=== PATIENT | female | born 1940 | race Caucasian/White ===

== ENCOUNTER → 2024-08-30 | Outpatient (CLI) | payer OTHER, SELFPAY ==
--- NOTE | 2024-08-30 | XR_ITS ---
EXAMINATIONS: Transforaminal epidural steroid injection, lumbar, single level, includes fluoro guidance, right L4-L5. Fluoroscopy ENGEL lumbar spine single view INDICATIONS: Right lower back pain months. Exam date and time: August 30, 2024 1350 hours Technique And Findings: Patient is positioned prone on the fluoroscopic table. Oblique fluoroscopic views obtained. Local anesthesia is obtained with 1% lidocaine. 22-gauge needle was advanced toward the 6:00 position of the pedicle. Fluoroscopy is utilized to ensure the needle tip is within the safe triangle After negative aspiration for blood and CSF, 1 cc Kenalog 40 triamcinolone is injected without difficulty. Patient tolerated the procedure well and in satisfactory and stable condition upon completion of procedure. Estimated blood loss 0 cc IMPRESSION: Successful transforaminal epidural steroid injection as described above Fluoroscopy 0.3 minute radiation dose 6.54 milligray 1 spot fluoroscopic lumbar spine film.
--- NOTE | 2024-08-30 | XR_ITS ---
EXAMINATIONS: Transforaminal epidural steroid injection, lumbar, single level, includes fluoro guidance, right L5-S1. Fluoroscopy ENGEL lumbar spine single view INDICATIONS: Right-sided lower back pain beginning months ago. Exam date and time: August 30, 2024 1350 hours Technique And Findings: Patient is positioned prone on the fluoroscopic table. Oblique fluoroscopic views obtained. Local anesthesia is obtained with 1% lidocaine. 22-gauge needle was advanced toward the 6:00 position of the pedicle. Fluoroscopy is utilized to ensure the needle tip is within the safe triangle After negative aspiration for blood and CSF, 1 cc Kenalog 40 is injected without difficulty. Patient tolerated the procedure well and in satisfactory and stable condition upon completion of procedure. Estimated blood loss 0 cc IMPRESSION: Successful transforaminal epidural steroid injection as described above Fluoroscopy 0.3 minute radiation dose 6.54 milligray 1 spot fluoroscopic lumbar spine film.
--- NOTE | 2024-08-30 13:30 | XR_ITS ---
EXAMINATIONS: Transforaminal epidural steroid injection, lumbar, single level, includes fluoro guidance, left L5-S1. Fluoroscopy RUSSIAN lumbar spine single view INDICATIONS: Left lower back pain months. Exam date and time: August 30, 2024 1350 hours Technique And Findings: Patient is positioned prone on the fluoroscopic table. Oblique fluoroscopic views obtained. Local anesthesia is obtained with 1% lidocaine. 22-gauge needle was advanced toward the 6:00 position of the pedicle. Fluoroscopy is utilized to ensure the needle tip is within the safe triangle After negative aspiration for blood and CSF, 40 mg triamcinolone is injected without difficulty. Patient tolerated the procedure well and in satisfactory and stable condition upon completion of procedure. Estimated blood loss 0 cc IMPRESSION: Successful transforaminal epidural steroid injection as described above Fluoroscopy 0.3 minute radiation dose 6.54 milligray 1 spot fluoroscopic lumbar spine film.
--- NOTE | 2024-08-30 13:30 | XR_ITS ---
EXAMINATIONS: Transforaminal epidural steroid injection, lumbar, single level, includes fluoro guidance, left L4-L5. Fluoroscopy PRYDEINIG lumbar spine single view INDICATIONS: Left lower back pain months. Exam date and time: August 30, 2024 1311 hours Technique And Findings: Patient is positioned prone on the fluoroscopic table. Oblique fluoroscopic views obtained. Local anesthesia is obtained with 1% lidocaine. 22-gauge needle was advanced toward the 6:00 position of the pedicle. Fluoroscopy is utilized to ensure the needle tip is within the safe triangle After negative aspiration for blood and CSF, 40 mg triamcinolone is injected without difficulty. Patient tolerated the procedure well and in satisfactory and stable condition upon completion of procedure. Estimated blood loss 0 cc IMPRESSION: Successful transforaminal epidural steroid injection as described above Fluoroscopy 0.3 minute radiation dose 6.54 milligray 1 spot fluoroscopic lumbar spine film.
== END | disposition home or self-care (01) ==
LOC: SIRX 09-06 08:39
PROVIDERS: PCP Family Medicine; Referring Provider Psychiatry & Neurology Neurology; Visit Provider Psychiatry & Neurology Neurology
DX: M54.17 Radiculopathy, lumbosacral region (principal)
CPT/HCPCS: 64483; 64484 ×2

== ENCOUNTER 2024-08-31 23:10 | Inpatient (IN) | payer OTHER, MEDICARE, SELFPAY ==
[2024-08-31 23:12] VITALS: PULSE 90; RESP 18; O2SAT 97
[2024-08-31 23:14] VITALS: BP 153/92; PULSE 91; RESP 19; TEMP 36.6; O2SAT 99
[2024-08-31 23:17] VITALS: BMI 25.0
--- NOTE | 2024-08-31 23:31 | XR_ITS ---
Examination: Right shoulder 2 views Technique: AP internal rotation Y-view right shoulder 2 views Exam date and time: August 31, 2024 11:45 PM Indications: Onset shoulder pain today Findings: Severe osteopenia Significant narrowing glenohumeral joint No shoulder fracture or dislocation Impression: Significant narrowing glenohumeral joint
--- NOTE | 2024-08-31 23:35 | PC.NURSE ---
PT DORINDA FROM HOME FOR RIGHT SHOULDER PAIN. PT STATES SHE WAS TURNING INTO BED WHEN SHE GOT EXTREME PAIN TO HER RIGHT SHOULDER. DENIES ANY TRAUMA,RECENT FALLS OR ANY INJURIES. PT WAS GIVEN FENTANYL 50 MCG IM. PT PRESENTS TO ER GUARDING RT SHOULDER, AND LIMITING RANGE OF MOTION TO ARM. PT PLACED IN ROOM 6 AND VITAL SIGN MONITORING. PT UPDATED ON PLAN OF CARE. CALL LIGHT WITHIN REACH. BED AT LOWEST POSITION.
[2024-09-01] VITALS (12 sets, daily range): BP systolic 126–173; BP diastolic 83–121; PULSE 79–95; RESP 16–20; TEMP 36.8–37.2; O2SAT 94–99
--- NOTE | 2024-09-01 00:03 | PD.EDADULT ---
ED General RME/HPI General Chief complaint: General Adult/Misc Complain Stated complaint: RT SHOULDER PAIN Time Seen by Provider: 08/31/24 23:32 Arrival date/time: 08/31/24 23:10 RME / HPI RME / HPI narrative: Dr. 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 Patient states she was pulling herself up into bed when she started having severe sudden right shoulder pain. Patient's son states he visited the patient earlier today around 1530 and was normal. Patient denies any falls or injuries. Denies any other associated symptoms. No known allergies. Related Data Home Medications ?Medication ?Instructions ?Recorded ?Confirmed allopurinol 300 mg tablet 300 mg PO QDAY 08/02/21 07/07/24 gabapentin 300 mg capsule 300 mg PO BID 09/15/21 07/07/24 furosemide 20 mg tablet 20 mg PO QDAY 05/13/24 07/07/24 apixaban 2.5 mg tablet (Eliquis) 2.5 mg PO QDAY 06/24/24 07/07/24 potassium chloride 10 mEq 10 meq PO QDAY 07/07/24 07/07/24 tablet,extended release Previous Rx's ?Medication ?Instructions ?Recorded diltiazem HCl 120 mg 120 mg PO QDAY 30 days #30 caps 02/10/24 capsule,extended release 24 hr pantoprazole 40 mg tablet,delayed 40 mg PO BID 30 days #60 tabs 02/10/24 release Allergies Allergy/AdvReac Type Severity Reaction Status Date / Time No Known Allergies Allergy Verified 07/08/24 07:02 Review of Systems Review of Systems Systems Reviewed: All systems reviewed, normal except as documented Past Medical History Past Medical History NEUROLOGIC: Negative Neurological Disorders or Seizures CARDIAC: Positive Cardiac Disorders, Atrial Fibrillation, Edema (legs), Hypertension and Varicose Veins; Negative Congestive Heart Failure RESPIRATORY: Positive Pneumonia (as a child); Negative Chronic Obstructive Pulmonary Disease (COPD) or Asthma GASTROINTESTINAL: Positive Gastrointestinal Disorders, Gastrointestinal Bleed, Hiatal Hernia and Gastroesophageal Reflux Disease GENITOURINARY: Negative Genitourinary Disorders or Renal Disease REPRODUCTIVE: Positive Previous Pregnancies MUSCULOSKELETAL: Positive Musculoskeletal Disorders, Arthritis, Gout and Fibromyalgia ENDOCRINE: Negative Endocrine Disorders, Diabetes Mellitus Type 1 or Diabetes Mellitus Type 2 HEMATOLOGIC: Positive Blood Disorders and Anemia; Negative Sickle Cell Disease OTHER HISTORY: Positive Hospitalization (surgery), Blood Transfusions, Measles and Mumps; Negative Autoimmune Disease, Shingles, Blood Transfusion Reaction, Anesthesia Reactions or Cancer Family History FAMILY HISTORY: Positive Family Cancer (father); Negative Family Psychiatric Problems, Family Respiratory Disorders, Family Cardiac Disorders, Family Gastrointestinal Problems, Family Surgery or Family Anesthesia Reaction Social History SMOKING STATUS: Never smoker SECOND HAND EXPOSURE: No SUBSTANCE USE: does not use ED Exam Narrative Physical exam: GENERAL APPEARANCE: alert and oriented x 4, well-developed, well-nourished, no acute distress VITALS: All vitals were reviewed and the pulse ox is 99% on room air, which is normal according to my interpretation. HEENT: Normocephalic, atraumatic; pupils equal, round, reactive to light; EOMI; mucous membranes pink, moist; oropharynx clear NECK: Supple LUNGS: CTABL; no wheezes, no rales, no rhonchi HEART: Regular rate, regular rhythm; normal S1, S2; no murmurs ABDOMEN: non distended; normal BS; soft, no tenderness, no guarding, no rebound; no masses, no organomegaly, no hernia BACK: no CVA tenderness EXTREMITIES: atraumatic; exquisite tenderness to palpation at the right shoulder, no edema NEUROLOGIC: awake; alert and oriented x4; cranial nerves II-XII grossly intact; no focal sensory or motor deficits PSYCHIATRIC: appropriate mood and affect SKIN: warm, dry, normal color; no rashes Course Course Course Narrative: CXR is ordered for determining the etiology of chest pain. Quality Measures none Orders Category Date Time Status COVID-19 Screening Questionnaire NOW Care 09/01/24 03:[address] Screening NOW Care 09/01/24 01:35 Completed Fishing Instructor STAT Care 09/01/24 00:06 Active Continuous Pulse Oximetry ONCE Care 09/01/24 00:06 Completed EKG (ED ONLY) *Do not use* NOW Care 09/01/24 00:06 Completed Insert IV STAT Care 09/01/24 00:06 Active Urinary Catheter STAT Care 09/01/24 00:[address] angio chest Stat Exams 09/01/24 01:[address] shoulder RT wo con Stat Exams 09/01/24 00:07 Taken EKG (ED Only) Stat Exams 09/01/24 00:06 Ordered XR chest 1V portable Stat Exams 09/01/24 00:06 Taken XR shoulder RT min 2V Stat Exams 08/31/24 23:31 Completed B-Type Natriuretic Peptide Stat Lab 09/01/24 00:00 Completed CBC Stat Lab 09/01/24 00:00 Completed Comprehensive Metabolic Panel Stat Lab 09/01/24 00:00 Completed Magnesium Stat Lab 09/01/24 00:00 Completed Partial Thromboplastin Time Stat Lab 09/01/24 00:00 Completed Prothrombin Time with INR Stat Lab 09/01/24 00:00 Completed Troponin I Stat Lab 09/01/24 00:00 Completed Ondansetron Inj [Zofran Inj] Med 09/01/24 00:03 Discontinued 4 mg IV X1 ONE fentaNYL INJ [Sublimaze Inj] Med 09/01/24 00:54 Discontinued 25 mcg IM X1 ONE fentaNYL INJ [Sublimaze Inj] Med 09/01/24 01:00 Discontinued 25 mcg IVP X1 ONE fentaNYL INJ [Sublimaze Inj] Med 09/01/24 00:03 Discontinued 50 mcg IVP X1 ONE fentaNYL INJ [Sublimaze Inj] Med 09/01/24 03:42 Discontinued 50 mcg IVP X1 ONE Vital Signs Vital signs: Vital Signs Temperature 98 F 08/31/24 23:14 Pulse Rate 91 08/31/24 23:14 Respiratory Rate 19 08/31/24 23:14 Blood Pressure 153/92 H 08/31/24 23:14 Pulse Oximetry (%) 99 08/31/24 23:14 Oxygen Delivery Method Room Air 08/31/24 23:14 [facility] Patient data External records reviewed:: [facility] previous records (Per chart review, patient was admitted here from 02/08/24-02/11/24 for a gastric mass.) Clinical information provided by:: patient Social determinants that could affect healthcare access:: none Patient has the following chronic illnesses:: situs inversus, hypertension, gout, GERD How is presenting disease/condition affected by chronic disease/condition?: uneffected by Evaluation data The following diagnostics were reviewed and interpreted by me:: lab results, radiology exam(s) and EKG tracing(s) Lab and/or radiology exams considered but not ordered:: none Interpretation Summary: CBC is normal, CMP is normal, Magnesium is normal, Troponin is normal, PTT is normal, PT and INR are normal, X-ray of the right shoulder shows a questionable humeral neck fracture, no displacement, no soft tissue swelling, according to my interpretation. CXR shows widened mediastinum, severe scoliosis, dextrocardio, according to my interpretation. EKG done at 0150, NSR, rate of 98, right axis deviation, Q waves in V4-V6, lead I, and aVL, no ectopy, and no acute ischemia, according to my interpretation. ----- [employer] Preliminary Report Draft Patient: FELIX SUN [employer]. Record#: [id number] Birthdate: 1940 Age/Sex: 83 / F Location: [facility] Attending Dr: Ordering Physician: Date of Service: Procedure(s): Accession Number(s): cc: ~ CT scan of the right shoulder without intravenous contrast (axial sections with sagittal and coronal reformats) September 01, 2024 0034 hours Clinical History: Severe right shoulder pain Comparison: No prior study is available for comparison. Findings: The bones are osteopenic. No evidence of acute fracture or dislocation. There is an old fracture of the spinous process of the scapula. Moderate effusion is seen in the glenohumeral joint with small loose bodies. The rotator cuff muscles appear thickened and appear slightly heterogeneous with minimal intermuscular fluid, likely representing hematoma predominantly involving subscapularis. Qtbi-dy-rfcnmeux degenerative changes are seen in the acromioclavicular joint. Mild degenerative changes are seen in the glenohumeral joint evident with decreased joint space, subchondral sclerosis and articular surface irregularity. The superficial soft tissues are unremarkable. Impression: No evidence of acute fracture or dislocation. Degenerative changes as described. Thickening of the rotator cuff muscles, predominantly involving subscapularis with minimal intermuscular fluid, suspicious for hematoma. Recommend clinical correlation and follow-up or further evaluation as indicated. Report Electronically Signed By: Travis Mccarthy 09/01/2024 1:28:32 AM [EST] ------ [employer] Preliminary Report Draft Patient: FELIX SUN [employer]. Record#: [id number] Birthdate: 1940 Age/Sex: 83 / F Location: [facility] Attending Dr: Ordering Physician: Date of Service: Procedure(s): Accession Number(s): cc: ~ CT angiogram of the chest with intravenous contrast (axial sections with sagittal and coronal reformats); dated September 01, 2024 at 0157 hours Clinical History: Right shoulder pain. Technique:Helical axial sections with sagittal and coronal reformats of the chest were obtained with intravenous contrast. Iterative reconstruction technique was employed to reduce patient radiation exposure. 3D/MIP reconstructed images were also provided. Reference is made to the prior CT report dated September 01, 2024. 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 The evaluation is slightly limited due to motion and streak artifacts from dense contrast in the superior vena cava. There is no definite filling defect within the pulmonary artery divisions to suggest pulmonary thromboembolism. The mediastinum demonstrates no mass or lymphadenopathy. The aorta and its branches demonstrate atheromatous calcification without evidence of aneurysm. There is no pericardial effusion. A large hiatal hernia is present containing an inverted stomach without obstruction. The distal esophagus is distended and demonstrates circumferential wall thickening, suggestive of reflux esophagitis. Bibasilar streaky atelectasis is present. Left lower lobe collapse-consolidation is seen. No evidence of pleural effusion or pneumothorax. A small cyst is seen in the visualized right kidney. There are multiple colonic diverticula without evidence of diverticulitis. The other visualized upper abdominal viscera are unremarkable. There is osteopenia. Mild osseous degenerative changes are noted. There is enlargement of the right shoulder periarticular muscles with heterogeneous attenuation. The subscapularis is also markedly enlarged and heterogeneous. There is also a small right shoulder joint effusion with hyperdensity. No fracture or dislocation is seen. Impression: 1. No definite CT evidence of pulmonary thromboembolism. 2. Situs inversus totalis. Bibasilar streaky atelectasis with left lower lobe collapse-consolidation. 3. Large hiatal hernia containing moderately dilated inverted stomach without obstruction. Findings suggestive of reflux esophagitis. 4. Enlarged heterogeneous right shoulder periarticular and subscapularis muscles with joint fluid, suggestive of intramuscular hematoma and hemarthrosis. No evidence of fracture or dislocation. Recommend clinical correlation. Discussion Details: Results Discussed With : Dr. Mckeon at 03:16 AM 09/01/2024 Report Electronically Signed By: Candice Lynn 09/01/2024 3:25:22 AM [EST] Medications Medications considered but not ordered:: none Medication administrations:: Medication Administration History Discontinued Medications Fentanyl Citrate (Fentanyl Cit Inj 50 Mcg/Ml Amp 2ml) 50 mcg IVP X1 ONE Stop: 09/01/24 00:04 Last Admin: 09/01/24 00:22 Dose: 50 mcg Documented By: RAKESH Fentanyl Citrate (Fentanyl Cit Inj 50 Mcg/Ml Amp 2ml) 25 mcg IM X1 ONE Stop: 09/01/24 00:55 Last Admin: 09/01/24 01:09 Dose: Not Given Documented By: SONY Non-Admin Reason: Discontinued Fentanyl Citrate (Fentanyl Cit Inj 50 Mcg/Ml Amp 2ml) 25 mcg IVP X1 ONE Stop: 09/01/24 01:01 Last Admin: 09/01/24 01:01 Dose: 25 mcg Documented By: MATT Fentanyl Citrate (Fentanyl Cit Inj 50 Mcg/Ml Amp 2ml) 50 mcg IVP X1 ONE Stop: 09/01/24 03:43 Ondansetron HCl (Ondansetron Inj 2 Mg/Ml Inj 2 Ml) 4 mg IV X1 ONE; Protocol Stop: 09/01/24 00:04 Last Admin: 09/01/24 00:22 Dose: 4 mg Documented By: RAKESH see above Consultations Consultation(s) initiated? (list below): Yes Consultation #1 (Physician, Specialty, Details): Discussed case with [the resident physician, attending Dr. Noriega] from Hospitalist service regarding admission. Discussed patients ED course, exam findings, labs, and radiology results. The Hospitalist [agrees] to accept the patient for admission. Time: 03:41 Diagnosis Differential Diagnosis ED Complaint MDM: fracture, dislocation, contusion, aortic dissection Most likely diagnosis given after review of the tests above:: see below Admission Indicated Admission indicated?: indicated Explain why admission is indicated or not indicated:: Due to the patient's symptoms and results, patient is warranted for admission. Admission Request Was there a request for admission?: Yes Admission Attestation Admission request attestation: Discussed case with [] from Hospitalist service regarding admission. Discussed patients ED course, exam findings, labs, and radiology results. The Hospitalist [agrees,declines] to accept the patient for admission. Disposition Plan Disposition Plan: Admit Medical Decision Making Differential Diagnosis Differential Diagnosis: fracture, dislocation, contusion, aortic dissection Lab Data 09/01/24 00:00 09/01/24 00:00 Labs: Lab Results 09/01/24 Range/Units 00:00 WBC 5.4 (3.6-11.0) Thou/mm3 RBC 3.84 L (4.00-5.20) Miln/mm3 Hgb 12.5 (12.0-16.0) g/dL Hct 36.3 (36.0-46.0) % MCV 95 (80-100) fL MCH 32.6 (25.0-35.0) pg MCHC 34.4 (31.0-37.0) g/dl RDW Std Deviation 51.3 H (36.4-46.3) fL Plt Count 225 (140-440) Thou/mm3 Neut % (Auto) 79 (37-80) % Lymph % (Auto) 14 (10-50) % [place] % (Auto) 6 (0-12) % Eos % (Auto) 0 (0-10) % Baso % (Auto) 0 (0-2.5) % Neut # (Auto) 4.3 (1.8-7.7) Thou/mm3 Lymph # (Auto) 0.8 L (1.0-4.8) Thou/mm3 [place] # (Auto) 0.3 (0.0-0.8) Thou/mm3 Eos # (Auto) 0.0 (0.0-0.5) Thou/mm3 Baso # (Auto) 0.0 (0.0-0.2) Thou/mm3 Immature Gran # (Auto) 0.04 H (0.00-0.00) Thou/mm3 Absolute Nucleated RBC 0.00 (0.00-0.00) Thou/mm3 Immature Gran % 1 H (0-0) % Nucleated RBC % 0 (0) /100 WBC PT 10.9 (9.0-12.2) Seconds INR 1.0 (0.9-1.3) APTT 25.3 (22.0-36.0) Seconds Sodium 139 (136-145) mMol/L Potassium 3.6 (3.4-5.1) mMol/L Chloride 107 (98-107) mMol/L Carbon Dioxide 24.4 (20.0-31.0) mMol/L Anion Gap 8 (7-16) BUN 25 H (9-23) mg/dL Creatinine 0.8 (0.6-1.3) mg/dL Estim Creat Clear Calc 50.0 L (>60) mL/min eGFR > 60 (60 - ) See Note BUN/Creatinine Ratio 31 H (12-20) Ratio Glucose 131 H (74-106) mg/dL Calculated Osmolality 283 (275-295) Calcium 10.2 (8.3-10.6) mg/dL Corrected Calcium 10.2 H (8.5-10.1) mg/dL Magnesium 2.2 (1.6-2.6) mg/dL Total Bilirubin 0.6 (0.3-1.2) mg/dL AST 16 (0-34) U/L ALT < 7 L (10-49) U/L Alkaline Phosphatase 99 (46-116) U/L Troponin I < 0.020 (0.0-0.045) ng/mL B-Natriuretic Peptide 144 H (0-100) pg/mL Total Protein 7.0 (5.7-8.2) gm/dL Albumin 4.7 (3.4-4.8) gm/dL Globulin 2.3 (2.3-3.5) gm/dL Albumin/Globulin Ratio 2.0 (1.2-2.2) Discharge Plan Plan Patient Disposition: Admit Acute Care w/in Hospital Prescriptions/Referrals Prescriptions/Med Rec: No Action Eliquis 2.5 mg tablet 2.5 mg PO QDAY allopurinol 300 mg Tablet 300 mg PO QDAY gabapentin 300 mg Capsule 300 mg PO BID pantoprazole 40 mg Tablet,Delayed Release (Dr/Ec) 40 mg PO BID 30 Days Qty: 60 2RF diltiazem HCl 120 mg Capsule,Extended Release 24hr 120 mg PO QDAY 30 Days Qty: 30 1RF potassium chloride 10 mEq Tablet Extended Release 10 meq PO QDAY furosemide 20 mg tablet 20 mg PO QDAY Problem List Clinical Impression: Intractable pain, Spontaneous hematoma of upper arm Patient/Caregiver Discharge Instructions Print Language: Slovenian Stand Alone Forms: Siria Award Info., Patient Portal Info Letter
--- NOTE | 2024-09-01 00:06 | XR_ITS ---
Examination: AP chest single view TECHNIQUE: Portable AP supine chest single view Exam date and time: September 01, 2024 0109 hours INDICATIONS: Chest pain today. FINDINGS: Situs inversus Mild prominence cardiac contour Mild ectasia thoracic aorta Mild vascular congestion Atelectasis versus pneumonia right base IMPRESSION: Atelectasis versus pneumonia right base
--- NOTE | 2024-09-01 00:07 | XR_ITS ---
Examination: CT right shoulder, without contrast. 2-D sagittal reconstructions. 2-D coronal reconstructions. 3-D reconstructions. Date and time of exam:September 01, 2024 1234 hours INDICATIONS: Onset right shoulder pain today CTDI: vol (mGy):9.61 DLP: (mGycm):237 Technique: Multiple 1.25 mm axial sections of the right shoulder without intravenous contrast have been obtained. 2-D sagittal and coronal reconstructions have been obtained. 3-D reconstructions have been obtained. Low dose protocols were performed. One or more of the following dose reduction techniques were used; automated exposure control, adjustment of the mA and/or KV according to patient size, use of iterative reconstruction technique. Findings: Soft tissue swelling involving musculature about the right shoulder Prominent osteopenia No acute shoulder fracture or shoulder dislocation Fluid in the glenohumeral joint IMPRESSION: No acute fracture or shoulder dislocation Prominent soft tissue swelling of the rotator cuff muscles
[2024-09-01] MEDS: fentaNYL CIT INJ 50 mCg/ML AMP 2ML IVP (00:22)
[2024-09-01] MEDS: ONDANSETRON INJ 2 MG/ML INJ 2 ML 4 MG IV (00:22)
[2024-09-01 00:35] LABS: Basophils % (Auto) 0 % (0-2.5); Eosinophils % (Auto) 0 % (0-10); Hematocrit 36.3 % (36.0-46.0); Hemoglobin 12.5 g/dL (12.0-16.0); Immature Granulocytes % (Auto) 1 % (0-0); Immature Granulocytes Auto 0.04 Thou/mm3 (0.00-0.00); Lymphocytes # (Auto) 0.8 Thou/mm3 (1.0-4.8); Lymphocytes % (Auto) 14 % (10-50); Mean Corpuscular HGB Conc 34.4 g/dl (31.0-37.0); Mean Corpuscular Hemoglobin 32.6 pg (25.0-35.0); Mean Corpuscular Volume 95 fL (80-100); Monocytes # (Auto) 0.3 Thou/mm3 (0.0-0.8); Monocytes % (Auto) 6 % (0-12); Neutrophils # (Auto) 4.3 Thou/mm3 (1.8-7.7); Neutrophils % (Auto) 79 % (37-80); Nucleated Red Blood Cell % 0 /100 WBC (0); Platelet Count 225 Thou/mm3 (140-440); RDW Standard Deviation 51.3 fL (36.4-46.3); Red Blood Count 3.84 Miln/mm3 (4.00-5.20); White Blood Count 5.4 Thou/mm3 (3.6-11.0)
[2024-09-01 00:53] LABS: Partial Thromboplastin Time 25.3 Seconds (22.0-36.0); Prothrombin Time 10.9 Seconds (9.0-12.2)
[2024-09-01 00:56] LABS: Alanine Aminotransferase < 7 U/L (10-49); Albumin, Serum 4.7 gm/dL (3.4-4.8); Alkaline Phosphatase 99 U/L (46-116); Anion Gap 8 (7-16); Aspartate Amino Transferase 16 U/L (0-34); BUN/Creatinine Ratio 31 Ratio (12-20); Bilirubin,Total 0.6 mg/dL (0.3-1.2); Blood Urea Nitrogen 25 mg/dL (9-23); Calcium 10.2 mg/dL (8.3-10.6); Calcium (Corrected) 10.2 mg/dL (8.5-10.1); Carbon Dioxide 24.4 mMol/L (20.0-31.0); Chloride 107 mMol/L (98-107); Creatinine (Component) 0.8 mg/dL (0.6-1.3); Globulin 2.3 gm/dL (2.3-3.5); Glucose 131 mg/dL (74-106); Magnesium 2.2 mg/dL (1.6-2.6); Osmolality,Calculated 283 (275-295); Potassium 3.6 mMol/L (3.4-5.1); Sodium 139 mMol/L (136-145); Troponin I < 0.020 ng/mL (0.0-0.045); eGFR > 60 See Note
[2024-09-01] MEDS: fentaNYL CIT INJ 50 mCg/ML AMP 2ML 25 MCG IVP (01:01)
--- NOTE | 2024-09-01 01:30 | PRELIM_ITS ---
CT scan of the right shoulder without intravenous contrast (axial sections with sagittal and coronal reformats) September 01, 2024 0034 hours Clinical History: Severe right shoulder pain Comparison: No p rior study is available for comparison. Findings:The bones are osteopenic. No evidence of acute fract ure or dislocation. There is an old fracture of the spinous process of the scapula. Moderate effusion is seen in the glenohumeral joint with small loose bodies. The rotator cuff muscles appear thickened and appear slightly heterogeneous with minimal intermuscular fluid, likely representing hematoma pre dominantly involving subscapularis. Fkot-dv-cveuqybt degenerative changes are seen in the acromioclav icular joint. Mild degenerative changes are seen in the glenohumeral joint evident with decreased maribell nt space, subchondral sclerosis and articular surface irregularity. The superficial soft tissues are unremarkable. Impression:No evidence of acute fracture or dislocation. Degenerative changes as descri bed. Thickening of the rotator cuff muscles, predominantly involving subscapularis with minimal inter muscular fluid, suspicious for hematoma. Recommend clinical correlation and follow-up or further eval uation as indicated. Report Electronically Signed By: Travis Mccarthy 09/01/2024 1:28:32 AM [EST]
[2024-09-01 01:31] LABS: B-Type Natriuretic Peptide 144 pg/mL (0-100)
--- NOTE | 2024-09-01 01:35 | XR_ITS ---
Examination: CTA chest with intravenous contrast 2-D reconstructions 3-D reconstructions, vascular Date and time of exam: September 01, 2024 0157 hours INDICATIONS: Right shoulder chest pain today CTDI: vol (mGy) 23.15 DLP: (mGycm) 530 Technique: Multiple axial sections of the thorax have been obtained. 3 mm slice thickness, from below the hemidiaphragms to above the apices of the lungs. Mediastinal and lung density settings have been obtained. 2-D sagittal and coronal reconstructions. 3-D angiographic renderings, 3-D volume renderings, 3D post processing, vascular maximum intensity projections obtained. Contrast administered is 100 cc Isovue-370 intravenous. Low dose protocols were performed. One or more of the following dose reduction techniques were used; automated exposure control, adjustment of the mA and/or KV according to patient size, use of iterative reconstruction technique. Findings: Diffuse soft tissue swelling about the right shoulder with fluid in the glenohumeral joint No shoulder dislocation No thoracic aortic aneurysm dilatation or dissection No pulmonary artery emboli Large retrocardiac gastric hernia Atelectasis versus pneumonia right base No visualized liver or splenic lesion No gallstones No hydronephrosis Abdominal aortic calcification no aneurysmal dilatation Severe osteopenia with chronic wedging mid dorsal vertebral bodies IMPRESSION: No thoracic aortic aneurysm dilatation or dissection Negative for pulmonary artery emboli Atelectasis versus early pneumonia right base
--- NOTE | 2024-09-01 03:26 | PRELIM_ITS ---
CT angiogram of the chest with intravenous contrast (axial sections with sagittal and coronal reforma ts); dated September 01, 2024 at 0157 hours Clinical History: Right shoulder pain. Technique:Helical a xial sections with sagittal and coronal reformats of the chest were obtained with intravenous contras t. Iterative reconstruction technique was employed to reduce patient radiation exposure. 3D/MIP recon structed images were also provided. Reference is made to the prior CT report dated September 01, 2024. 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 The evaluation is slightly limited due to motio n and streak artifacts from dense contrast in the superior vena cava. There is no definite filling de fect within the pulmonary artery divisions to suggest pulmonary thromboembolism. The mediastinum demo nstrates no mass or lymphadenopathy. The aorta and its branches demonstrate atheromatous calcificatio n without evidence of aneurysm. There is no pericardial effusion. A large hiatal hernia is present co ntaining an inverted stomach without obstruction. The distal esophagus is distended and demonstrates circumferential wall thickening, suggestive of reflux esophagitis.Bibasilar streaky atelectasis is pr esent. Left lower lobe collapse-consolidation is seen. No evidence of pleural effusion or pneumothora x.A small cyst is seen in the visualized right kidney. There are multiple colonic diverticula without evidence of diverticulitis. The other visualized upper abdominal viscera are unremarkable. There is osteopenia. Mild osseous degenerative changes are noted. There is enlargement of the right shoulder periarticular muscles with heterogeneous attenuation. The subscapularis is also markedly enlarged and heterogeneous. There is also a small right shoulder joint effusion with hyperdensity. No fracture or dislocation is seen. Impression:1. No definite CT evidence of pulmonary thromboembolism.2. Situs inv ersus totalis. Bibasilar streaky atelectasis with left lower lobe collapse-consolidation. 3. Large h iatal hernia containing moderately dilated inverted stomach without obstruction. Findings suggestive of reflux esophagitis. 4. Enlarged heterogeneous right shoulder periarticular and subscapularis muscl es with joint fluid, suggestive of intramuscular hematoma and hemarthrosis. No evidence of fracture o r dislocation. Recommend clinical correlation. Discussion Details: Results Discussed With : Dr. Marie hager at 03:16 AM 09/01/2024 Report Electronically Signed By: Candice Lynn 09/01/2024 3:25:22 AM [EST]
--- NOTE | 2024-09-01 04:49 | ESHP_ITS ---
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 Per patient, she states that she felt weak and called her son to bring her son who brought her to the hospital. However, spoke to son over phone and he stated that patient called after she felt sudden onset right shoulder pain while getting into bed around 10 PM. Upon arrival, son states that patient was in significant pain and so he brought her to the hospital. Patient denies falls, loss of consciousness, lightheadedness, palpitations, chest discomfort, or shortness of breath. Of note, patient does state she had a large bruise on right upper extremity approximately 5 weeks ago with no reported trauma. Today, minimal bruising seen in right upper extremity. She does take Eliquis 2.5 mg twice daily and follows Dr. Serna outpatient and last appointment was approximately 2 months ago. ED course: BP 153/92, HR 91, on room air, afebrile. Hemoglobin stable at 12.5 (baseline 10-11); CBC and CMP unremarkable CT right shoulder prelim: Minimal intramuscular fluid, suspicious for hematoma CTA right shoulder prelim: Hiatal hernia, enlarged periarticular and subscapularis muscles with joint fluid PMHx: As noted above Medications: Gabapentin, Eliquis, allopurinol, diltiazem, furosemide SHx Denies current cigarette, alcohol, illicit drug use PSHx: Appendectomy Review of Systems Review of Systems Systems Reviewed: All systems reviewed, normal except as documented Exam Vital Signs Temp Pulse Resp BP Pulse Ox O2 Del Method 98.2 F 95 19 165/106 H 99 Room Air 09/01/24 03:03 09/01/24 03:03 09/01/24 03:03 09/01/24 03:03 09/01/24 03:03 09/01/24 03:03 Narrative Exam General: AOx3, no acute distress, able to speak full sentences HEENT: NC/AT, mucous membranes moist, bilateral sclera anicteric Cardiovascular: Dextrocardia, regular rate and rhythm, S1/S2 present, no murmurs appreciated Pulmonary: clear to auscultation bilaterally, no rales/rhonchi/wheezes Abdominal: soft, non-tender, non-distended, no rebound/guarding, normal bowel sounds present Musculoskeletal: Nonpitting bilateral lower extremity edema Skin: Minimal bruising in right upper extremity, warm and dry, intact, no rashes Neuro: CN II-XII intact, no focal deficits Results: Labs 09/01/24 05:05 09/01/24 05:05 Labs: Short CBC 09/01/24 Range/Units 00:00 WBC 5.4 (3.6-11.0) Thou/mm3 Hgb 12.5 (12.0-16.0) g/dL Hct 36.3 (36.0-46.0) % Plt Count 225 (140-440) Thou/mm3 BMP 09/01/24 00:00 Sodium 139 Potassium 3.6 Chloride 107 Carbon Dioxide 24.4 BUN 25 H Creatinine 0.8 Glucose 131 H Calcium 10.2 Cardiac Enzymes 09/01/24 Range/Units 00:00 Troponin I < 0.020 (0.0-0.045) ng/mL Liver Function 09/01/24 Range/Units 00:00 Total Bilirubin 0.6 (0.3-1.2) mg/dL AST 16 (0-34) U/L ALT < 7 L (10-49) U/L Alkaline Phosphatase 99 (46-116) U/L Albumin 4.7 (3.4-4.8) gm/dL Quality Measures Quality Measures none Advance care planning discussed with:: patient and child Medications Home Medications and Allergies Home Medications ?Medication ?Instructions ?Recorded ?Confirmed ?Type allopurinol 300 mg tablet 300 mg PO QDAY 08/02/21 07/07/24 History gabapentin 300 mg capsule 300 mg PO BID 09/15/21 09/01/24 History furosemide 20 mg tablet 20 mg PO QDAY 05/13/24 09/01/24 History apixaban 2.5 mg tablet (Eliquis) 2.5 mg PO QDAY 06/24/24 09/01/24 History Allergies Allergy/AdvReac Type Severity Reaction Status Date / Time No Known Allergies Allergy Verified 07/08/24 07:02 Visit Medications Acetaminophen (Acetaminophen 325 Mg Tablet) 650 mg PO Q6H PRN PRN Reason: PAIN OR FEVER > 101 Stop: 10/01/24 04:31 Hydrocodone Bitart/Acetaminophen (Hydrocodone/Apap 5/325 Tablet) 1 tab PO Q6HR PRN PRN Reason: PAIN SCALE 4-6 (Moderate Stop: 09/06/24 04:31 Ondansetron HCl (Ondansetron Inj 2 Mg/Ml Inj 2 Ml) 4 mg IV Q6H PRN; Protocol PRN Reason: NAUSEA OR VOMITING Stop: 10/01/24 04:31 Pantoprazole Sodium (Pantoprazole 40 Mg Tablet) 40 mg PO QDAY PAMELA Stop: 10/01/24 08:59 Discontinued Medications Fentanyl Citrate (Fentanyl Cit Inj 50 Mcg/Ml Amp 2ml) 50 mcg IVP X1 ONE Stop: 09/01/24 00:04 Last Admin: 09/01/24 00:22 Dose: 50 mcg Fentanyl Citrate (Fentanyl Cit Inj 50 Mcg/Ml Amp 2ml) 25 mcg IM X1 ONE Stop: 09/01/24 00:55 Last Admin: 09/01/24 01:09 Dose: Not Given Fentanyl Citrate (Fentanyl Cit Inj 50 Mcg/Ml Amp 2ml) 25 mcg IVP X1 ONE Stop: 09/01/24 01:01 Last Admin: 09/01/24 01:01 Dose: 25 mcg Fentanyl Citrate (Fentanyl Cit Inj 50 Mcg/Ml Amp 2ml) 50 mcg IVP X1 ONE Stop: 09/01/24 03:43 Ondansetron HCl (Ondansetron Inj 2 Mg/Ml Inj 2 Ml) 4 mg IV X1 ONE; Protocol Stop: 09/01/24 00:04 Last Admin: 09/01/24 00:22 Dose: 4 mg Assessment & Plan Plan Jessy Vergara is an 83-year-old female with a 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 #Right shoulder hematoma #Right shoulder pain CT right shoulder prelim: Minimal intramuscular fluid, suspicious for hematoma CTA right shoulder prelim: Hiatal hernia, enlarged periarticular and subscapularis muscles with joint fluid ? Pain management with [place] and morphine ? Eliquis held ? Supportive management ? Ortho consulted, appreciate recommendations ? Monitor H&H, in case of worsening hematoma, consider Kcentra. Currently hemoglobin is stable. Will follow-up with Ortho recommendations. ? Consider PT upon discharge for patient disposition #A-fib with RVR #History of hypertension #? History of gout #History of spinal stenosis #Situs inversus #Sliding hiatal hernia, nonincarcerated ? PPI ? Diltiazem 120 mg ? Resumed home Lasix 20 mg every other day ? Monitor CBC and CMP Hospital management: Disposition: med surg Fluids: not indicated Diet: NPO Lines: peripheral DVT prophylaxis: deferred GI prophylaxis: pantoprazole CODE STATUS: DNR ----- Plan discussed with attending physician Dr. Hari Joseph MD PGY-1 Internal Medicine Attending Provider Attestation/Addendum I reviewed labs, imaging, EKG, home medications and prior available records. Face to face evaluation was performed by me. I have personally examined the patient and discussed assessment and plan with the IM team. I reviewed the resident note and agree with the plan with exceptions as below. 83-year-old female with history of atrial fibrillation on Eliquis who presented with pain on her right shoulder. She was found to have right shoulder hematoma. Right shoulder hematoma: In the setting of injury likely direct injury. No reported history of fall. She is able to move her shoulder however with pain. Will admit for pain management and PT evaluation. Consulted orthopedic surgery. Apply cold pads. Management of pain as needed. Hold Eliquis. Atrial fibrillation: Hold home Eliquis.
[2024-09-01 05:15] LABS: Basophils % (Auto) 0 % (0-2.5); Eosinophils % (Auto) 0 % (0-10); Hemoglobin 11.3 g/dL (12.0-16.0); Immature Granulocytes % (Auto) 1 % (0-0); Immature Granulocytes Auto 0.07 Thou/mm3 (0.00-0.00); Lymphocytes # (Auto) 1.5 Thou/mm3 (1.0-4.8); Lymphocytes % (Auto) 14 % (10-50); Mean Corpuscular HGB Conc 35.3 g/dl (31.0-37.0); Mean Corpuscular Hemoglobin 32.8 pg (25.0-35.0); Mean Corpuscular Volume 93 fL (80-100); Monocytes # (Auto) 0.8 Thou/mm3 (0.0-0.8); Monocytes % (Auto) 7 % (0-12); Neutrophils # (Auto) 8.3 Thou/mm3 (1.8-7.7); Neutrophils % (Auto) 78 % (37-80); Nucleated Red Blood Cell % 0 /100 WBC (0); Platelet Count 201 Thou/mm3 (140-440); RDW Standard Deviation 50.8 fL (36.4-46.3); Red Blood Count 3.45 Miln/mm3 (4.00-5.20); White Blood Count 10.7 Thou/mm3 (3.6-11.0)
[2024-09-01 05:30] LABS: Anion Gap 9 (7-16); BUN/Creatinine Ratio 25 Ratio (12-20); Blood Urea Nitrogen 20 mg/dL (9-23); Calcium 9.2 mg/dL (8.3-10.6); Carbon Dioxide 23.1 mMol/L (20.0-31.0); Chloride 104 mMol/L (98-107); Cholesterol 170 mg/dL (132-200); Creatinine (Component) 0.8 mg/dL (0.6-1.3); Glucose 126 mg/dL (74-106); HDL Cholesterol 56 mg/dL (40-60); LDL Cholesterol,Calculated 99 mg/dL (0-130); Magnesium 1.8 mg/dL (1.6-2.6); Osmolality,Calculated 276 (275-295); Phosphorous 3.2 mg/dL (2.4-5.1); Potassium 3.8 mMol/L (3.4-5.1); Sodium 136 mMol/L (136-145); Triglycerides 75 mg/dL (30-150); eGFR > 60 See Note
[2024-09-01] MEDS: HYDROcodone/APAP 5/325 TABLET 1 TAB PO (08:24)
[2024-09-01] MEDS: PANTOPRAZOLE 40 MG TABLET PO (08:24)
[2024-09-01] MEDS: GABAPENTIN 100 MG CAPSULE 300 MG PO (08:27)
--- NOTE | 2024-09-01 08:32 | PC.NURSE ---
pharmacy to bring garrett
[2024-09-01] MEDS: DILTIAZEM CD 120 MG CAPCR PO (09:53)
--- NOTE | 2024-09-01 13:35 | PC.NURSE ---
provider called for diet order, Dr. Saldana to put in order.
--- NOTE | 2024-09-01 15:14 | ESPR_ITS ---
<Statement entered by Manasa Saldana MD - 09/01/24 16:56> I discussed with and supervised the international travel consultant physician who took care of this patient. I personally saw and examined the patient and discussed the assessment and plan with the entire medicine team, including my attending Dr. Barone, I agree with most of the assessment and plan as documented below Manasa Saldana M.D. 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 Per patient, she states that she felt weak and called her son to bring her son who brought her to the hospital. However, spoke to son over phone and he stated that patient called after she felt sudden onset right shoulder pain while getting into bed around 10 PM. Upon arrival, son states that patient was in significant pain and so he brought her to the hospital. Patient denies falls, loss of consciousness, lightheadedness, palpitations, chest discomfort, or shortness of breath. Of note, patient does state she had a large bruise on right upper extremity approximately 5 weeks ago with no reported trauma. Today, minimal bruising seen in right upper extremity. She does take Eliquis 2.5 mg twice daily and follows Dr. Serna outpatient and last appointment was approximately 2 months ago. 09/01: No acute overnight events. This morning, patient states that she is still experiencing significant pain in the right shoulder, unable to move it due to pain but still able to move elbow and wrist of right arm without issue. Denies any recent rashes over the area, states that she has only had bruising there for the past 5 weeks but again denies any trauma or falls. This is her first time experiencing pain like this. Noted in patient's medication history that she takes Allopurinol - when asked if patient has a known history of gout, she says she does not remember being diagnosed in the past, and is unsure of why she takes this medication. She does state that she has episodes where a single toe gets erythematous and painful for several days at a time, lending evidence to gout as a possible etiology. Will continue to hold Eliquis for the time being due to low risk of bleeding into the joint. Naproxen 250mg BID started for pain relief, ordered uric acid for workup of possible gout. Exam Vital Signs Temp Pulse Resp BP Pulse Ox O2 Del Method 98.7 F 79 16 157/88 H 97 Room Air 09/01/24 14:18 09/01/24 14:18 09/01/24 14:18 09/01/24 14:18 09/01/24 14:18 09/01/24 14:18 Narrative Exam General: AOx3, no acute distress, able to speak full sentences HEENT: NC/AT, mucous membranes moist, bilateral sclera anicteric Cardiovascular: Dextrocardia, regular rate and rhythm, S1/S2 present, no murmurs appreciated Pulmonary: clear to auscultation bilaterally, no rales/rhonchi/wheezes Abdominal: soft, non-tender, non-distended, no rebound/guarding, normal bowel sounds present Musculoskeletal: Right shoulder mildly erythematous (consistent with surrounding skin of chest and back), significantly tender to light palpation, unable to move right shoulder due to pain, full range of motion and strength intact in right elbow/wrist/hand, no skin lesions noted over right shoulder, no localized edema noted, no crepitus palpated on movement, left shoulder without erythema or pain Skin: Minimal bruising in right upper extremity, warm and dry, intact, no rashes Neuro: CN II-XII intact, no focal deficits Objective Labs 09/02/24 04:35 09/02/24 04:35 Labs: Laboratory Results - last 24 hr 09/01/24 09/01/24 00:00 05:05 WBC 5.4 10.7 D RBC 3.84 L 3.45 L Hgb 12.5 11.3 L Hct 36.3 32.0 L MCV 95 93 MCH 32.6 32.8 MCHC 34.4 35.3 RDW Std Deviation 51.3 H 50.8 H Plt Count 225 201 Neut % (Auto) 79 78 Lymph % (Auto) 14 14 [place] % (Auto) 6 7 Eos % (Auto) 0 0 Baso % (Auto) 0 0 Neut # (Auto) 4.3 8.3 H Lymph # (Auto) 0.8 L 1.5 [place] # (Auto) 0.3 0.8 Eos # (Auto) 0.0 0.0 Baso # (Auto) 0.0 0.0 Immature Gran # (Auto) 0.04 H 0.07 H Absolute Nucleated RBC 0.00 0.00 Immature Gran % 1 H 1 H Nucleated RBC % 0 0 PT 10.9 INR 1.0 APTT 25.3 Sodium 139 136 Potassium 3.6 3.8 Chloride 107 104 Carbon Dioxide 24.4 23.1 Anion Gap 8 9 BUN 25 H 20 Creatinine 0.8 0.8 Estim Creat Clear Calc 50.0 L 50.0 L eGFR > 60 > 60 BUN/Creatinine Ratio 31 H 25 H Glucose 131 H 126 H Calculated Osmolality 283 276 Calcium 10.2 9.2 Corrected Calcium 10.2 H Phosphorus 3.2 Magnesium 2.2 1.8 Total Bilirubin 0.6 AST 16 ALT < 7 L Alkaline Phosphatase 99 Troponin I < 0.020 B-Natriuretic Peptide 144 H Total Protein 7.0 Albumin 4.7 Globulin 2.3 Albumin/Globulin Ratio 2.0 Triglycerides 75 Cholesterol 170 LDL Cholesterol, Calc 99 HDL Cholesterol 56 Cholesterol/HDL Ratio 3.0 L Quality Measures Quality Measures none Advance care planning discussed with:: patient Assessment & Plan Assessment Current Active Medications: Generic Name Dose Route Start Last Admin Trade Name Freq PRN Reason Stop Dose Admin Acetaminophen 650 mg 09/01/24 04:32 Acetaminophen 325 Mg Tablet PO 10/01/24 04:31 Q6H PRN PAIN OR FEVER > 101 Hydrocodone Bitart/Acetaminophen 1 tab 09/01/24 04:32 09/01/24 08:24 Hydrocodone/Apap 5/325 Tablet PO 09/06/24 04:31 1 tab Q6HR PRN Administration PAIN SCALE 4-6 (Moderate Diltiazem HCl 120 mg 09/01/24 09:00 09/01/24 09:53 Diltiazem Cd 120 Mg Capcr PO 10/01/24 08:59 120 mg DAILY PAMELA Administration Furosemide 20 mg 09/01/24 21:00 Furosemide 20 Mg Tablet PO 10/01/24 20:59 Q48HR@2100 PAMELA Gabapentin 300 mg 09/01/24 21:00 Gabapentin 300 Mg Capsule PO 10/01/24 08:59 BID PAMELA Morphine Sulfate 2 mg 09/01/24 08:19 Morphine Sulf Inj 10 Mg/Ml Vial IVP 09/06/24 04:31 Q4HR PRN PAIN SCALE 7-10 (Severe Naproxen 250 mg 09/01/24 21:00 Naproxen 250 Mg Tablet PO 10/01/24 20:59 BID PAMELA Ondansetron HCl 4 mg 09/01/24 04:32 Ondansetron Inj 2 Mg/Ml Inj 2 Ml IV 10/01/24 04:31 Q6H PRN NAUSEA OR VOMITING Protocol Pantoprazole Sodium 40 mg 09/01/24 09:00 09/01/24 08:24 Pantoprazole 40 Mg Tablet PO 10/01/24 08:59 40 mg QDAY PAMELA Administration Plan Jessy Vergara is an 83-year-old female with a 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 #Right shoulder hematoma #Gout, suspected CT right shoulder prelim: Minimal intramuscular fluid, suspicious for hematoma CTA right shoulder prelim: Hiatal hernia, enlarged periarticular and subscapularis muscles with joint fluid Patient takes allopurinol outpatient and although she does not recall a formal gout diagnosis, does note episodes of gout-like symptoms in the toes before. Gout less commonly affecting large joints outside the feet but with no clear orthopedic injury or skin changes indicating a dermatological etiology, should consider gout vs. insect bite as possible etiologies at this time. ? Pain management with [place] and morphine ? Eliquis held for today, consider restarting tomorrow ? Supportive management - Shoulder xray demonstrating significant narrowing of glenohumeral joint with no fracture or dislocation ? Ortho consulted, appreciate recommendations ? Monitor H&H, in case of worsening hematoma, consider Kcentra. Currently hemoglobin is stable. Will follow-up with Ortho recommendations. ? PT evaluation ordered - Naproxen 250mg BID PO ordered for further pain management - Uric acid ordered, f/u on results #Afib with RVR #Essential Hypertension #Situs Inversus #Sliding Hiatal Hernia, nonincarcerated ? PPI ? Diltiazem 120 mg ? Resumed home Lasix 20 mg every other day ? Monitor CBC and CMP Health maintenance: Disposition: Med surg Diet: Regular diet GI prophylaxis: None indicated DVT prophylaxis: SCDs, hold Eliquis for today Code: DNR Case disclosed with Attending Dr. Barone and my senior Dr. Saldana PGY2. Roberth Dominguez PGY1 Attending Provider Attestation/Addendum I have discussed and was present for the essential components of the history, physical examination, diagnosis, and treatment plan with the resident. I agree with the patient's care as documented by the resident and amended herein by me. Seth Barone DO. Although this document has been carefully reviewed, there may still be some phonetic and other typographical errors. These errors are purely grammatical due to imperfections in the software program and should not be construed in any way to compromise the substance of the patient's medical care during this visit.
--- NOTE | 2024-09-01 16:02 | PC.NURSE ---
Report from ER Nurse Meka. Pt. only complains of pain with movement. Son taking belongings home.
--- NOTE | 2024-09-01 18:07 | PC.NURSE ---
Pt. refused to turn for allevyn application at this time due to shoulder pain. Pt. educated on importance of turning q2 to protect skin.
[2024-09-01] MEDS: NAPROXEN 250 MG TABLET PO (20:14)
[2024-09-01] MEDS: Furosemide 20 MG TABLET PO (20:14)
[2024-09-01] MEDS: GABAPENTIN 300 MG CAPSULE PO (20:14)
[2024-09-02] VITALS (10 sets, daily range): BP systolic 111–151; BP diastolic 73–87; PULSE 72–92; RESP 17–20; TEMP 36.8–37.2; O2SAT 95–97; BMI 27.3
[2024-09-02] MEDS: MORPHINE SULF INJ 10 MG/ML VIAL 2 MG IVP ×2 (02:55→08:30)
[2024-09-02] MEDS: HYDROcodone/APAP 5/325 TABLET 1 TAB PO ×2 (04:04→18:25)
--- NOTE | 2024-09-02 04:07 | PC.NURSE ---
Notified MD. Mariscal regarding patient's chief complaint of pain on her shoulder. Patient was given morphine for the pain to no avail. When reassessing patient, patient stated that I am still hurting really bad . Contacted MD. Mariscal and was given narco for breakthrough pain.
[2024-09-02 05:43] LABS: Basophils % (Auto) 0 % (0-2.5); Eosinophils % (Auto) 0 % (0-10); Hematocrit 31.5 % (36.0-46.0); Immature Granulocytes % (Auto) 0 % (0-0); Immature Granulocytes Auto 0.02 Thou/mm3 (0.00-0.00); Lymphocytes # (Auto) 1.6 Thou/mm3 (1.0-4.8); Lymphocytes % (Auto) 21 % (10-50); Mean Corpuscular HGB Conc 34.9 g/dl (31.0-37.0); Mean Corpuscular Hemoglobin 32.7 pg (25.0-35.0); Mean Corpuscular Volume 94 fL (80-100); Monocytes # (Auto) 0.7 Thou/mm3 (0.0-0.8); Monocytes % (Auto) 9 % (0-12); Neutrophils # (Auto) 5.2 Thou/mm3 (1.8-7.7); Neutrophils % (Auto) 69 % (37-80); Nucleated Red Blood Cell % 0 /100 WBC (0); Platelet Count 199 Thou/mm3 (140-440); RDW Standard Deviation 51.6 fL (36.4-46.3); Red Blood Count 3.36 Miln/mm3 (4.00-5.20); White Blood Count 7.6 Thou/mm3 (3.6-11.0)
[2024-09-02 05:57] LABS: Partial Thromboplastin Time 23.5 Seconds (22.0-36.0); Prothrombin Time 10.9 Seconds (9.0-12.2)
[2024-09-02 06:38] LABS: Anion Gap 8 (7-16); BUN/Creatinine Ratio 31 Ratio (12-20); Blood Urea Nitrogen 31 mg/dL (9-23); Calcium 9.2 mg/dL (8.3-10.6); Carbon Dioxide 23.9 mMol/L (20.0-31.0); Chloride 104 mMol/L (98-107); Estimated Creatinine Clearance 44.5 mL/min (>60); Glucose 106 mg/dL (74-106); Osmolality,Calculated 278 (275-295); Potassium 3.9 mMol/L (3.4-5.1); Sodium 136 mMol/L (136-145); Uric Acid 3.7 mg/dL (3.1-7.8); eGFR 55 See Note
[2024-09-02] MEDS: DILTIAZEM CD 120 MG CAPCR PO (08:23)
[2024-09-02] MEDS: NAPROXEN 250 MG TABLET PO ×2 (08:23→20:23)
[2024-09-02] MEDS: GABAPENTIN 300 MG CAPSULE PO ×2 (08:23→20:23)
[2024-09-02] MEDS: PANTOPRAZOLE 40 MG TABLET PO (08:23)
--- NOTE | 2024-09-02 11:48 | ESPR_ITS ---
<Statement entered by Manasa Saldana MD - 09/02/24 21:43> I discussed with and supervised the management internship physician who took care of this patient. I personally saw and examined the patient and discussed the assessment and plan with the entire medicine team, including my attending , I agree with most of the assessment and plan as documented below Manasa Saldana M.D. PGY-2 Documentation for date of: 09/02/24 Subjective Subjective Interval history: 09/02/2024: No acute overnight events to report. Patient seen and examined in hospital bed reporting persistent right shoulder pain which is exacerbated with movement or changing position while sleeping. Patient states, teary-eyed, that she was not able to sleep last night because she rolled over on her right side accidentally which caused her an immense amount of pain. Patient started treatment for possible gout flare on the right shoulder with naproxen but she is also getting gabapentin, morphine and hydrocodone as needed. Exam findings were pertinent for a positive drop test on the right; will order an MRI of the right shoulder without contrast to rule out rotator cuff tear. Exam Vital Signs Temp Pulse Resp BP Pulse Ox O2 Del Method 98.2 F 92 19 144/80 H 96 Room Air 09/02/24 08:00 09/02/24 11:02 09/02/24 08:00 09/02/24 08:23 09/02/24 08:00 09/02/24 08:00 Narrative Exam General: Awake, able to speak full sentences, appears stated age HEENT: NC/AT, mucous membranes moist, bilateral sclera anicteric Cardiovascular: Dextrocardia, regular rate and rhythm, S1/S2 present, no murmurs appreciated Pulmonary: clear to auscultation bilaterally, no rales/rhonchi/wheezes Abdominal: soft, non-tender, non-distended, no rebound/guarding, normal bowel sounds present Musculoskeletal: Right shoulder mildly erythematous (consistent with surrounding skin of chest and back), significantly tender to light palpation, unable to move right shoulder due to pain, positive right arm drop test, could not elicit empty can test as patient is not able to ambulate right arm. Skin: Minimal bruising in right upper extremity, warm and dry, intact, no rashes Neuro: CN II-XII intact, no focal deficits Objective Labs 09/02/24 04:35 09/02/24 04:35 Labs: Laboratory Results - last 24 hr 09/02/24 04:35 WBC 7.6 RBC 3.36 L Hgb 11.0 L Hct 31.5 L MCV 94 MCH 32.7 MCHC 34.9 RDW Std Deviation 51.6 H Plt Count 199 Neut % (Auto) 69 Lymph % (Auto) 21 [place] % (Auto) 9 Eos % (Auto) 0 Baso % (Auto) 0 Neut # (Auto) 5.2 Lymph # (Auto) 1.6 [place] # (Auto) 0.7 Eos # (Auto) 0.0 Baso # (Auto) 0.0 Immature Gran # (Auto) 0.02 H Absolute Nucleated RBC 0.00 Immature Gran % 0 Nucleated RBC % 0 PT 10.9 INR 1.0 APTT 23.5 Sodium 136 Potassium 3.9 Chloride 104 Carbon Dioxide 23.9 Anion Gap 8 BUN 31 H Creatinine 1.0 Estim Creat Clear Calc 44.5 L eGFR 55 L BUN/Creatinine Ratio 31 H Glucose 106 Calculated Osmolality 278 Uric Acid 3.7 Calcium 9.2 Quality Measures Quality Measures none Advance care planning discussed with:: patient Assessment & Plan Assessment Current Active Medications: Generic Name Dose Route Start Last Admin Trade Name Freq PRN Reason Stop Dose Admin Acetaminophen 650 mg 09/01/24 04:32 Acetaminophen 325 Mg Tablet PO 10/01/24 04:31 Q6H PRN PAIN OR FEVER > 101 Hydrocodone Bitart/Acetaminophen 1 tab 09/01/24 04:32 09/02/24 04:04 Hydrocodone/Apap 5/325 Tablet PO 09/06/24 04:31 1 tab Q6HR PRN Administration PAIN SCALE 4-6 (Moderate Diltiazem HCl 120 mg 09/01/24 09:00 09/02/24 08:23 Diltiazem Cd 120 Mg Capcr PO 10/01/24 08:59 120 mg DAILY PAMELA Administration Furosemide 20 mg 09/01/24 21:00 09/01/24 20:14 Furosemide 20 Mg Tablet PO 10/01/24 20:59 20 mg Q48HR@2100 PAMELA Administration Gabapentin 300 mg 09/01/24 21:00 09/02/24 08:23 Gabapentin 300 Mg Capsule PO 10/01/24 08:59 300 mg BID PAMELA Administration Naproxen 250 mg 09/01/24 21:00 09/02/24 08:23 Naproxen 250 Mg Tablet PO 10/01/24 20:59 250 mg BID PAMELA Administration Ondansetron HCl 4 mg 09/01/24 04:32 Ondansetron Inj 2 Mg/Ml Inj 2 Ml IV 10/01/24 04:31 Q6H PRN NAUSEA OR VOMITING Protocol Pantoprazole Sodium 40 mg 09/01/24 09:00 09/02/24 08:23 Pantoprazole 40 Mg Tablet PO 10/01/24 08:59 40 mg QDAY PAMELA Administration Plan Jessy Vergara is an 83-year-old female with a 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 #Right shoulder hematoma #Possible rotator cuff tear #Gout, suspected CT right shoulder prelim: Minimal intramuscular fluid, suspicious for hematoma CTA right shoulder prelim: Hiatal hernia, enlarged periarticular and subscapularis muscles with joint fluid Patient takes allopurinol outpatient and although she does not recall a formal gout diagnosis, does note episodes of gout-like symptoms in the toes before. Gout less commonly affecting large joints outside the feet but with no clear orthopedic injury or skin changes indicating a dermatological etiology, should consider gout vs. insect bite as possible etiologies at this time. Shoulder xray demonstrating significant narrowing of glenohumeral joint with no fracture or dislocation Uric acid 3.7, normal Patient had a positive right arm drop test Plan: Right shoulder MR without contrast ordered Pain management with [place] and morphine Continue to hold Eliquis, restart possible on 09/03 Supportive management Ortho consulted, appreciate recommendations Monitor H&H, in case of worsening hematoma, consider Kcentra. PT evaluation ordered Naproxen 250mg BID PO ordered for further pain management #Afib with RVR #Essential Hypertension #Situs Inversus #Sliding Hiatal Hernia, nonincarcerated Continue PPI Diltiazem 120 mg Home Lasix 20 mg every other day Monitor CBC and CMP Health Maintenance: Lines: PIV Diet: Regular diet Bowel: Senna GI prophylaxis: None indicated DVT prophylaxis: SCDs, hold Eliquis for today Disposition: Med surg Code: DNR Case disclosed with Attending Dr. Barone and senior resident Dr. Saldana PGY2. Paco Rene, PGY-1 Attending Provider Attestation/Addendum I have discussed and was present for the essential components of the history, physical examination, diagnosis, and treatment plan with the resident. I agree with the patient's care as documented by the resident and amended herein by me. Seth Barone DO. Patient seen and evaluated this AM. Patient still having significant pain in her right shoulder, very tender to the touch although strangely enough the patient can grab it herself and pull forward without too much issue. Physical therapy demonstrated the patient is independent but she lives alone and is worried. We started naproxen 250 mg twice daily yesterday and will continue for potential gout although unlikely in the shoulder. We will order an MRI of the shoulder, likely discharge on 09/03. Although this document has been carefully reviewed, there may still be some phonetic and other typographical errors. These errors are purely grammatical due to imperfections in the software program and should not be construed in any way to compromise the substance of the patient's medical care during this visit.
--- NOTE | 2024-09-02 13:46 | PC.PT ---
PT eval only. Patient is I with transfers and ambulation with walker.
--- NOTE | 2024-09-02 19:40 | PC.NURSE ---
Dr. Maradiaga arrived at unit to follow up with patient.
--- NOTE | 2024-09-02 22:09 | ESDS_ITS ---
RE: FELIX SUN : 1940 DATE OF ADMISSION: 09/01/2024 CHIEF COMPLAINT: Pain, right shoulder. HISTORY OF PRESENT ILLNESS: The patient is an 83-year-old who developed pain in her right shoulder. She had a similar episode earlier this year with ecchymosis. Pain is spontaneous. She had the inability to forward flex and abduct. She was seen in the ER with severe pain in the right shoulder. History of A-fib on Eliquis. No history of gout. PHYSICAL EXAMINATION: VITAL SIGNS: Temperature 98.2, pulse 86, respiratory rate 19, blood pressure 126/80, pulse ox 97%. GENERAL: Shows a very pleasant lady who is alert, oriented and gives a good history. EXTREMITIES: Her big complaint right now is pain in her right shoulder girdle. She does have ecchymosis, some swelling and ecchymosis that has moved distally towards distal forearm, proximal forearm. Presently able to flex and extend fingers, flex and extend elbow. No real good abduction, forward flexion. Left shoulder shows inability to forward flexion, abduct, which has been present for years. LABORATORY DATA: Initial hemoglobin 11, white count 7600, platelets 199,000. Electrolytes within normal limits with a BUN of 31 and creatinine of 1.0. Uric acid level normal at 3.7. ASSESSMENT: Acute onset of pain with swelling and ecchymosis. The CT scan nondiagnostic. PLAN: It would be nice to get an MRI scan just to see what her rotator cuff is doing. It does not appear to be septic at all. He does have acute tenderness with attempted range of motion. We will order an MRI scan for tomorrow want to rule out acute rotator cuff injury. DT: 20:25:52 TT: 22:08:00 Ref: [id number] - TID: [id number]
[2024-09-03] VITALS (11 sets, daily range): BP systolic 126–136; BP diastolic 70–86; PULSE 61–90; RESP 18–20; TEMP 36.2–36.6; O2SAT 96–97
--- NOTE | 2024-09-03 | XR_ITS ---
MRI shoulder, right, without contrast. Date and time: September 03, 2024 at 1556 hrs. Indications: Injury to the shoulder 2 days ago followed by severe shoulder pain Technique: Multiple axial, sagittal and coronal sections of the shoulder have been obtained. Siemens high-resolution 1.5 Milady MRI scanner is utilized. Axial fat-suppressed sections, TR 2350, TE 18 T2-weighted coronal fat-saturated images, TR 3500, TE 7100 T1-weighted coronal images, TR 500, TE 15 T2-weighted sagittal fat-saturated images, TR 3500, TE 57 T1-weighted sagittal sections, TR 504, TE 13. Findings: 3 cm full-thickness rotator cuff tear Subscapularis insertion is intact. Subscapularis bursa is evident. Long head of the biceps is in the bicipital groove. No definite tear of the biceps superior labral anchor is seen. Retraction of the musculotendinous junction of the rotator cuff is evident. Distance between the acromium and humeral head is 3.6 mm Atrophy of the supraspinatus muscle is severe. Atrophy of the infraspinatus muscle is severe. Sagittal sections demonstrate a horizontal acromion. 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 Osacromiale is not identified. Tears of the anterior superior posterior labral margins. Bony glenoid fossa on the sagittal sections does not demonstrate osseous defect. Occult fracture or area of avascular necrosis is not seen. Acromioclavicular joint separation is not visible. Defect in the posterolateral margin of the humeral head is not seen Impression: 3 cm full-thickness rotator cuff tear Tears of the anterior superior posterior labral margins
[2024-09-03 05:59] LABS: Basophils % (Auto) 1 % (0-2.5); Eosinophils % (Auto) 1 % (0-10); Hematocrit 28.9 % (36.0-46.0); Hemoglobin 9.8 g/dL (12.0-16.0); Immature Granulocytes % (Auto) 1 % (0-0); Immature Granulocytes Auto 0.03 Thou/mm3 (0.00-0.00); Lymphocytes # (Auto) 1.3 Thou/mm3 (1.0-4.8); Lymphocytes % (Auto) 24 % (10-50); Mean Corpuscular HGB Conc 33.9 g/dl (31.0-37.0); Mean Corpuscular Hemoglobin 32.8 pg (25.0-35.0); Mean Corpuscular Volume 97 fL (80-100); Monocytes # (Auto) 0.5 Thou/mm3 (0.0-0.8); Monocytes % (Auto) 10 % (0-12); Neutrophils # (Auto) 3.6 Thou/mm3 (1.8-7.7); Neutrophils % (Auto) 65 % (37-80); Nucleated Red Blood Cell % 0 /100 WBC (0); Platelet Count 186 Thou/mm3 (140-440); RDW Standard Deviation 52.9 fL (36.4-46.3); Red Blood Count 2.99 Miln/mm3 (4.00-5.20); White Blood Count 5.5 Thou/mm3 (3.6-11.0)
[2024-09-03 06:33] LABS: Anion Gap 6 (7-16); BUN/Creatinine Ratio 36 Ratio (12-20); Blood Urea Nitrogen 36 mg/dL (9-23); Calcium 8.4 mg/dL (8.3-10.6); Carbon Dioxide 24.1 mMol/L (20.0-31.0); Chloride 107 mMol/L (98-107); Estimated Creatinine Clearance 44.5 mL/min (>60); Glucose 113 mg/dL (74-106); Osmolality,Calculated 283 (275-295); Potassium 3.9 mMol/L (3.4-5.1); Sodium 137 mMol/L (136-145); eGFR 55 See Note
--- NOTE | 2024-09-03 07:13 | PD.RESPRO ---
Documentation for date of: 09/03/24 Exam Vital Signs Temp Pulse Resp BP Pulse Ox O2 Del Method 97.8 F 65 20 126/71 96 Room Air 09/03/24 04:00 09/03/24 04:00 09/03/24 04:00 09/03/24 04:00 09/03/24 04:00 09/03/24 04:00 Narrative Exam General: well developed, well nourished, laying in bed, not in acute distress, answering questions appropriately, making appropriate eye contact HEENT: Normocephalic, atraumatic, EOMI, PERRLA, moist oral mucosa, normal dentition. Cardiac: Regular rate and rhythm, normal S1/S2, no murmurs. Lungs: Clear to auscultation with no wheezings or crackles, normal respiratory effort and rate. Abdomen: Soft, nontender, nondistended, positive bowel sounds in all quadrants. No guarding or rebound tenderness. Neuro: Alert and oriented to name and date of and place. CN II- XII intact, no focal motor deficit noted, BUE/BLE motor function and sensation intact and equal. Extremities: Normal to inspection, no edema, no cyanosis Psych: Normal mood and affect. General: Awake, able to speak full sentences, appears stated age HEENT: NC/AT, mucous membranes moist, bilateral sclera anicteric Cardiovascular: Dextrocardia, regular rate and rhythm, S1/S2 present, no murmurs appreciated Pulmonary: clear to auscultation bilaterally, no rales/rhonchi/wheezes Abdominal: soft, non-tender, non-distended, no rebound/guarding, normal bowel sounds present Musculoskeletal: Right shoulder mildly erythematous (consistent with surrounding skin of chest and back), significantly tender to light palpation, unable to move right shoulder due to pain, positive right arm drop test, could not elicit empty can test as patient is not able to ambulate right arm. Skin: Minimal bruising in right upper extremity, warm and dry, intact, no rashes Neuro: CN II-XII intact, no focal deficits Objective Labs 09/03/24 04:28 09/03/24 04:28 Labs: Laboratory Results - last 24 hr 09/03/24 04:28 WBC 5.5 RBC 2.99 L Hgb 9.8 L Hct 28.9 L MCV 97 MCH 32.8 MCHC 33.9 RDW Std Deviation 52.9 H Plt Count 186 Neut % (Auto) 65 Lymph % (Auto) 24 [place] % (Auto) 10 Eos % (Auto) 1 Baso % (Auto) 1 Neut # (Auto) 3.6 Lymph # (Auto) 1.3 [place] # (Auto) 0.5 Eos # (Auto) 0.0 Baso # (Auto) 0.0 Immature Gran # (Auto) 0.03 H Absolute Nucleated RBC 0.00 Immature Gran % 1 H Nucleated RBC % 0 Sodium 137 Potassium 3.9 Chloride 107 Carbon Dioxide 24.1 Anion Gap 6 L BUN 36 H Creatinine 1.0 Estim Creat Clear Calc 44.5 L eGFR 55 L BUN/Creatinine Ratio 36 H Glucose 113 H Calculated Osmolality 283 Calcium 8.4 Quality Measures Quality Measures none Assessment & Plan Assessment Current Active Medications: Generic Name Dose Route Start Last Admin Trade Name Freq PRN Reason Stop Dose Admin Acetaminophen 650 mg 09/01/24 04:32 Acetaminophen 325 Mg Tablet PO 10/01/24 04:31 Q6H PRN PAIN OR FEVER > 101 Hydrocodone Bitart/Acetaminophen 1 tab 09/01/24 04:32 09/02/24 18:25 Hydrocodone/Apap 5/325 Tablet PO 09/06/24 04:31 1 tab Q6HR PRN Administration PAIN SCALE 4-6 (Moderate Diltiazem HCl 120 mg 09/01/24 09:00 09/02/24 08:23 Diltiazem Cd 120 Mg Capcr PO 10/01/24 08:59 120 mg DAILY PAMELA Administration Furosemide 20 mg 09/01/24 21:00 09/01/24 20:14 Furosemide 20 Mg Tablet PO 10/01/24 20:59 20 mg Q48HR@2100 PAMELA Administration Gabapentin 300 mg 09/01/24 21:00 09/02/24 20:23 Gabapentin 300 Mg Capsule PO 10/01/24 08:59 300 mg BID PAMELA Administration Morphine Sulfate 1 mg 09/02/24 21:21 Morphine Sulf Inj 10 Mg/Ml Vial IVP 09/07/24 21:20 Q4HR PRN Severe pain (7-10) Naproxen 250 mg 09/01/24 21:00 09/02/24 20:23 Naproxen 250 Mg Tablet PO 10/01/24 20:59 250 mg BID PAMELA Administration Ondansetron HCl 4 mg 09/01/24 04:32 Ondansetron Inj 2 Mg/Ml Inj 2 Ml IV 10/01/24 04:31 Q6H PRN NAUSEA OR VOMITING Protocol Pantoprazole Sodium 40 mg 09/01/24 09:00 09/02/24 08:23 Pantoprazole 40 Mg Tablet PO 10/01/24 08:59 40 mg QDAY PAMELA Administration Sennosides 1 tab 09/03/24 09:00 Senna Tablet PO 10/03/24 08:59 QDAY PAMELA Protocol Plan Jessy Vergara is an 83-year-old female with a 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 #Right shoulder hematoma #Possible rotator cuff tear #Gout, suspected CT right shoulder prelim: Minimal intramuscular fluid, suspicious for hematoma CTA right shoulder prelim: Hiatal hernia, enlarged periarticular and subscapularis muscles with joint fluid Patient takes allopurinol outpatient and although she does not recall a formal gout diagnosis, does note episodes of gout-like symptoms in the toes before. Gout less commonly affecting large joints outside the feet but with no clear orthopedic injury or skin changes indicating a dermatological etiology, should consider gout vs. insect bite as possible etiologies at this time. Shoulder xray demonstrating significant narrowing of glenohumeral joint with no fracture or dislocation Uric acid 3.7, normal Patient had a positive right arm drop test Plan: Right shoulder MR without contrast ordered Pain management with [place] and morphine Continue to hold Eliquis, restart possible on 09/03 Supportive management Ortho consulted, appreciate recommendations Monitor H&H, in case of worsening hematoma, consider Kcentra. PT evaluation ordered Naproxen 250mg BID PO ordered for further pain management #Afib with RVR #Essential Hypertension #Situs Inversus #Sliding Hiatal Hernia, nonincarcerated Continue PPI Diltiazem 120 mg Home Lasix 20 mg every other day Monitor CBC and CMP Health Maintenance: Lines: PIV Diet: Regular diet Bowel: Senna GI prophylaxis: None indicated DVT prophylaxis: SCDs, hold Eliquis for today Disposition: Med surg Code: DNR Case disclosed with Attending Dr. Barone
[2024-09-03] MEDS: SENNA TABLET 1 TAB PO (08:30)
[2024-09-03] MEDS: PANTOPRAZOLE 40 MG TABLET PO (08:30)
[2024-09-03] MEDS: DILTIAZEM CD 120 MG CAPCR PO (08:30)
[2024-09-03] MEDS: GABAPENTIN 300 MG CAPSULE PO ×2 (08:30→21:01)
[2024-09-03] MEDS: NAPROXEN 250 MG TABLET PO (08:31)
--- NOTE | 2024-09-03 11:10 | PC.NURSE ---
per MD, pt to discharge after MRI is completed, notified MD that pt is scheduled for today in the evening.
--- NOTE | 2024-09-03 11:40 | ESPR_ITS ---
Documentation for date of: 09/03/24 Subjective Subjective Interval history: 09/03/2024: Patient seen and examined by bedside, reports not being able to get good sleep because of her shoulder pain as movement in her sleep causes significant pain that wakes her up. Continues to report persistent right shoulder pain which is exacerbated with movement, limitation of abduction/ external rotation noted, Patient started treatment for possible gout flare on the right shoulder with naproxen but she is also getting gabapentin, morphine and hydrocodone as needed, continue to hold patient's Eliquis in setting of large hematoma and drop in Hgb. Patient currently pending shoulder MRI per ortho recs after which she will be discharged to home with home health vs SNF. Exam Vital Signs Temp Pulse Resp BP Pulse Ox O2 Del Method 97.8 F 68 20 128/64 96 Room Air 09/04/24 04:00 09/04/24 04:00 09/04/24 04:00 09/04/24 04:00 09/04/24 04:00 09/04/24 04:00 Narrative Exam General: well developed, well nourished, laying in bed, not in acute distress, answering questions appropriately, making appropriate eye contact HEENT: Normocephalic, atraumatic, EOMI, PERRLA, moist oral mucosa, normal dentition. Cardiac: Regular rate and rhythm, normal S1/S2, no murmurs. Lungs: Clear to auscultation with no wheezings or crackles, normal respiratory effort and rate. Abdomen: Soft, nontender, nondistended, positive bowel sounds in all quadrants. No guarding or rebound tenderness. Neuro: Alert and oriented to name and date of and place. CN II- XII intact, no focal motor deficit noted, BUE/BLE motor function and sensation intact and equal. Extremities: Normal to inspection except for right shoulder, limited ROM/ abduction, tenderness noted on elevation of arm or palpation, echymosis noted over upper arm, no edema, no cyanosis Psych: Normal mood and affect. Objective Labs 09/04/24 04:38 09/04/24 04:38 Labs: Laboratory Results - last 24 hr 09/04/24 04:38 WBC 6.5 RBC 3.16 L Hgb 10.4 L Hct 30.2 L MCV 96 MCH 32.9 MCHC 34.4 RDW Std Deviation 51.5 H Plt Count 188 Neut % (Auto) 65 Lymph % (Auto) 23 [place] % (Auto) 9 Eos % (Auto) 1 Baso % (Auto) 1 Neut # (Auto) 4.3 Lymph # (Auto) 1.5 [place] # (Auto) 0.6 Eos # (Auto) 0.1 Baso # (Auto) 0.0 Immature Gran # (Auto) 0.04 H Absolute Nucleated RBC 0.00 Immature Gran % 1 H Nucleated RBC % 0 Sodium 138 Potassium 4.0 Chloride 106 Carbon Dioxide 24.1 Anion Gap 8 BUN 35 H Creatinine 0.9 Estim Creat Clear Calc 49.5 L eGFR > 60 BUN/Creatinine Ratio 39 H Glucose 101 Calculated Osmolality 283 Calcium 8.8 Corrected Calcium 8.9 Total Bilirubin 0.5 AST 11 ALT < 7 L Alkaline Phosphatase 76 Total Protein 5.6 L Albumin 3.9 Globulin 1.7 L Albumin/Globulin Ratio 2.3 H Quality Measures Quality Measures none Advance care planning discussed with:: patient Assessment & Plan Assessment Current Active Medications: Generic Name Dose Route Start Last Admin Trade Name Freq PRN Reason Stop Dose Admin Acetaminophen 650 mg 09/01/24 04:32 Acetaminophen 325 Mg Tablet PO 10/01/24 04:31 Q6H PRN PAIN OR FEVER > 101 Hydrocodone Bitart/Acetaminophen 1 tab 09/01/24 04:32 09/03/24 12:52 Hydrocodone/Apap 5/325 Tablet PO 09/06/24 04:31 1 tab Q6HR PRN Administration PAIN SCALE 4-6 (Moderate Diltiazem HCl 120 mg 09/01/24 09:00 09/03/24 08:30 Diltiazem Cd 120 Mg Capcr PO 10/01/24 08:59 120 mg DAILY PAMELA Administration Furosemide 20 mg 09/01/24 21:00 09/03/24 21:01 Furosemide 20 Mg Tablet PO 10/01/24 20:59 20 mg Q48HR@2100 PAMELA Administration Gabapentin 300 mg 09/01/24 21:00 09/03/24 21:01 Gabapentin 300 Mg Capsule PO 10/01/24 08:59 300 mg BID PAMELA Administration Morphine Sulfate 1 mg 09/02/24 21:21 Morphine Sulf Inj 10 Mg/Ml Vial IVP 09/07/24 21:20 Q4HR PRN Severe pain (7-10) Naproxen 250 mg 09/03/24 08:55 Naproxen 250 Mg Tablet PO 10/01/24 20:59 BID PRN Shoulder pain Ondansetron HCl 4 mg 09/01/24 04:32 Ondansetron Inj 2 Mg/Ml Inj 2 Ml IV 10/01/24 04:31 Q6H PRN NAUSEA OR VOMITING Protocol Pantoprazole Sodium 40 mg 09/01/24 09:00 09/03/24 08:30 Pantoprazole 40 Mg Tablet PO 10/01/24 08:59 40 mg QDAY PAMELA Administration Sennosides 1 tab 09/03/24 09:00 09/03/24 08:30 Senna Tablet PO 10/03/24 08:59 1 tab QDAY PAMELA Administration Protocol Plan Jessy Vergara is an 83-year-old female with a 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 09/03/2024: Patient seen and examined by bedside, reports not being able to get good sleep because of her shoulder pain as movement in her sleep causes significant pain that wakes her up. Continues to report persistent right shoulder pain which is exacerbated with movement, limitation of abduction/ external rotation noted, Patient started treatment for possible gout flare on the right shoulder with naproxen but she is also getting gabapentin, morphine and hydrocodone as needed, continue to hold patient's Eliquis in setting of large hematoma and drop in Hgb. Patient currently pending shoulder MRI per ortho recs after which she will be discharged to home with home health vs SNF. #Right shoulder hematoma #Possible rotator cuff tear #Gout, suspected CT right shoulder prelim: Minimal intramuscular fluid, suspicious for hematoma CTA right shoulder prelim: Hiatal hernia, enlarged periarticular and subscapularis muscles with joint fluid Patient takes allopurinol outpatient and although she does not recall a formal gout diagnosis, does note episodes of gout-like symptoms in the toes before. Gout less commonly affecting large joints outside the feet but with no clear orthopedic injury or skin changes indicating a dermatological etiology, should consider gout vs. insect bite as possible etiologies at this time. Shoulder xray demonstrating significant narrowing of glenohumeral joint with no fracture or dislocation Uric acid 3.7, normal Patient had a positive right arm drop test Plan: Right shoulder MR without contrast ordered Pain management with [place] and morphine Continue to hold Eliquis, restart possible on 09/03 Supportive management Ortho consulted, appreciate recommendations Monitor H&H, in case of worsening hematoma, consider Kcentra. PT evaluation ordered Naproxen 250mg BID PO ordered for further pain management #Afib with RVR #Essential Hypertension #Situs Inversus #Sliding Hiatal Hernia, nonincarcerated Continue PPI Diltiazem 120 mg Home Lasix 20 mg every other day Monitor CBC and CMP Health Maintenance: Lines: PIV Diet: Regular diet Bowel: Senna GI prophylaxis: None indicated DVT prophylaxis: SCDs, hold Eliquis for today Disposition: Med surg Code: DNR Case disclosed with Attending Dr. Barone and senior resident Dr. Saldana PGY2. Paco Rene, PGY-1 Attending Provider Attestation/Addendum I have discussed and was present for the essential components of the history, physical examination, diagnosis, and treatment plan with the resident. I agree with the patient's care as documented by the resident and amended herein by me. Seth Barone, DO. Although this document has been carefully reviewed, there may still be some phonetic and other typographical errors. These errors are purely grammatical due to imperfections in the software program and should not be construed in any way to compromise the substance of the patient's medical care during this visit.
[2024-09-03] MEDS: HYDROcodone/APAP 5/325 TABLET 1 TAB PO (12:52)
--- NOTE | 2024-09-03 19:21 | PD.ORTHCONPN ---
Subjective Subjective Brief History: Right shoulder pain Narrative: Patient had shoulder pain 5 weeks ago and then had it 2 days ago. Pain was exquisite right shoulder girdle. No fall. No history of gout. Has been on colchicine. Considerably less pain today. Exam Vital Signs Temp Pulse Resp BP Pulse Ox O2 Del Method 97.4 F 72 18 128/70 97 Room Air 09/03/24 16:15 09/03/24 16:15 09/03/24 16:15 09/03/24 16:15 09/03/24 16:15 09/03/24 16:15 Extensive ecchymosis right arm primarily in the area of the triceps which is the dependent area of the arm. Last night when I saw her very little ecchymosis much more dramatic today. Better movement today. Better abduction today better forward flexion of right arm Objective - Ortho Labs 09/03/24 04:28 09/03/24 04:28 Labs: Laboratory Results - last 24 hr 09/03/24 04:28 WBC 5.5 RBC 2.99 L Hgb 9.8 L Hct 28.9 L MCV 97 MCH 32.8 MCHC 33.9 RDW Std Deviation 52.9 H Plt Count 186 Neut % (Auto) 65 Lymph % (Auto) 24 [place] % (Auto) 10 Eos % (Auto) 1 Baso % (Auto) 1 Neut # (Auto) 3.6 Lymph # (Auto) 1.3 [place] # (Auto) 0.5 Eos # (Auto) 0.0 Baso # (Auto) 0.0 Immature Gran # (Auto) 0.03 H Absolute Nucleated RBC 0.00 Immature Gran % 1 H Nucleated RBC % 0 Sodium 137 Potassium 3.9 Chloride 107 Carbon Dioxide 24.1 Anion Gap 6 L BUN 36 H Creatinine 1.0 Estim Creat Clear Calc 44.5 L eGFR 55 L BUN/Creatinine Ratio 36 H Glucose 113 H Calculated Osmolality 283 Calcium 8.4 Admission hemoglobin over 11. Now 9.8 Assessment & Plan Assessment Additional comments: MRI scan showed significant osteoarthritis glenohumeral joint right shoulder. Rotator cuff tear and it appears to be older than what this acute episode would reflect. She adamantly says no bruising or bumping in the shower. Interestingly the pain became severe after getting out of shower. Plan Would recommend off Naprosyn because it does affect platelets. Eliquis has been stopped. She was seen by cardiology. His recommendation off Carey, off Brittany excellent idea. Not a candidate for surgery. Up with PT weightbearing to tolerance using walker tomorrow to see how she manages. Does live alone. Might benefit from 2 weeks in rehab hospital Documentation for date of: 09/03/24
--- NOTE | 2024-09-03 20:00 | PD.IMCONS ---
HPI Data of Consult Consult date: 09/03/24 Requesting Physician: Dr. Beyer Primary Care Provider: Nina Rice NP Consult Narrative History of present illness: Hold eliquis for now Recommend to stop Naproxen completely given the worsening ecchymosis. Recommend tylenol and no NSAIDS Full consult note to follow cc:: cc: Mitesh Barone, DO Meds Home Medications and Allergies Home Medications ?Medication ?Instructions ?Recorded ?Confirmed ?Type allopurinol 300 mg tablet 300 mg PO QDAY 08/02/21 07/07/24 History gabapentin 300 mg capsule 300 mg PO BID 09/15/21 09/01/24 History Allergies Allergy/AdvReac Type Severity Reaction Status Date / Time No Known Allergies Allergy Verified 07/08/24 07:02 Exam Vital Signs Temp Pulse Resp BP Pulse Ox O2 Del Method 98.5 F 69 15 141/73 H 96 Room Air 09/04/24 07:35 09/04/24 08:01 09/04/24 07:35 09/04/24 08:01 09/04/24 07:35 09/04/24 07:35 Results Labs 09/04/24 04:38 09/04/24 04:38 Labs: Short CBC 09/04/24 Range/Units 04:38 WBC 6.5 (3.6-11.0) Thou/mm3 Hgb 10.4 L (12.0-16.0) g/dL Hct 30.2 L (36.0-46.0) % Plt Count 188 (140-440) Thou/mm3 BMP 09/04/24 04:38 Sodium 138 Potassium 4.0 Chloride 106 Carbon Dioxide 24.1 BUN 35 H Creatinine 0.9 Glucose 101 Calcium 8.8 Liver Function 09/04/24 Range/Units 04:38 Total Bilirubin 0.5 (0.3-1.2) mg/dL AST 11 (0-34) U/L ALT < 7 L (10-49) U/L Alkaline Phosphatase 76 (46-116) U/L Albumin 3.9 (3.4-4.8) gm/dL
[2024-09-03] MEDS: Furosemide 20 MG TABLET PO (21:01)
[2024-09-04] VITALS: BP 151/77; PULSE 77; PULSE 80; RESP 15; TEMP 36.9; O2SAT 98
[2024-09-04 04:00] VITALS: BP 128/64; PULSE 68; PULSE 74; RESP 20; TEMP 36.6; O2SAT 96
[2024-09-04 06:00] VITALS: BMI 27.2
[2024-09-04 06:51] LABS: Basophils % (Auto) 1 % (0-2.5); Eosinophils # (Auto) 0.1 Thou/mm3 (0.0-0.5); Eosinophils % (Auto) 1 % (0-10); Hematocrit 30.2 % (36.0-46.0); Hemoglobin 10.4 g/dL (12.0-16.0); Immature Granulocytes % (Auto) 1 % (0-0); Immature Granulocytes Auto 0.04 Thou/mm3 (0.00-0.00); Lymphocytes # (Auto) 1.5 Thou/mm3 (1.0-4.8); Lymphocytes % (Auto) 23 % (10-50); Mean Corpuscular HGB Conc 34.4 g/dl (31.0-37.0); Mean Corpuscular Hemoglobin 32.9 pg (25.0-35.0); Mean Corpuscular Volume 96 fL (80-100); Monocytes # (Auto) 0.6 Thou/mm3 (0.0-0.8); Monocytes % (Auto) 9 % (0-12); Neutrophils # (Auto) 4.3 Thou/mm3 (1.8-7.7); Neutrophils % (Auto) 65 % (37-80); Nucleated Red Blood Cell % 0 /100 WBC (0); Platelet Count 188 Thou/mm3 (140-440); RDW Standard Deviation 51.5 fL (36.4-46.3); Red Blood Count 3.16 Miln/mm3 (4.00-5.20); White Blood Count 6.5 Thou/mm3 (3.6-11.0)
--- NOTE | 2024-09-04 07:00 | PD.RESDS ---
Planned Discharge Date 09/04/24 DS: Providers Provider Date of admission: 09/01/24 04:32 Primary care physician: Nina Rice NP Admitting Provider: Wei Noriega MD Attending Provider on Admission: Mitesh Barone DO Consults: 09/01/24 04:45 Consult to Orthopedic Stat Comment: Consulting Provider: Yariel Beyer 09/01/24 06:18 Referral Physical Therapy Routine Comment: Physician Instructions: 09/02/24 20:27 Consult to Cardiology Urgent Comment: acute onset r shulder Consulting Provider: Apolinar Serna Attending Provider on DC: Jeanie Talavera MD Discharging Provider: Jeanie Talavera MD DS: Diagnosis Problem List Completed Was Problem List Reviewed/Reconciled?: Yes Hospital Course Hospital Course Hospital course: 83 year old female patient with PMHx significant for A.Fib on Eliquis, Gout, HTN, Lumbar stenosis, Situs inversus totalis admitted for admitted for right shoulder pain and limited ROM of right arm along with large RUE hematoma. Shoulder CT was negative for fractures but showed minimal intramuscular fluid suspicious for hematoma, CTA chest showed he had old hernia, enlarged periarticular and subscapular muscles with joint fluid, recommendations were made to obtain MRI by orthopedic surgery?Dr Man, shoulder MRI showed 3 cm full-thickness rotator cuff tear and tears in anterior superior and posterior labral margins. In light of patient's large hematoma and increased risk of bleed on NSAIDs recommendations were made by cardiology to stop Eliquis, avoid NSAIDs and to take Tylenol as needed while continuing arm movement as tolerated. Patient was discharged to home per her request with home health after being evaluated by PT. Patient was discharged on following recommendations/instructions; Stop Eliquis. Take other home medications as prescribed. Take Tylenol as needed for pain 4 times daily as needed. Take home Lasix once every 2 days. F/U with PCP within one week of discharge. F/U with orthopedics/ Dr. Man after getting referral from PCP and scheduling appointment. Return to ED if symptoms recur or worsen. #Right rotator cuff full thickness tear #Right Ant/SUP/Posterior tears of labral margins. #Right shoulder hematoma #Gout, suspected #Afib with RVR #GERD #Essential Hypertension #Situs Inversus #Sliding Hiatal Hernia, nonincarcerated Status at Discharge Functional status at discharge: uses cane/walker Overall status at discharge: patient is progressing back to baseline Time Spent with Patient Time attestation: Total time spent providing and/or coordinating discharge services: 35 minutes Exam Vital Signs Temp Pulse Resp BP Pulse Ox O2 Del Method 97.8 F 68 18 130/86 H 97 Room Air 09/03/24 07:35 09/03/24 08:30 09/03/24 07:35 09/03/24 08:30 09/03/24 07:35 09/03/24 07:35 Narrative Exam General: well developed, well nourished, laying in bed, not in acute distress, answering questions appropriately, making appropriate eye contact HEENT: Normocephalic, atraumatic, EOMI, PERRLA, moist oral mucosa, normal dentition. Cardiac: Regular rate and rhythm, normal S1/S2, no murmurs. Lungs: Clear to auscultation with no wheezings or crackles, normal respiratory effort and rate. Abdomen: Soft, nontender, nondistended, positive bowel sounds in all quadrants. No guarding or rebound tenderness. Neuro: Alert and oriented to name and date of and place. CN II- XII intact, no focal motor deficit noted, BUE/BLE motor function and sensation intact and equal. Extremities: Normal to inspection except for right shoulder, limited ROM/ abduction, tenderness noted on elevation of arm or palpation, echymosis noted over upper arm, no edema, no cyanosis Psych: Normal mood and affect. Discharge Plan Plan Patient Disposition: Home w/HOME HEALTH Patient condition on transfer: Stable Prescriptions/Referrals Prescriptions/Med Rec: New pantoprazole 40 mg Tablet,Delayed Release (Dr/Ec) 40 mg PO QDAY 30 Days Qty: 30 0RF acetaminophen 325 mg Tablet 650 mg PO Q6H PRN (Reason: PAIN OR FEVER > 101) Qty: 60 0RF Continued allopurinol 300 mg Tablet 300 mg PO QDAY gabapentin 300 mg Capsule 300 mg PO BID diltiazem HCl 120 mg Capsule,Extended Release 24hr 120 mg PO QDAY 30 Days Qty: 30 1RF Changed furosemide 20 mg tablet 20 mg PO Q48H Qty: 30 0RF Discontinued Eliquis 2.5 mg tablet 2.5 mg PO QDAY Referrals: Do-Dahl,Nina, MANAGER OF LOSS PREVENTION [employer]PERATIONS [Primary Care Provider] - Patient/Caregiver Discharge Instructions Discharge Activity: as per physical therapy Other Discharge Activity Instructions:: Stop Eliquis. Take other home medications as prescribed. Take Tylenol as needed for pain 4 times daily as needed. Take home Lasix once every 2 days. F/U with PCP within one week of discharge. F/U with orthopedics/ Dr. Man after getting referral from PCP. Return to ED if symptoms recur or worsen. Education Materials: Rotator Cuff Tendon Tear, ED Rotator Cuff Tear Print Language: Danish Stand Alone Forms: Siria Award Info., Patient Portal Info Letter Discharge Order Discharge Orders: Discharge (Routine); Ordered 09/03/24 Ordered By: Jeanie Talavera Quality Discharge Quality Measures VTE prophylaxis Attestestation Attestation I have discussed and was present for the essential components of the discharge history, physical examination, diagnosis, and discharge treatment plan with the resident. I agree with the patient's discharge care as documented by the resident and amended herein by me. Seth Barone, . The patient understood all discharge instructions, all questions were answered satisfactorily. The patient was instructed to return to the Emergency Department is symptoms worsened or persisted. Patient was stable, afebrile, tolerating p.o. intake and ambulatory times discharge. Home health for physical therapy was ordered for the patient. Orthopedic surgery was consulted, Dr. Maradiaga for patient's right rotator cuff tear, specifically a 3 cm full-thickness tear however no surgical intervention at this time. Instructed the patient to limit mobility, will discontinue Eliquis at this time per specialist recommendations however patient instructed to follow-up with primary care physician within 1 week of discharge for continued evaluation and management. All questions were answered. Although this document has been carefully reviewed, there may still be some phonetic and other typographical errors. These errors are purely grammatical due to imperfections in the software program and should not be construed in any way to compromise the substance of the patient's medical care during this visit.
[2024-09-04 07:02] LABS: Alanine Aminotransferase < 7 U/L (10-49); Albumin, Serum 3.9 gm/dL (3.4-4.8); Albumin/Globulin Ratio 2.3 (1.2-2.2); Alkaline Phosphatase 76 U/L (46-116); Anion Gap 8 (7-16); Aspartate Amino Transferase 11 U/L (0-34); BUN/Creatinine Ratio 39 Ratio (12-20); Bilirubin,Total 0.5 mg/dL (0.3-1.2); Blood Urea Nitrogen 35 mg/dL (9-23); Calcium 8.8 mg/dL (8.3-10.6); Calcium (Corrected) 8.9 mg/dL (8.5-10.1); Carbon Dioxide 24.1 mMol/L (20.0-31.0); Chloride 106 mMol/L (98-107); Creatinine (Component) 0.9 mg/dL (0.6-1.3); Estimated Creatinine Clearance 49.5 mL/min (>60); Globulin 1.7 gm/dL (2.3-3.5); Glucose 101 mg/dL (74-106); Osmolality,Calculated 283 (275-295); Sodium 138 mMol/L (136-145); Total Protein 5.6 gm/dL (5.7-8.2); eGFR > 60 See Note
[2024-09-04 07:35] VITALS: BP 141/73; PULSE 69; RESP 15; TEMP 36.9; O2SAT 96
[2024-09-04] MEDS: SENNA TABLET 1 TAB PO (08:00)
[2024-09-04] MEDS: PANTOPRAZOLE 40 MG TABLET PO (08:00)
[2024-09-04 08:01] VITALS: BP 141/73; PULSE 69
[2024-09-04] MEDS: GABAPENTIN 300 MG CAPSULE PO (08:01)
[2024-09-04] MEDS: DILTIAZEM CD 120 MG CAPCR PO (08:01)
[2024-09-04] MEDS: HYDROcodone/APAP 5/325 TABLET 1 TAB PO (08:06)
--- NOTE | 2024-09-04 08:49 | PC.CM ---
Addendum entered by Naseem Ashby RN 09/04/24 08:50: pt has [facility] insurance. Waiting on [facility] to accept the pt. Original Note: HH referral was sent my [place] transfer nurse yesterday.
--- NOTE | 2024-09-04 10:11 | PC.SS ---
Jessy Vergara is an 83-year-old female admitted to Med-Surg for Right Shoulder Hematoma. SS conducted bedside contact with the patient to complete initial assessment and to discuss discharge planning. Patient confirmed demographic information. Patient identifies her son, Severiano Vergara [phone] as her surrogate decision maker. Patient resides at home alone. Pt states she is able to complete all ADLs independently; pt utilizes a rollator walker and has a wheelchair. Pts PCP is Dr. Rice in [place] office last visit was about 3 weeks ago and her pharmacy of choice is [facility] on [address]. The pt?s plan is to DC with Home Health. There is no preference for Home Health. Pts son will provide transportation upon DC. No further intervention required at this time, social media job titles would be available to address any further concerns. DC Plan: Home w/ HH Contact: Severiano Vergara [phone] PCP: Krystal (in Dr. Alvarez office)
--- NOTE | 2024-09-04 11:17 | PC.NURSE ---
Lila spoke with Dr. Talavera and notified him patient had been cleared by PT. Patient is okay to DC.
--- NOTE | 2024-09-04 11:23 | PC.NURSE ---
called clinical social work therapist Dulce patient is going home with home health patient will be contacted about services
[2024-09-04 11:37] VITALS: BP 120/62; PULSE 74; RESP 17; TEMP 36.8; O2SAT 96
--- NOTE | 2024-09-04 12:26 | PC.PT ---
Patient were able to ambulate from restroom back to bed and were able to transfers from bed to chair x I.
--- NOTE | 2024-09-06 11:06 | PC.CM ---
[facility] accepted the pt. Booked [facility]. Pending start of care date.
--- NOTE | 2024-09-08 11:28 | PC.CM ---
Reached out to Cece for start of care date. Start of care date with [facility] is 09/09/24.
== END 2024-09-04 12:45 | disposition home health service (06) | DRG 605 ==
LOC: SERX 09-01 03:59 → SERHOLD 09-01 05:03 → S3NX 09-01 16:21
PROVIDERS: Student in an Organized Health Care Education/Training Program; Admitting Provider Student in an Organized Health Care Education/Training Program; Emergency Provider Emergency Medicine; PCP Registered Nurse; Visit Provider Student in an Organized Health Care Education/Training Program
DX: S40.011A Contusion of right shoulder, initial encounter (principal); Q89.3 Situs inversus; M75.121 Complete rotator cuff tear or rupture of right shoulder, not specified as traumatic; M10.9 Gout, unspecified; K21.9 Gastro-esophageal reflux disease without esophagitis; I10 Essential (primary) hypertension; Z79.01 Long term (current) use of anticoagulants; I48.91 Unspecified atrial fibrillation; K44.9 Diaphragmatic hernia without obstruction or gangrene; Z66 Do not resuscitate; X58.XXXA Exposure to other specified factors, initial encounter
CPT/HCPCS: 36415; 71045; 71275; 73030; 73200; 73221; 80048; 80053; 80061; 83735; 83880; 84100; 84484; 84550; 85025; 85610; 85730; 87811; 93005; 93225; 96374; 96375; 96376; 97162; 99285; A4649; J2270; J2405; J3010; Q9967; A9270

== ENCOUNTER → 2024-09-13 | Outpatient (CLI) | payer OTHER, SELFPAY ==
[2024-09-13 16:37] LABS: Basophils # (Auto) 0.1 Thou/mm3 (0.0-0.2); Basophils % (Auto) 1 % (0-2.5); Eosinophils % (Auto) 0 % (0-10); Hematocrit 35.5 % (36.0-46.0); Hemoglobin 11.9 g/dL (12.0-16.0); Immature Granulocytes % (Auto) 0 % (0-0); Immature Granulocytes Auto 0.03 Thou/mm3 (0.00-0.00); Lymphocytes # (Auto) 1.6 Thou/mm3 (1.0-4.8); Lymphocytes % (Auto) 21 % (10-50); Mean Corpuscular HGB Conc 33.5 g/dl (31.0-37.0); Mean Corpuscular Hemoglobin 33.1 pg (25.0-35.0); Mean Corpuscular Volume 99 fL (80-100); Monocytes # (Auto) 0.6 Thou/mm3 (0.0-0.8); Monocytes % (Auto) 8 % (0-12); Neutrophils # (Auto) 5.4 Thou/mm3 (1.8-7.7); Neutrophils % (Auto) 70 % (37-80); Nucleated Red Blood Cell % 0 /100 WBC (0); Platelet Count 249 Thou/mm3 (140-440); RDW Standard Deviation 55.6 fL (36.4-46.3); Red Blood Count 3.59 Miln/mm3 (4.00-5.20); White Blood Count 7.7 Thou/mm3 (3.6-11.0)
[2024-09-13 17:06] LABS: Albumin, Serum 4.4 gm/dL (3.4-4.8); Anion Gap 9 (7-16); BUN/Creatinine Ratio 26 Ratio (12-20); Blood Urea Nitrogen 23 mg/dL (9-23); Calcium 9.1 mg/dL (8.3-10.6); Calcium (Corrected) 9.1 mg/dL (8.5-10.1); Carbon Dioxide 25.8 mMol/L (20.0-31.0); Chloride 107 mMol/L (98-107); Creatinine (Component) 0.9 mg/dL (0.6-1.3); Glucose 101 mg/dL (74-106); Osmolality,Calculated 286 (275-295); Phosphorous 3.1 mg/dL (2.4-5.1); Potassium 4.5 mMol/L (3.4-5.1); Sodium 142 mMol/L (136-145); eGFR > 60 See Note
[2024-09-13 17:47] LABS: Vitamin D 25 Hydroxy Total 47.4 ng/mL (7.3-40.2)
== END | disposition home or self-care (01) ==
LOC: COPL 14:16
PROVIDERS: PCP Registered Nurse; Referring Provider Internal Medicine; Visit Provider Internal Medicine
DX: I12.9 Hypertensive chronic kidney disease with stage 1 through stage 4 chronic kidney disease, or unspecified chronic kidney disease (principal); N18.32 Chronic kidney disease, stage 3b; D63.1 Anemia in chronic kidney disease; M10.9 Gout, unspecified; Q89.3 Situs inversus; M48.00 Spinal stenosis, site unspecified; R33.9 Retention of urine, unspecified
CPT/HCPCS: 36415; 80069; 82306; 85025

== ENCOUNTER → 2024-09-13 | Outpatient (CLI) | payer OTHER, SELFPAY ==
--- NOTE | 2024-09-13 | XR_ITS ---
EXAMINATIONS: Transforaminal epidural steroid injection, lumbar, single level, includes fluoro guidance, right L4-L5. Fluoroscopy ENGEL lumbar spine single view INDICATIONS: Right-sided lower back pain months. Exam date and time: September 13, 2024 1329 hours Technique And Findings: Patient is positioned prone on the fluoroscopic table. Oblique fluoroscopic views obtained. Local anesthesia is obtained with 1% lidocaine. 22-gauge needle was advanced toward the 6:00 position of the pedicle. Fluoroscopy is utilized to ensure the needle tip is within the safe triangle After negative aspiration for blood and CSF, 40 mg triamcinolone is injected without difficulty. Patient tolerated the procedure well and in satisfactory and stable condition upon completion of procedure. Estimated blood loss 0 cc IMPRESSION: Successful transforaminal epidural steroid injection as described above Fluoroscopy 0.1 minute radiation dose 3.89 milligray 1 spot fluoroscopic lumbar spine film.
--- NOTE | 2024-09-13 | XR_ITS ---
EXAMINATIONS: Transforaminal epidural steroid injection, lumbar, single level, includes fluoro guidance, right L5-S1. Fluoroscopy ENGEL lumbar spine single view INDICATIONS: Right-sided lower back pain months. Exam date and time: September 13, 2024 1329 hours Technique And Findings: Patient is positioned prone on the fluoroscopic table. Oblique fluoroscopic views obtained. Local anesthesia is obtained with 1% lidocaine. 22-gauge needle was advanced toward the 6:00 position of the pedicle. Fluoroscopy is utilized to ensure the needle tip is within the safe triangle After negative aspiration for blood and CSF, 40 mg triamcinolone is injected without difficulty. Patient tolerated the procedure well and in satisfactory and stable condition upon completion of procedure. Estimated blood loss 0 cc IMPRESSION: Successful transforaminal epidural steroid injection as described above Fluoroscopy 0.1 minute radiation dose 3.89 milligray 1 spot fluoroscopic lumbar spine film.
--- NOTE | 2024-09-13 13:30 | XR_ITS ---
EXAMINATIONS: Transforaminal epidural steroid injection, lumbar, single level, includes fluoro guidance, L4-L5, left. Fluoroscopy JAPANESE lumbar spine single view INDICATIONS: Left-sided lower back pain months. Exam date and time: September 13, 2024 1311 hours Technique And Findings: Patient is positioned prone on the fluoroscopic table. Oblique fluoroscopic views obtained. Local anesthesia is obtained with 1% lidocaine. 22-gauge needle was advanced toward the 6:00 position of the pedicle. Fluoroscopy is utilized to ensure the needle tip is within the safe triangle After negative aspiration for blood and CSF, 40 mg triamcinolone is injected without difficulty. Patient tolerated the procedure well and in satisfactory and stable condition upon completion of procedure. Estimated blood loss 0 cc IMPRESSION: Successful transforaminal epidural steroid injection as described above Fluoroscopy 0.1 minute radiation dose 3.89 milligray 1 spot fluoroscopic lumbar spine film.
--- NOTE | 2024-09-13 13:30 | XR_ITS ---
EXAMINATIONS: Transforaminal epidural steroid injection, lumbar, single level, includes fluoro guidance, left L5-S1. Fluoroscopy MALAYSIAN lumbar spine single view INDICATIONS: Left lower back pain months. Exam date and time: September 13, 2024 1328 hours Technique And Findings: Patient is positioned prone on the fluoroscopic table. Oblique fluoroscopic views obtained. Local anesthesia is obtained with 1% lidocaine. 22-gauge needle was advanced toward the 6:00 position of the pedicle. Fluoroscopy is utilized to ensure the needle tip is within the safe triangle After negative aspiration for blood and CSF, 40 mg triamcinolone is injected without difficulty. Patient tolerated the procedure well and in satisfactory and stable condition upon completion of procedure. Estimated blood loss 0 cc IMPRESSION: Successful transforaminal epidural steroid injection as described above Fluoroscopy 0.1 minute radiation dose 3.89 milligray 1 spot fluoroscopic lumbar spine.
== END | disposition home or self-care (01) ==
LOC: SIRX 12:55
PROVIDERS: PCP Family Medicine; Referring Provider Psychiatry & Neurology Neurology; Visit Provider Psychiatry & Neurology Neurology
DX: M54.50 Low back pain, unspecified (principal)
CPT/HCPCS: 64483; 64484 ×2

== ENCOUNTER → 2024-09-21 | Outpatient (CLI) | payer OTHER, SELFPAY ==
--- NOTE | 2024-09-21 13:55 | XR_ITS ---
Examination: Foot, right, 3 views Technique: AP, oblique, lateral views foot, 3 views Date and time of exam: September 21, 2024 1359 hours INDICATIONS: Right foot pain beginning 5 days ago FINDINGS: Significant bunion deformity Mild to moderate osteoarthritis all of the metatarsophalangeal joints No acute fracture 5 mm plantar bony calcaneal spur IMPRESSION: Significant bunion deformity
== END | disposition home or self-care (01) ==
PROVIDERS: PCP Family Medicine; Referring Provider Registered Nurse; Visit Provider Registered Nurse
DX: M21.611 Bunion of right foot (principal)
CPT/HCPCS: 73630

== ENCOUNTER → 2024-10-11 | Outpatient (CLI) | payer OTHER, SELFPAY ==
--- NOTE | 2024-10-11 | XR_ITS ---
EXAMINATIONS: Transforaminal epidural steroid injection, lumbar, single level, includes fluoro guidance, right L4-L5. Fluoroscopy ENGEL lumbar spine single view INDICATIONS: Right-sided lower back pain years. Exam date and time: October 11, 2024 1452 hours Technique And Findings: Patient is positioned prone on the fluoroscopic table. Oblique fluoroscopic views obtained. Local anesthesia is obtained with 1% lidocaine. 22-gauge needle was advanced toward the 6:00 position of the pedicle. Fluoroscopy is utilized to ensure the needle tip is within the safe triangle After negative aspiration for blood and CSF, 40 mg triamcinolone is injected without difficulty. Patient tolerated the procedure well and in satisfactory and stable condition upon completion of procedure. Estimated blood loss 0 cc IMPRESSION: Successful transforaminal epidural steroid injection as described above Fluoroscopy 0.2 minute radiation dose 4.53 milligray 1 spot fluoroscopic lumbar spine film.
--- NOTE | 2024-10-11 | XR_ITS ---
EXAMINATIONS: Transforaminal epidural steroid injection, lumbar, single level, includes fluoro guidance, right L5-S1. Fluoroscopy ENGEL lumbar spine single view INDICATIONS: Right lower back pain years. Exam date and time: October 11, 2024 1452 hours Technique And Findings: Patient is positioned prone on the fluoroscopic table. Oblique fluoroscopic views obtained. Local anesthesia is obtained with 1% lidocaine. 22-gauge needle was advanced toward the 6:00 position of the pedicle. Fluoroscopy is utilized to ensure the needle tip is within the safe triangle After negative aspiration for blood and CSF, 40 mg triamcinolone is injected without difficulty. Patient tolerated the procedure well and in satisfactory and stable condition upon completion of procedure. Estimated blood loss 0 cc IMPRESSION: Successful transforaminal epidural steroid injection as described above Fluoroscopy 0.2 minute radiation dose 4.53 milligray 1 spot fluoroscopic lumbar spine.
--- NOTE | 2024-10-11 13:30 | XR_ITS ---
EXAMINATIONS: Transforaminal epidural steroid injection, lumbar, single level, includes fluoro guidance, left L5-S1. Fluoroscopy TANZANIAN lumbar spine single view INDICATIONS: Left-sided lower back pain years. Exam date and time: October 11, 2024 1451 hours Technique And Findings: Patient is positioned prone on the fluoroscopic table. Oblique fluoroscopic views obtained. Local anesthesia is obtained with 1% lidocaine. 22-gauge needle was advanced toward the 6:00 position of the pedicle. Fluoroscopy is utilized to ensure the needle tip is within the safe triangle After negative aspiration for blood and CSF, 40 mg triamcinolone is injected without difficulty. Patient tolerated the procedure well and in satisfactory and stable condition upon completion of procedure. Estimated blood loss 0 cc IMPRESSION: Successful transforaminal epidural steroid injection as described above Fluoroscopy 0.2 minute radiation dose 4.53 milligray 1 spot fluoroscopic lumbar spine film.
--- NOTE | 2024-10-11 13:30 | XR_ITS ---
EXAMINATIONS: Transforaminal epidural steroid injection, lumbar, single level, includes fluoro guidance, left L4-L5. Fluoroscopy BRUNEIAN lumbar spine single view INDICATIONS: Left-sided lower back pain years. Exam date and time: October 11, 2024 1358 hours Technique And Findings: Patient is positioned prone on the fluoroscopic table. Oblique fluoroscopic views obtained. Local anesthesia is obtained with 1% lidocaine. 22-gauge needle was advanced toward the 6:00 position of the pedicle. Fluoroscopy is utilized to ensure the needle tip is within the safe triangle After negative aspiration for blood and CSF, 40 mg triamcinolone is injected without difficulty. Patient tolerated the procedure well and in satisfactory and stable condition upon completion of procedure. Estimated blood loss 0 cc IMPRESSION: Successful transforaminal epidural steroid injection as described above Fluoroscopy 0.2 minute radiation dose 4.53 milligray 1 spot fluoroscopic lumbar spine film.
== END | disposition home or self-care (01) ==
PROVIDERS: PCP Registered Nurse; Referring Provider Psychiatry & Neurology Neurology; Visit Provider Psychiatry & Neurology Neurology
DX: M54.50 Low back pain, unspecified (principal)
CPT/HCPCS: 64483; 64484 ×2

== ENCOUNTER 2024-10-16 08:52 | Emergency (ER) | payer OTHER, SELFPAY ==
[2024-10-16 08:53] VITALS: BMI 27.4
[2024-10-16 09:03] VITALS: BP 117/81; PULSE 95; RESP 18; TEMP 36.4; O2SAT 95; BMI 27.4
--- NOTE | 2024-10-16 09:09 | XR_ITS ---
Examination: Venous duplex lower extremity sonogram, bilateral. Date and time of exam: October 16, 2024 0931 hrs. Indications: Onset bilateral leg pain and swelling redness beginning 2 days ago Technique: Multiple sonographic images of the deep venous system have been obtained. B-mode/2-D grayscale imaging of vascular structures and Doppler spectral analysis (waveforms) and color performed Both legs are examined. Findings: Deep venous systems do not demonstrate abnormal echogenicity. All visualized deep veins exhibit compressibility. All visualized deep veins exhibit augmentation. Impression: Negative for deep vein thrombosis
[2024-10-16] MEDS: AMOXICILLIN/POT CLAV 875 TABLET 1 TAB PO (10:05)
--- NOTE | 2024-10-16 10:47 | EDNOTE_ITS ---
ED Skin Abcess FB-RME/HPI General Chief complaint: Skin/Abscess/Foreign Body Stated complaint: POSS. INFECTED RIGHT LEG x 2 DAYS Time Seen by Provider: 10/16/24 09:03 Arrival date/time: 10/16/24 08:52 RME / HPI RME / HPI narrative: This section includes all my notes and documentations, including HPI, PE, and ED course. Brady Mcelroy MD HPI: 83-year-old female here with several days of right lower leg swelling and redness and warmth and pain. No fever or chills or bodyaches or malaise. No chest pain or shortness of breath. No cough or congestion or palpitations. No other complaints. ROS: All negative except as documented in HPI. Physical Exam: General: Alert and oriented. No acute distress when remaining still. Eyes: Conjunctivae and lids clear. ENT: No nasal congestion. Neck: Supple. Heart: RRR. Lungs: No respiratory distress. Good air movement. No rhonchi, wheezing, rales. Skin: Warm and dry. Neuro: Alert and oriented X 3. Right Leg: Lower leg remarkable for severe edema with weeping. Anteriorly, there is a dime sized open wound with football sized erythema with calor and tenderness. My review of the bilateral leg US report is no DVT. At this point, diagnoses include cellulitis. Treatment here included Augmentin 875 mg. Recommended a trial of outpatient treatment at home. Based on my best medical judgment, made decision no further evaluation or treatment indicated at this time. Patient understands and agrees to the discharge instructions customized and printed, see below. Discharge Instructions from Dr. Mcelroy printed for you: 1. Fortunately, there is no blood clots in your legs. 2. Take Augmentin to kill the germs causing your right lower leg infection. 3. When resting or sitting or sleeping, elevate your feet/ankles above your waist level. This is extremely important. 4. Keep the open wound in your right lower leg with sterile dressings and keep them clean. 5. See your doctor on 10/18/2024 for recheck and further care. Ask for help until you are completely better. 6. Seek immediate medical care with fever, spreading redness despite taking Augmentin for 24 hours, or with any concerns. Brady Mcelroy MD Related Data Home Medications ?Medication ?Instructions ?Recorded ?Confirmed allopurinol 300 mg tablet 300 mg PO QDAY 08/02/21 07/07/24 gabapentin 300 mg capsule 300 mg PO BID 09/15/21 09/01/24 Previous Rx's ?Medication ?Instructions ?Recorded diltiazem HCl 120 mg 120 mg PO QDAY 30 days #30 caps 02/10/24 capsule,extended release 24 hr acetaminophen 325 mg tablet 650 mg (2 x 325 mg) PO Q6H PRN 09/03/24 PAIN OR FEVER > 101 #60 tabs furosemide 20 mg tablet 20 mg PO Q48H #30 tabs 09/03/24 amoxicillin 875 mg-potassium 1 tab PO BID #20 tabs 10/16/24 clavulanate 125 mg tablet Allergies Allergy/AdvReac Type Severity Reaction Status Date / Time No Known Allergies Allergy Verified 10/16/24 08:55 Course Quality Measures none Orders Category Date Time Status Wound Care [Wound Care] NOW Care 10/16/24 09:09 Completed US venous doppler LE BI Stat Exams 10/16/24 09:09 Completed Amoxicillin/Pot Clav 875 [Augmentin 875] Med 10/16/24 09:10 Discontinued 1 tab PO X1 ONE Vital Signs Vital signs: Vital Signs Temperature 97.6 F 10/16/24 09:03 Pulse Rate 95 10/16/24 09:03 Respiratory Rate 18 10/16/24 09:03 Blood Pressure 117/81 10/16/24 09:03 Pulse Oximetry (%) 95 10/16/24 09:03 Oxygen Delivery Method Room Air 10/16/24 09:03 Skin / Abscess / Foreign Body Patient data External records reviewed:: [facility] previous records Clinical information provided by:: patient and family Social determinants that could affect healthcare access:: none Patient has the following chronic illnesses:: Hypertension and chronic leg edema How is presenting disease/condition affected by chronic disease/condition?: exacerbated by Evaluation data The following diagnostics were reviewed and interpreted by me:: radiology exam(s) Lab and/or radiology exams considered but not ordered:: None Interpretation Summary: Right lower leg cellulitis Medications / Prescriptions Medications or Prescriptions considered but not ordered:: None Medication administrations:: Medication Administration History Discontinued Medications Amoxicillin/Clavulanate Potassium (Amoxicillin/Pot Clav 875 Tablet) 1 tab PO X1 ONE Stop: 10/16/24 09:11 Last Admin: 10/16/24 10:05 Dose: 1 tab Documented By: YUNIEL Augmentin Consultations Consultation(s) initiated? (list below): No Diagnosis Skin/Abscess Differential Diagnosis: abscess of skin or subcutaneous tissue, cellulitis, eczema, contact dermatitis and other (DVT) Most likely diagnosis given after review of the tests above:: Right lower leg cellulitis Admission Indicated Admission indicated?: not indicated Explain why admission is indicated or not indicated:: No criteria for admission Admission Request Was there a request for admission?: No Disposition Plan Disposition Plan: Discharge Discharge Attestation Discharge Attestation: The patient and all family members were given an opportunity to ask questions and understood the discharge instructions. Discharge instructions specifically effects, indications for sooner follow up or return to the emergency department, and the expected course of current diagnosis. Patient condition: Stable Discharge Plan Plan Patient Disposition: HOME (Self Care) Prescriptions/Referrals Prescriptions/Med Rec: New amoxicillin-pot clavulanate 875-125 mg tablet 1 tab PO BID Qty: 20 0RF No Action allopurinol 300 mg Tablet 300 mg PO QDAY gabapentin 300 mg Capsule 300 mg PO BID diltiazem HCl 120 mg Capsule,Extended Release 24hr 120 mg PO QDAY 30 Days Qty: 30 1RF furosemide 20 mg tablet 20 mg PO Q48H Qty: 30 0RF acetaminophen 325 mg Tablet 650 mg PO Q6H PRN (Reason: PAIN OR FEVER > 101) Qty: 60 0RF Referrals: Lorne Alvarez MD [Primary Care Provider] - In 1 week Problem List Clinical Impression: Cellulitis of right leg Patient/Caregiver Discharge Instructions Discharge Activity: activity as tolerated Education Materials: ED Cellulitis Additional Instructions: Discharge Instructions from Dr. Mcelroy printed for you: 1. Fortunately, there is no blood clots in your legs. 2. Take Augmentin to kill the germs causing your right lower leg infection. 3. When resting or sitting or sleeping, elevate your feet/ankles above your waist level. This is extremely important. 4. Keep the open wound in your right lower leg with sterile dressings and keep them clean. 5. See your doctor on 10/18/2024 for recheck and further care. Ask for help until you are completely better. 6. Seek immediate medical care with fever, spreading redness despite taking Augmentin for 24 hours, or with any concerns. Print Language: Turkish Stand Alone Forms: [facility] Award Info., Patient Portal Info Letter
== END 2024-10-16 10:53 | disposition home or self-care (01) ==
PROVIDERS: Emergency Provider Emergency Medicine; PCP Family Medicine
DX: L03.115 Cellulitis of right lower limb (principal)
CPT/HCPCS: 93970; 99284; A9270

== ENCOUNTER → 2024-10-18 | Outpatient (CLI) | payer OTHER, SELFPAY | END | disposition home or self-care (01) | LOC: SLDO 15:45 | PROVIDERS: PCP Nurse Practitioner Family; Referring Provider Nurse Practitioner Family; Visit Provider Nurse Practitioner Family | DX: L03.115 Cellulitis of right lower limb (principal) | CPT/HCPCS: 87070; 87205 ==

== ENCOUNTER 2024-10-25 23:16 | Emergency (ER) | payer OTHER, SELFPAY ==
[2024-10-25 23:18] VITALS: BMI 27.4
[2024-10-26 00:06] VITALS: BP 124/75; PULSE 97; RESP 16; TEMP 36.9; O2SAT 96
--- NOTE | 2024-10-26 00:32 | XR_ITS ---
Examination: Tibia-Fibula, right , 2 views Technique: Tibia-fibula AP lateral 2 views Date and time of exam: October 26, 2024 0114 hrs. Indications: Right lower leg pain beginning 10 days ago, tender to touch Findings: Prominent osteopenia Partial visualization total right knee arthroplasty No fracture No cortical bone destruction No opaque foreign body Impression: No fracture No cortical bone destruction
--- NOTE | 2024-10-26 00:33 | PD.EDRME ---
Rapid Medical Screening Exam RME Arrival date/time: 10/25/24 23:16 83-year-old female seen approximately 2 weeks ago for right lower extremity cellulitis is returning for worsening symptoms Chief Complaint: Skin/Abscess/Foreign Body Time Seen by Provider: 10/25/24 23:26 Vital signs: Vital Signs Temperature 98.5 F 10/26/24 00:06 Pulse Rate 97 10/26/24 00:06 Respiratory Rate 16 10/26/24 00:06 Blood Pressure 124/75 10/26/24 00:06 Pulse Oximetry (%) 96 10/26/24 00:06 Oxygen Delivery Method Room Air 10/26/24 00:06 Vital signs reviewed by provider: Yes
[2024-10-26 01:35] LABS: Basophils % (Auto) 0 % (0-2.5); Eosinophils % (Auto) 0 % (0-10); Hematocrit 38.8 % (36.0-46.0); Hemoglobin 13.3 g/dL (12.0-16.0); Immature Granulocytes % (Auto) 1 % (0-0); Immature Granulocytes Auto 0.14 Thou/mm3 (0.00-0.00); Lymphocytes # (Auto) 1.1 Thou/mm3 (1.0-4.8); Lymphocytes % (Auto) 8 % (10-50); Mean Corpuscular HGB Conc 34.3 g/dl (31.0-37.0); Mean Corpuscular Hemoglobin 33.2 pg (25.0-35.0); Mean Corpuscular Volume 97 fL (80-100); Monocytes # (Auto) 0.3 Thou/mm3 (0.0-0.8); Monocytes % (Auto) 2 % (0-12); Neutrophils # (Auto) 12.8 Thou/mm3 (1.8-7.7); Neutrophils % (Auto) 89 % (37-80); Nucleated Red Blood Cell % 0 /100 WBC (0); Platelet Count 257 Thou/mm3 (140-440); RDW Standard Deviation 53.9 fL (36.4-46.3); Red Blood Count 4.01 Miln/mm3 (4.00-5.20); White Blood Count 14.3 Thou/mm3 (3.6-11.0)
--- NOTE | 2024-10-26 02:18 | XR_ITS ---
Examination: Duplex scan of the lower extremity, unilateral right complete Date and time of exam: October 26, 2024 1504 hrs. Indications: Right leg swelling and pain redness beginning 10 days ago Technique: Duplex scan of the extremity veins using B-mode/grayscale imaging and Doppler spectral analysis and color flow Attention is directed to internal echogenicity, compression and augmentation involving these veins, color flow assessment, spectral analysis Findings: Major deep venous structures in the extremity demonstrate normal course and caliber. There is no evidence of deep vein thrombosis. Normal color flow and spectral analysis Impression: Negative for DVT..
--- NOTE | 2024-10-26 04:43 | PRELIM_ITS ---
Right lower extremity venous Doppler ultrasound with wave Doppler spectral analysis. October 26 5 0304 hours Clinical history: Right lower extremity edema redness and tenderness Comparison: None.Fi ndings:Mario scale, color flow and spectral Doppler evaluation of the right lower extremity deep veins were performed.The common femoral, superficial femoral and popliteal veins are patent and compressib le. Normal respiratory variation is noted. There is no evidence of occlusive or nonocclusive thrombus . The great saphenous vein is patent and compressible at the level of the saphenofemoral junction. Th e calf veins to the extent visualized are patent. Impression:No sonographic evidence of deep venous t hrombosis in the right lower extremity. Report Electronically Signed By: Pepito Cloud 10/26/2024 4 :42:05 AM [EST]
--- NOTE | 2024-10-26 04:53 | PD.EDSKIN ---
ED Skin Abcess FB-RME/HPI General Chief complaint: Skin/Abscess/Foreign Body Stated complaint: MAGDALENE LEG PAIN SWELLING, REDNESS TODAY. Time Seen by Provider: 10/25/24 23:26 Source: patient and family (Son) Arrival date/time: 10/25/24 23:16 83-year-old female with son at bedside presents emergency department complaining of right lower extremity redness and edema that is been ongoing for 2 weeks. Son reports patient was recently diagnosed with cellulitis of right lower extremity discharged on antibiotics but son reports patient did not take antibiotics as prescribed. Patient [place] any fever, chills, nausea vomiting, cough, shortness of breath, chest pain, or any other associated symptom. Mode of arrival: ambulatory Limitations: no limitations RME / HPI RME / HPI narrative: 10/25/24 23:16 83-year-old female seen approximately 2 weeks ago for right lower extremity cellulitis is returning for worsening symptoms Related Data Home Medications ?Medication ?Instructions ?Recorded ?Confirmed allopurinol 300 mg tablet 300 mg PO QDAY 08/02/21 07/07/24 gabapentin 300 mg capsule 300 mg PO BID 09/15/21 09/01/24 Previous Rx's ?Medication ?Instructions ?Recorded diltiazem HCl 120 mg 120 mg PO QDAY 30 days #30 caps 02/10/24 capsule,extended release 24 hr acetaminophen 325 mg tablet 650 mg (2 x 325 mg) PO Q6H PRN 09/03/24 PAIN OR FEVER > 101 #60 tabs furosemide 20 mg tablet 20 mg PO Q48H #30 tabs 09/03/24 amoxicillin 875 mg-potassium 1 tab PO BID #20 tabs 10/16/24 clavulanate 125 mg tablet cephalexin 500 mg capsule 1,000 mg (2 x 500 mg) PO BID 7 10/26/24 days #28 caps Allergies Allergy/AdvReac Type Severity Reaction Status Date / Time No Known Allergies Allergy Verified 10/25/24 23:22 Review of Systems Review of Systems Systems Reviewed: All systems reviewed, normal except as documented Constitutional Constitutional: Reports system reviewed and no additional complaints, except as documented, Denies body ache(s), Denies chills and Denies fever(s) Eyes Eyes: Reports system reviewed and no additional complaints, except as documented and Denies change in vision ENT Ears, Nose, Mouth, and Throat: Reports system reviewed and no additional complaints, except as documented, Denies disequilibrium, Denies dizziness, Denies sore throat and Denies vertigo Cardiovascular Cardiovascular: Reports system reviewed and no additional complaints, except as documented, Denies chest pain and Denies dyspnea Respiratory Respiratory: Reports system reviewed and no additional complaints, except as documented, Denies chest congestion, Denies cough and Denies dyspnea Gastrointestinal Gastrointestinal: Reports system reviewed and no additional complaints, except as documented, Denies abdominal pain, Denies nausea and Denies vomiting Musculoskeletal Musculoskeletal: Reports system reviewed and no additional complaints, except as documented, Denies abnormal gait and Denies arthralgias Integumentary/Breasts Skin/Breast: Reports system reviewed and no additional complaints, except as documented, Reports erythema, Denies rash, Denies wounds and Reports other (Edema) Neurologic Neurologic: Reports system reviewed and no additional complaints, except as documented, Denies abnormal gait, Denies disequilibrium, Denies dizziness and Denies vertigo Past Medical History Past Medical History NEUROLOGIC: Negative Neurological Disorders or Seizures CARDIAC: Positive Cardiac Disorders, Atrial Fibrillation, Edema, Hypertension and Varicose Veins; Negative Congestive Heart Failure RESPIRATORY: Positive Pneumonia; Negative Chronic Obstructive Pulmonary Disease (COPD) or Asthma GASTROINTESTINAL: Positive Gastrointestinal Disorders, Gastrointestinal Bleed, Hiatal Hernia and Gastroesophageal Reflux Disease GENITOURINARY: Negative Genitourinary Disorders or Renal Disease REPRODUCTIVE: Positive Previous Pregnancies MUSCULOSKELETAL: Positive Musculoskeletal Disorders, Arthritis, Gout and Fibromyalgia ENDOCRINE: Negative Endocrine Disorders, Diabetes Mellitus Type 1 or Diabetes Mellitus Type 2 HEMATOLOGIC: Positive Blood Disorders and Anemia; Negative Sickle Cell Disease OTHER HISTORY: Positive Hospitalization, Blood Transfusions, Measles and Mumps; Negative Autoimmune Disease, Shingles, Blood Transfusion Reaction, Anesthesia Reactions or Cancer Family History FAMILY HISTORY: Positive Family Cancer; Negative Family Psychiatric Problems, Family Respiratory Disorders, Family Cardiac Disorders, Family Gastrointestinal Problems, Family Surgery or Family Anesthesia Reaction Social History SMOKING STATUS: Never smoker SECOND HAND EXPOSURE: No SUBSTANCE USE: does not use ED Exam General Limitations: Present no limitations General appearance: Present alert and in no apparent distress Head Head exam: Present atraumatic Eye Eye exam: Present normal appearance, PERRL and EOMI ENT ENT exam: Present normal exam, normal oropharynx and mucous membranes moist Neck Neck exam: Present normal inspection, full ROM and trachea midline Chest Chest inspection: Present normal inspection and symmetric chest wall rise Respiratory Respiratory exam: Present normal lung sounds bilaterally Cardiovascular Cardiovascular exam: Present regular rate, normal rhythm and normal heart sounds Abdominal Exam Abdominal exam: Present soft and normal bowel sounds Extremities Exam Extremities exam: Present normal inspection and full ROM Expanded Lower Extremity Exam Leg image: 1. +2 edema with redness and tenderness but soft to palpation no warmth and no obvious abscess. No induration. Neurovascular/Tendon exam: Present normal capillary refill Back Exam Back exam: Present normal inspection and full ROM Neurological Exam Neurological exam: Present alert, oriented X3 and CN II-XII intact Psychiatric Psychiatric exam: Present normal affect and normal mood Skin Skin exam: Present warm, dry, intact and normal color Course Quality Measures none Orders Category Date Time Status US venous doppler LE RT Stat Exams 10/26/24 02:18 Taken XR tibia fibula RT 2V Stat Exams 10/26/24 00:32 Taken CBC Stat Lab 10/26/24 01:13 Completed cefTRIAXone [Rocephin] 1,000 mg Med 10/26/24 04:52 Discontinued Lidocaine 1% 20 ml [Xylocaine 1% 20 ML] 2.1 ml IM X1 Vital Signs Vital signs: Vital Signs Temperature 98.5 F 10/26/24 00:06 Pulse Rate 97 10/26/24 00:06 Respiratory Rate 16 10/26/24 00:06 Blood Pressure 124/75 10/26/24 00:06 Pulse Oximetry (%) 96 10/26/24 00:06 Oxygen Delivery Method Room Air 10/26/24 00:06 96% room air within normal limits Skin / Abscess / Foreign Body MDM Narrative MDM Narrative:: 83-year-old female with son at bedside presents emergency department complaining of right lower extremity redness and edema that is been ongoing for 2 weeks. Son reports patient was recently diagnosed with cellulitis of right lower extremity discharged on antibiotics but son reports patient did not take antibiotics as prescribed. Patient Nuys any fever, chills, nausea vomiting, cough, shortness of breath, chest pain, or any other associated symptom. CBC mild leukocytosis 14.3 patient does not appear toxic and no SIRS criteria or concern of sepsis at this time. Ultrasound right lower extremity unremarkable for DVT. Patient last visit was discharged on Augmentin will change to cephalexin as patient has none purulent cellulitis and patient did not complete Augmentin. Will treat with cephalexin 1 g p.o. 2 times daily due to previous nonadherence instead of 4 times a day. Son reports will make sure patient is taking antibiotic this time around and will be able to provide assistance to mother. Instructed son to have close follow-up with primary care provider in 3 days for reevaluation of right lower extremity and return immediately to emergency department for any worsening signs of infection or as needed. Patient data External records reviewed:: [facility] previous records Clinical information provided by:: patient and family Social determinants that could affect healthcare access:: none Patient has the following chronic illnesses:: See chart How is presenting disease/condition affected by chronic disease/condition?: uneffected by Evaluation data The following diagnostics were reviewed and interpreted by me:: lab results and radiology exam(s) Lab and/or radiology exams considered but not ordered:: Ordered Interpretation Summary: Interpreted by me Medications / Prescriptions Medications or Prescriptions considered but not ordered:: Ordered Medication administrations:: Medication Administration History Discontinued Medications Ceftriaxone Sodium 1,000 mg/ (Lidocaine HCl 2.1 ml) 0 mg IM X1 ONE Stop: 10/26/24 04:53 Given Consultations Consultation(s) initiated? (list below): No Diagnosis Skin/Abscess Differential Diagnosis: abscess of skin or subcutaneous tissue and cellulitis Most likely diagnosis given after review of the tests above:: Cellulitis Admission Indicated Admission indicated?: not indicated Admission Request Was there a request for admission?: No Disposition Plan Disposition Plan: Discharge Discharge Attestation Discharge Attestation: The patient and all family members were given an opportunity to ask questions and understood the discharge instructions. Discharge instructions specifically effects, indications for sooner follow up or return to the emergency department, and the expected course of current diagnosis. Patient condition: Stable Discharge Plan Plan Patient Disposition: HOME (Self Care) Disposition Comment: Stable Prescriptions/Referrals Prescriptions/Med Rec: New cephalexin 500 mg capsule 1,000 mg PO BID 7 Days Qty: 28 0RF No Action allopurinol 300 mg Tablet 300 mg PO QDAY gabapentin 300 mg Capsule 300 mg PO BID diltiazem HCl 120 mg Capsule,Extended Release 24hr 120 mg PO QDAY 30 Days Qty: 30 1RF furosemide 20 mg tablet 20 mg PO Q48H Qty: 30 0RF acetaminophen 325 mg Tablet 650 mg PO Q6H PRN (Reason: PAIN OR FEVER > 101) Qty: 60 0RF amoxicillin-pot clavulanate 875-125 mg tablet 1 tab PO BID Qty: 20 0RF Referrals: Nina Rice NP [Primary Care Provider] - In 1 week Problem List Clinical Impression: Cellulitis of right leg Patient/Caregiver Discharge Instructions Discharge Activity: activity as tolerated Education Materials: Discharge Instructions for Cellulitis, ED Cellulitis Additional Instructions: Stop taking Augmentin as previously prescribed as you did not take consistently or as was told. Take new antibiotic prescription as prescribed and have close follow-up with primary care provider in 2 to 3 days for reevaluation of right leg. Elevate lower extremities to reduce swelling when sitting down or sleeping. Monitor for worsening signs of infection such as taking pictures with your cell phone and comparing. Return immediately to the emergency department for any worsening signs of infection or as needed. Print Language: Bulgarian Stand Alone Forms: [facility] Award Info., Patient Portal Info Letter PA/MIRACLE Supervising Physician VIVIEN/MIRACLE Supervising Physician: Dr. Castro
[2024-10-26] MEDS: cefTRIAXone 1,000 MG, LIDOCAINE 1% 20 ML 2.1 ML IM (05:13)
[2024-10-26 05:14] VITALS: BP 135/64; PULSE 87; RESP 19; TEMP 36.6; O2SAT 99
== END 2024-10-26 05:15 | disposition home or self-care (01) ==
PROVIDERS: Physician Assistant; Emergency Provider Emergency Medicine; PCP Registered Nurse
DX: L03.115 Cellulitis of right lower limb (principal)
CPT/HCPCS: 36415; 73590; 85025; 93971; 96372; 99284; J0696; J3490

== ENCOUNTER → 2024-10-29 | Outpatient (CLI) | payer OTHER, SELFPAY ==
[2024-10-29 11:24] LABS: B-Type Natriuretic Peptide 82 pg/mL (0-100)
[2024-10-29 11:41] LABS: Alanine Aminotransferase 12 U/L (10-49); Albumin, Serum 4.4 gm/dL (3.4-4.8); Albumin/Globulin Ratio 1.8 (1.2-2.2); Alkaline Phosphatase 71 U/L (46-116); Anion Gap 10 (7-16); Aspartate Amino Transferase 11 U/L (0-34); BUN/Creatinine Ratio 30 Ratio (12-20); Bilirubin,Total 0.4 mg/dL (0.3-1.2); Blood Urea Nitrogen 30 mg/dL (9-23); Calcium 9.2 mg/dL (8.3-10.6); Calcium (Corrected) 9.2 mg/dL (8.5-10.1); Carbon Dioxide 24.5 mMol/L (20.0-31.0); Chloride 101 mMol/L (98-107); Globulin 2.4 gm/dL (2.3-3.5); Glucose 98 mg/dL (74-106); Osmolality,Calculated 276 (275-295); Potassium 3.9 mMol/L (3.4-5.1); Sodium 135 mMol/L (136-145); Total Protein 6.8 gm/dL (5.7-8.2); eGFR 55 See Note
== END | disposition home or self-care (01) ==
LOC: COPL 10:09
PROVIDERS: PCP Family Medicine; Referring Provider Registered Nurse; Visit Provider Registered Nurse
DX: R60.9 Edema, unspecified (principal)
CPT/HCPCS: 36415; 80053; 83880

== ENCOUNTER → 2024-11-03 | Outpatient (CLI) | payer OTHER, SELFPAY ==
--- NOTE | 2024-11-03 10:08 | XR_ITS ---
Examination: Foot, left, 3 views Technique: AP, oblique, lateral views foot, 3 views Date and time of exam: November 03, 2024 1033 hours INDICATIONS: Injury to the foot 2 days ago with first digit pain. FINDINGS: Severe osteopenia Old fracture deformity fourth metatarsal Prominent soft tissue dorsum of the foot No acute fracture IMPRESSION: No acute fracture Given the patient's severe osteopenia, recommend short-term follow-up foot films as clinically warranted
== END | disposition home or self-care (01) ==
PROVIDERS: PCP Family Medicine; Referring Provider Registered Nurse; Visit Provider Registered Nurse
DX: M85.872 Other specified disorders of bone density and structure, left ankle and foot (principal); S99.922A Unspecified injury of left foot, initial encounter; X58.XXXA Exposure to other specified factors, initial encounter
CPT/HCPCS: 73630

== ENCOUNTER 2024-11-09 14:34 | Inpatient (IN) | payer OTHER, MEDICARE, SELFPAY ==
--- NOTE | 2024-11-09 | XR_ITS ---
Examination: CT right lower leg with intravenous contrast 2-D sagittal reconstructions. 2-D coronal reconstructions. 3-D reconstructions. Date and time of exam:November 09, 2024 at 1911 hours INDICATIONS: Redness swelling and pain involving the lower leg beginning 2 weeks ago, clinical diagnosis osteomyelitis abscess CTDI: vol (mGy):7.75 DLP: (mGycm):575 Technique: Multiple 1.25 mm axial sections of the right lower extremity lower leg post intravenous administration 60 cc Isovue-[id number] have been obtained. 2-D sagittal and coronal reconstructions have been obtained. 3-D reconstructions have been obtained. Low dose protocols were performed. One or more of the following dose reduction techniques were used; automated exposure control, adjustment of the mA and/or KV according to patient size, use of iterative reconstruction technique. Findings: Diffuse edema in the lower leg in the subcutaneous fatty tissue with skin thickening No soft tissue abscess Atrophic musculature Edema surrounds the ankle and the foot There is considerable foot motion No palomo cortical bone destruction No involucrum or endosteal scalloping IMPRESSION: Severe edema cellulitis right lower leg No soft tissue abscess Negative for osteomyelitis However, MRI lower leg without contrast follow-up would be preferable in assessing for soft tissue abscess or osteomyelitis
[2024-11-09 15:09] VITALS: BP 104/71; PULSE 102; RESP 18; TEMP 36.6; O2SAT 99
--- NOTE | 2024-11-09 15:12 | XR_ITS ---
Examination: Venous duplex lower extremity sonogram, bilateral. Date and time of exam: November 09, 2024 1556 hours INDICATIONS: Bilateral leg swelling and pain redness beginning 8 months ago Technique: Multiple sonographic images of the deep venous system have been obtained. B-mode/2-D grayscale imaging of vascular structures and Doppler spectral analysis (waveforms) and color performed Both legs are examined. Findings: Deep venous systems do not demonstrate abnormal echogenicity. All visualized deep veins exhibit compressibility. All visualized deep veins exhibit augmentation. Impression: Negative for deep vein thrombosis
--- NOTE | 2024-11-09 15:15 | PD.EDRME ---
Rapid Medical Screening Exam RME Arrival date/time: 11/09/24 14:34 83-year-old female presents emergency dept today complains of bilateral lower extremity pain and swelling worse on the right Chief Complaint: Dizziness Time Seen by Provider: 11/09/24 15:10 Vital signs: Vital Signs Temperature 97.8 F 11/09/24 15:09 Pulse Rate 102 H 11/09/24 15:09 Respiratory Rate 18 11/09/24 15:09 Blood Pressure 104/71 11/09/24 15:09 Pulse Oximetry (%) 99 11/09/24 15:09 Oxygen Delivery Method Room Air 11/09/24 15:09
[2024-11-09 15:41] LABS: Basophils % (Auto) 0 % (0-2.5); Eosinophils # (Auto) 0.2 Thou/mm3 (0.0-0.5); Eosinophils % (Auto) 3 % (0-10); Hematocrit 41.2 % (36.0-46.0); Hemoglobin 14.4 g/dL (12.0-16.0); Immature Granulocytes % (Auto) 1 % (0-0); Immature Granulocytes Auto 0.08 Thou/mm3 (0.00-0.00); Lymphocytes # (Auto) 0.8 Thou/mm3 (1.0-4.8); Lymphocytes % (Auto) 11 % (10-50); Mean Corpuscular Hemoglobin 33.1 pg (25.0-35.0); Mean Corpuscular Volume 95 fL (80-100); Monocytes # (Auto) 0.3 Thou/mm3 (0.0-0.8); Monocytes % (Auto) 4 % (0-12); Neutrophils # (Auto) 5.9 Thou/mm3 (1.8-7.7); Neutrophils % (Auto) 80 % (37-80); Nucleated Red Blood Cell # 0.02 Thou/mm3 (0.00-0.00); Nucleated Red Blood Cell % 0 /100 WBC (0); Platelet Count 226 Thou/mm3 (140-440); RDW Standard Deviation 52.5 fL (36.4-46.3); Red Blood Count 4.35 Miln/mm3 (4.00-5.20); White Blood Count 7.3 Thou/mm3 (3.6-11.0)
[2024-11-09 15:45] VITALS: BMI 28.2
--- NOTE | 2024-11-09 15:48 | PC.NURSE ---
Patient from [facility] and taken to rm 6 with c/o wilber. lower leg extremity swelling and right leg pain for several weeks however, patient states the pain in her right leg was so bad she could take it anymore when she moves it, patient was seen earlier this month in the ER and was placed on abx. Patient states currently she has no pain when she is not moving it, son at bedside states she has been having edema to wilber. lower ext. for approx. 9 months off and on. Chart up to be see seen by er provider.
[2024-11-09 15:54] LABS: Sed Rate (ESR) 24 mm/hr (0-30)
[2024-11-09 15:58] LABS: Partial Thromboplastin Time 21.1 Seconds (22.0-36.0); Prothrombin Time 10.6 Seconds (9.0-12.2)
[2024-11-09 16:05] LABS: Alanine Aminotransferase 13 U/L (10-49); Albumin, Serum 4.3 gm/dL (3.4-4.8); Albumin/Globulin Ratio 1.7 (1.2-2.2); Alkaline Phosphatase 79 U/L (46-116); Anion Gap 13 (7-16); Aspartate Amino Transferase 17 U/L (0-34); BUN/Creatinine Ratio 25 Ratio (12-20); Bilirubin,Total 0.6 mg/dL (0.3-1.2); Blood Urea Nitrogen 28 mg/dL (9-23); C-Reactive Protein 3.6 mg/dL (0.0-0.9); Calcium 9.2 mg/dL (8.3-10.6); Calcium (Corrected) 9.2 mg/dL (8.5-10.1); Carbon Dioxide 25.1 mMol/L (20.0-31.0); Chloride 97 mMol/L (98-107); Creatinine (Component) 1.1 mg/dL (0.6-1.3); Estimated Creatinine Clearance 39.7 mL/min (>60); Globulin 2.6 gm/dL (2.3-3.5); Glucose 111 mg/dL (74-106); Osmolality,Calculated 276 (275-295); Potassium 3.3 mMol/L (3.4-5.1); Sodium 135 mMol/L (136-145); Total Protein 6.9 gm/dL (5.7-8.2); eGFR 49 See Note
[2024-11-09 16:31] LABS: B-Type Natriuretic Peptide 126 pg/mL (0-100)
--- NOTE | 2024-11-09 16:38 | PC.NURSE ---
Dr. Morrissey at bedside to assess patient.
--- NOTE | 2024-11-09 16:45 | EDNOTE_ITS ---
ED General RME/HPI General Chief complaint: Dizziness Stated complaint: Lightheaded, dizzy, weak Time Seen by Provider: 11/09/24 15:10 Arrival date/time: 11/09/24 14:34 RME / HPI RME / HPI narrative: 11/09/24 14:34 RME: 83-year-old female presents emergency dept today complains of bilateral lower extremity pain and swelling worse on the right KUAH HPI: 83-year-old female with a history of chronic back pain decreased mobility who presents to the emergency department with recurrent worsening redness to her right lower extremity. She also has chronic swelling of the left lower extremity, however this 1 is not painful or hot. She has just finished a course of Keflex 2 days ago which seem to help, however returned this morning and now is reaching to her knee. She denies fevers chills or sweats. She denies trauma. Related Data Home Medications ?Medication ?Instructions ?Recorded ?Confirmed allopurinol 300 mg tablet 300 mg PO QDAY 08/02/2111/29 gabapentin 300 mg capsule 300 mg PO BID 09/15/2109/01 Previous Rx's ?Medication ?Instructions ?Recorded diltiazem HCl 120 mg 120 mg PO QDAY 30 days #30 c aps 02/10/24 capsule,extended release 24 hr acetaminophen 325 mg tablet 650 mg (2 x 325 mg) PO Q6H PRN 09/03/24 PAIN OR FEVER > 101 #60 tabs furosemide 20 mg tablet 20 mg PO Q48H #30 tabs 09/03 amoxicillin 875 mg-potassium 1 tab PO BID #20 tabs 08/30 clavulanate 125 mg tablet Allergies Allergy/AdvReac Type Severity Reaction Status Date / Time No Known Allergies Allergy Verified 10/25/24 23:22 Review of Systems Review of Systems Systems Reviewed: All systems reviewed, normal except as documented ED Exam Narrative Physical exam: GENERAL APPEARANCE: AxOx4, generally well-appearing, no acute distress HEART: Normal rate and regular rhythm, normal S1/S1, no m/r/g LUNGS: CTAB, moving air well. No crackles or wheezes are heard. EXTREMITIES: Without cyanosis, marked chronic lymphedema of bilateral lower extremities with venous stasis discoloration of the left lower extremity, right leg with circumferential erythema, marked tenderness, warmth, swelling around the entire calf and extending up to the level of the knee with some extension across the lateral aspect of the knee. There is some warmth and tenderness along the medial aspect of the thigh without palomo redness or lymphangitis. MUSCULOSKELETAL: FROM of all major joints, no chest tenderness NEUROLOGICAL: Grossly nonfocal. Alert and oriented, moving all 4 extremities. CN not formally tested but appear grossly intact. Observed to ambulate with normal gait. Skin: Warm and dry without any rash. Course Quality Measures none Orders Category Date Time Status COVID-19 Screening Questionnaire NOW Care 11/09/24 17:01 Active US venous doppler LE BI Stat Exams 11/09/24 15:12 Completed BNP [B-Type Natriuretic Peptide] Stat Lab 11/09/24 15:24 Completed Blood Culture (Lab) Stat Lab 11/09/24 15:24 Received CBC Stat Lab 11/09/24 15:24 Completed CMP [Comprehensive Metabolic Panel] Stat Lab 11/09/24 15:24 Completed CRP [C-Reactive Protein] Stat Lab 11/09/24 15:24 Completed ESR [Sed Rate (ESR)] Stat Lab 11/09/24 15:24 Completed Lactic Acid [Lactate (Lactic Acid)] Stat Lab 11/09/24 15:24 Results PT [Prothrombin Time with INR] Stat Lab 11/09/24 15:24 Completed PTT [Partial Thromboplastin Time] Stat Lab 11/09/24 15:24 Completed Procalcitonin Stat Lab 11/09/24 15:24 Completed Sodium Chloride 0.9% 1000 ml [Ns] 1,000 ml Med 11/09/24 16:42 Active IV 999 mls/hr ceFAZolin/D5W 1 GM IVPB [Ancef Ivpb] Med 11/09/24 16:42 Discontinued 1 gm in 50 ml IV X1 Vital Signs Vital signs: Vital Signs Temperature 97.8 F 11/09/24 15:09 Pulse Rate 102 H 11/09/24 15:09 Respiratory Rate 18 11/09/24 15:09 Blood Pressure 104/71 11/09/24 15:09 Pulse Oximetry (%) 99 11/09/24 15:09 Oxygen Delivery Method Room Air 11/09/24 15:09 SpO2 99% on room air, patient is not hypoxic MDM Patient data External records reviewed:: [facility] previous records (Including ER visit 10/26/2024) Clinical information provided by:: patient Social determinants that could affect healthcare access:: none Patient has the following chronic illnesses:: Chronic back pain How is presenting disease/condition affected by chronic disease/condition?: e xacerbated by Evaluation data The following diagnostics were reviewed and interpreted by me:: lab results and radiology exam(s) Lab and/or radiology exams considered but not ordered:: None Interpretation Summary: As per narrative Medications Medications considered but not ordered:: None Medication administrations:: Medication Administration History Sodium Chloride (Ns) 1,000 mls @ 999 mls/hr IV .Q1H1M ONE Stop: 11/09/24 17:42 Last Admin: 11/09/24 16:55 Dose: 999 mls/hr Documented By: KM Discontinued Medications Cefazolin Sodium/Dextrose (Ancef Ivpb) 1 gm in 50 mls @ 100 mls/hr IV X1 ONE Stop: 11/09/24 17:11 Last Admin: 11/09/24 16:55 Dose: 100 mls/hr Documented By: KM Above Consultations Consultation(s) initiated? (list below): No Diagnosis Differential Diagnosis ED Complaint MDM: Cellulitis, abscess, erysipelas Most likely diagnosis given after review of the tests above:: See below Admission Indicated Admission indicated?: indicated Explain why admission is indicated or not indicated:: As per narrative Admission Request Was there a request for admission?: Yes Admission Attestation Admission request attestation: Discussed case with [Dr. Richard Kyle] from Hospitalist service regarding admission. Discussed patients ED course, exam findings, labs, and radiology results. The Hospitalist [agrees] to accept the patient for admission. Disposition Plan Disposition Plan: Admit Medical Decision Making MDM Narrative MDM Narrative: Ms. Marie presents to the emergency department with right leg cellulitis is circumferential appears to be extending above the level of the knee clinically does not appear to involve the knee joint. She has finished outpatient dose of cephalexin with recurrence of the infection suggestive of failed outpatient treatment. I do feel she would benefit from IV antibiotics. She was in the emergency department approximately 10 days ago where she received a ultrasound, and x-rays which were negative. Repeat x-ray is not indicated today. Order sent was altered by the RME process which shows no DVT. Laboratory testing was sent which was overall unremarkable but significant for a normal white blood cell count, elevated CRP, and a lactic acid of 3.0. Given her elevated lactic acidosis she will be given a fluid bolus along with IV antibiotics (cefazolin). As she has baseline poor immobility, has failed outpatient oral treatment with antibiotics, case was reviewed with the hospitalist service for admission on IV antibiotics. Differential Diagnosis Differential Diagnosis: Cellulitis, abscess, erysipelas Lab Data 11/09/24 15:24 11/09/24 15:24 Labs: Lab Results 11/09/24 Range/Units 15:24 WBC 7.3 (3.6-11.0) Thou/mm3 RBC 4.35 (4.00-5.20) Miln/mm3 Hgb 14.4 (12.0-16.0) g/dL Hct 41.2 (36.0-46.0) % MCV 95 (80-100) fL MCH 33.1 (25.0-35.0) pg MCHC 35.0 (31.0-37.0) g/dl RDW Std Deviation 52.5 H (36.4-46.3) fL Plt Count 226 D (140-440) Thou/mm3 Neut % (Auto) 80 (37-80) % Lymph % (Auto) 11 (10-50) % [place] % (Auto) 4 (0-12) % Eos % (Auto) 3 (0-10) % Baso % (Auto) 0 (0-2.5) % Neut # (Auto) 5.9 (1.8-7.7) Thou/mm3 Lymph # (Auto) 0.8 L (1.0-4.8) Thou/mm3 [place] # (Auto) 0.3 (0.0-0.8) Thou/mm3 Eos # (Auto) 0.2 (0.0-0.5) Thou/mm3 Baso # (Auto) 0.0 (0.0-0.2) Thou/mm3 Immature Gran # (Auto) 0.08 H (0.00-0.00) Thou/mm3 Absolute Nucleated RBC 0.02 H (0.00-0.00) Thou/mm3 Immature Gran % 1 H (0-0) % Nucleated RBC % 0 (0) /100 WBC ESR 24 (0-30) mm/hr PT 10.6 (9.0-12.2) Seconds INR 1.0 (0.9-1.3) APTT 21.1 L (22.0-36.0) Seconds Sodium 135 L (136-145) mMol/L Potassium 3.3 L (3.4-5.1) mMol/L Chloride 97 L (98-107) mMol/L Carbon Dioxide 25.1 (20.0-31.0) mMol/L Anion Gap 13 (7-16) BUN 28 H (9-23) mg/dL Creatinine 1.1 (0.6-1.3) mg/dL Estim Creat Clear Calc 39.7 L (>60) mL/min eGFR 49 L (60 - ) See Note BUN/Creatinine Ratio 25 H (12-20) Ratio Glucose 111 H (74-106) mg/dL Calculated Osmolality 276 (275-295) Lactic Acid 3.0 H (0.4-2.0) mMol/L Calcium 9.2 (8.3-10.6) mg/dL Corrected Calcium 9.2 (8.5-10.1) mg/dL Total Bilirubin 0.6 (0.3-1.2) mg/dL AST 17 (0-34) U/L ALT 13 (10-49) U/L Alkaline Phosphatase 79 (46-116) U/L C-Reactive Prot, Quant 3.6 H (0.0-0.9) mg/dL B-Natriuretic Peptide 126 H (0-100) pg/mL Total Protein 6.9 (5.7-8.2) gm/dL Albumin 4.3 (3.4-4.8) gm/dL Globulin 2.6 (2.3-3.5) gm/dL Albumin/Globulin Ratio 1.7 (1.2-2.2) Procalcitonin 0.20 (0.0-0.49) ng/ml Discharge Plan Plan Patient Disposition: Admit Acute Care w/in Hospital Prescriptions/Referrals Prescriptions/Med Rec: No Action allopurinol 300 mg Tablet 300 mg PO QDAY gabapentin 300 mg Capsule 300 mg PO BID diltiazem HCl 120 mg Capsule,Extended Release 24hr 120 mg PO QDAY 30 Days Qty: 30 1RF furosemide 20 mg tablet 20 mg PO Q48H Qty: 30 0RF acetaminophen 325 mg Tablet 650 mg PO Q6H PRN (Reason: PAIN OR FEVER > 101) Qty: 60 0RF amoxicillin-pot clavulanate 875-125 mg tablet 1 tab PO BID Qty: 20 0RF Referrals: Nina Rice, [facility] [employer] [Primary Care Provider] - In 1 week Problem List Clinical Impression: Cellulitis, Chronic acquired lymphedema Patient/Caregiver Discharge Instructions Print Language: [place] Stand Alone Forms: [facility] Award Info., Patient Portal Info Letter
[2024-11-09] MEDS: ceFAZolin/D5W 1 GM IVPB 1 GM/50 ML BAG IV (16:55)
[2024-11-09] MEDS: SODIUM CHLORIDE 0.9% 1000 ML 1,000 ML 999 ML IV (16:55)
--- NOTE | 2024-11-09 17:46 | EKG_ITS ---
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
--- NOTE | 2024-11-09 17:52 | XR_ITS ---
Examination: Arterial duplex lower extremity study. Date and time of exam: November 09, 2024 1955 hours INDICATIONS: Redness swelling and pain in the legs with decreased pulses beginning 18 months ago Findings: Duplex sonographic imaging of the lower extremity arteries using B-mode/Mario scale imaging and Doppler spectral analysis and color flow. Ankle brachial indices not recorded secondary to pain in the legs Right common femoral artery demonstrates triphasic flow. Right superficial femoral artery demonstrates triphasic flow. Right popliteal artery demonstrates triphasic flow. Right posterior tibial artery demonstrated monophasic flow. Left common femoral artery demonstrates triphasic flow. Left superficial femoral artery demonstrates biphasic flow. Left popliteal artery demonstrates biphasic flow. Left posterior tibial artery demonstrated biphasic flow. 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
[2024-11-09 17:59] VITALS: BP 91/54; PULSE 101; RESP 25; TEMP 36.9; O2SAT 98
--- NOTE | 2024-11-09 18:04 | ESHP_ITS ---
<Statement entered by Lyly Hanna MD - 11/09/24 18:43> I discussed with and supervised my co-resident involved in the care of this patient. I agree with the assessment and plan as documented above. Patient is an 83 yo female with PMH of afib (not on anticoagulation), chronic venous stasis and lymphedema who presents with worsening R LE pain x 1 month, despite outpatient antibiotics. Patient no septic however she does have lactic acid of 3. Ultrasound ruled out DVT. Will admit for cellulitis and give IV antibiotics, and check arterial ultrasound. Lyly Hanna MD PGY-3 Documentation for date of: 11/09/24 HPI History of Present Illness Chief complaint: Right lower extremity saline History of present illness: Patient is a 83-year-old female history of gout, atrial fibrillation, situs inversus, lymphedema, venous stasis status, chronic low back pain, presenting with a complaint of right lower leg cellulitis for the last month. Of note patient has been to the ED twice and failed antibiotic therapy 2 times. The first time patient was prescribed Augmentin on 10/16. After 4 days patient notes she stopped taking medication if she saw improvement of her cellulitis. They went back to the ED on 10/26 for the same complaint where she was prescribed Keflex, completed course and did not see any improvement. Now presenting to the ED for persistence of symptoms. Is having chills. Denies fevers. No nausea, vomiting, abdominal pain or urinary symptoms. Patient notes that she has been walking less secondary to pain. In the ED patient was slightly hypotensive with blood pressure of 91/54. Appeared to be in A-fib with heart rate anywhere from 100-120 on telemetry. Labs negative for leukocytosis. Patient had an elevated CRP of 3.6 and negative Pro-Jason. BUN of 126. Lactic acid of 3 negative DVT duplex of the right lower extremity. Blood cultures were ordered. Patient was started on 1 L bolus and given cefazolin. History: Lymphedema, A-fib, venous stasis, situs inversus, chronic low back pain, gout Allergies: None Meds: Gabapentin 300 mg daily, diltiazem 120 mg daily, furosemide 40 mg as needed, allopurinol 300 mg daily, esomeprazole 40 mg daily, Eliquis 2.5 mg twice daily Surgery: Right knee replacement, appendectomy CODE STATUS: DNR/DNI Patient was evaluated and managed with my attending Rigo Wilburn, DO, PGY1 Review of Systems Constitutional Constitutional: Reports as per HPI Exam Vital Signs Temp Pulse Resp BP Pulse Ox O2 Del Method 98.4 F 101 H 25 H 91/54 L 98 Room Air 11/09/24 17:59 11/09/24 17:59 11/09/24 17:59 11/09/24 17:59 11/09/24 17:59 11/09/24 17:59 Narrative Exam Constitutional: Well nourished and in no acute distress Head: Normocephalic Eyes: no conjunctival injection , symmetrical lids. ENMT: Moist Mucous Membranes CVS: Tachycardic, irregular rhythm, S1 and S2 present, no murmurs, rubs or gallops . RESP: CTAB, no increased work of breathing, no rales, rhonchi or wheezing GI: Soft, nondistended, nontender throughout MSK: Bilateral lower extremity swelling, worse on the right. On the right leg patient has circumferential cellulitis (erythematous, swollen, tender to palpation, hot to touch) on the from the ankle to the knee. Small tract on the anterior yanes of the right leg with serosanguineous drainage Skin: As per above Neuro: Alert and oriented, moves all limbs spontaneously Psych: Appropriate mood and affect. Results: Labs 11/11/24 04:13 11/11/24 04:13 Labs: Short CBC 11/09/24 Range/Units 15:24 WBC 7.3 (3.6-11.0) Thou/mm3 Hgb 14.4 (12.0-16.0) g/dL Hct 41.2 (36.0-46.0) % Plt Count 226 D (140-440) Thou/mm3 BMP 11/09/24 15:24 Sodium 135 L Potassium 3.3 L Chloride 97 L Carbon Dioxide 25.1 BUN 28 H Creatinine 1.1 Glucose 111 H Calcium 9.2 Liver Function 11/09/24 Range/Units 15:24 Total Bilirubin 0.6 (0.3-1.2) mg/dL AST 17 (0-34) U/L ALT 13 (10-49) U/L Alkaline Phosphatase 79 (46-116) U/L Albumin 4.3 (3.4-4.8) gm/dL Quality Measures Quality Measures none Advance care planning discussed with:: patient Medications Home Medications and Allergies Home Medications ?Medication ?Instructions ?Recorded ?Confirmed ?Type allopurinol 300 mg tablet 300 mg PO QDAY 08/02/2102/27 History gabapentin 300 mg capsule 300 mg PO BID 09/15/2109/01 History Allergies Allergy/AdvReac Type Severity Reaction Status Date / Time No Known Allergies Allergy Verified 10/25/24 23:22 Visit Medications Acetaminophen (Acetaminophen 325 Mg Tablet) 650 mg PO Q6H PRN PRN Reason: Fever >101.5 Stop: 12/09/24 17:45 Allopurinol (Allopurinol 100 Mg Tablet) 300 mg PO QDAY [facility] Stop: 12/09/24 17:59 Ampicillin Sodium/Sulbactam Sodium (Ampicillin/Sulbac Inj 3 Gm Vial) 3 gm IV Q6HR [facility] Stop: 11/16/24 18:14 Apixaban (Apixaban 2.5 Mg Tablet) 2.5 mg PO BID [facility] Stop: 12/09/24 20:59 Gabapentin (Gabapentin 300 Mg Capsule) 300 mg PO QDAY [facility] Stop: 12/10/24 08:59 Sodium Chloride (Ns) 500 mls @ 999 mls/hr IV .Q31M ONE Stop: 11/09/24 18:33 Ibuprofen (Ibuprofen Tab 600 Mg Tablet) 600 mg PO Q6H PRN PRN Reason: PAIN SCALE 1-3 (mild Stop: 12/09/24 17:45 Magnesium Hydroxide (Milk Of Magnesia Susp 30 Ml Udc) 30 ml PO QDAY PRN PRN Reason: CONSTIPATION Stop: 12/09/24 17:45 Morphine Sulfate (Morphine Sulf Inj 10 Mg/Ml Vial) 2 mg IVP Q2H PRN PRN Reason: PAIN SCALE 7-10 (Severe Stop: 11/14/24 17:45 Ondansetron HCl (Ondansetron Inj 2 Mg/Ml Inj 2 Ml) 4 mg IV Q6H PRN; Protocol PRN Reason: NAUSEA OR VOMITING Stop: 12/09/24 17:45 Oxycodone/Acetaminophen (Oxycodone/Apap 5/325 Tablet) 1 tab PO Q6H PRN PRN Reason: PAIN SCALE 4-6 (Moderate Stop: 11/14/24 17:45 Pantoprazole Sodium (Pantoprazole Inj 40 Mg Vial) 40 mg IVP QDAY [facility] Stop: 12/10/24 08:59 Pharmacy Consult (Vancomycin Pharmacy To Dose 1 Each Each) 1 each IV QDAY [facility] Stop: 12/09/24 17:59 Sennosides (Senna Tablet) 1 tab PO QDAY [facility]; Protocol Stop: 12/10/24 08:59 Discontinued Medications Diltiazem HCl (Diltiazem Er 90 Mg Er Capsule) 120 mg PO QDAY [facility] Stop: 12/10/24 08:59 Sodium Chloride (Ns) 1,000 mls @ 999 mls/hr IV .Q1H1M ONE Stop: 11/09/24 17:42 Last Admin: 11/09/24 16:55 Dose: 999 mls/hr Cefazolin Sodium/Dextrose (Ancef Ivpb) 1 gm in 50 mls @ 100 mls/hr IV X1 ONE Stop: 11/09/24 17:11 Last Admin: 11/09/24 16:55 Dose: 100 mls/hr Ceftriaxone Sodium/Dextrose (Rocephin/D5w 1gm Iv Premix) 50 mls @ 100 mls/hr IV QDAY [facility] Stop: 11/16/24 17:53 Ondansetron HCl (Ondansetron Inj 2 Mg/Ml Inj 2 Ml) 4 mg IV Q6HR PRN PRN Reason: NAUSEA OR VOMITING Stop: 12/09/24 17:45 Assessment & Plan Plan Patient is a 83-year-old female history of gout, atrial fibrillation, situs inversus, lymphedema, venous stasis status, chronic low back pain, presenting with a complaint of right lower leg cellulitis for the last month. Of note patient has been to the ED twice and failed antibiotic therapy 2 times. The first time patient was prescribed Augmentin on 10/16. After 4 days patient notes she stopped taking medication if she saw improvement of her cellulitis. They went back to the ED on 10/26 for the same complaint where she was prescribed Keflex, completed course and did not see any improvement. Now presenting to the ED for persistence of symptoms. #Sepsis #Hypotension #Cellulitis #Lymphedema #Venous stasis #Tachycardia On exam:Bilateral lower extremity swelling, worse on the right. On the right leg patient has circumferential cellulitis (erythematous, swollen, tender to palpation, hot to touch) on the from the ankle to the knee. Small tract on the anterior yanes of the right leg with serosanguineous drainage Tachycardic in the ED with a heart rate of 100-1 20. Patient is having subjective chills. Lactic acid of 3. Was given 1 L bolus in the ED. Ordered an additional 500 cc for decreased blood pressure. CRP elevated at 3.6. Negative Pro-Jason. Negative right lower extremity DVT ultrasound. Did not give 30 cc/kg for sepsis workup because patient has bilateral lower extremity edema and is on Lasix. 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 No current hematoma on exam. Patient still remains in A-fib. ?Resume home Eliquis 2.5 mg twice daily ?Holding diltiazem due to hypotension #Gout ?Resume home allopurinol #GERD ?Do not have patient's home PPI of esoprazole, started on Protonix #Chronic low back pain ?Resume home gabapentin #Situs inversus GI prophylaxis: PPI Diet: Regular DVT prophylaxis: Eliquis CODE STATUS: DNR/DNI Patient was evaluated and managed with my attending Dr. Rodrigez, Rigo Espinoza DO, PGY1 Attending Provider Attestation/Addendum Face to face evaluation was performed by me. I have personally seen and examined the patient. I discussed the assessment and plan with the entire medicine team. I reviewed available medical records, imaging studies, laboratory results. I agree with the above subjective data, objective findings, assessment and plan except as corrected by me or noted below R LE cellulitis bilateral chronic lymphedema Overweight failed OP Abxs- took Augmentin for 4 days- per it got better then she stopped taking PO ABxs, then took 7 days of keflex 1000 mg BID which did not improve her infection start empiric IV avoncy and Unasyn Follow cultures
[2024-11-09 18:34] LABS: Reflex Lactate? Y
--- NOTE | 2024-11-09 18:36 | PC.NURSE ---
called pharmacy to bring allopurinol to er not in our pyxis
[2024-11-09] MEDS: SULBAC IV (18:38)
[2024-11-09] MEDS: SODIUM CHLORIDE 0.9% IV (18:38)
[2024-11-09] MEDS: AMPICILLIN IV (18:38)
[2024-11-09 19:06] LABS: Cardiac Risk Estimate 2.5 RATIO (3.7-5.6); Cholesterol 201 mg/dL (132-200); HDL Cholesterol 81 mg/dL (40-60); LDL Cholesterol,Calculated 99 mg/dL (0-130); Triglycerides 106 mg/dL (30-150)
--- NOTE | 2024-11-09 19:22 | PC.NURSE ---
Pt to CT scan at this time via [facility].
--- NOTE | 2024-11-09 19:39 | PC.NURSE ---
Called pharmacy to bring down allopurinol since it is not stocked in our pyxis.
--- NOTE | 2024-11-09 19:54 | PC.NURSE ---
Ultrasound at the bedside for exam.
[2024-11-09 19:58] LABS: Lactic Acid, 3 HR 2.5 mMol/L (0.4-2.0)
[2024-11-09 20:14] VITALS: BP 89/62; PULSE 99; RESP 20; O2SAT 97
[2024-11-09] MEDS: allopurinoL 100 MG TABLET 300 MG PO (20:50)
[2024-11-09 20:53] VITALS: BP 126/57; PULSE 121; RESP 20; TEMP 36.9; O2SAT 97
[2024-11-09] MEDS: VANCOMYCIN/NS 1 GM IVPB 200 ML IV (20:53)
[2024-11-09 22:00] VITALS: BP 102/63; PULSE 110; RESP 16; TEMP 38.1; O2SAT 97
[2024-11-09] MEDS: APIXABAN 2.5 MG TABLET PO (23:38)
[2024-11-09] MEDS: MORPHINE SULF INJ 10 MG/ML VIAL 2 MG IVP (23:46)
[2024-11-10] VITALS: BP 96/77; PULSE 120; RESP 20; TEMP 37.3; O2SAT 97
[2024-11-10] MEDS: AMPICILLIN IV ×4 (00:45→17:53)
[2024-11-10] MEDS: SULBAC IV ×4 (00:45→17:53)
[2024-11-10] MEDS: SODIUM CHLORIDE 0.9% IV ×4 (00:45→17:53)
[2024-11-10] MEDS: MORPHINE SULF INJ 10 MG/ML VIAL 2 MG IVP ×2 (03:28→08:53)
[2024-11-10 04:00] VITALS: BP 116/69; PULSE 83; RESP 21; TEMP 37.3; O2SAT 96
[2024-11-10 06:00] VITALS: BMI 26.4
[2024-11-10 06:10] LABS: Basophils % (Auto) 0 % (0-2.5); Eosinophils % (Auto) 0 % (0-10); Hematocrit 31.8 % (36.0-46.0); Hemoglobin 11.2 g/dL (12.0-16.0); Immature Granulocytes % (Auto) 1 % (0-0); Immature Granulocytes Auto 0.05 Thou/mm3 (0.00-0.00); Lymphocytes # (Auto) 0.8 Thou/mm3 (1.0-4.8); Lymphocytes % (Auto) 11 % (10-50); Mean Corpuscular HGB Conc 35.2 g/dl (31.0-37.0); Mean Corpuscular Hemoglobin 32.9 pg (25.0-35.0); Mean Corpuscular Volume 94 fL (80-100); Monocytes # (Auto) 0.3 Thou/mm3 (0.0-0.8); Monocytes % (Auto) 4 % (0-12); Neutrophils # (Auto) 6.7 Thou/mm3 (1.8-7.7); Neutrophils % (Auto) 85 % (37-80); Nucleated Red Blood Cell % 0 /100 WBC (0); Platelet Count 189 Thou/mm3 (140-440); RDW Standard Deviation 52.4 fL (36.4-46.3); White Blood Count 7.9 Thou/mm3 (3.6-11.0)
[2024-11-10 07:08] LABS: Albumin/Globulin Ratio 1.6 (1.2-2.2); Alkaline Phosphatase 53 U/L (46-116); Anion Gap 10 (7-16); Aspartate Amino Transferase 10 U/L (0-34); BUN/Creatinine Ratio 27 Ratio (12-20); Bilirubin,Total 0.6 mg/dL (0.3-1.2); Blood Urea Nitrogen 27 mg/dL (9-23); Calcium 7.9 mg/dL (8.3-10.6); Calcium (Corrected) 8.7 mg/dL (8.5-10.1); Chloride 102 mMol/L (98-107); Estimated Creatinine Clearance 42.4 mL/min (>60); Globulin 1.9 gm/dL (2.3-3.5); Glucose 99 mg/dL (74-106); Osmolality,Calculated 278 (275-295); Potassium 3.2 mMol/L (3.4-5.1); Sodium 137 mMol/L (136-145); Total Protein 4.9 gm/dL (5.7-8.2); eGFR 55 See Note
[2024-11-10 07:36] LABS: Thyroid Stimulating Hormone 2.02 uIU/mL (0.55-4.78)
[2024-11-10 07:51] LABS: Alanine Aminotransferase 7 U/L (10-49)
[2024-11-10 08:00] VITALS: BP 104/68; PULSE 70; PULSE 98; RESP 17; TEMP 36.1; O2SAT 96
[2024-11-10] MEDS: allopurinoL 100 MG TABLET 300 MG PO (08:34)
[2024-11-10] MEDS: CALCIUM CARBONATE 600 MG TABLET PO (08:34)
[2024-11-10] MEDS: APIXABAN 2.5 MG TABLET PO ×2 (08:34→20:40)
[2024-11-10] MEDS: POTASSIUM CHLORIDE 20 mEq TABCR 40 MEQ PO (08:34)
[2024-11-10] MEDS: PANTOPRAZOLE INJ 40 MG VIAL IVP (08:35)
[2024-11-10] MEDS: SENNA TABLET 1 TAB PO (08:35)
[2024-11-10] MEDS: GABAPENTIN 300 MG CAPSULE PO (08:35)
--- NOTE | 2024-11-10 09:12 | PC.SS ---
Update: Patient obtaining IV antibiotics to address skin infection.
--- NOTE | 2024-11-10 10:22 | ESPR_ITS ---
<Statement entered by Lyly Hanna MD - 11/10/24 16:48> I discussed with and supervised my co-resident involved in the care of this patient. I agree with the assessment and plan as documented above. Patient seen and examined at bedside. Endorses sleep and good appetite. Complains of significant pain over right leg, erythema and tenderness. Artreial imaging shows bilateral obstructive arterial disease. Patient's lower extremities both warm and perfused. Blood cultures grew GNR. Will follow up UA for possible source and wait for final speciation of blood cultures. Will continue IV antibiotics and follow up with wound care. Lyly Hanna MD PGY-3 Documentation for date of: 11/10/24 Subjective Subjective Interval history: Patient still continues to chills and tachycardia. The right lower leg still has significant erythema, swelling. Marked the boundaries of cellulitis today with a pen. Patient appears uncomfortable secondary to pain. I advised her to request pain meds from her nurse so that her pain is better controlled and she can get out of bed without difficulty. Exam Vital Signs Temp Pulse Resp BP Pulse Ox O2 Del Method 96.9 F 98 17 104/68 96 Room Air 11/10/24 08:00 11/10/24 08:00 11/10/24 08:00 11/10/24 08:00 11/10/24 08:00 11/10/24 08:00 Narrative Exam Constitutional: Well nourished and in no acute distress Head: Normocephalic Eyes: no conjunctival injection , symmetrical lids. ENMT: Moist Mucous Membranes CVS: Tachycardic, irregular rhythm, S1 and S2 present, no murmurs, rubs or gallops . RESP: CTAB, no increased work of breathing, no rales, rhonchi or wheezing MSK: Bilateral lower extremity swelling, worse on the right. On the right leg patient has circumferential cellulitis (erythematous, swollen, tender to palpation, hot to touch) on the from the ankle to the knee. Small tract on the anterior yanes of the right leg with serosanguineous drainage Skin: As per above Neuro: Alert and oriented, moves all limbs spontaneously Psych: Appropriate mood and affect. Objective Labs 11/11/24 04:13 11/11/24 04:13 Labs: Laboratory Results - last 24 hr 11/09/24 11/09/24 11/10/24 15:24 19:52 04:25 WBC 7.3 7.9 RBC 4.35 3.40 L Hgb 14.4 11.2 L D Hct 41.2 31.8 L MCV 95 94 MCH 33.1 32.9 MCHC 35.0 35.2 RDW Std Deviation 52.5 H 52.4 H Plt Count 226 D 189 D Neut % (Auto) 80 85 H Lymph % (Auto) 11 11 [place] % (Auto) 4 4 Eos % (Auto) 3 0 Baso % (Auto) 0 0 Neut # (Auto) 5.9 6.7 Lymph # (Auto) 0.8 L 0.8 L [place] # (Auto) 0.3 0.3 Eos # (Auto) 0.2 0.0 Baso # (Auto) 0.0 0.0 Immature Gran # (Auto) 0.08 H 0.05 H Absolute Nucleated RBC 0.02 H 0.00 Immature Gran % 1 H 1 H Nucleated RBC % 0 0 ESR 24 PT 10.6 INR 1.0 APTT 21.1 L Sodium 135 L 137 Potassium 3.3 L 3.2 L Chloride 97 L 102 Carbon Dioxide 25.1 25.0 Anion Gap 13 10 BUN 28 H 27 H Creatinine 1.1 1.0 Estim Creat Clear Calc 39.7 L 42.4 L eGFR 49 L 55 L BUN/Creatinine Ratio 25 H 27 H Glucose 111 H 99 Calculated Osmolality 276 278 Lactic Acid 3.0 H 2.5 H Calcium 9.2 7.9 L Corrected Calcium 9.2 8.7 Total Bilirubin 0.6 0.6 AST 17 10 ALT 13 7 L Alkaline Phosphatase 79 53 D C-Reactive Prot, Quant 3.6 H B-Natriuretic Peptide 126 H Total Protein 6.9 4.9 L Albumin 4.3 3.0 L D Globulin 2.6 1.9 L Albumin/Globulin Ratio 1.7 1.6 Triglycerides 106 Cholesterol 201 H LDL Cholesterol, Calc 99 HDL Cholesterol 81 H Cholesterol/HDL Ratio 2.5 L Procalcitonin 0.20 TSH 2.02 Quality Measures Quality Measures none Advance care planning discussed with:: patient Assessment & Plan Assessment Current Active Medications: Generic Name Dose Route Start Last Admin Trade Name Freq PRN Reason Stop Dose Admin Acetaminophen 650 mg 11/09/24 17:46 Acetaminophen 325 Mg Tablet PO 12/09/24 17:45 Q6H PRN Fever >101.5 Allopurinol 300 mg 11/09/24 18:00 11/10/24 08:34 Allopurinol 100 Mg Tablet PO 12/09/24 17:59 300 mg QDAY PAMELA Administration Apixaban 2.5 mg 11/09/24 21:00 11/10/24 08:34 Apixaban 2.5 Mg Tablet PO 12/09/24 20:59 2.5 mg BID PAMELA Administration Gabapentin 300 mg 11/10/24 09:00 11/10/24 08:35 Gabapentin 300 Mg Capsule PO 12/10/24 08:59 300 mg QDAY PAMELA Administration Ampicillin Sodium/Sulbactam 50 mls @ 100 mls/hr 11/10/24 12:00 Sodium 3 gm/ Sodium Chloride IV 11/17/24 11:59 Q6HR PAMELA Vancomycin HCl 750 mg/ Sodium 250 mls @ 200 mls/hr 11/10/24 10:00 Chloride IV 11/17/24 09:59 Q24H PAMELA Ibuprofen 600 mg 11/09/24 17:46 Ibuprofen Tab 600 Mg Tablet PO 12/09/24 17:45 Q6H PRN PAIN SCALE 1-3 (mild Magnesium Hydroxide 30 ml 11/09/24 17:46 Milk Of Magnesia Susp 30 Ml Udc PO 12/09/24 17:45 QDAY PRN CONSTIPATION Morphine Sulfate 2 mg 11/09/24 17:46 11/10/24 08:53 Morphine Sulf Inj 10 Mg/Ml Vial IVP 11/14/24 17:45 2 mg Q2H PRN Administration PAIN SCALE 7-10 (Severe Ondansetron HCl 4 mg 11/09/24 17:46 Ondansetron Inj 2 Mg/Ml Inj 2 Ml IV 12/09/24 17:45 Q6H PRN NAUSEA OR VOMITING Protocol Oxycodone/Acetaminophen 1 tab 11/09/24 17:46 Oxycodone/Apap 5/325 Tablet PO 11/14/24 17:45 Q6H PRN PAIN SCALE 4-6 (Moderate Pantoprazole Sodium 40 mg 11/10/24 09:00 11/10/24 08:35 Pantoprazole Inj 40 Mg Vial IVP 12/10/24 08:59 40 mg QDAY PAMELA Administration Pharmacy Consult 1 each 11/09/24 18:26 Vancomycin Pharmacy To Dose 1 Each Each IV 12/09/24 18:25 QDAY PRN PROTOCOL Sennosides 1 tab 11/10/24 09:00 11/10/24 08:35 Senna Tablet PO 12/10/24 08:59 1 tab QDAY PAMELA Administration Protocol Plan Patient is a 83-year-old female history of gout, atrial fibrillation, situs inversus, lymphedema, venous stasis status, chronic low back pain, presenting with a complaint of right lower leg cellulitis for the last month. Of note patient has been to the ED twice and failed antibiotic therapy 2 times. The first time patient was prescribed Augmentin on 10/16. After 4 days patient notes she stopped taking medication if she saw improvement of her cellulitis. They went back to the ED on 10/26 for the same complaint where she was prescribed Keflex, completed course and did not see any improvement. Now presenting to the ED for persistence of symptoms. #Sepsis #Hypotension #Cellulitis #Lymphedema #Venous stasis #Tachycardia On exam:Bilateral lower extremity swelling, worse on the right. On the right leg patient has circumferential cellulitis (erythematous, swollen, tender to palpation, hot to touch) on the from the ankle to the knee. Small tract on the anterior yanes of the right leg with serosanguineous drainage Tachycardic in the ED with a heart rate of 100-1 20. Patient is having subjective chills. Lactic acid of 3. Was given 1 L bolus in the ED. Ordered an additional 500 cc for decreased blood pressure. CRP elevated at 3.6. Negative Pro-Jason. Negative right lower extremity DVT ultrasound. Did not give 30 cc/kg for sepsis workup because patient has bilateral lower extremity edema and is on Lasix. Bilateral arterial duplex shows obstructive arterial disease. Clinically patient's lower extremities are well-perfused and legs without signs of ischemia. Blood culture from 11/09 shows gram-negative rods Plan: ?Admitted to telemetry ?Pending CT right lower extremity ?Ordered MRSA and UA ?Unasyn and vancomycin (11/09 to present) ?Wound care ?Will continue to monitor blood pressure ?Pain meds as needed ?Patient on home Lasix as needed for lymphedema, holding right now due to hypotension #A-fib Patient had recent diagnosis of hematoma in August and was told to discontinue her Eliquis by emergency medicine physician and end user support specialist. No current hematoma on exam. Patient still remains in A-fib. ?Resume home Eliquis 2.5 mg twice daily ?Holding diltiazem due to hypotension #Gout ?Resume home allopurinol #GERD ?Do not have patient's home PPI of esoprazole, started on Protonix #Chronic low back pain ?Resume home gabapentin #Situs inversus GI prophylaxis: PPI Diet: Regular DVT prophylaxis: Eliquis CODE STATUS: DNR/DNI Patient was evaluated and managed with my attending Dr. Deluna, Rigo Espinoza DO, PGY1 Attending Provider Attestation/Addendum Erna Cloud DO, attest that I was physically present for the [place] portions of the service and evaluated the patient with the resident and I reviewed and discussed the case with the resident and agree with the resident's findings and plans of care as documented above Patient seen and eval this a.m. She states that she is in a lot of pain, particularly in her ankles. Patient is noted to have erythema bilateral lower extremities, right worse than left. Patient is very tender to even slight palpation of the right lower extremity. Edema appears to be improved in her calves due to wrinkling, but continues to have 2+ pitting edema and dorsal aspect of bilateral feet. Patient has been requiring morphine for pain. She is noted to have gram-negative rods in her blood cultures. Will wait for final cultures and sensitivities. Patient thank you will obtain urine cultures as well to find other sources infection. Patient denies any dysuria otherwise or fevers or chills. Will continue with vancomycin and Unasyn at this time. Will narrow antibiotics when cultures are final. Pending MRSA nares to narrow vancomycin. Patient is unable to tolerate compression wrapping due to pain. Case was discussed with wound care nurse.
--- NOTE | 2024-11-10 10:51 | CHAP ---
Patient was visited by a Spiritual Care Volunteer on 11/10/2019 between 0900 and 0923 and received comfort, encouragement and/or prayer.
[2024-11-10] MEDS: Vancomycin Inj 750 MG in SODIUM CHLORIDE 0.9% 250 ML 250 ML 200 MG IV (10:57)
[2024-11-10 12:00] VITALS: BP 100/64; PULSE 100; PULSE 96; RESP 16; TEMP 36.2; O2SAT 97
--- NOTE | 2024-11-10 14:28 | PC.SS ---
Rounding Note: Patient is growing gram negative rods in blood. Receiving antibiotics.
[2024-11-10] MEDS: oxyCODONE/APAP 5/325 TABLET 1 TAB PO (15:48)
[2024-11-10 16:00] VITALS: BP 91/70; PULSE 106; PULSE 108; RESP 19; TEMP 36.4; O2SAT 95
[2024-11-10 20:00] VITALS: BP 100/79; PULSE 107; PULSE 111; RESP 15; TEMP 36.7; O2SAT 96
[2024-11-10 23:19] LABS: Collection Type, Urine Clean Catch
[2024-11-10 23:42] LABS: Bacteria,Urine Rare; Bilirubin,Urine Negative (Negative); Blood,Urine 1+ (Negative); Budding Yeast,Urine Present; Clarity,Urine Turbid (Clear/Hazy); Color,Urine Yellow (Lt Yel-Yel); Glucose, Urine Negative (Negative); Ketones,Urine Negative (Negative); Leukocyte Esterase,Urine Positive (Negative); Nitrite,Urine Negative (Negative); Protein,Urine Trace (Neg - Trace); RBC,Urine 4 /hpf (0-3); Specific Gravity,Urine 1.035 (1.001-1.035); Squamous Epithelial Cell,Urine 15 /hpf (0-5); Urobilinogen,Urine Negative mg/dL (0.0-1.0); WBC,Urine 14 /hpf (0-5)
[2024-11-11] VITALS (7 sets, daily range): BP systolic 99–138; BP diastolic 63–83; PULSE 87–110; RESP 13–20; TEMP 36.1–37; O2SAT 95–97; BMI 27.2
[2024-11-11] MEDS: AMPICILLIN IV ×2 (00:15→06:02)
[2024-11-11] MEDS: SODIUM CHLORIDE 0.9% IV ×2 (00:15→06:02)
[2024-11-11] MEDS: SULBAC IV ×2 (00:15→06:02)
[2024-11-11] MEDS: MORPHINE SULF INJ 10 MG/ML VIAL 2 MG IVP ×3 (00:33→13:28)
[2024-11-11 06:02] LABS: Basophils % (Auto) 0 % (0-2.5); Eosinophils % (Auto) 0 % (0-10); Hemoglobin 10.2 g/dL (12.0-16.0); Immature Granulocytes % (Auto) 1 % (0-0); Lymphocytes # (Auto) 0.6 Thou/mm3 (1.0-4.8); Lymphocytes % (Auto) 8 % (10-50); Mean Corpuscular Hemoglobin 32.8 pg (25.0-35.0); Mean Corpuscular Volume 97 fL (80-100); Monocytes # (Auto) 0.5 Thou/mm3 (0.0-0.8); Monocytes % (Auto) 5 % (0-12); Neutrophils # (Auto) 7.1 Thou/mm3 (1.8-7.7); Neutrophils % (Auto) 86 % (37-80); Nucleated Red Blood Cell % 0 /100 WBC (0); Platelet Count 166 Thou/mm3 (140-440); RDW Standard Deviation 55.8 fL (36.4-46.3); Red Blood Count 3.11 Miln/mm3 (4.00-5.20); White Blood Count 8.3 Thou/mm3 (3.6-11.0)
[2024-11-11 06:37] LABS: Alanine Aminotransferase < 7 U/L (10-49); Albumin, Serum 2.9 gm/dL (3.4-4.8); Albumin/Globulin Ratio 1.5 (1.2-2.2); Alkaline Phosphatase 60 U/L (46-116); Anion Gap 8 (7-16); Aspartate Amino Transferase < 10 U/L (0-34); BUN/Creatinine Ratio 29 Ratio (12-20); Bilirubin,Total 0.3 mg/dL (0.3-1.2); Blood Urea Nitrogen 29 mg/dL (9-23); Calcium 8.1 mg/dL (8.3-10.6); Carbon Dioxide 25.9 mMol/L (20.0-31.0); Chloride 104 mMol/L (98-107); Globulin 1.9 gm/dL (2.3-3.5); Glucose 116 mg/dL (74-106); Osmolality,Calculated 282 (275-295); Potassium 3.7 mMol/L (3.4-5.1); Sodium 138 mMol/L (136-145); Total Protein 4.8 gm/dL (5.7-8.2); eGFR 55 See Note
--- NOTE | 2024-11-11 07:57 | XR_ITS ---
Examination: AP chest single view TECHNIQUE: AP portable semiupright chest single view Exam date and time: November 11, 2024 0812 hours Comparison October 01, 2024 INDICATIONS: Coughing this week FINDINGS: Situs inversus Pneumonia right base Mild enlargement cardiac contour Prominent osteopenia IMPRESSION: Pneumonia right base
[2024-11-11] MEDS: PANTOPRAZOLE INJ 40 MG VIAL IVP (09:46)
[2024-11-11] MEDS: Vancomycin Inj 750 MG in SODIUM CHLORIDE 0.9% 250 ML 250 ML 200 MG IV (09:47)
--- NOTE | 2024-11-11 11:40 | ESPR_ITS ---
<Statement entered by Lyly Hanna MD - 11/11/24 14:30> I discussed with and supervised my co-resident involved in the care of this patient. I agree with the assessment and plan as documented above. Patient seen and examined at bedside. Spitting up a lot of clear white sputum. Continues to complain of RLE leg pain. Does not appear draining. Very tender to touch. UA sugestive of UTI, and urine culture grew E Coli. Will continue IV antibiotics. Regarding dysphagia, will get speech eval. Lyly Hanna MD PGY-3 Documentation for date of: 11/11/24 Subjective Subjective Interval history: Swelling and erythema of the right lower leg is improving. Patient still endorsing pain. This morning patient had difficulty swallowing. Unable to tolerate liquids or solids. Ordered speech evaluation. Patient failed swallow eval, Dr. Montemayor (GI) consulted. Will continue with IV antibiotics. Exam Vital Signs Temp Pulse Resp BP Pulse Ox O2 Del Method 97.1 F 87 15 111/67 95 Room Air 11/11/24 08:00 11/11/24 08:00 11/11/24 08:00 11/11/24 08:00 11/11/24 04:00 11/11/24 04:00 Narrative Exam Constitutional:no acute distress Head: Normocephalic Eyes: no conjunctival injection , symmetrical lids. ENMT: Moist Mucous Membranes CVS: Regular rate, irregular rhythm, S1 and S2 present, no murmurs, rubs or gallops . RESP: CTAB, no increased work of breathing, no rales, rhonchi or wheezing MSK: Bilateral lower extremity swelling, worse on the right. On the right leg patient has circumferential cellulitis (erythematous, swollen, tender to palpation, hot to touch) from the ankle to the knee. Erythema and swelling improved from yesterday. Skin: As per above Neuro: Alert and oriented, moves all limbs spontaneously Psych: Appropriate mood and affect. Objective Labs 11/12/24 04:54 11/12/24 04:54 Labs: Laboratory Results - last 24 hr 11/10/24 11/11/24 22:10 04:13 WBC 8.3 RBC 3.11 L Hgb 10.2 L Hct 30.0 L MCV 97 MCH 32.8 MCHC 34.0 RDW Std Deviation 55.8 H Plt Count 166 Neut % (Auto) 86 H Lymph % (Auto) 8 L [place] % (Auto) 5 Eos % (Auto) 0 Baso % (Auto) 0 Neut # (Auto) 7.1 Lymph # (Auto) 0.6 L [place] # (Auto) 0.5 Eos # (Auto) 0.0 Baso # (Auto) 0.0 Immature Gran # (Auto) 0.10 H Absolute Nucleated RBC 0.00 Immature Gran % 1 H Nucleated RBC % 0 Sodium 138 Potassium 3.7 D Chloride 104 Carbon Dioxide 25.9 Anion Gap 8 BUN 29 H Creatinine 1.0 Estim Creat Clear Calc 43.0 L eGFR 55 L BUN/Creatinine Ratio 29 H Glucose 116 H Calculated Osmolality 282 Calcium 8.1 L Corrected Calcium 9.0 Total Bilirubin 0.3 AST < 10 ALT < 7 L Alkaline Phosphatase 60 Total Protein 4.8 L Albumin 2.9 L Globulin 1.9 L Albumin/Globulin Ratio 1.5 Ur Collection Type Clean Catch Urine Color Yellow Urine Clarity Turbid A Urine pH 5.0 Ur Specific [place] 1.035 Urine Protein Trace Urine Glucose (UA) Negative Urine Ketones Negative Urine Blood 1+ A Urine Nitrite Negative Urine Bilirubin Negative Urine Urobilinogen (Auto) Negative Ur Leukocyte Esterase Positive Urine RBC 4 H Urine WBC 14 H Ur Squamous Epith Cells 15 H Urine Bacteria Rare Urine Yeast (Budding) Present A Quality Measures Quality Measures none Advance care planning discussed with:: patient Assessment & Plan Assessment Current Active Medications: Generic Name Dose Route Start Last Admin Trade Name Freq PRN Reason Stop Dose Admin Acetaminophen 650 mg 11/09/24 17:46 Acetaminophen 325 Mg Tablet PO 12/09/24 17:45 Q6H PRN Fever >101.5 Allopurinol 300 mg 11/09/24 18:00 11/11/24 10:14 Allopurinol 100 Mg Tablet PO 12/09/24 17:59 Not Given QDAY [facility] Apixaban 2.5 mg 11/09/24 21:00 11/11/24 10:14 Apixaban 2.5 Mg Tablet PO 12/09/24 20:59 Not Given BID PAMELA Doxycycline Hyclate 100 mg 11/11/24 10:00 Doxycycline 100 Mg Tablet PO 11/18/24 09:59 BID PAMELA Gabapentin 300 mg 11/10/24 09:00 11/11/24 10:14 Gabapentin 300 Mg Capsule PO 12/10/24 08:59 Not Given QDAY PAMELA Ibuprofen 600 mg 11/09/24 17:46 Ibuprofen Tab 600 Mg Tablet PO 12/09/24 17:45 Q6H PRN PAIN SCALE 1-3 (mild Magnesium Hydroxide 30 ml 11/09/24 17:46 Milk Of Magnesia Susp 30 Ml Udc PO 12/09/24 17:45 QDAY PRN CONSTIPATION Metoclopramide HCl 10 mg 11/11/24 12:00 Metoclopramide Inj 5 Mg/Ml Vial 2 Ml IVP 12/11/24 11:59 Q6HR PAMELA Protocol Morphine Sulfate 2 mg 11/09/24 17:46 11/11/24 09:47 Morphine Sulf Inj 10 Mg/Ml Vial IVP 11/14/24 17:45 2 mg Q2H PRN Administration PAIN SCALE 7-10 (Severe Ondansetron HCl 4 mg 11/09/24 17:46 Ondansetron Inj 2 Mg/Ml Inj 2 Ml IV 12/09/24 17:45 Q6H PRN NAUSEA OR VOMITING Protocol Oxycodone/Acetaminophen 1 tab 11/09/24 17:46 11/10/24 15:48 Oxycodone/Apap 5/325 Tablet PO 11/14/24 17:45 1 tab Q6H PRN Administration PAIN SCALE 4-6 (Moderate Pantoprazole Sodium 40 mg 11/10/24 09:00 11/11/24 09:46 Pantoprazole Inj 40 Mg Vial IVP 12/10/24 08:59 40 mg QDAY PAMELA Administration Sennosides 1 tab 11/10/24 09:00 11/11/24 10:15 Senna Tablet PO 12/10/24 08:59 Not Given QDAY [facility] Protocol Sodium Chloride 1 spray 11/10/24 18:05 Saline Nasal 45 Ml Btl NASAL 12/10/24 18:04 PRN PRN CONGESTION Plan Patient is a 83-year-old female history of gout, atrial fibrillation, situs inversus, lymphedema, venous stasis status, chronic low back pain, presenting with a complaint of right lower leg cellulitis for the last month. Of note patient has been to the ED twice and failed antibiotic therapy 2 times. The first time patient was prescribed Augmentin on 10/16. After 4 days patient notes she stopped taking medication if she saw improvement of her cellulitis. They went back to the ED on 10/26 for the same complaint where she was prescribed Keflex, completed course and did not see any improvement. Now presenting to the ED for persistence of symptoms. #Sepsis #Hypotension #Cellulitis #Lymphedema #Venous stasis #Tachycardia # UTI On exam:Bilateral lower extremity swelling, worse on the right. On the right leg patient has circumferential cellulitis (erythematous, swollen, tender to palpation, hot to touch) on the from the ankle to the knee. Small tract on the anterior yanes of the right leg with serosanguineous drainage Tachycardic in the ED with a heart rate of 100-1 20. Patient is having subjective chills. Lactic acid of 3. Was given 1 L bolus in the ED. Ordered an additional 500 cc for decreased blood pressure. CRP elevated at 3.6. Negative Pro-Jason. Negative right lower extremity DVT ultrasound. Did not give 30 cc/kg for sepsis workup because patient has bilateral lower extremity edema and is on Lasix. Bilateral arterial duplex shows obstructive arterial disease. Clinically patient's lower extremities are well-perfused and legs without signs of ischemia. CT of the right lower extremity shows severe edema and cellulitis. No abscess or osteomyelitis. Blood culture from 11/09 shows gram-negative rods UA is positive for E. coli. Plan: ?Admitted to telemetry ?Pending MRSA ?s/p unasyn and vancomycin (11/09-11/11) ?Doxycycline (11/11?present) ?Wound care ?Will continue to monitor blood pressure ?Pain meds as needed ?Patient on home Lasix as needed for lymphedema, holding right now due to hypotension #Difficulty swallowing This morning patient felt developed dysphagia. Not able to tolerate solids or liquids. Upon discussion with patient has had this issue before in the past. Last EGD was done on February 2024. Showed esophagitis and gastritis. Ordered speech therapy, patient failed bedside swallow. ?GI, Dr. Montemayor consulted. ?Reglan every 6 hours #A-fib Patient had recent diagnosis of hematoma in August and was told to discontinue her Eliquis by emergency medicine physician and perioperative educator. No current hematoma on exam. Patient still remains in A-fib. ? Holding Eliquis 2.5 mg twice daily, switch to Lovenox twice daily due to patient being unable to swallow pills ?Holding diltiazem due to hypotension #Gout ?Resume home allopurinol #GERD ?Do not have patient's home PPI of esoprazole, started on Protonix #Chronic low back pain ?Resume home gabapentin #Situs inversus GI prophylaxis: PPI Diet: N.p.o. DVT prophylaxis: Lovenox CODE STATUS: DNR/DNI Patient was evaluated and managed with my attending Dr. Deluna, Rigo Espinoza DO, PGY1 Attending Provider Attestation/Addendum Erna Cloud DO, attest that I was physically present for the [place] portions of the service and evaluated the patient with the resident and I reviewed and discussed the case with the resident and agree with the resident's findings and plans of care as documented above Patient seen and evaluated this AM. Patient reported feelign nauseous and had an episode of emesis due to dysphagia. Patient reports previous episodes of dysphagia in the past, but previous EGD reviewed and no reported strictures in the past. Will have ST evaluate pt. If there is concern for possible anatomical obstruction, will consult GI. Patient continues to complain of pain in her ankles, but edema has improved. Patient unable to swallow pills due to dysphagia. Will switch eliquis to lovenox full dose.
[2024-11-11] MEDS: METOCLOPRAMIDE INJ 5 MG/ML VIAL 2 ML 10 MG IVP ×2 (12:03→18:21)
--- NOTE | 2024-11-11 13:22 | PCS.ST ---
Swallow Evaluation completed. See report for details. Functional clyde-pharyngeal phases with symptoms of esophageal dysfunction. Medical team notified.
[2024-11-11] MEDS: DOXYCYCLINE 100 MG TABLET PO (20:57)
[2024-11-11] MEDS: ENOXAPARIN SOD INJ 100 MG/ML SYRINGE 77 MG SC (20:57)
--- NOTE | 2024-11-11 21:59 | PD.IMCONS ---
HPI Data of Consult Requesting Physician: Erna Deluna DO Primary Care Provider: Nina Rice NP Consult Narrative Reason for consult: Dysphagia History of present illness: 83 years old female being evaluated request of the internal medicine team for dysphagia Patient has failed swallowing evaluation She is admitted with right lower extremity cellulitis and failed 2 courses of outpatient antibiotics Patient does have a history of gout atrial fibrillation on Eliquis situs inversus venous stasis Chest x-ray shows right lower lobe pneumonia Duplex arterial ultrasound shows bilateral arterial lower extremity obstructive disease Venous ultrasound negative for deep vein thrombosis cc:: cc: Erna Deluna DO Review of Systems Review of Systems Systems Reviewed: All systems reviewed, normal except as documented Past Medical History Surgical History OTHER SURGICAL HX: As in the history of present illness Meds Home Medications and Allergies Home Medications ?Medication ?Instructions ?Recorded ?Confirmed ?Type allopurinol 300 mg tablet 300 mg PO QDAY 08/02/21 11/10/24 History gabapentin 300 mg capsule 300 mg PO BID 09/15/21 09/01/24 History Allergies Allergy/AdvReac Type Severity Reaction Status Date / Time No Known Allergies Allergy Verified 10/25/24 23:22 Exam Vital Signs Temp Pulse Resp BP Pulse Ox O2 Del Method 98.1 F 94 13 130/76 97 Room Air 11/11/24 20:00 11/11/24 20:00 11/11/24 20:00 11/11/24 20:00 11/11/24 20:00 11/11/24 20:00 Constitutional Comments: Alert oriented Routine Respiratory Exam Comments: Scattered rhonchi Routine Abdominal Exam Comments: Soft nontender Results Labs 11/11/24 04:13 11/11/24 04:13 Labs: Short CBC 11/11/24 Range/Units 04:13 WBC 8.3 (3.6-11.0) Thou/mm3 Hgb 10.2 L (12.0-16.0) g/dL Hct 30.0 L (36.0-46.0) % Plt Count 166 (140-440) Thou/mm3 BMP 11/11/24 04:13 Sodium 138 Potassium 3.7 D Chloride 104 Carbon Dioxide 25.9 BUN 29 H Creatinine 1.0 Glucose 116 H Calcium 8.1 L Liver Function 11/11/24 Range/Units 04:13 Total Bilirubin 0.3 (0.3-1.2) mg/dL AST < 10 (0-34) U/L ALT < 7 L (10-49) U/L Alkaline Phosphatase 60 (46-116) U/L Albumin 2.9 L (3.4-4.8) gm/dL Urine 11/10/24 Range/Units 22:10 Urine Color Yellow (Lt Yel-Yel) Urine Clarity Turbid A (Clear/Hazy) Urine pH 5.0 (5.0-7.0) Ur Specific [place] 1.035 (1.001-1.035) Urine Protein Trace (Neg - Trace) Urine Glucose (UA) Negative (Negative) Assessment and Plan Additional Assessment & Plan Additional Plan: # Dysphagia with failed swallowing evaluation TSH AARON Consent obtained for fiberoptic esophagogastroduodenoscopy with possible guidewire savory dilatation or esophageal balloon dilatation under intravenous moderate sedation scheduled for tomorrow Clear liquid diet a.m. N.p.o. at 9 AM tomorrow except p.o. 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
[2024-11-12] VITALS (10 sets, daily range): BP systolic 130–200; BP diastolic 70–118; PULSE 88–110; RESP 14–23; TEMP 36.1–36.9; O2SAT 94–97; BMI 13.0; BMI 28.2
[2024-11-12] MEDS: METOCLOPRAMIDE INJ 5 MG/ML VIAL 2 ML 10 MG IVP ×4 (00:40→18:27)
[2024-11-12 05:40] LABS: Basophils % (Auto) 0 % (0-2.5); Eosinophils % (Auto) 0 % (0-10); Hemoglobin 10.2 g/dL (12.0-16.0); Immature Granulocytes % (Auto) 2 % (0-0); Immature Granulocytes Auto 0.13 Thou/mm3 (0.00-0.00); Lymphocytes # (Auto) 0.6 Thou/mm3 (1.0-4.8); Lymphocytes % (Auto) 8 % (10-50); Mean Corpuscular Volume 97 fL (80-100); Monocytes # (Auto) 0.5 Thou/mm3 (0.0-0.8); Monocytes % (Auto) 6 % (0-12); Neutrophils % (Auto) 85 % (37-80); Nucleated Red Blood Cell % 0 /100 WBC (0); Platelet Count 167 Thou/mm3 (140-440); RDW Standard Deviation 54.4 fL (36.4-46.3); Red Blood Count 3.09 Miln/mm3 (4.00-5.20); White Blood Count 8.2 Thou/mm3 (3.6-11.0)
[2024-11-12 06:37] LABS: Alanine Aminotransferase < 7 U/L (10-49); Albumin, Serum 3.1 gm/dL (3.4-4.8); Albumin/Globulin Ratio 1.6 (1.2-2.2); Alkaline Phosphatase 66 U/L (46-116); Anion Gap 9 (7-16); Aspartate Amino Transferase < 10 U/L (0-34); BUN/Creatinine Ratio 25 Ratio (12-20); Bilirubin,Total 0.5 mg/dL (0.3-1.2); Blood Urea Nitrogen 20 mg/dL (9-23); Calcium 8.5 mg/dL (8.3-10.6); Calcium (Corrected) 9.2 mg/dL (8.5-10.1); Carbon Dioxide 24.6 mMol/L (20.0-31.0); Chloride 105 mMol/L (98-107); Creatinine (Component) 0.8 mg/dL (0.6-1.3); Estimated Creatinine Clearance 54.8 mL/min (>60); Glucose 85 mg/dL (74-106); Osmolality,Calculated 279 (275-295); Potassium 3.5 mMol/L (3.4-5.1); Sodium 139 mMol/L (136-145); Total Protein 5.1 gm/dL (5.7-8.2); eGFR > 60 See Note
[2024-11-12] MEDS: DOXYCYCLINE 100 MG TABLET PO (08:39)
[2024-11-12] MEDS: PANTOPRAZOLE INJ 40 MG VIAL IVP (08:40)
--- NOTE | 2024-11-12 09:17 | PC.NURSE ---
Report given to Jeremy RN. Pt. vitals are stable, pt. NPO for EGD with dilatation today with Dr. Montemayor. Consent needs to be signed, pt. does not remember explaination of procedure, and son was not present for discussion with Dr. Montemayor. Son Severiano made aware of pt. moving rooms and change of RN. Pt. son agrees to sign consent when Dr. Montemayor provides information about procedure.
--- NOTE | 2024-11-12 12:44 | PC.SS ---
ETL CONSULTANT conducted bedside contact with the patient to conduct initial assessment and to discuss discharge planning.? Patient resides alone at home.? Patient utilizes a walker to assist with ambulation.? Patient does not utilize home oxygen.? Patient describes ability to complete ADL?s independently.? Patient identified son, Severiano Vergara ; as medical surrogate decision maker.? Patient?s PCP is Nina Dahl. ?Patient utilizes [facility] pharmacy for medication services.? Discharge plan is for the patient to transition to SNF upon discharge.? Preferred SNF is [facility].? ETL CONSULTANT informed patient that authorization would need to be obtained for SNF placement.? SNF referral to be submitted.? No further intervention required at this time, psychiatric social worker will be available to address any further concerns.? Next of Kin: Severiano Vergara D/C Plan: SNF
--- NOTE | 2024-11-12 14:52 | PC.SS ---
SNF referral submitted on [facility]. Preferred SNF is [facility]. Awaiting responses. Once PT note charted, document will be submitted for authorization purposes.
--- NOTE | 2024-11-12 14:59 | PC.SS ---
PASSR completed. Patient meets Level I criteria. No follow up required.
--- NOTE | 2024-11-12 15:24 | ESPR_ITS ---
<Statement entered by Lyly Hanna MD - 11/12/24 16:39> I discussed with and supervised my co-resident involved in the care of this patient. I agree with the assessment and plan as documented above. No acute complaints or events overnight. Wound care following patient RLE cellulitis. EGD today to assess dysphagia. Lyly Hanna MD PGY-3 Documentation for date of: 11/12/24 Subjective Subjective Interval history: Patient is NPO. Receiving endoscopy later today with possible dilation. Cellulitis is significantly improved, pain is more controlled and wound nurse was able to wrap leg. Exam Vital Signs Temp Pulse Resp BP Pulse Ox O2 Del Method 97.9 F 88 18 179/90 H 96 Room Air 11/12/24 12:00 11/12/24 12:00 11/12/24 12:00 11/12/24 12:00 11/12/24 12:00 11/12/24 12:00 Narrative Exam Constitutional:no acute distress Head: Normocephalic Eyes: no conjunctival injection , symmetrical lids. ENMT: Moist Mucous Membranes CVS: Regular rate, irregular rhythm, S1 and S2 present, no murmurs, rubs or gallops . RESP: CTAB, no increased work of breathing, no rales, rhonchi or wheezing MSK: Bilateral lower extremity swelling. Right lower extremity is wrapped with Arsalan bandage. Left lower leg erythema and swelling is improved. Skin: As per above Neuro: Alert and oriented, moves all limbs spontaneously Psych: Appropriate mood and affect. Objective Labs 11/13/24 05:12 11/13/24 05:12 Labs: Laboratory Results - last 24 hr 11/12/24 04:54 WBC 8.2 RBC 3.09 L Hgb 10.2 L Hct 30.0 L MCV 97 MCH 33.0 MCHC 34.0 RDW Std Deviation 54.4 H Plt Count 167 Neut % (Auto) 85 H Lymph % (Auto) 8 L [place] % (Auto) 6 Eos % (Auto) 0 Baso % (Auto) 0 Neut # (Auto) 7.0 Lymph # (Auto) 0.6 L [place] # (Auto) 0.5 Eos # (Auto) 0.0 Baso # (Auto) 0.0 Immature Gran # (Auto) 0.13 H Absolute Nucleated RBC 0.00 Immature Gran % 2 H Nucleated RBC % 0 Sodium 139 Potassium 3.5 Chloride 105 Carbon Dioxide 24.6 Anion Gap 9 BUN 20 Creatinine 0.8 Estim Creat Clear Calc 54.8 L eGFR > 60 BUN/Creatinine Ratio 25 H Glucose 85 Calculated Osmolality 279 Calcium 8.5 Corrected Calcium 9.2 Total Bilirubin 0.5 AST < 10 ALT < 7 L Alkaline Phosphatase 66 Total Protein 5.1 L Albumin 3.1 L Globulin 2.0 L Albumin/Globulin Ratio 1.6 Quality Measures Quality Measures none Advance care planning discussed with:: patient Assessment & Plan Assessment Current Active Medications: Generic Name Dose Route Start Last Admin Trade Name Freq PRN Reason Stop Dose Admin Acetaminophen 650 mg 11/09/24 17:46 Acetaminophen 325 Mg Tablet PO 12/09/24 17:45 Q6H PRN Fever >101.5 Allopurinol 300 mg 11/09/24 18:00 11/12/24 08:52 Allopurinol 100 Mg Tablet PO 12/09/24 17:59 Not Given QDAY PAMELA Doxycycline Hyclate 100 mg 11/11/24 10:00 11/12/24 08:39 Doxycycline 100 Mg Tablet PO 11/18/24 09:59 100 mg BID PAMELA Administration Gabapentin 300 mg 11/10/24 09:00 11/12/24 08:52 Gabapentin 300 Mg Capsule PO 12/10/24 08:59 Not Given QDAY PAMELA Ibuprofen 600 mg 11/09/24 17:46 Ibuprofen Tab 600 Mg Tablet PO 12/09/24 17:45 Q6H PRN PAIN SCALE 1-3 (mild Magnesium Hydroxide 30 ml 11/09/24 17:46 Milk Of Magnesia Susp 30 Ml Udc PO 12/09/24 17:45 QDAY PRN CONSTIPATION Metoclopramide HCl 10 mg 11/11/24 12:00 11/12/24 12:45 Metoclopramide Inj 5 Mg/Ml Vial 2 Ml IVP 12/11/24 11:59 10 mg Q6HR PAMELA Administration Protocol Morphine Sulfate 2 mg 11/09/24 17:46 11/11/24 13:28 Morphine Sulf Inj 10 Mg/Ml Vial IVP 11/14/24 17:45 2 mg Q2H PRN Administration PAIN SCALE 7-10 (Severe Ondansetron HCl 4 mg 11/09/24 17:46 Ondansetron Inj 2 Mg/Ml Inj 2 Ml IV 12/09/24 17:45 Q6H PRN NAUSEA OR VOMITING Protocol Oxycodone/Acetaminophen 1 tab 11/09/24 17:46 11/10/24 15:48 Oxycodone/Apap 5/325 Tablet PO 11/14/24 17:45 1 tab Q6H PRN Administration PAIN SCALE 4-6 (Moderate Pantoprazole Sodium 40 mg 11/10/24 09:00 11/12/24 08:40 Pantoprazole Inj 40 Mg Vial IVP 12/10/24 08:59 40 mg QDAY PAMELA Administration Sennosides 1 tab 11/10/24 09:00 11/12/24 08:52 Senna Tablet PO 12/10/24 08:59 Not Given QDAY PAMELA Protocol Sodium Chloride 1 spray 11/10/24 18:05 Saline Nasal 45 Ml Btl NASAL 12/10/24 18:04 PRN PRN CONGESTION Plan Patient is a 83-year-old female history of gout, atrial fibrillation, situs inversus, lymphedema, venous stasis status, chronic low back pain, presenting with a complaint of right lower leg cellulitis for the last month. Of note patient has been to the ED twice and failed antibiotic therapy 2 times. The first time patient was prescribed Augmentin on 10/16. After 4 days patient notes she stopped taking medication if she saw improvement of her cellulitis. They went back to the ED on 10/26 for the same complaint where she was prescribed Keflex, completed course and did not see any improvement. Now presenting to the ED for persistence of symptoms. #Sepsis #Hypotension #Cellulitis #Lymphedema #Venous stasis #Tachycardia # UTI On exam:Bilateral lower extremity swelling, worse on the right. On the right leg patient has circumferential cellulitis (erythematous, swollen, tender to palpation, hot to touch) on the from the ankle to the knee. Small tract on the anterior yanes of the right leg with serosanguineous drainage Tachycardic in the ED with a heart rate of 100-120. Patient is having subjective chills. Lactic acid of 3. Was given 1 L bolus in the ED. Ordered an additional 500 cc for decreased blood pressure. CRP elevated at 3.6. Negative Pro-Jason. Negative right lower extremity DVT ultrasound. Did not give 30 cc/kg for sepsis workup because patient has bilateral lower extremity edema and is on Lasix. Bilateral arterial duplex shows obstructive arterial disease. Clinically patient's lower extremities are well-perfused and legs without signs of ischemia. CT of the right lower extremity shows severe edema and cellulitis. No abscess or osteomyelitis. Blood culture from 11/09 shows gram-negative rods, positive for E. coli. Plan: ?Admitted to telemetry ?Pending MRSA ?s/p unasyn and vancomycin (11/09-11/11) ?Doxycycline (11/11?present) ?Wound care ?Will continue to monitor blood pressure ?Pain meds as needed -PT ordered ?Patient on home Lasix as needed for lymphedema, holding right now due to hypotension #Dysphagia Yesterday patient felt developed dysphagia. Not able to tolerate solids or liquids. Upon discussion with patient has had this issue before in the past. Last EGD was done on February 2024. Showed esophagitis and gastritis. Ordered speech therapy, patient failed bedside swallow. ?GI, Dr. Montemayor consulted. ?EGD this afternoon ?Reglan every 6 hours #A-fib Patient had recent diagnosis of hematoma in August and was told to discontinue her Eliquis by emergency medicine physician and manufacturing operations manager. No current hematoma on exam. Patient still remains in A-fib. ? Holding Eliquis 2.5 mg twice daily, switch to Lovenox twice daily due to patient being unable to swallow pills ?Holding diltiazem due to hypotension #Gout ?Resume home allopurinol #GERD ?Do not have patient's home PPI of esoprazole, started on Protonix #Chronic low back pain ?Resume home gabapentin #Situs inversus GI prophylaxis: PPI Diet: N.p.o. DVT prophylaxis: Lovenox CODE STATUS: DNR/DNI Patient was evaluated and managed with my attending Dr. Deluna, Rigo Espinoza DO, PGY1 Attending Provider Attestation/Addendum Erna Cloud DO, attest that I was physically present for the [place] portions of the service and evaluated the patient with the resident and I reviewed and discussed the case with the resident and agree with the resident's findings and plans of care as documented above Patient seen and evaluated this Am. Pending EGD this evening. Patient was able to tolerate wound care and compression wrapping RLE. However, she was unable to tolerating wrapping LLE due to pain. Recommend f/u with wound care clinic or order home health on discharge. Continue with IV abx. Anticipate DC within 24- 48h
--- NOTE | 2024-11-12 19:55 | SUR.OPER ---
1944 Dr Montemayor spoke with pt about her extremely loose tooth in upper mid jaw and lower mid jaw. Pt aware that a plastic bite guard needs to be placed and there is a possibility that she may lose her teeth. Pt states understanding and wishes to proceed with procedure.
--- NOTE | 2024-11-12 20:55 | SUR.OPER ---
2005 Bite guard removed, pt's loose teeth remain intake-same as preop.
[2024-11-13] VITALS (9 sets, daily range): BP systolic 138–169; BP diastolic 88–107; PULSE 88–130; RESP 18–19; TEMP 36.5–37; O2SAT 95–98; BMI 28.2
[2024-11-13] MEDS: METOCLOPRAMIDE INJ 5 MG/ML VIAL 2 ML 10 MG IVP ×4 (00:04→23:31)
[2024-11-13 05:49] LABS: Basophils % (Auto) 1 % (0-2.5); Eosinophils % (Auto) 0 % (0-10); Hematocrit 35.9 % (36.0-46.0); Hemoglobin 12.2 g/dL (12.0-16.0); Immature Granulocytes % (Auto) 2 % (0-0); Immature Granulocytes Auto 0.13 Thou/mm3 (0.00-0.00); Lymphocytes # (Auto) 0.7 Thou/mm3 (1.0-4.8); Lymphocytes % (Auto) 9 % (10-50); Mean Corpuscular Hemoglobin 32.7 pg (25.0-35.0); Mean Corpuscular Volume 96 fL (80-100); Monocytes # (Auto) 0.6 Thou/mm3 (0.0-0.8); Monocytes % (Auto) 7 % (0-12); Neutrophils # (Auto) 6.7 Thou/mm3 (1.8-7.7); Neutrophils % (Auto) 82 % (37-80); Nucleated Red Blood Cell # 0.02 Thou/mm3 (0.00-0.00); Nucleated Red Blood Cell % 0 /100 WBC (0); Platelet Count 204 Thou/mm3 (140-440); RDW Standard Deviation 53.1 fL (36.4-46.3); Red Blood Count 3.73 Miln/mm3 (4.00-5.20); White Blood Count 8.2 Thou/mm3 (3.6-11.0)
[2024-11-13 06:36] LABS: Alanine Aminotransferase 9 U/L (10-49); Albumin, Serum 3.7 gm/dL (3.4-4.8); Albumin/Globulin Ratio 1.5 (1.2-2.2); Alkaline Phosphatase 75 U/L (46-116); Anion Gap 12 (7-16); Aspartate Amino Transferase 15 U/L (0-34); BUN/Creatinine Ratio 23 Ratio (12-20); Bilirubin,Total 0.6 mg/dL (0.3-1.2); Blood Urea Nitrogen 18 mg/dL (9-23); Calcium 9.4 mg/dL (8.3-10.6); Calcium (Corrected) 9.6 mg/dL (8.5-10.1); Carbon Dioxide 26.2 mMol/L (20.0-31.0); Chloride 102 mMol/L (98-107); Creatinine (Component) 0.8 mg/dL (0.6-1.3); Estimated Creatinine Clearance 54.8 mL/min (>60); Globulin 2.4 gm/dL (2.3-3.5); Glucose 77 mg/dL (74-106); Osmolality,Calculated 280 (275-295); Potassium 3.6 mMol/L (3.4-5.1); Sodium 140 mMol/L (136-145); Total Protein 6.1 gm/dL (5.7-8.2); eGFR > 60 See Note
--- NOTE | 2024-11-13 08:58 | PCS.ST ---
Swallow tx this AM. See tx note for details. Recommend Blenderized diet for now d/t esophageal dysfunction per EGD report. ST will continue service.
[2024-11-13] MEDS: allopurinoL 100 MG TABLET 300 MG PO (09:39)
[2024-11-13] MEDS: SENNA TABLET 1 TAB PO (09:39)
[2024-11-13] MEDS: DOXYCYCLINE 100 MG TABLET PO ×2 (09:39→20:13)
[2024-11-13] MEDS: GABAPENTIN 300 MG CAPSULE PO (09:39)
[2024-11-13] MEDS: SODIUM CHLORIDE 0.9% 1000 ML 1,000 ML 999 ML IV (09:40)
[2024-11-13] MEDS: DILTIAZEM CD 120 MG CAPCR PO (12:08)
[2024-11-13] MEDS: PANTOPRAZOLE INJ 40 MG VIAL IVP (12:10)
--- NOTE | 2024-11-13 14:11 | PD.IMPROG ---
Documentation for date of: 11/13/24 Subjective Subjective Interval history: Patient's status post upper endoscopy and guidewire savory dilatation Waiting for the swallowing evaluation Exam Vital Signs Temp Pulse Resp BP Pulse Ox O2 Del Method O2 Flow Rate 97.8 F 130 H 18 162/107 H 97 Nasal Cannula 3 11/13/24 12:00 11/13/24 12:08 11/13/24 12:00 11/13/24 12:08 11/13/24 12:00 11/13/24 12:00 11/13/24 12:00 Objective Labs 11/13/24 05:12 11/13/24 05:12 Labs: Laboratory Results - last 24 hr 11/13/24 05:12 WBC 8.2 RBC 3.73 L Hgb 12.2 D Hct 35.9 L MCV 96 MCH 32.7 MCHC 34.0 RDW Std Deviation 53.1 H Plt Count 204 D Neut % (Auto) 82 H Lymph % (Auto) 9 L [place] % (Auto) 7 Eos % (Auto) 0 Baso % (Auto) 1 Neut # (Auto) 6.7 Lymph # (Auto) 0.7 L [place] # (Auto) 0.6 Eos # (Auto) 0.0 Baso # (Auto) 0.0 Immature Gran # (Auto) 0.13 H Absolute Nucleated RBC 0.02 H Immature Gran % 2 H Nucleated RBC % 0 Sodium 140 Potassium 3.6 Chloride 102 Carbon Dioxide 26.2 Anion Gap 12 BUN 18 Creatinine 0.8 Estim Creat Clear Calc 54.8 L eGFR > 60 BUN/Creatinine Ratio 23 H Glucose 77 Calculated Osmolality 280 Calcium 9.4 Corrected Calcium 9.6 Total Bilirubin 0.6 AST 15 ALT 9 L Alkaline Phosphatase 75 Total Protein 6.1 Albumin 3.7 D Globulin 2.4 Albumin/Globulin Ratio 1.5 Impressions Impression: # Dysphagia status post endoscopic dilatation Awaiting swallow evaluation before patient can be advanced on a diet Assessment & Plan A&P Narrative # Dysphagia with failed swallowing evaluation TSH AARON Consent obtained for fiberoptic esophagogastroduodenoscopy with possible guidewire savory dilatation or esophageal balloon dilatation under intravenous moderate sedation scheduled for tomorrow Clear liquid diet a.m. N.p.o. at 9 AM tomorrow except p.o. 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
--- NOTE | 2024-11-13 15:15 | ESPR_ITS ---
Documentation for date of: 11/13/24 Subjective Subjective Interval history: Swelling of the bilateral lower extremities improved. Erythema and tenderness is resolved. EGD yesterday with esophageal dilation. Patient tolerating p.o. this morning. Currently pending authorization for SNF. Exam Vital Signs Temp Pulse Resp BP Pulse Ox O2 Del Method O2 Flow Rate 97.8 F 130 H 18 162/107 H 97 Nasal Cannula 3 11/13/24 12:00 11/13/24 12:08 11/13/24 12:00 11/13/24 12:11/13/24 12:11/13/24 12:11/13/24 12:00 Narrative Exam Constitutional:no acute distress Head: Normocephalic Eyes: no conjunctival injection , symmetrical lids. ENMT: Moist Mucous Membranes CVS: Regular rate, irregular rhythm RESP: no increased work of breathing, resting comfortably on room air MSK: Bilateral lower extremity lymphedema (chronic), nonerythematous, no longer tender to palpation or hot to touch. Skin: As per above Neuro: Alert and oriented, moves all limbs spontaneously Psych: Appropriate mood and affect. Objective Labs 11/14/24 05:23 11/14/24 05:23 Labs: Laboratory Results - last 24 hr 11/13/24 05:12 WBC 8.2 RBC 3.73 L Hgb 12.2 D Hct 35.9 L MCV 96 MCH 32.7 MCHC 34.0 RDW Std Deviation 53.1 H Plt Count 204 D Neut % (Auto) 82 H Lymph % (Auto) 9 L [place] % (Auto) 7 Eos % (Auto) 0 Baso % (Auto) 1 Neut # (Auto) 6.7 Lymph # (Auto) 0.7 L [place] # (Auto) 0.6 Eos # (Auto) 0.0 Baso # (Auto) 0.0 Immature Gran # (Auto) 0.13 H Absolute Nucleated RBC 0.02 H Immature Gran % 2 H Nucleated RBC % 0 Sodium 140 Potassium 3.6 Chloride 102 Carbon Dioxide 26.2 Anion Gap 12 BUN 18 Creatinine 0.8 Estim Creat Clear Calc 54.8 L eGFR > 60 BUN/Creatinine Ratio 23 H Glucose 77 Calculated Osmolality 280 Calcium 9.4 Corrected Calcium 9.6 Total Bilirubin 0.6 AST 15 ALT 9 L Alkaline Phosphatase 75 Total Protein 6.1 Albumin 3.7 D Globulin 2.4 Albumin/Globulin Ratio 1.5 Quality Measures Quality Measures none Advance care planning discussed with:: other Assessment & Plan Assessment Current Active Medications: Generic Name Dose Route Start Last Admin Trade Name Freq PRN Reason Stop Dose Admin Acetaminophen 650 mg 11/09/24 17:46 Acetaminophen 325 Mg Tablet PO 12/09/24 17:45 Q6H PRN Fever >101.5 Allopurinol 300 mg 11/09/24 18:00 11/13/24 09:39 Allopurinol 100 Mg Tablet PO 12/09/24 17:59 300 mg QDAY PAMELA Administration Diltiazem HCl 120 mg 11/13/24 11:30 11/13/24 12:08 Diltiazem Cd 120 Mg Capcr PO 12/13/24 11:29 120 mg QDAY PAMELA Administration Doxycycline Hyclate 100 mg 11/11/24 10:00 11/13/24 09:39 Doxycycline 100 Mg Tablet PO 11/18/24 09:59 100 mg BID PAMELA Administration Gabapentin 300 mg 11/10/24 09:00 11/13/24 09:39 Gabapentin 300 Mg Capsule PO 12/10/24 08:59 300 mg QDAY PAMELA Administration Ibuprofen 600 mg 11/09/24 17:46 Ibuprofen Tab 600 Mg Tablet PO 12/09/24 17:45 Q6H PRN PAIN SCALE 1-3 (mild Magnesium Hydroxide 30 ml 11/09/24 17:46 Milk Of Magnesia Susp 30 Ml Udc PO 12/09/24 17:45 QDAY PRN CONSTIPATION Metoclopramide HCl 10 mg 11/11/24 12:00 11/13/24 12:13 Metoclopramide Inj 5 Mg/Ml Vial 2 Ml IVP 12/11/24 11:59 10 mg Q6HR PAMELA Administration Protocol Morphine Sulfate 2 mg 11/09/24 17:46 11/11/24 13:28 Morphine Sulf Inj 10 Mg/Ml Vial IVP 11/14/24 17:45 2 mg Q2H PRN Administration PAIN SCALE 7-10 (Severe Ondansetron HCl 4 mg 11/09/24 17:46 Ondansetron Inj 2 Mg/Ml Inj 2 Ml IV 12/09/24 17:45 Q6H PRN NAUSEA OR VOMITING Protocol Oxycodone/Acetaminophen 1 tab 11/09/24 17:46 11/10/24 15:48 Oxycodone/Apap 5/325 Tablet PO 11/14/24 17:45 1 tab Q6H PRN Administration PAIN SCALE 4-6 (Moderate Pantoprazole Sodium 40 mg 11/10/24 09:00 11/13/24 12:10 Pantoprazole Inj 40 Mg Vial IVP 12/10/24 08:59 40 mg QDAY PAMELA Administration Sennosides 1 tab 11/10/24 09:00 11/13/24 09:39 Senna Tablet PO 12/10/24 08:59 1 tab QDAY PAMELA Administration Protocol Sodium Chloride 1 spray 11/10/24 18:05 Saline Nasal 45 Ml Btl NASAL 12/10/24 18:04 PRN PRN CONGESTION Plan Patient is a 83-year-old female history of gout, atrial fibrillation, situs inversus, lymphedema, venous stasis status, chronic low back pain, presenting with a complaint of right lower leg cellulitis for the last month. Of note patient has been to the ED twice and failed antibiotic therapy 2 times. The first time patient was prescribed Augmentin on 10/16. After 4 days patient notes she stopped taking medication if she saw improvement of her cellulitis. They went back to the ED on 10/26 for the same complaint where she was prescribed Keflex, completed course and did not see any improvement. Now presenting to the ED for persistence of symptoms. #Sepsis?resolved #Hypotension?resolved #Cellulitis?resolved #Lymphedema?chronic #Venous stasis?chronic #Tachycardia?resolved # UTI On exam:Bilateral lower extremity swelling, worse on the right. On the right leg patient has circumferential cellulitis (erythematous, swollen, tender to palpation, hot to touch) on the from the ankle to the knee. Small tract on the anterior yanes of the right leg with serosanguineous drainage Tachycardic in the ED with a heart rate of 100-120. Patient is having subjective chills. Lactic acid of 3. Was given 1 L bolus in the ED. Ordered an additional 500 cc for decreased blood pressure. CRP elevated at 3.6. Negative Pro-Jason. Negative right lower extremity DVT ultrasound. Did not give 30 cc/kg for sepsis workup because patient has bilateral lower extremity edema and is on Lasix. Bilateral arterial duplex shows obstructive arterial disease. Clinically patient's lower extremities are well-perfused and legs without signs of ischemia. CT of the right lower extremity shows severe edema and cellulitis. No abscess or osteomyelitis. Blood culture from 11/09 shows gram-negative rods, positive for E. coli. Plan: ?s/p unasyn and vancomycin (11/09-11/11) ?Doxycycline (11/11?present) ?Wound care -PT recommending SNF. Patient pending authorization. Likely discharge tomorrow. #Dysphagia?resolved Yesterday patient felt developed dysphagia. Not able to tolerate solids or liquids. Upon discussion with patient has had this issue before in the past. Last EGD was done on February 2024. Showed esophagitis and gastritis. EGD yesterday which showed stenosis in the proximal esophagus, status post dilation. Patient passed bedside swallow and is placed on a pur?ed diet, tolerating p.o. well #A-fib Patient had recent diagnosis of hematoma in August and was told to discontinue her Eliquis by emergency medicine physician and recording studio internship. No current hematoma on exam. Patient still remains in A-fib. ? Resume Eliquis 2.5 mg twice daily ? Resume home diltiazem #Gout ?Resume home allopurinol #GERD ?Do not have patient's home PPI of esoprazole, started on Protonix #Chronic low back pain ?Resume home gabapentin #Situs inversus GI prophylaxis: PPI Diet: Pur?ed DVT prophylaxis: Lovenox CODE STATUS: DNR/DNI Patient was evaluated and managed with my attending Dr. Deluna, Rigo Espinoza DO, PGY1 Attending Provider Attestation/Addendum Pedro Luis, rEna Deluna DO, attest that I was physically present for the [place] portions of the service and evaluated the patient with the resident and I reviewed and discussed the case with the resident and agree with the resident's findings and plans of care as documented above Patient seen and evaluated this AM. Patient states she is doing well. B/l LE appears much improved. 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 Advanced to pureed diet by ST. Yin as tolerated. Anticipate DC to SNF, pending insurance authorization.
[2024-11-13] MEDS: APIXABAN 2.5 MG TABLET PO (20:13)
[2024-11-14] VITALS (11 sets, daily range): BP systolic 118–153; BP diastolic 79–94; PULSE 77–115; RESP 18–19; TEMP 36.2–36.6; O2SAT 95–98; BMI 28.2
[2024-11-14] MEDS: METOCLOPRAMIDE INJ 5 MG/ML VIAL 2 ML 10 MG IVP ×4 (05:07→23:22)
[2024-11-14 05:41] LABS: Basophils % (Auto) 1 % (0-2.5); Eosinophils % (Auto) 1 % (0-10); Hematocrit 33.9 % (36.0-46.0); Hemoglobin 11.8 g/dL (12.0-16.0); Immature Granulocytes % (Auto) 4 % (0-0); Immature Granulocytes Auto 0.22 Thou/mm3 (0.00-0.00); Lymphocytes # (Auto) 0.9 Thou/mm3 (1.0-4.8); Lymphocytes % (Auto) 14 % (10-50); Mean Corpuscular HGB Conc 34.8 g/dl (31.0-37.0); Mean Corpuscular Volume 95 fL (80-100); Monocytes # (Auto) 0.6 Thou/mm3 (0.0-0.8); Monocytes % (Auto) 9 % (0-12); Neutrophils # (Auto) 4.4 Thou/mm3 (1.8-7.7); Neutrophils % (Auto) 72 % (37-80); Nucleated Red Blood Cell % 0 /100 WBC (0); Platelet Count 198 Thou/mm3 (140-440); RDW Standard Deviation 52.3 fL (36.4-46.3); Red Blood Count 3.58 Miln/mm3 (4.00-5.20); White Blood Count 6.1 Thou/mm3 (3.6-11.0)
[2024-11-14 06:16] LABS: Alanine Aminotransferase < 7 U/L (10-49); Albumin, Serum 3.3 gm/dL (3.4-4.8); Albumin/Globulin Ratio 1.6 (1.2-2.2); Alkaline Phosphatase 62 U/L (46-116); Anion Gap 9 (7-16); Aspartate Amino Transferase 13 U/L (0-34); BUN/Creatinine Ratio 26 Ratio (12-20); Bilirubin,Total 0.5 mg/dL (0.3-1.2); Blood Urea Nitrogen 18 mg/dL (9-23); Calcium 8.9 mg/dL (8.3-10.6); Calcium (Corrected) 9.5 mg/dL (8.5-10.1); Carbon Dioxide 26.7 mMol/L (20.0-31.0); Chloride 103 mMol/L (98-107); Creatinine (Component) 0.7 mg/dL (0.6-1.3); Estimated Creatinine Clearance 62.6 mL/min (>60); Globulin 2.1 gm/dL (2.3-3.5); Glucose 105 mg/dL (74-106); Osmolality,Calculated 279 (275-295); Potassium 3.5 mMol/L (3.4-5.1); Sodium 139 mMol/L (136-145); Total Protein 5.4 gm/dL (5.7-8.2); eGFR > 60 See Note
--- NOTE | 2024-11-14 07:50 | PC.NURSE ---
Spoke with Kill[facility] (DrOrderinde was unable to take the call at the moment) Informed them that the patient was fully dressed and refusing cardiac leads when I first came in this morning. Now his father came in and said the patient had called him saying he was discharged, I informed him that that is not the case. said they will come talk to pt in a little while and try to talk to him before he leaves AMA
--- NOTE | 2024-11-14 08:42 | PC.NURSE ---
Spoke to Farzad about pt's diltiazem which is 120mg controlled release daily, pt has to have meds crushed. Informed MD that we can either change the order to 30mg tabs 4Xdaily (then we can crush those), OR we have to change to IV. He will call me back/put in new orders
[2024-11-14] MEDS: DILTIAZEM 30 MG TABLET PO ×4 (08:45→20:16)
[2024-11-14] MEDS: allopurinoL 100 MG TABLET 300 MG PO (09:03)
[2024-11-14] MEDS: SENNA TABLET 1 TAB PO (09:05)
[2024-11-14] MEDS: APIXABAN 2.5 MG TABLET PO ×2 (09:05→20:15)
[2024-11-14] MEDS: GABAPENTIN 300 MG CAPSULE PO (09:06)
[2024-11-14] MEDS: DOXYCYCLINE 100 MG TABLET PO ×2 (09:06→20:15)
[2024-11-14] MEDS: PANTOPRAZOLE INJ 40 MG VIAL IVP (09:45)
--- NOTE | 2024-11-14 10:04 | ESPR_ITS ---
Documentation for date of: 11/14/24 Subjective Subjective Interval history: Patient seen at bedside. No acute events or problems overnight. RLE wrapped in clean dressing. LLE swelling significantly improved; not tender to touch. Pending auth for SNF. Exam Vital Signs Temp Pulse Resp BP Pulse Ox O2 Del Method O2 Flow Rate 97.1 F 89 18 153/92 H 98 Nasal Cannula 3 11/14/24 07:51 11/14/24 07:51 11/14/24 07:51 11/14/24 07:51 11/14/24 07:51 11/14/24 07:51 11/14/24 07:51 Narrative Exam Constitutional: NAD. Awake, alert, pleasant. HEENT: NCAT. Vision grossly intact. Mucous membranes moist. Respiratory: CTAB bilaterally. Cardiac: Non-tachycardic. Abdomen: Soft, non-distended, non-tender. MSK: No B/L LE edema. Skin: RLE in wrapped clean dressing. LLE edema improved, venous stasis dermatitis Neuro: Motor and sensation grossly intact. Psychiatric: Appropriate mood and affect. Objective Labs 11/14/24 05:23 11/14/24 05:23 Labs: Laboratory Results - last 24 hr 11/14/24 05:23 WBC 6.1 RBC 3.58 L Hgb 11.8 L Hct 33.9 L MCV 95 MCH 33.0 MCHC 34.8 RDW Std Deviation 52.3 H Plt Count 198 Neut % (Auto) 72 Lymph % (Auto) 14 [place] % (Auto) 9 Eos % (Auto) 1 Baso % (Auto) 1 Neut # (Auto) 4.4 Lymph # (Auto) 0.9 L [place] # (Auto) 0.6 Eos # (Auto) 0.0 Baso # (Auto) 0.0 Immature Gran # (Auto) 0.22 H Absolute Nucleated RBC 0.00 Immature Gran % 4 H Nucleated RBC % 0 Sodium 139 Potassium 3.5 Chloride 103 Carbon Dioxide 26.7 Anion Gap 9 BUN 18 Creatinine 0.7 Estim Creat Clear Calc 62.6 eGFR > 60 BUN/Creatinine Ratio 26 H Glucose 105 Calculated Osmolality 279 Calcium 8.9 Corrected Calcium 9.5 Total Bilirubin 0.5 AST 13 ALT < 7 L Alkaline Phosphatase 62 Total Protein 5.4 L Albumin 3.3 L Globulin 2.1 L Albumin/Globulin Ratio 1.6 Quality Measures Quality Measures none Advance care planning discussed with:: patient Assessment & Plan Assessment Current Active Medications: Generic Name Dose Route Start Last Admin Trade Name Freq PRN Reason Stop Dose Admin Acetaminophen 650 mg 11/09/24 17:46 Acetaminophen 325 Mg Tablet PO 12/09/24 17:45 Q6H PRN Fever >101.5 Allopurinol 300 mg 11/09/24 18:00 11/14/24 09:03 Allopurinol 100 Mg Tablet PO 12/09/24 17:59 300 mg QDAY PAMELA Administration Apixaban 2.5 mg 11/13/24 21:00 11/14/24 09:05 Apixaban 2.5 Mg Tablet PO 12/13/24 20:59 2.5 mg BID PAMELA Administration Diltiazem HCl 30 mg 11/14/24 09:15 Diltiazem 30 Mg Tablet PO 12/14/24 09:14 QID PAMELA Doxycycline Hyclate 100 mg 11/11/24 10:00 11/14/24 09:06 Doxycycline 100 Mg Tablet PO 11/18/24 09:59 100 mg BID PAMELA Administration Gabapentin 300 mg 11/10/24 09:00 11/14/24 09:06 Gabapentin 300 Mg Capsule PO 12/10/24 08:59 300 mg QDAY PAMELA Administration Magnesium Hydroxide 30 ml 11/09/24 17:46 Milk Of Magnesia Susp 30 Ml Udc PO 12/09/24 17:45 QDAY PRN CONSTIPATION Metoclopramide HCl 10 mg 11/11/24 12:00 11/14/24 05:07 Metoclopramide Inj 5 Mg/Ml Vial 2 Ml IVP 12/11/24 11:59 10 mg Q6HR PAMELA Administration Protocol Morphine Sulfate 2 mg 11/09/24 17:46 11/11/24 13:28 Morphine Sulf Inj 10 Mg/Ml Vial IVP 11/14/24 17:45 2 mg Q2H PRN Administration PAIN SCALE 7-10 (Severe Ondansetron HCl 4 mg 11/09/24 17:46 Ondansetron Inj 2 Mg/Ml Inj 2 Ml IV 12/09/24 17:45 Q6H PRN NAUSEA OR VOMITING Protocol Oxycodone/Acetaminophen 1 tab 11/09/24 17:46 11/10/24 15:48 Oxycodone/Apap 5/325 Tablet PO 11/14/24 17:45 1 tab Q6H PRN Administration PAIN SCALE 4-6 (Moderate Pantoprazole Sodium 40 mg 11/10/24 09:00 11/13/24 12:10 Pantoprazole Inj 40 Mg Vial IVP 12/10/24 08:59 40 mg QDAY PAMELA Administration Sennosides 1 tab 11/10/24 09:00 11/14/24 09:05 Senna Tablet PO 12/10/24 08:59 1 tab QDAY PAMELA Administration Protocol Sodium Chloride 1 spray 11/10/24 18:05 Saline Nasal 45 Ml Btl NASAL 12/10/24 18:04 PRN PRN CONGESTION Plan Patient is a 83-year-old female history of gout, atrial fibrillation, situs inversus, lymphedema, venous stasis status, chronic low back pain, presenting with a complaint of right lower leg cellulitis for the last month and admitted for sepsis secondary to RLE cellulitis. #Sepsis due to RLE cellulitis and E Coli bacteremia and UTI, improving RLE celulitis with seroseanguinous drainage. DVT ruled out. CT of the right lower extremity shows severe edema and cellulitis. No abscess or osteomyelitis. Blood culture (11/09) grew E Coli s/p unasyn and vancomycin (11/09-11/11) ?Doxycycline (11/11?present) #Chronic lymphedema #PAD and venous stasis Bilateral arterial duplex LE shows obstructive arterial disease. Clinically patient's lower extremities are well-perfused and legs without signs of ischemia. - Wound care #Dysphagia due to esophageal stenosis s/p dilation EGD on this admission showed proximal esophagus stenosis, which was dilated - Pureed diet #A-fib Patient had recent diagnosis of hematoma in August and was told to discontinue her Eliquis by emergency medicine physician and computing systems mechanic. No current hematoma on exam. Patient still remains in A-fib. ? Resume Eliquis 2.5 mg twice daily ? Resume home diltiazem #Gout ?Resume home allopurinol #GERD ?Do not have patient's home PPI of esoprazole, started on Protonix #Chronic low back pain ?Resume home gabapentin #Situs inversus #Hypotension?resolved Health Maintenance Disposition: Pending SNF auth, anticipate within 24-48 hours Diet and fluids: pureed DVT prophylaxis: on eliquis GI prophylaxis: protonix Lines: PIV CODE STATUS: DNR I have reviewed and discussed the patient's care with my attending, Dr. Regi Hanna MD PGY-3 Attending Provider Attestation/Addendum I, Erna Deluna DO, attest that I was physically present for the rock[place] portions of the service and evaluated the patient with the resident and I reviewed and discussed the case with the resident and agree with the resident's findings and plans of care as documented above Patient seen and evaluated this AM. Patient is doing well. No acute events overnight. Pending authorization for SNF. Anticipate DC within 24hrs
--- NOTE | 2024-11-14 14:58 | PD.IMPROG ---
Documentation for date of: 11/14/24 Subjective Subjective Interval history: Patient evaluated no difficulty in swallowing Food is going down Exam Vital Signs Temp Pulse Resp BP Pulse Ox O2 Del Method O2 Flow Rate 97.5 F 115 H 18 122/88 H 98 Nasal Cannula 3 11/14/24 12:00 11/14/24 12:00 11/14/24 12:00 11/14/24 12:00 11/14/24 12:00 11/14/24 12:00 11/14/24 12:00 Objective Labs 11/14/24 05:23 11/14/24 05:23 Labs: Laboratory Results - last 24 hr 11/14/24 05:23 WBC 6.1 RBC 3.58 L Hgb 11.8 L Hct 33.9 L MCV 95 MCH 33.0 MCHC 34.8 RDW Std Deviation 52.3 H Plt Count 198 Neut % (Auto) 72 Lymph % (Auto) 14 [place] % (Auto) 9 Eos % (Auto) 1 Baso % (Auto) 1 Neut # (Auto) 4.4 Lymph # (Auto) 0.9 L [place] # (Auto) 0.6 Eos # (Auto) 0.0 Baso # (Auto) 0.0 Immature Gran # (Auto) 0.22 H Absolute Nucleated RBC 0.00 Immature Gran % 4 H Nucleated RBC % 0 Sodium 139 Potassium 3.5 Chloride 103 Carbon Dioxide 26.7 Anion Gap 9 BUN 18 Creatinine 0.7 Estim Creat Clear Calc 62.6 eGFR > 60 BUN/Creatinine Ratio 26 H Glucose 105 Calculated Osmolality 279 Calcium 8.9 Corrected Calcium 9.5 Total Bilirubin 0.5 AST 13 ALT < 7 L Alkaline Phosphatase 62 Total Protein 5.4 L Albumin 3.3 L Globulin 2.1 L Albumin/Globulin Ratio 1.6 Impressions Impression: # 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 N.p.o. at 9 AM tomorrow except p.o. 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
[2024-11-15] VITALS: BP 138/79; PULSE 78; RESP 17; TEMP 36.5; O2SAT 96
[2024-11-15 04:00] VITALS: BP 127/83; PULSE 87; RESP 17; TEMP 36.8; O2SAT 95
[2024-11-15] MEDS: METOCLOPRAMIDE INJ 5 MG/ML VIAL 2 ML 10 MG IVP ×2 (05:25→12:53)
[2024-11-15 05:27] VITALS: BP 127/83; PULSE 87
[2024-11-15] MEDS: DILTIAZEM 30 MG TABLET PO ×2 (05:27→12:52)
[2024-11-15 06:00] VITALS: BMI 28.2
[2024-11-15 08:00] VITALS: BP 150/88; PULSE 78; PULSE 91; RESP 17; TEMP 36.8; O2SAT 94
--- NOTE | 2024-11-15 09:08 | PC.SS ---
Addendum entered by Darby Albert 11/15/24 11:48: SS follow up note; [employer] [facility] contacted with ETA for 1415. SS updated patient's nurse as well as Hellen and patient's son, Severiano. Addendum entered by Darby Albert 11/15/24 11:36: SS follow up note; SS was contacted by Hellen and she informed SS that auth was obtained. SS contacted patient's nurse Cindy and updated her as well as patient's son. [facility]. Addendum entered by Darby Albert 11/15/24 10:54: SS follow up note; SS sent Updated PT notes to [facility]. Original Note: SS follow up note; SS contacted patients son in regards to chosen SNF. He reported he would like [place]. SS contacted Hellen from [facility] [employer] and she informed SS they are able to accept patient. SS sent updated clinicals to [facility], however patient needs updated PT note. SS contacted PT Kenneth and informed him if he is able to repeat PT eval for SS to submit for auth. SS awaiting PT notes to sent to [facility]. SS was informed by Dr Hanna that patient will discharge today if auth is obtained.
[2024-11-15] MEDS: DOXYCYCLINE 100 MG TABLET PO (09:16)
[2024-11-15] MEDS: PANTOPRAZOLE INJ 40 MG VIAL IVP (09:16)
[2024-11-15] MEDS: APIXABAN 2.5 MG TABLET PO (09:17)
[2024-11-15] MEDS: GABAPENTIN 300 MG CAPSULE PO (09:17)
[2024-11-15] MEDS: allopurinoL 100 MG TABLET 300 MG PO (09:17)
[2024-11-15] MEDS: SENNA TABLET 1 TAB PO (09:17)
[2024-11-15 12:00] VITALS: BP 140/95; PULSE 84; RESP 18; TEMP 36.4; O2SAT 94
[2024-11-15 12:52] VITALS: BP 148/88; PULSE 111
--- NOTE | 2024-11-15 20:37 | ESDS_ITS ---
<Statement entered by Erna Deluna DO - 11/16/24 13:49> I, Erna Deluna DO, attest that I was physically present for the rockwell portions of the service and evaluated the patient with the resident and I reviewed and discussed the case with the resident and agree with the resident's findings and plans of care as documented above Planned Discharge Date 11/15/24 DS: Providers Provider Date of admission: 11/09/24 17:42 Primary care physician: Nina Rice NP Admitting Provider: Misha Rodrigez MD Attending Provider on Admission: Erna Deluna DO Consults: 11/09/24 17:54 Referral Wound Care Stat Comment: 11/11/24 09:57 Referral Physical Therapy Routine Comment: Physician Instructions: 11/11/24 09:59 Referral Speech Therapy Routine Comment: difficulty swallowing 11/11/24 12:04 Consult to Gastroenterology Routine Comment: Consulting Provider: Wade Montemayor 11/11/24 16:57 Referral Speech Therapy Routine Comment: Attending Provider on DC: nAh Harris MD Discharging Provider: Anh Harris MD DS: Diagnosis Problem List Completed Was Problem List Reviewed/Reconciled?: Yes Hospital Course Hospital Course Hospital course: Reason for hospitalization: RLE cellulitis Jessy Vergara is 83 yr female with PMH of gout, atrial fibrillation (not on anticoagulation), situs inversus, lymphedema, venous stasis status, and chronic low back pain who presented to [facility] ED on 11/09/24 due to worsening right lower extremity pain and cellulitis that had been going on for a month. Patient was admitted for treatment of sepsis secondary to the cellulitis. Over the last month, she had failed antibiotic therapy twice and symptoms worsened with pain and swelling. Venous doppler study was negative for DVT. Arterial duplex scan showed findings consistent with bilateral obstructive arterial disease. Clinically, patient's lower extremities were well-perfused and legs were without signs of ischemia. Patient was started on IV antibiotics for cellulitis and E coli UTI. GI Dr. Montemayor was consulted for dysphagia after patient failed swallow eval. She is s/p esophageal dilation after stenosis was seen on EGD. Dysphagia subsequently resolved with ability to tolerate solids. During hospitalization, swelling of lower extremities improved, erythema and tenderness resolved. Patient is now in stable condition and ready for discharge. Recommendations were given as below. Discharge Recommendations: Resume home medicaitons. Continue doxycyline 100mg twice a day for 4 more days. Continue Eliquis 2.5 mg twice a day. Return to ED if symptoms reoccur. Wound care: 1) Stage 2 to left buttocks: cleanse with wound cleanser, pat dry, apply skin prep- allow to dry and cover with allyven dressing daily 2) RLE cellulitis: wipe with dimethicone barrier wipes. Wrap with lucero wrap from base of toes to below the knee with 50% overlap daily as patient tolerates Elevate BLE above heart level as tolerated. 3) Follow up with Dr. Dewitt, call [facility] [phone] to schedule appointment Hospital Diagnoses: #Sepsis due to RLE cellulitis and E Coli bacteremia and UTI, improving #Chronic lymphedema #PAD and venous stasis #Dysphagia due to esophageal stenosis s/p dilation #A-fib #Gout #GERD #Chronic low back pain #Situs inversus #Hypotension?resolved The patient's management plan was discussed with my attending physician Dr. Anh Harris MD, PGY-1 Time spent discussing smoking cessation with patient: more than 10 minutes Time Spent with Patient Time attestation: Total time spent providing and/or coordinating discharge services: >35min Exam Vital Signs Temp Pulse Resp BP Pulse Ox O2 Del Method O2 Flow Rate 97.6 F 111 H 18 148/88 H 94 L Room Air 3 11/15/24 12:00 11/15/24 12:52 11/15/24 12:00 11/15/24 12:52 11/15/24 12:00 11/15/24 12:00 11/14/24 16:00 Narrative Exam Constitutional: NAD. Awake, alert, pleasant. HEENT: NCAT. Vision grossly intact. Mucous membranes moist. Respiratory: CTAB bilaterally. Cardiac: Non-tachycardic. Abdomen: Soft, non-distended, non-tender. MSK: No B/L LE edema. Skin: RLE in wrapped clean dressing. LLE edema improved, venous stasis dermatitis Neuro: Motor and sensation grossly intact. Psychiatric: Appropriate mood and affect. Discharge Plan Plan Patient Disposition: Xfer Skilled Nsg Fac (SNF) Patient condition on transfer: Stable Prescriptions/Referrals Prescriptions/Med Rec: New Eliquis 2.5 mg Tablet 2.5 mg PO BID 30 Days Qty: 60 0RF doxycycline hyclate 100 mg Tablet 100 mg PO BID 4 Days Qty: 8 0RF Continued allopurinol 300 mg Tablet 300 mg PO QDAY gabapentin 300 mg Capsule 300 mg PO BID diltiazem HCl 120 mg Capsule,Extended Release 24hr 120 mg PO QDAY 30 Days Qty: 30 1RF furosemide 20 mg tablet 20 mg PO Q48H Qty: 30 0RF acetaminophen 325 mg Tablet 650 mg PO Q6H PRN (Reason: PAIN OR FEVER > 101) Qty: 60 0RF Referrals: Nina Rice NP [Primary Care Provider] - Patient/Caregiver Discharge Instructions Other Discharge Activity Instructions:: Resume home medicaitons. Continue doxycyline 100mg twice a day for 4 more days. Continue Eliquis 2.5 mg twice a day. Return to ED if symptoms reoccur. Wound care: 1) Stage 2 to left buttocks: cleanse with wound cleanser, pat dry, apply skin prep- allow to dry and cover with allyven dressing daily 2) RLE cellulitis: wipe with dimethicone barrier wipes. Wrap with lucero wrap from base of toes to below the knee with 50% overlap daily as patient tolerates Elevate BLE above heart level as tolerated. 3) Follow up with Dr. Dewitt, [facility] [phone] to schedule appointment Print Language: Colombian Stand Alone Forms: [facility] Award Info., Patient Portal Info Letter Discharge Order Discharge Orders: Discharge (Routine); Ordered 11/15/24 Ordered By: Lyly Hanna Quality Discharge Quality Measures VTE prophylaxis
--- NOTE | 2024-11-15 21:18 | PD.IMPROG ---
Documentation for date of: 11/15/24 Subjective Subjective Interval history: Late entry for the note Case discussed with the internal medicine team No more dysphagia Eating well Okay to discharge patient home to be followed by the PCP No GI follow-up necessary Exam Vital Signs Temp Pulse Resp BP Pulse Ox O2 Del Method O2 Flow Rate 97.6 F 111 H 18 148/88 H 94 L Room Air 3 11/15/24 12:00 11/15/24 12:52 11/15/24 12:00 11/15/24 12:52 11/15/24 12:00 11/15/24 12:00 11/14/24 16:00 Objective Labs 11/14/24 05:23 11/14/24 05:23 Impressions Impression: # Dysphagia # Esophageal stricture status post endoscopic dilatation doing well Assessment & Plan A&P Narrative # Dysphagia with failed swallowing evaluation TSH AARON Consent obtained for fiberoptic esophagogastroduodenoscopy with possible guidewire savory dilatation or esophageal balloon dilatation under intravenous moderate sedation scheduled for tomorrow Clear liquid diet a.m. N.p.o. at 9 AM tomorrow except p.o. 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
== END 2024-11-15 14:10 | disposition skilled nursing facility (03) | DRG 871 ==
LOC: SERX 17:44 → SERHOLD 17:57 → S2NX 21:55 → S3SX 11-12 09:24
PROVIDERS: Nurse Practitioner Primary Care; Specialist; Admitting Provider Internal Medicine; Emergency Provider Emergency Medicine; PCP Registered Nurse; Visit Provider Internal Medicine
PROC: 0D758ZZ Dilation of Esophagus, Via Natural or Artificial Opening Endoscopic (ICD-10-PCS; CPT 43239; principal; 2024-11-12 18:00)
DX: A41.51 Sepsis due to Escherichia coli [E. coli] (principal); J18.9 Pneumonia, unspecified organism; L03.115 Cellulitis of right lower limb; Q89.3 Situs inversus; N39.0 Urinary tract infection, site not specified; M54.9 Dorsalgia, unspecified; G89.29 Other chronic pain; M10.9 Gout, unspecified; I48.91 Unspecified atrial fibrillation; Z66 Do not resuscitate; I95.9 Hypotension, unspecified; K21.00 Gastro-esophageal reflux disease with esophagitis, without bleeding; I89.0 Lymphedema, not elsewhere classified; R79.82 Elevated C-reactive protein (CRP); K22.2 Esophageal obstruction; I73.9 Peripheral vascular disease, unspecified; T18.128A Food in esophagus causing other injury, initial encounter; W44.F3XA Food entering into or through a natural orifice, initial encounter; K29.70 Gastritis, unspecified, without bleeding; Z79.01 Long term (current) use of anticoagulants; K21.9 Gastro-esophageal reflux disease without esophagitis; M54.50 Low back pain, unspecified; I87.8 Other specified disorders of veins; Z79.899 Other long term (current) drug therapy
CPT/HCPCS: 36415; 71045; 73701; 80053; 80061; 81001; 83605; 83880; 84145; 84443; 85025; 85610; 85652; 85730; 86140; 87040; 87077; 87081; 87186; 92526; 92610; 93005; 93925; 93970; 96361; 96365; 96367; 97162; 99285; A4649; C1769; J0295; J0689; J1650; J2250; J2270; J2470; J2765; J3010; J3370; J3371; J3490; J7030; J7050; Q9967; A9270; J1920

== ENCOUNTER 2024-12-21 10:05 | Observation (INO) | payer OTHER, MEDICARE, SELFPAY ==
[2024-12-21 10:24] VITALS: BP 119/75; PULSE 97; RESP 19; TEMP 36.7; O2SAT 98; BMI 27.4
--- NOTE | 2024-12-21 10:28 | XR_ITS ---
Examination: CT lumbar spine, without contrast. 2-D sagittal reconstructions. 2-D coronal reconstructions. 3-D reconstructions. Date and time of exam:December 21, 2024 at 1216 hours INDICATIONS: Back pain beginning one year ago CTDI: vol (mGy):26.7 DLP: (mGycm):857 Technique: Multiple 1.25 mm axial sections of the lumbar spine without intravenous contrast have been obtained. 2-D sagittal and coronal reconstructions have been obtained. 3-D reconstructions have been obtained. Low dose protocols were performed. One or more of the following dose reduction techniques were used; automated exposure control, adjustment of the mA and/or KV according to patient size, use of iterative reconstruction technique. Findings: Severe osteopenia Subtle sclerosis involving the first sacral segment Grade 1-2 anterolisthesis L4 on L5, grade 1 anterolisthesis L3 on L4 Advanced degenerative disc disease L3-L4, L4-L5 L5-S1 no disc protrusion L4-L5 6 mm central lumbar disc bulge extending to the foraminal regions with moderate bilateral L4 ganglionic compression IMPRESSION: Severe osteopenia Subtle abnormal sclerosis involving the first sacral segment No lumbar fracture Advanced degenerative disc disease L4-L5, L3-L4 L4-L5 6 mm central lumbar disc bulge extending to the foraminal regions with moderate bilateral L4 ganglionic compression Recommend elective MRI thoracic spine pre and post contrast follow-up
--- NOTE | 2024-12-21 10:28 | XR_ITS ---
Examination: CT thoracic spine, without contrast. 2-D sagittal reconstructions. 2-D coronal reconstructions. 3-D reconstructions. Date and time of exam: December 21, 2024 1213 hours Comparison December 13, 2021 INDICATIONS: Mid back pain beginning one year ago CTDI: vol (mGy):18.6 DLP: (mGycm):658 Technique: Multiple 1.25 mm axial sections of the thoracic spine without intravenous contrast have been obtained. 2-D sagittal and coronal reconstructions have been obtained. 3-D reconstructions have been obtained. Low dose protocols were performed. One or more of the following dose reduction techniques were used; automated exposure control, adjustment of the mA and/or KV according to patient size, use of iterative reconstruction technique. Findings: Severe osteopenia Chronic osteoporotic wedging T9 Mild to moderate diffuse thoracic degenerative disc disease No focal thoracic disc protrusion IMPRESSION: Severe osteopenia Moderate chronic osteoporotic compression T9 Mild to moderate diffuse thoracic degenerative disc disease If pain persists, consider elective MRI thoracic spine without contrast follow-up Incidentally noted is advanced degenerative disc disease C5-C6, C6-C7
--- NOTE | 2024-12-21 10:29 | PD.EDRME ---
Rapid Medical Screening Exam RME Arrival date/time: 12/21/24 10:05 84-year-old female presents for concerns for lower back pain after a fall Chief Complaint: Back Pain/Injury Vital signs: Vital Signs Temperature 98.1 F 12/21/24 10:24 Pulse Rate 97 12/21/24 10:24 Respiratory Rate 19 12/21/24 10:24 Blood Pressure 119/75 12/21/24 10:24 Pulse Oximetry (%) 98 12/21/24 10:24 Oxygen Delivery Method Room Air 12/21/24 10:24
[2024-12-21] MEDS: DIAZEPAM 5 MG TABLET PO (10:51)
[2024-12-21] MEDS: HYDROcodone/APAP 5/325 TABLET 1 TAB PO (10:51)
[2024-12-21 19:24] VITALS: BP 135/67; PULSE 72; RESP 20; TEMP 36.6; O2SAT 95
--- NOTE | 2024-12-21 19:25 | EDNOTE_ITS ---
ED Back Injury Pain RME/HPI General Chief Complaint: Back Pain/Injury Stated Complaint: FALL 12/18; SEVERE LOWER BACK PAIN Time Seen by Provider: 12/21/24 19:26 Arrival date/time: 12/21/24 10:05 RME / HPI RME / HPI Narrative: 12/21/24 10:05 84-year-old female presents for concerns for lower back pain after a fall -------- Dr. Mckeon?[facility] Main ED Evaluation: 84yo female with a history of gout, aFib, situs inversus, lymphedema, venous stasis status, PAD, chronic low back pain accompanied by her son presents to the ED for a chief complaint of worsening lower back pain. Patient states the patient was standing when she turned and fell, landing on her back 3 days ago. She states she does not know why she fell. She does not know if she hit her head or lost consciousness. Son states the patient started complaining of worsening lower back pain yesterday, reporting it got significantly worse today, so he brought her in for evaluation. Patient states her pain is in the same area as where she receives pain shots. Patient denies any numbness, tingling, weakness, cough, fever, chills or any other associated symptoms. Patient does ambulate with a walker and lives alone. She is on Eliquis. Related Data Home Medications ?Medication ?Instructions ?Recorded ?Confirmed allopurinol 300 mg tablet 300 mg PO QDAY 08/02/2102/27 gabapentin 300 mg capsule 300 mg PO BID 09/15/2109/01 Previous Rx's ?Medication ?Instructions ?Recorded diltiazem HCl 120 mg 120 mg PO QDAY 30 days #30 c aps 02/10/24 capsule,extended release 24 hr acetaminophen 325 mg tablet 650 mg (2 x 325 mg) PO Q6H PRN 09/03/24 PAIN OR FEVER > 101 #60 tabs furosemide 20 mg tablet 20 mg PO Q48H #30 tabs 09/03 Allergies Allergy/AdvReac Type Severity Reaction Status Date / Time No Known Allergies Allergy Verified 12/21/24 10:08 Review of Systems Review of Systems Systems Reviewed: All systems reviewed, normal except as documented Past Medical History Past Medical History NEUROLOGIC: Negative Neurological Disorders or Seizures CARDIAC: Positive Cardiac Disorders, Atrial Fibrillation, Edema, Hypertension and Varicose Veins; Negative Congestive Heart Failure RESPIRATORY: Positive Pneumonia; Negative Chronic Obstructive Pulmonary Disease (COPD) or Asthma GASTROINTESTINAL: Positive Gastrointestinal Disorders, Gastrointestinal Bleed, Hiatal Hernia and Gastroesophageal Reflux Disease GENITOURINARY: Negative Genitourinary Disorders or Renal Disease REPRODUCTIVE: Positive Previous Pregnancies MUSCULOSKELETAL: Positive Musculoskeletal Disorders, Arthritis, Gout and Fibromyalgia ENDOCRINE: Negative Endocrine Disorders, Diabetes Mellitus Type 1 or Diabetes Mellitus Type 2 HEMATOLOGIC: Positive Blood Disorders and Anemia; Negative Sickle Cell Disease OTHER HISTORY: Positive Hospitalization, Blood Transfusions, Measles and Mumps; Negative Autoimmune Disease, Shingles, Blood Transfusion Reaction, Anesthesia Reactions or Cancer Family History FAMILY HISTORY: Positive Family Cancer; Negative Family Psychiatric Problems, Family Respiratory Disorders, Family Cardiac Disorders, Family Gastrointestinal Problems, Family Surgery or Family Anesthesia Reaction Social History SMOKING STATUS: Former smoker SECOND HAND EXPOSURE: No SUBSTANCE USE: does not use ED Exam Narrative Physical exam: GENERAL APPEARANCE: alert and oriented x 4, well-developed, well-nourished, no acute distress VITALS: All vitals were reviewed and the pulse ox is 95% on room air, which is normal according to my interpretation. HEENT: Normocephalic, atraumatic; pupils equal, round, reactive to light; EOMI; mucous membranes pink, moist; oropharynx clear NECK: Supple LUNGS: CTABL; no wheezes, no rales, no rhonchi HEART: Regular rate, regular rhythm; normal S1, S2; no murmurs ABDOMEN: non distended; normal BS; soft, no tenderness, no guarding, no rebound; no masses, no organomegaly, no hernia BACK: no CVA tenderness EXTREMITIES: atraumatic; severe nonpitting lymphedema to her BLE, is able to slightly lift her BLE NEUROLOGIC: awake; alert and oriented x4; cranial nerves II-XII grossly intact; no focal sensory or motor deficits PSYCHIATRIC: appropriate mood and affect SKIN: warm, dry, normal color; no rashes Course Course Course Narrative: Informed that the patient is very unsteady on her feet when she was attempted to be road tested with a walker and failed. 2304: Discussed results with the patient and her son. Informed her that she will need to be admitted for further evaluation. Quality Measures none Orders Category Date Time Status EKG (ED ONLY) *Do not use* NOW Care 12/21/24 23:13 Completed IV [Insert IV] NOW Care 12/21/24 19:[address] cervical spine wo con Stat Exams 12/21/24 19:[address] head/brain wo con Stat Exams 12/21/24 19:[address] lumbar spine wo con Stat Exams 12/21/24 10:[address] thoracic spine wo con Stat Exams 12/21/24 10:28 Completed EKG (ED Only) Stat Exams 12/21/24 23:13 Draft CBC Stat Lab 12/21/24 23:29 Completed CMP [Comprehensive Metabolic Panel] Stat Lab 12/21/24 23:29 Completed Acetaminophen Ivpb [Ofirmev Inj] Med 12/21/24 19:46 Discontinued 1,000 mg in 100 ml IV X1 Diazepam [Valium] Med 12/21/24 10:29 Discontinued 5 mg PO X1 ONE HYDROcodone*/APAP 5/325 [[place] 5/325] Med 12/21/24 10:28 Discontinued 1 tab PO X1 ONE Lidocaine 5% Patch Med 12/21/24 19:51 Discontinued 1 patch TOP X1 ONE Vital Signs Vital signs: Vital Signs Temperature 98.1 F 12/21/24 10:24 Pulse Rate 97 12/21/24 10:24 Respiratory Rate 19 12/21/24 10:24 Blood Pressure 119/75 12/21/24 10:24 Pulse Oximetry (%) 98 12/21/24 10:24 Oxygen Delivery Method Room Air 12/21/24 10:24 Procedures -ED Procedure Comment EKG #1: done at 2329, NSR, rate of 70, right axis deviation, no ectopy, ST abnormalities in the precordial leads, no STEMI, according to my interpretation. EKG #2: done at 2326, NSR, rate of 69, right axis deviation, no ectopy, no acute ischemia, according to my interpretation. Back Pain / Injury MDM Narrative MDM Narrative:: Scribe Attestation: 12/21/24 - Tonya Cloud am scribing for and in the presence of Dr. Mckeon. Patient data External records reviewed:: [facility] previous records (Per chart review, patient was admitted here on 11/09/24 for cellulitis.) Clinical information provided by:: patient Social determinants that could affect healthcare access:: none Patient has the following chronic illnesses:: gout, aFib, situs inversus, lymphedema, venous stasis status, PAD, chronic low back pain How is presenting disease/condition affected by chronic disease/condition?: exacerbated by Evaluation data The following diagnostics were reviewed and interpreted by me:: radiology exam(s) and EKG tracing(s) Lab and/or radiology exams considered but not ordered:: none Interpretation Summary: [facility] Report Signed Patient: FELIX SUN. Record#: [id number] Birthdate: 1940 Age/Sex: 84 / F Location: [facility] Attending Dr: Ordering Physician: Jon CAI)Stephen NP Date of Service: 12/21/24 Procedure(s): CT thoracic spine wo con Accession Number(s): [id number] cc: Jon CAI),Stephen CHRISTIANSON; Ambrocio Davis MD; Nina Rice NP~ Examination: CT thoracic spine, without contrast. 2-D sagittal reconstructions. 2-D coronal reconstructions. 3-D reconstructions. Date and time of exam: December 21, 2024 1213 hours Comparison December 13, 2021 INDICATIONS: Mid back pain beginning one year ago CTDI: vol (mGy):18.6 DLP: (mGycm):658 Technique: Multiple 1.25 mm axial sections of the thoracic spine without intravenous contrast have been obtained. 2-D sagittal and coronal reconstructions have been obtained. 3-D reconstructions have been obtained. Low dose protocols were performed. One or more of the following dose reduction techniques were used; automated exposure control, adjustment of the mA and/or KV according to patient size, use of iterative reconstruction technique. Findings: Severe osteopenia Chronic osteoporotic wedging T9 Mild to moderate diffuse thoracic degenerative disc disease No focal thoracic disc protrusion IMPRESSION: Severe osteopenia Moderate chronic osteoporotic compression T9 Mild to moderate diffuse thoracic degenerative disc disease If pain persists, consider elective MRI thoracic spine without contrast follow-up Incidentally noted is advanced degenerative disc disease C5-C6, C6-C7 Dictated By: Ambrocio Davis MD Signed By: <Electronically signed by Ambrocio Davis MD in OV> 12/21/24 1407 [facility] Report Signed Patient: FELIX SUN. Record#: [id number] Birthdate: 1940 Age/Sex: 84 / F Location: [facility] Attending Dr: Ordering Physician: Jon (MEGHAN)Stephen NP Date of Service: 12/21/24 Procedure(s): CT lumbar spine wo con Accession Number(s): [id number] cc: Jon CAI),Stephen CHRISTIANSON; Ambrocio Davis MD; Nina Rice NP~ Examination: CT lumbar spine, without contrast. 2-D sagittal reconstructions. 2-D coronal reconstructions. 3-D reconstructions. Date and time of exam:December 21, 2024 at 1216 hours INDICATIONS: Back pain beginning one year ago CTDI: vol (mGy):26.7 DLP: (mGycm):857 Technique: Multiple 1.25 mm axial sections of the lumbar spine without intravenous contrast have been obtained. 2-D sagittal and coronal reconstructions have been obtained. 3-D reconstructions have been obtained. Low dose protocols were performed. One or more of the following dose reduction techniques were used; automated exposure control, adjustment of the mA and/or KV according to patient size, use of iterative reconstruction technique. Findings: Severe osteopenia Subtle sclerosis involving the first sacral segment Grade 1-2 anterolisthesis L4 on L5, grade 1 anterolisthesis L3 on L4 Advanced degenerative disc disease L3-L4, L4-L5 L5-S1 no disc protrusion L4-L5 6 mm central lumbar disc bulge extending to the foraminal regions with moderate bilateral L4 ganglionic compression IMPRESSION: Severe osteopenia Subtle abnormal sclerosis involving the first sacral segment No lumbar fracture Advanced degenerative disc disease L4-L5, L3-L4 L4-L5 6 mm central lumbar disc bulge extending to the foraminal regions with moderate bilateral L4 ganglionic compression Recommend elective MRI thoracic spine pre and post contrast follow-up Dictated By: Ambrocio Davis MD Signed By: <Electronically signed by Ambrocio Davis MD in OV> 12/21/24 1404 [facility] Report Signed Patient: FELIX SUN [facility]. Record#: [id number] Birthdate: 1940 Age/Sex: 84 / F Location: [facility] Attending Dr: Ordering Physician: Rigoberto Mckeon MD Date of Service: 12/21/24 Procedure(s): CT cervical spine wo con Accession Number(s): [id number] cc: Ambrocio Davis MD; Rigoberto Mckeon MD; Nina Rice NP~ Examination: CT cervical spine without contrast 2-D sagittal reconstructions 2-D coronal reconstructions 3-D reconstructions. Exam date and time:December 21, 2024 1950 hrs. Indications: Patient fell 3 days ago with injury to the neck, neck pain CTDI:vol (mGy) 8.24 DLP: (mGycm) 168 Technique: Multiple 2 mm axial sections of the cervical spine have been obtained. The coronal and sagittal reconstructions have been obtained. 3-D reconstructions have been obtained. Low dose protocols were performed. One or more of the following dose reduction techniques were used; automated exposure control, adjustment of the mA and/or KV according to patient size, use of iterative reconstruction technique. Findings: Axial sections demonstrate intact base of the skull. Severe osteopenia Advanced disc narrowing C3-C4, C4-C5, C5-C6, C6-C7 C1 exhibit satisfactory relationship to the odontoid. No acute cervical vertebral body fracture seen. Alignment posterior spinous processes satisfactory. Impression: No acute cervical fracture. Dictated By: Ambrocio Davis MD Signed By: <Electronically signed by Ambrocio Davis MD in OV> 12/21/242015 [facility] Report Signed Patient: FELIX SUN [facility]. Record#: [id number] Birthdate: 1940 Age/Sex: 84 / F Location: [facility] Attending Dr: Ordering Physician: Rigoberto Mckeon MD Date of Service: 12/21/24 Procedure(s): CT head/brain wo con Accession Number(s): [id number] cc: Ambrocio Davis MD; Rigoberto Mckeon MD; Nina Rice NP~ Examination: CT brain head without contrast. 2-D sagittal coronal reconstructions Date and time of exam:December 21, 2024 at 1930 hrs. Comparison August 05, 2021 Indications: Patient fell 3 days ago with injury to the head, head pain, patient is anticoagulated CTDI: vol (mGy):53.4 DLP: (mGycm):1093 Technique: Multiple CT axial sections of the brain have been obtained, 5 mm slice thickness. Contrast has not been administered. 2-D sagittal, coronal reconstructions have been obtained Low dose protocols were performed. One or more of the following dose reduction techniques were used; automated exposure control, adjustment of the mA and/or KV according to patient size, use of iterative reconstruction technique. Findings: No significant ventricular enlargement. Large area of CSF density external to the left cerebral hemisphere which could represent a large subarachnoid cyst, versus chronic subdural hygroma, noted on the August 05, 2021 exam The frontal horns are shifted to the right 4 mm as result of the CSF density There is mild prominence of the CSF space also external to the brainstem pontine level Intra-axial or extra-axial hemorrhage density is not seen. No mass effect or midline shift Basal cisterns are not remarkable. Fourth ventricle is midline. Cranial vault intact. Impression: Large area of CSF density external to the left cerebral hemisphere with mass effect as above, this appearance is stable compared to the CT brain scan August 05, 2021 No interval acute hemorrhage Dictated By: Ambrocio Davis MD Signed By: <Electronically signed by Ambrocio Davis MD in OV> 12/21/242022 Medications / Prescriptions Medications or Prescriptions considered but not ordered:: none Medication administrations:: Medication Administration History Discontinued Medications Hydrocodone Bitart/Acetaminophen (Hydrocodone/Apap 5/325 Tablet) 1 tab PO X1 ONE Stop: 12/21/24 10:29 Last Admin: 12/21/24 10:51 Dose: 1 tab Documented By: OA Diazepam (Diazepam 5 Mg Tablet) 5 mg PO X1 ONE Stop: 12/21/24 10:30 Last Admin: 12/21/24 10:51 Dose: 5 mg Documented By: OA Acetaminophen (Ofirmev Inj) 1,000 mg in 100 mls @ 250 mls/hr IV X1 ONE Stop: 12/21/24 20:09 Last Admin: 12/21/24 21:07 Dose: 250 mls/hr Documented By: LB Lidocaine (Lidocaine 5% 1 Patch) 1 patch TOP X1 ONE Stop: 12/21/24 19:52 Last Admin: 12/21/24 20:26 Dose: 1 patch Documented By: LB see above Consultations Consultation(s) initiated? (list below): Yes Consultation #1 (Physician, Specialty, Details): Discussed case with [the resident physician, attending Dr. Trotter] from Hospitalist service regarding admission. Discussed patients ED course, exam findings, labs, and radiology results. The Hospitalist will evaluate the patient for admission. Basic labs and EKG for admission ordered. Time: 23:10 Diagnosis Differential diagnosis back pain/injury: other (spine fx, compression fx, spinal cord injury, musculoskeletal back pain, contusion) Most likely diagnosis given after review of the tests above:: see clinical impression below Admission Indicated Admission indicated?: indicated Admission Request Was there a request for admission?: Yes Admission Attestation Admission request attestation: Discussed case with [] from Hospitalist service regarding admission. Discussed patients ED course, exam findings, labs, and radiology results. The Hospitalist [agrees,declines] to accept the patient for admission. Disposition Plan Disposition Plan: Admit Discharge Plan Plan Patient Disposition: Admit Acute Care w/in Hospital Prescriptions/Referrals Prescriptions/Med Rec: No Action allopurinol 300 mg Tablet 300 mg PO QDAY gabapentin 300 mg Capsule 300 mg PO BID diltiazem HCl 120 mg Capsule,Extended Release 24hr 120 mg PO QDAY 30 Days Qty: 30 1RF furosemide 20 mg tablet 20 mg PO Q48H Qty: 30 0RF acetaminophen 325 mg Tablet 650 mg PO Q6H PRN (Reason: PAIN OR FEVER > 101) Qty: 60 0RF Referrals: Nnia Dahl NP [Primary Care Provider] - In 1 week Problem List Clinical Impression: Thoracic back pain, Inability to walk Patient/Caregiver Discharge Instructions Print Language: Chinese Stand Alone Forms: [facility] Award Info., Patient Portal Info Letter
--- NOTE | 2024-12-21 19:43 | XR_ITS ---
Examination: CT brain head without contrast. 2-D sagittal coronal reconstructions Date and time of exam:December 21, 2024 at 1930 hrs. Comparison August 05, 2021 Indications: Patient fell 3 days ago with injury to the head, head pain, patient is anticoagulated CTDI: vol (mGy):53.4 DLP: (mGycm):1093 Technique: Multiple CT axial sections of the brain have been obtained, 5 mm slice thickness. Contrast has not been administered. 2-D sagittal, coronal reconstructions have been obtained Low dose protocols were performed. One or more of the following dose reduction techniques were used; automated exposure control, adjustment of the mA and/or KV according to patient size, use of iterative reconstruction technique. Findings: No significant ventricular enlargement. Large area of CSF density external to the left cerebral hemisphere which could represent a large subarachnoid cyst, versus chronic subdural hygroma, noted on the August 05, 2021 exam The frontal horns are shifted to the right 4 mm as result of the CSF density There is mild prominence of the CSF space also external to the brainstem pontine level Intra-axial or extra-axial hemorrhage density is not seen. No mass effect or midline shift Basal cisterns are not remarkable. Fourth ventricle is midline. Cranial vault intact. Impression: Large area of CSF density external to the left cerebral hemisphere with mass effect as above, this appearance is stable compared to the CT brain scan August 05, 2021 No interval acute hemorrhage
--- NOTE | 2024-12-21 19:43 | XR_ITS ---
Examination: CT cervical spine without contrast 2-D sagittal reconstructions 2-D coronal reconstructions 3-D reconstructions. Exam date and time:December 21, 2024 1950 hrs. Indications: Patient fell 3 days ago with injury to the neck, neck pain CTDI:vol (mGy) 8.24 DLP: (mGycm) 168 Technique: Multiple 2 mm axial sections of the cervical spine have been obtained. The coronal and sagittal reconstructions have been obtained. 3-D reconstructions have been obtained. Low dose protocols were performed. One or more of the following dose reduction techniques were used; automated exposure control, adjustment of the mA and/or KV according to patient size, use of iterative reconstruction technique. Findings: Axial sections demonstrate intact base of the skull. Severe osteopenia Advanced disc narrowing C3-C4, C4-C5, C5-C6, C6-C7 C1 exhibit satisfactory relationship to the odontoid. No acute cervical vertebral body fracture seen. Alignment posterior spinous processes satisfactory. Impression: No acute cervical fracture.
--- NOTE | 2024-12-21 20:19 | PC.NURSE ---
Initial contact with pt. Awake c/o lower back pain, repositioned for comfort, feels better per pt.
[2024-12-21] MEDS: LIDOCAINE 5% 1 PATCH TOP (20:26)
--- NOTE | 2024-12-21 20:45 | PC.NURSE ---
Unable to start IV, will ask chg nurse tostart fIV.
[2024-12-21] MEDS: ACETAMINOPHEN IVPB 1,000 MG/100 ML VIAL 250 MG IV (21:07)
[2024-12-21 21:53] VITALS: BP 131/74; PULSE 66; RESP 18; O2SAT 96
--- NOTE | 2024-12-21 23:08 | PC.NURSE ---
Pt unable to ambulate using a walker. Pt very unsteady, and high risk of falling, son at bedside. Dr. Mckeon in to talk to pt with regards to plan of care..
--- NOTE | 2024-12-21 23:13 | EKG_ITS ---
[facility] Test Date: 2024-12-21 Pat Name: FELIX SUN Department: Room: - Gender: Female [employer]er/[employer]: : 1940 Requested By: Rigoberto Blunt Order Number: [id number] Reading MD: Rigoberto Blunt Measurements Intervals [place] Rate: 69 P: 110 NC: 237 QRS: 230 QRSD: 102 T: 137 QT: 414 QTc: 445 Interpretive Statements ALTERNATE LEAD PLACEMENT: Right Sided V1: V1, V2: V2, V3: V3R, V4: V4R, V5: V5R, V6: V6R Compared to ECG 11/09/2024 18:18:48 Atrial fibrillation no longer present Right-axis deviation no longer present Myocardial infarct finding no longer present /store/S0/[id number]/ecg/[id number].pdf
[2024-12-21 23:47] LABS: Basophils % (Auto) 0 % (0-2.5); Eosinophils % (Auto) 1 % (0-10); Hematocrit 34.2 % (36.0-46.0); Hemoglobin 11.3 g/dL (12.0-16.0); Immature Granulocytes % (Auto) 1 % (0-0); Immature Granulocytes Auto 0.03 Thou/mm3 (0.00-0.00); Lymphocytes # (Auto) 0.9 Thou/mm3 (1.0-4.8); Lymphocytes % (Auto) 14 % (10-50); Mean Corpuscular Volume 103 fL (80-100); Monocytes # (Auto) 0.6 Thou/mm3 (0.0-0.8); Monocytes % (Auto) 9 % (0-12); Neutrophils % (Auto) 76 % (37-80); Nucleated Red Blood Cell % 0 /100 WBC (0); Platelet Count 205 Thou/mm3 (140-440); RDW Standard Deviation 65.3 fL (36.4-46.3); Red Blood Count 3.32 Miln/mm3 (4.00-5.20); White Blood Count 6.6 Thou/mm3 (3.6-11.0)
[2024-12-21 23:57] LABS: Alanine Aminotransferase 8 U/L (10-49); Albumin, Serum 3.8 gm/dL (3.4-4.8); Albumin/Globulin Ratio 1.7 (1.2-2.2); Alkaline Phosphatase 77 U/L (46-116); Anion Gap 10 (7-16); Aspartate Amino Transferase 15 U/L (0-34); BUN/Creatinine Ratio 33 Ratio (12-20); Bilirubin,Total 0.5 mg/dL (0.3-1.2); Blood Urea Nitrogen 26 mg/dL (9-23); Calcium 9.5 mg/dL (8.3-10.6); Calcium (Corrected) 9.7 mg/dL (8.5-10.1); Carbon Dioxide 24.5 mMol/L (20.0-31.0); Chloride 110 mMol/L (98-107); Creatinine (Component) 0.8 mg/dL (0.6-1.3); Estimated Creatinine Clearance 52.9 mL/min (>60); Globulin 2.3 gm/dL (2.3-3.5); Glucose 133 mg/dL (74-106); Osmolality,Calculated 293 (275-295); Potassium 3.8 mMol/L (3.4-5.1); Sodium 144 mMol/L (136-145); Total Protein 6.1 gm/dL (5.7-8.2); eGFR > 60 See Note
[2024-12-22] VITALS (9 sets, daily range): BP systolic 119–169; BP diastolic 79–110; PULSE 74–94; RESP 18–22; TEMP 36.2–36.7; O2SAT 92–96; BMI 25.2
--- NOTE | 2024-12-22 00:05 | PC.NURSE ---
Skin tear to R/F noted, pt stated that she scratced herself. Area cleaned and sterile drsg applied.
--- NOTE | 2024-12-22 00:58 | PC.NURSE ---
Resident in room seeing pt.
--- NOTE | 2024-12-22 01:32 | ESHP_ITS ---
<Statement entered by Jenna Trotter MD - 12/23/24 06:20> I reviewed above note and agree with findings and plans. I have also personally examined the patient with medicine team and went over assessment and plan with medical team including web design intern and resident physician. Documentation for date of: 12/22/24 HPI History of Present Illness Chief complaint: Back pain after a fall 3 days ago History of present illness: HPI: An 84-year-old female patient With past medical history of gout, atrial fibrillation not on anticoagulation, situs inversus, lymphedema, venous stasis, chronic low back pain, was brought to the ED from home after she fell down 3 days ago. Patient reported that she lives alone and able to take care of herself however she has been having chronic fatigue and use a walker to walk, she reported she was in the kitchen preparing some meal when she felt unbalanced and fell down. Patient does not know what happened at that time, does not recall the fall. When she tried to stand up she felt very weak and decided to call her son to come and pick her up. Of note, patient was admitted recently to the hospital for lower extremity cellulitis and stayed for 5 days and was discharged on 15 November 2024 to a custodial facility for rehab. Patient was recently discharged from rehab approximately 1 week ago. Patient denied any head injury, confusion, localized focal neurological deficit, fever, chills, chest pain or palpitation. Patient denied any double vision, tinnitus or spinning sensation. At the ED patient was noticed to have normal vital signs, CBC showed stable baseline hemoglobin of 11.3, normal platelets of 205, her chemistry showed BUN of 26, serum creatinine normal at 0.8, glucose 133, CT imaging of the lumbar spine showed advanced degenerative disease, central lumbar disc bulge between L4, L5 extending to the foraminal region with moderate bilateral L4 ganglionic compression, radiologist recommended elective MRI lumbar and thoracic spine pre and postcontrast follow-up. Thoracic lumbar spine also showed severe osteopenia and diffuse degenerative disc disease associated with chronic osteoporotic compression of T9. Cervical spine was within normal limits and brain CT showedLarge area of CSF density external to the left cerebral hemisphere with mass effect as above, this appearance is stable compared to the CT brain scan August 05, 2021 as per the radiology report, however I was not able to locate the previous images. Home medications: Pending med reconciliation PMH: As above Social hx: Patient uses a walker, lives alone her son lives in the same neighborhood Allergies: No known allergies Review of Systems Review of Systems Systems Reviewed: All systems reviewed, normal except as documented Exam Vital Signs Temp Pulse Resp BP Pulse Ox O2 Del Method 98.1 F 74 18 145/80 H 96 Room Air 12/22/24 00:00 12/22/24 00:00 12/22/24 00:00 12/22/24 00:00 12/22/24 00:00 12/22/24 00:00 Narrative Exam GEN: AOx3, dry scaly skin, able to speak full sentences HEENT: NC/AC, oral dry moist, neck supple CVS: RRR, S1-S2 present, no murmurs appreciated RESP: CTAB GI: soft,non distended, non tender, NBS MSK: able to move all 4 limbs, extreme nonpitting lower extremity edema, with dark brown pigmentation most likely secondary to her lymphedema SKIN: warm, dry and scaly FRACTIONATION SUPERVISOR: CN II-XII and Sensation grossly intact. Results: Labs 12/21/24 23:29 12/21/24 23:29 Labs: Short CBC 12/21/24 Range/Units 23:29 WBC 6.6 (3.6-11.0) Thou/mm3 Hgb 11.3 L (12.0-16.0) g/dL Hct 34.2 L (36.0-46.0) % Plt Count 205 (140-440) Thou/mm3 BMP 12/21/24 23:29 Sodium 144 Potassium 3.8 Chloride 110 H Carbon Dioxide 24.5 BUN 26 H Creatinine 0.8 Glucose 133 H Calcium 9.5 Liver Function 12/21/24 Range/Units 23:29 Total Bilirubin 0.5 (0.3-1.2) mg/dL AST 15 (0-34) U/L ALT 8 L (10-49) U/L Alkaline Phosphatase 77 (46-116) U/L Albumin 3.8 (3.4-4.8) gm/dL Quality Measures Quality Measures none Advance care planning discussed with:: patient Medications Home Medications and Allergies Home Medications ?Medication ?Instructions ?Recorded ?Confirmed ?Type allopurinol 300 mg tablet 300 mg PO QDAY 08/02/2102/27 History gabapentin 300 mg capsule 300 mg PO BID 09/15/2109/01 History Allergies Allergy/AdvReac Type Severity Reaction Status Date / Time No Known Allergies Allergy Verified 12/21/24 10:08 Visit Medications Acetaminophen (Acetaminophen 325 Mg Tablet) 650 mg PO Q6H PRN PRN Reason: Fever >101.5 Stop: 01/21/25 01:23 Ondansetron HCl (Ondansetron Inj 2 Mg/Ml Inj 2 Ml) 4 mg IV Q6H PRN; Protocol PRN Reason: NAUSEA OR VOMITING Stop: 01/21/25 01:23 Pantoprazole Sodium (Pantoprazole 40 Mg Tablet) 40 mg PO QDAY PAMELA Stop: 01/21/25 08:59 Discontinued Medications Hydrocodone Bitart/Acetaminophen (Hydrocodone/Apap 5/325 Tablet) 1 tab PO X1 ONE Stop: 12/21/24 10:29 Last Admin: 12/21/24 10:51 Dose: 1 tab Diazepam (Diazepam 5 Mg Tablet) 5 mg PO X1 ONE Stop: 12/21/24 10:30 Last Admin: 12/21/24 10:51 Dose: 5 mg Acetaminophen (Ofirmev Inj) 1,000 mg in 100 mls @ 250 mls/hr IV X1 ONE Stop: 12/21/24 20:09 Last Admin: 12/21/24 21:07 Dose: 250 mls/hr Lidocaine (Lidocaine 5% 1 Patch) 1 patch TOP X1 ONE Stop: 12/21/24 19:52 Last Admin: 12/21/24 20:26 Dose: 1 patch Assessment & Plan Plan Summary:An 84-year-old female patient With past medical history of gout, atrial fibrillation not on anticoagulation, situs inversus, lymphedema, venous stasis, chronic low back pain, was brought to the ED from home after she fell down 3 days ago. Patient reported that she lives alone and able to take care of herself however she has been having chronic fatigue and use a walker to walk, she reported she was in the kitchen preparing some meal when she felt unbalanced and fell down. Patient was admitted for management of severe generalized weakness and recurrent falls workup. Assessment and plan #syncope episode #Severe generalized weakness #Multiple blunt trauma secondary to ground-level fall down Patient presented with severe generalized weakness, she has been discharged from custodial facility for physical therapy rehab 1 week ago. Patient has severe lower extremity lymphedema which also contribute to her generalized weakness. Patient denied any palpitation or chest pain at the fold-down episode however she mentioned that she does not remember the incident She has history of A-fib on Eliquis, and review of the external link for the patient prescription it was noticed that the patient has diltiazem, lisinopril, Bumex which may contribute to her syncopal episode. Plan ? Admit patient to telemetry and observation for syncopal workup ? Physical therapy evaluation ? Orthostatic vital signs ? Telemonitoring for any episodes of arrhythmia ? Echocardiogram ? Consider consulting neurology versus cardiology if clinically warranted ? Do med reconciliation to rule out iatrogenic syncope - Creatinine kinase #History of atrial fibrillation On Eliquis Plan ? Consider resuming home medication after med reconciliation #History of gout ? Consider resuming home medication upon med reconciliation #History of chronic back pain It seems that the patient has degenerative changes along her thoracic and lumbar spine, no concern for cervical instability at this time Patient denied any loss of sphincter control or numbness Plan ? Follow-up with the physical therapy recommendations ? Pain management with Tylenol ? Consider lidocaine patches for chronic pain ? Will avoid narcotics at this time due to the generalized weakness. Hospital Maintenance: FEN: Cardiac diet DVT ppx: Consider resuming apixaban if there is no concern of bleeding GI ppx: Protonix IV lines: PIV Martinez: Not indicated Code status: DNR/DNI Dispo: Telemetry - Patient's plan and care discussed with my attending, Dr. Sergo Banegas MD Internal Medicine PGY-2
--- NOTE | 2024-12-22 02:52 | PC.NURSE ---
Pt c/o back pain, repositioned for comfort. Attempted to call Resident for pt c/o. MD in a rapid response at this time.
--- NOTE | 2024-12-22 03:12 | PC.NURSE ---
MD returned call, informed of increase pain. awiting for orders.
[2024-12-22] MEDS: HYDROcodone/APAP 5/325 TABLET 1 TAB PO (03:28)
[2024-12-22 06:17] LABS: Basophils % (Auto) 0 % (0-2.5); Eosinophils # (Auto) 0.1 Thou/mm3 (0.0-0.5); Eosinophils % (Auto) 1 % (0-10); Hematocrit 33.3 % (36.0-46.0); Immature Granulocytes % (Auto) 1 % (0-0); Immature Granulocytes Auto 0.04 Thou/mm3 (0.00-0.00); Lymphocytes # (Auto) 0.8 Thou/mm3 (1.0-4.8); Lymphocytes % (Auto) 14 % (10-50); Mean Corpuscular Hemoglobin 34.3 pg (25.0-35.0); Mean Corpuscular Volume 104 fL (80-100); Monocytes # (Auto) 0.6 Thou/mm3 (0.0-0.8); Monocytes % (Auto) 10 % (0-12); Neutrophils # (Auto) 4.4 Thou/mm3 (1.8-7.7); Neutrophils % (Auto) 74 % (37-80); Nucleated Red Blood Cell % 0 /100 WBC (0); Platelet Count 183 Thou/mm3 (140-440); Red Blood Count 3.21 Miln/mm3 (4.00-5.20)
[2024-12-22 07:11] LABS: Alanine Aminotransferase < 7 U/L (10-49); Albumin, Serum 3.7 gm/dL (3.4-4.8); Albumin/Globulin Ratio 1.9 (1.2-2.2); Alkaline Phosphatase 74 U/L (46-116); Anion Gap 11 (7-16); Aspartate Amino Transferase 15 U/L (0-34); BUN/Creatinine Ratio 30 Ratio (12-20); Bilirubin,Total 0.5 mg/dL (0.3-1.2); Blood Urea Nitrogen 27 mg/dL (9-23); Calcium (Corrected) 9.2 mg/dL (8.5-10.1); Carbon Dioxide 24.3 mMol/L (20.0-31.0); Chloride 107 mMol/L (98-107); Creatine Kinase 42 U/L (34-171); Creatinine (Component) 0.9 mg/dL (0.6-1.3); Glucose 97 mg/dL (74-106); Osmolality,Calculated 288 (275-295); Potassium 4.1 mMol/L (3.4-5.1); Sodium 142 mMol/L (136-145); Total Protein 5.7 gm/dL (5.7-8.2); eGFR > 60 See Note
--- NOTE | 2024-12-22 09:56 | PC.SS ---
Patient is a 84 year old female admitted for Severe weakness. [employer] student introduced self, role reason for visit. Limits of confidentiality were discussed. Patient appears to be alert and oriented to self, location and situation. Patient was pleasant and engaged in initial assessment. Patient states she currently lives alone. Patient named her son Severiano Vergara ([phone]) as her medical surrogate decision maker. Patient states she is able to ambulate using a walker and is independent with her ADL's. Patient denies use of DME at home. Patients PCP is Dr. Arnel Alvarez and her pharmacy of preference is [facility] on [address]. Upon discharge patient plans to return home. Family is able to provide transport. No other needs identified at this time and convention services manager to remain available to address further concerns. D/c plan: Home Next of kin: Severiano Vergara [phone]
[2024-12-22] MEDS: ACETAMINOPHEN 325 MG TABLET 650 MG PO (10:09)
[2024-12-22] MEDS: DILTIAZEM CD 120 MG CAPCR PO (10:10)
[2024-12-22] MEDS: GABAPENTIN 100 MG CAPSULE 300 MG PO ×2 (10:11→21:31)
--- NOTE | 2024-12-22 12:06 | ESPR_ITS ---
<Statement entered by Kiya Pro MD - 12/22/24 16:24> Patient was seen and examined by me personally. I have directly supervised and reviewed documentation by the team resident and agree with its findings with any exceptions or additional findings as below. Plan of care was discussed with the attending, Dr. Deluna. Overnight admission. Patient is a 84-year-old female with past medical history of gout, atrial fibrillation on Eliquis, situs inversus, lymphedema, venous stasis, and chronic low back pain who was brought to the ED from home after she fell 3 days prior. Mechanism of fall was unknown. Patient was admitted for generalized weakness and workup for recurrent falls. Imaging studies done in ED were negative for any acute injury or spinal nerve compression. CT head shows large area of CSF density external to the left cerebral hemisphere with mass effect, stable compared to the CT brain scan 08/05/2021. Due to large mass effect and concern for falls/syncopal episodes of unknown etiology we consulted Neurology for input. Patient is on Eliquis for afib which is presently held. Will otherwise obtain PT consult, orthostatic vitals, wound care recommendations for chronic lymphedema. Echo is ordered. Patient will likely be needing SNF placement due to weakness, anticipate discharge in 24-48 hours. Kiya Pro, PGY-2 Documentation for date of: 12/22/24 Subjective Subjective Interval history: 12/22/2024: Overnight admission for patient is an 84-year-old female with past medical history of PAD, A-fib, situs inversus who presented to the hospital after she had an episode where she had a ground-level fall which she describes with great detail during questioning. Patient seen and assessed in hospital bed is awake and answering questions appropriately and denies any concerning symptoms at this time. Patient has a CT head imaging study which shows CSF fluid collection with possible mass effect; moreover, this finding has been seen on previous imaging but we are consulting neurology for recommendations. Patient also has pending echocardiogram and orthostatic vitals for syncope workup. Will continue to monitor the patient and expect physical therapy to work with her to assess for placement. Exam Vital Signs Temp Pulse Resp BP Pulse Ox O2 Del Method 97.4 F 74 22 H 169/110 H 96 Room Air 12/22/24 06:25 12/22/24 10:10 12/22/24 06:25 12/22/24 10:10 12/22/24 06:25 12/22/24 06:25 Narrative Exam Physical Exam: GENERAL: Awake, answering questions appropriately, appears stated age HEENT: NC/AT. Moist mucosa. PERRLA/EOMI. presbycusis apparent CARDIO: Heart RRR, no obvious murmurs, no JVD. PULM: No coughing or visible SOB. Lungs CTA B/L. GI: Abdomen soft, NT/ND, +BS. SKIN/MSK/EXT: Chronic lymphedema noted on bilateral lower extremities. No wounds/rashes/edema/amputations noted. +Pedal pulses present B/L. NEURO: Oriented x3, no focal neurologic deficits, Moves extremities x4. Objective Labs 12/23/24 04:17 12/23/24 04:17 Labs: Laboratory Results - last 24 hr 12/21/24 12/22/24 23:29 05:42 WBC 6.6 6.0 RBC 3.32 L 3.21 L Hgb 11.3 L 11.0 L Hct 34.2 L 33.3 L MCV 103 H 104 H MCH 34.0 34.3 MCHC 33.0 33.0 RDW Std Deviation 65.3 H 66.0 H Plt Count 205 183 Neut % (Auto) 76 74 Lymph % (Auto) 14 14 Wilkin % (Auto) 9 10 Eos % (Auto) 1 1 Baso % (Auto) 0 0 Neut # (Auto) 5.0 4.4 Lymph # (Auto) 0.9 L 0.8 L Wilkin # (Auto) 0.6 0.6 Eos # (Auto) 0.0 0.1 Baso # (Auto) 0.0 0.0 Immature Gran # (Auto) 0.03 H 0.04 H Absolute Nucleated RBC 0.00 0.00 Immature Gran % 1 H 1 H Nucleated RBC % 0 0 Sodium 144 142 Potassium 3.8 4.1 Chloride 110 H 107 Carbon Dioxide 24.5 24.3 Anion Gap 10 11 BUN 26 H 27 H Creatinine 0.8 0.9 Estim Creat Clear Calc 52.9 L 42.0 L eGFR > 60 > 60 BUN/Creatinine Ratio 33 H 30 H Glucose 133 H 97 Calculated Osmolality 293 288 Calcium 9.5 9.0 Corrected Calcium 9.7 9.2 Magnesium 2.0 Total Bilirubin 0.5 0.5 AST 15 15 ALT 8 L < 7 L Alkaline Phosphatase 77 74 Total Creatine Kinase 42 Total Protein 6.1 5.7 Albumin 3.8 3.7 Globulin 2.3 2.0 L Albumin/Globulin Ratio 1.7 1.9 Quality Measures Quality Measures none Advance care planning discussed with:: patient and child Assessment & Plan Assessment Current Active Medications: Generic Name Dose Route Start Last Admin Trade Name Freq PRN Reason Stop Dose Admin Acetaminophen 650 mg 12/22/24 10:39 Acetaminophen 325 Mg Tablet PO 01/21/25 10:38 Q4HR PRN PAIN SCALE 1-3 (mild Hydrocodone Bitart/Acetaminophen 2 tab 12/22/24 10:39 Hydrocodone/Apap 5/325 Tablet PO 12/27/24 10:38 Q6HR PRN PAIN SCALE 4-6 (Moderate Allopurinol 300 mg 12/23/24 09:00 Allopurinol 100 Mg Tablet PO 01/22/25 08:59 QDAY PAMELA Diltiazem HCl 120 mg 12/22/24 09:30 12/22/24 10:10 Diltiazem Cd 120 Mg Capcr PO 01/21/25 09:29 120 mg QDAY PAMELA Administration Gabapentin 300 mg 12/22/24 09:30 12/22/24 10:11 Gabapentin 100 Mg Capsule PO 01/21/25 09:29 300 mg BID PAMELA Administration Morphine Sulfate 2 mg 12/22/24 10:39 Morphine Sulf Inj 10 Mg/Ml Vial IV 12/27/24 10:38 Q3HR PRN PAIN SCALE 7-10 (Severe Ondansetron HCl 4 mg 12/22/24 01:24 Ondansetron Inj 2 Mg/Ml Inj 2 Ml IV 01/21/25 01:23 Q6H PRN NAUSEA OR VOMITING Protocol Plan 84-year-old female patient With past medical history of gout, atrial fibrillation not on anticoagulation, situs inversus, lymphedema, venous stasis, chronic low back pain, was brought to the ED from home after she fell down 3 days ago. Patient reported that she lives alone and able to take care of herself however she has been having chronic fatigue and use a walker to walk, she reported she was in the kitchen preparing some meal when she felt unbalanced and fell down. Patient was admitted for management of severe generalized weakness and recurrent falls workup. #Ground-level fall #Severe generalized weakness #Cerebral mass effect? Presented with severe generalized weakness, she has been [facility] from [facility]hab 1 week ago. Patient has severe lower extremity lymphedema which also contribute to her generalized weakness. Denied any palpitation or chest pain at the fold-down episode however she mentioned that she does not remember the incident She has history of A-fib on Eliquis, and review of the external link for the patient prescription it was noticed that the patient has diltiazem, lisinopril, Bumex which may contribute to her syncopal episode. CT head shows large area of CSF density external to the left cerebral hemisphere with mass effect - present in previous imaging as noted by radiology Plan: Neurology consulted, appreciate recommendations Physical therapy evaluation Orthostatic vital signs Echocardiogram ordered #History of atrial fibrillation #Hypertension On Eliquis Patient on home diltiazem HCl 120 mg p.o. daily Plan: Will hold Eliquis for now and consider restarting if appropriate Restarted patient on diltiazem 120 mg p.o. daily #History of gout Patient on allopurinol 300 mg p.o. daily Plan: Restarted home medication #History of chronic back pain Patient has degenerative changes along her thoracic and lumbar spine, as noted by CT imaging findings Patient on home gabapentin 300 mg p.o. twice daily No concern for cervical instability at this time Patient denied any loss of sphincter control or numbness Plan: Follow-up with the physical therapy recommendations Pain management with Tylenol Restarted home medication, gabapentin Hospital Management: Diet: Cardiac diet Lines: PIV Bowel: Senna GI prophylaxis: Protonix DVT prophylaxis: SCD Dispo: Pending neurology recommendations regarding the CSF fluid found on CT head and echocardiogram for syncope workup Code: DNR/DNI Patient seen and examined with attending Dr. Deluna and senior resident Dr. Morteza Rene, PGY-1 Attending Provider Attestation/Addendum Pedro Luis, Erna Deluna, DO, attest that I was physically present for the [place] portions of the service and evaluated the patient with the resident and I reviewed and discussed the case with the resident and agree with the resident's findings and plans of care as documented above Patient seen and evaluated this AM. She states that she was recently discharged from SNF and had been doing well. Patient lives alone and states that she was trying to dodge a railing when she accidentally tripped over her left foot and resulted in fall. Patient denies any loss of consciousness, dizziness, lightheadedness, shortness of breath or chest pain. Patient venous insufficiency and noted to have some edema in her b/l LE. Pt had previously been admitted for b/l LE cellulitis and was recommended compression wrapping of her lower extremities. Patient states that she is unable to wrap her own legs at home. Will have wound care patient, as well as physical therapy. Patient is neurologically intact and no focal neurological deficits. She has a bump in the back of her head due to fall, but otherwise, no open lesions or signs of bleeding.
[2024-12-22] MEDS: HYDROcodone/APAP 5/325 TABLET 2 TAB PO ×2 (12:14→23:41)
[2024-12-22] MEDS: MORPHINE SULF INJ 10 MG/ML VIAL 2 MG IV (12:52)
--- NOTE | 2024-12-22 16:21 | PC.SS ---
Addendum entered by DEJUAN Pack 12/22/24 16:23: Rounding note: patient also pending neurology consult. Addendum entered by DEJUAN Pack 12/22/24 16:23: SS update: per PT evaluation, recommendation is Home health for PT needs. Patient aligned with [employer] insurance which is contracted with [facility]. Original Note: Rounding note: pending PT evaluation.
--- NOTE | 2024-12-22 18:49 | PC.NURSE ---
Patient choked while eating her vegetable salad. She stated that the cucumber got stuck on her throat. Patient was coughing continuously, which help her expectorate some thick phlegm. MD called, came and checked on the patient. Patient's oxygen sat is on 95% at room air. Educated patient to chew her food well and call if she needs anything.
[2024-12-23] VITALS (7 sets, daily range): BP systolic 118–148; BP diastolic 75–98; PULSE 69–86; RESP 17–20; TEMP 36.2–36.6; O2SAT 91–95
[2024-12-23 06:01] LABS: Basophils % (Auto) 0 % (0-2.5); Eosinophils # (Auto) 0.1 Thou/mm3 (0.0-0.5); Eosinophils % (Auto) 1 % (0-10); Hematocrit 30.7 % (36.0-46.0); Immature Granulocytes % (Auto) 1 % (0-0); Immature Granulocytes Auto 0.03 Thou/mm3 (0.00-0.00); Lymphocytes # (Auto) 1.1 Thou/mm3 (1.0-4.8); Lymphocytes % (Auto) 23 % (10-50); Mean Corpuscular HGB Conc 32.6 g/dl (31.0-37.0); Mean Corpuscular Volume 104 fL (80-100); Monocytes # (Auto) 0.5 Thou/mm3 (0.0-0.8); Monocytes % (Auto) 10 % (0-12); Neutrophils # (Auto) 3.2 Thou/mm3 (1.8-7.7); Neutrophils % (Auto) 65 % (37-80); Nucleated Red Blood Cell % 0 /100 WBC (0); Platelet Count 212 Thou/mm3 (140-440); Red Blood Count 2.94 Miln/mm3 (4.00-5.20); White Blood Count 4.9 Thou/mm3 (3.6-11.0)
[2024-12-23 06:25] LABS: INR 0.9 (0.9-1.3); Partial Thromboplastin Time 23.3 Seconds (22.0-36.0); Prothrombin Time 10.3 Seconds (9.0-12.2)
[2024-12-23 06:52] LABS: Alanine Aminotransferase < 7 U/L (10-49); Albumin, Serum 3.4 gm/dL (3.4-4.8); Albumin/Globulin Ratio 1.8 (1.2-2.2); Alkaline Phosphatase 67 U/L (46-116); Anion Gap 7 (7-16); Aspartate Amino Transferase 11 U/L (0-34); BUN/Creatinine Ratio 29 Ratio (12-20); Bilirubin,Total 0.4 mg/dL (0.3-1.2); Blood Urea Nitrogen 26 mg/dL (9-23); Calcium 8.8 mg/dL (8.3-10.6); Calcium (Corrected) 9.3 mg/dL (8.5-10.1); Carbon Dioxide 27.8 mMol/L (20.0-31.0); Chloride 106 mMol/L (98-107); Creatinine (Component) 0.9 mg/dL (0.6-1.3); Globulin 1.9 gm/dL (2.3-3.5); Glucose 99 mg/dL (74-106); Magnesium 1.9 mg/dL (1.6-2.6); Osmolality,Calculated 285 (275-295); Phosphorous 3.7 mg/dL (2.4-5.1); Potassium 4.2 mMol/L (3.4-5.1); Sodium 141 mMol/L (136-145); Total Protein 5.3 gm/dL (5.7-8.2); eGFR > 60 See Note
--- NOTE | 2024-12-23 08:33 | PC.SS ---
SS follow up: spoke with patient's son, Severiano regarding the patient's d/c plan. Severiano informs that they will have placement for the patient with [facility] independent living by tomorrow. Severiano states should the patient be discharged today, then he will have patient stay with family until placement with [facility] is established. Dr. Pro was notified that the patient was recommended for Home health per PT evaluation. Patient's insurance is also aware and informed of tentative d/c plan to [facility].
[2024-12-23] MEDS: DILTIAZEM CD 120 MG CAPCR PO (09:00)
[2024-12-23] MEDS: allopurinoL 100 MG TABLET 300 MG PO (09:00)
[2024-12-23] MEDS: GABAPENTIN 100 MG CAPSULE 300 MG PO (09:00)
[2024-12-23] MEDS: Magnesium Sulfate 4 GM Ivpb 4 GM/50 ML BAG IV (09:00)
[2024-12-23] MEDS: Furosemide 20 MG TABLET PO (11:18)
--- NOTE | 2024-12-23 13:25 | ESDS_ITS ---
<Statement entered by Erna Deluna DO - 12/24/24 12:10> I, Erna Deluna DO, attest that I was physically present for the [place] portions of the service and evaluated the patient with the resident and I reviewed and discussed the case with the resident and agree with the resident's findings and plans of care as documented above <Statement entered by Kiya Pro MD - 12/24/24 09:35> Patient was seen and examined by me personally. I have reviewed the below documentation by the team resident and agree with its findings with any exceptions as below. Discharge plan was discussed with the attending, Dr. Deluna. Patient determined stable for discharge home with home health. She was recommended to wrap her lower legs with compression wraps and follow up at the [facility]. Neurology recommended patient follow up outpatient for the large CSF density in the left cerebral hemisphere with mass effect, as patient is unchanged from baseline. Kiya Pro, PGY-2 Planned Discharge Date 12/23/24 DS: Providers Provider Date of admission: 12/22/24 01:24 Primary care physician: Nina Dahl NP Admitting Provider: Jenna Trotter MD Attending Provider on Admission: Erna Deluna DO Consults: 12/22/24 01:32 Referral Physical Therapy Stat Comment: Physician Instructions: 12/22/24 10:41 Consult to Neurology / Tele-Neurology Routine Comment: Large area of CSF collection, mass effect Consulting Provider: Sang Saldana 12/22/24 11:43 Referral Wound Care Routine Comment: Please wrap patients legs; hx of lymphedema 12/22/24 16:09 Referral Discharge Planning Routine Comment: home health for wound care, compression wraps BLE Referral OP Wound Healing Dept Routine Comment: BLE venous ulcerations 12/22/24 19:25 Referral Speech Therapy Routine Comment: Attending Provider on DC: Paco Rene MD Discharging Provider: Paco Rene MD DS: Diagnosis Problem List Completed Was Problem List Reviewed/Reconciled?: Yes Hospital Course Hospital Course Hospital course: 84-year-old female with past medical history of gout, atrial fibrillation, situs inversus, chronic lymphedema and venous stasis brought to ED on 12/22 from home after she had a episode where she fell 3 days ago. In the ED, patient had normal vital signs laboratory findings were unremarkable but CT imaging of the lumbar spine showed advanced degenerative disease, central lumbar disc bulge between L4, L5 extending to the foraminal region, bilateral L4 ganglionic compression. Thoracic lumbar spine showed severe osteopenia and diffuse degenerative disc disease accompanied with chronic osteoporotic compression of the T9 vertebrae. Cervical spine is within normal limits and brain CT showed a large area of CSF density external to the left cerebral hemisphere with mass effect. CT head finding had been seen on prior scan dated August 05, 2021. The patient also follows with neurology who is aware of the patient's brain findings. Patient is admitted for episode of fall and difficulty ambulating. Neurology was consulted and recommendation was that the patient follow-up outpatient. Physical therapy evaluated the patient and the recommendation was that the patient was safe to be discharged home with home health. Patient will also be referred to podiatry for proper shoes placement as the patient has chronic venous changes as noted. Patient was monitored over a couple days and was neurologically normal without any concerning findings. Patient will be discharged with the following strict instructions. Continue taking all your home medications as prescribed Please follow-up with your Primary Care Provider within 1-2 weeks - ask about a neurology follow-up regarding CSF density noted on left cerebral hemisphere with mass effect Follow-up with your neurologist Dr. Saldana Follow-up with Dr. Medina, podiatry for your feet and recommendations regarding the proper shoes needed If your symptoms worsen or if you develop new chest pain, shortness of breath, dizziness or severe headache - please come back to the ED immediately. Follow up at [facility], [address] [place] [address]. Call [phone] for appointment. Bilateral lower legs: 2 layer Lite with Zinc compression wraps to bilateral lower legs weekly. * Please wear gripper socks or house shoes over compression wraps while ambulating to avoid slipping and falls. If swelling or discomfort to bilateral legs develops, elevate feet above heart level x30 min. If no improvement, please remove compression wraps. 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, thoracic and lumbar #Degenerative disc disease, lumbar spine #Hypertension #History of gout #History of chronic back pain Paco Tanousian, PGY-1 Status at Discharge Overall status at discharge: patient is progressing back to baseline Time Spent with Patient Time attestation: Total time spent providing and/or coordinating discharge services: 45 minutes Time spent: Greater than 30 minutes Home Health Home Health Referral Orders: 12/23/24 08:26 Home Health Referral Routine Reason For Exam: fall Home-Bound The patient must either because of illness or injury, need the aid of supportive devices such as crutches, canes, wheelchairs, and walkers; the use of special tr ansportation; or the assistance of another person in order to leave their place of residence; OR have a condition such that leaving his or her home is medically contraindicated. In addition, the patient also meets the following criteria: patient is normally unable to leave the home and leaving home requires considerable taxing effort. Addendum to Home Health Certification Practitioner's Certification: I certify that the patient has been under my care in the hospital and the care of attending physician (see below). We had a hpqi-qo-[id number] encounter on (see date below). My clinical findings indicate that the patient is home bound per the above criteria and the Home Health Services noted in these orders are medically necessary. The primary reason for the [id number]-[id number] encounter is related to the fact that the patient requires home health services. Date Certifying Kuuf-kr-Oilg Physician Encounter: 12/23/24 Physician's Name who will Assume Oversight for Services: Nina Dahl Physician's Phone No.who will Assume Oversight for Service: PORTAL DEVELOPER - Community Resources: No PT to Evaluate: Yes PT to evaluate and provide a treatmnet plan to increase patient's mobility and strength. Wound Care: Yes Home Health RN - Wound Care Order: as per wound nurse instructions IV Therapy: No RN Safety Evaluation: Yes RN to evaluate and create a plan of care that will produce positive outcomes. Palliative Treatment: No Palliative treatment and evaluate the need for hospice. Home Health Aide - Personal Care: Yes Home Health Aide to assist with any ADL's. Exam Vital Signs Temp Pulse Resp BP Pulse Ox O2 Del Method 97.3 F 76 17 124/84 94 L Room Air 12/23/24 12:00 12/23/24 12:00 12/23/24 12:12/23/24 12:12/23/24 12:12/23/24 12:00 Narrative Exam Physical Exam: GENERAL: Awake, answering questions appropriately, appears stated age HEENT: NC/AT. Moist mucosa. PERRLA/EOMI. presbycusis apparent CARDIO: Heart RRR, no obvious murmurs, no JVD. PULM: No coughing or visible SOB. Lungs CTA B/L. GI: Abdomen soft, NT/ND, +BS. SKIN/MSK/EXT: Chronic lymphedema noted on bilateral lower extremities. No wounds/rashes/edema/amputations noted. +Pedal pulses present B/L. NEURO: Oriented x3, no focal neurologic deficits, Moves extremities x4. Discharge Plan Plan Patient Disposition: Home w/HOME HEALTH Care Plan Goals: Continue taking all your home medications as prescribed Please follow-up with your Primary Care Provider within 1-2 weeks - ask about a neurology follow-up regarding CSF density noted on left cerebral hemisphere with mass effect Follow-up with your neurologist Dr. Saldana Follow-up with Dr. Medina, podiatry for your feet and recommendations regarding the proper shoes needed If your symptoms worsen or if you develop new chest pain, shortness of breath, dizziness or severe headache - please come back to the ED immediately. Follow up at [facility], [address] [place] [address]. Call [phone] for appointment. Bilateral lower legs: 2 layer Lite with Zinc compression wraps to bilateral lower legs weekly. * Please wear gripper socks or house shoes over compression wraps while ambulating to avoid slipping and falls. If swelling or discomfort to bilateral legs develops, elevate feet above heart level x30 min. If no improvement, please remove compression wraps. Prescriptions/Referrals Prescriptions/Med Rec: Continued allopurinol 300 mg Tablet 300 mg PO QDAY gabapentin 300 mg Capsule 300 mg PO BID diltiazem HCl 120 mg Capsule,Extended Release 24hr 120 mg PO QDAY 30 Days Qty: 30 1RF furosemide 20 mg tablet 20 mg PO Q48H Qty: 30 0RF acetaminophen 325 mg Tablet 650 mg PO Q6H PRN (Reason: PAIN OR FEVER > 101) Qty: 60 0RF Eliquis 2.5 mg tablet 2.5 mg PO Q12H esomeprazole magnesium 40 mg capsule,delayed release(DR/EC) 40 mg PO Q24H Patient Comments: TAKE 1 CAPSULE BY MOUTH EVERY DAY Referrals: Doc - Wound Care,Generic [Physician] - Mateo Medina MD [Physician] - Sang Saldana MD [Physician] - Nina Dahl NP [Primary Care Provider] - Patient/Caregiver Discharge Instructions Education Materials: Putting on Compression Stockings Print Language: Vietnamese Stand Alone Forms: [employer] Info., Patient Portal Info Letter Discharge Order Discharge Orders: Discharge (Routine); Ordered 12/23/24 Ordered By: Paco Rene Quality Discharge Quality Measures VTE prophylaxis
--- NOTE | 2024-12-24 10:02 | PC.CC ---
Complete Home Health packet sent to [facility], awaiting response.
--- NOTE | 2024-12-26 11:00 | PC.CM ---
[facility] accepted patient. Pending start of care date.
== END 2024-12-23 16:20 | disposition home health service (06) ==
LOC: SERX 23:15 → SERHOLD 12-22 02:32 → S3SX 12-22 03:38
PROVIDERS: Student in an Organized Health Care Education/Training Program; Admitting Provider Internal Medicine; Emergency Provider Emergency Medicine; PCP Registered Nurse; Visit Provider Internal Medicine
DX: M47.814 Spondylosis without myelopathy or radiculopathy, thoracic region (principal); M51.16 Intervertebral disc disorders with radiculopathy, lumbar region; M47.26 Other spondylosis with radiculopathy, lumbar region; M79.7 Fibromyalgia; W18.30XA Fall on same level, unspecified, initial encounter; Z60.2 Problems related to living alone; Z66 Do not resuscitate; Z51.5 Encounter for palliative care; R53.82 Chronic fatigue, unspecified; M10.9 Gout, unspecified; I89.0 Lymphedema, not elsewhere classified; I87.8 Other specified disorders of veins; I48.91 Unspecified atrial fibrillation; I10 Essential (primary) hypertension; G89.29 Other chronic pain; R83.6 Abnormal cytological findings in cerebrospinal fluid; M80.08XA Age-related osteoporosis with current pathological fracture, vertebra(e), initial encounter for fracture; M85.89 Other specified disorders of bone density and structure, multiple sites
CPT/HCPCS: 36415; 70450; 72125; 72128; 72131; 80053; 82550; 83735; 84100; 85025; 85610; 85730; 93005; 96365; 97162; 99285; G0378; J0131; J2270; J3475; J3490; A9270

== ENCOUNTER 2024-12-27 11:13 | Inpatient (IN) | payer OTHER, MEDICARE, SELFPAY ==
[2024-12-27] VITALS (7 sets, daily range): BP systolic 123–153; BP diastolic 62–95; PULSE 69–91; RESP 17–24; TEMP 36.6–36.9; O2SAT 92–98; BMI 29.9
--- NOTE | 2024-12-27 | XR_ITS ---
Examination: MRI lumbar spine without contrast Date and time of exam: December 27, 2024 1551 hours Comparison August 02, 2021 INDICATIONS: Ground-level fall 4 days ago with injury to the back, back pain worse the last 4 days Technique: Multiple MRI axial and sagittal sections lumbar spine. Sagittal T2-weighted images, TR 3500, TE 118 T1 weighted transverse sections, TR 688 T8.5, T2-weighted sagittal sections T1 weighted sagittal sections TR 621, TE 30 T2 axial sections, TR 4, 190, TE 84. Findings: No lumbar fracture Grade 1 anterolisthesis L3 on L4, L4 on L5 Significant disc narrowing L3-L4, L4-L5 L5-S1 2 mm central lumbar disc bulge L4-L5 severe spinal stenosis secondary to the grade 1 anterolisthesis, 7 mm central lumbar disc bulge, prominent facet arthropathy and thickening of ligamentum flavum, disc bulge extending to the foraminal regions with severe left mild right L4 ganglionic compression L3-L4 no disc protrusion L2-L3 no disc protrusion L1-L2 no disc protrusion IMPRESSION: No acute lumbar fracture L4-L5 severe acquired spinal stenosis as above
--- NOTE | 2024-12-27 | XR_ITS ---
Examination: MRI thoracic spine without contrast. Date and time of exam: December 27, 2024 at 1551 hours INDICATIONS: Patient fell 4 days ago with injury to the back, back pain Technique: Multiple sagittal and axial images of the thoracic spine have been obtained. T1 weighted localizer, sagittal T2 weighted images, TR 30-50, TE 148, T1 weighted sagittal images, TR 650, TE 14, T2-weighted transverse images, TR 6770, TE 142 Findings: Kyphosis dorsal spine Subacute moderately severe compression fracture T8 vertebral body, reduction in height 60% No significant retropulsion of this vertebral body Diffuse thoracic moderate disc narrowing and diffuse thoracic disc desiccation No impingement upon the thoracic cord There is mild diffuse increased signal throughout the thoracic cord, subtle syrinx cavity not excluded Impression: Kyphosis dorsal spine Subacute moderately severe compression fracture T8 vertebral body without significant spinal stenosis Recommend ELECTIVE MRI thoracic spine without contrast follow-up to exclude thoracic syrinx cavity
--- NOTE | 2024-12-27 11:42 | PD.EDBACK ---
ED Back Injury Pain RME/HPI General Chief Complaint: Back Pain/Injury Stated Complaint: NON TRAUMATIC BACK PAIN Time Seen by Provider: 12/27/24 11:29 Arrival date/time: 12/27/24 11:13 84 year old female with past medical history of Bulging disc, Chronic acquired lymphedema, Gout, Atrial Fib (eliquis) venous stasis Gastric mass, HTN, Lumbar stenosis, GERD, inadequate pain control present via EMS with c/o of ongoing back pain worsen the 4 days s/p getting discharge from the [facility] last . Denies new trauma No fevers No unexplained weight loss of night sweats No recent surgeries or recurrent bacterial infections No IVDU Patient is not immunocompromised Denies any new focal neurological deficits or new motor weakness Denies bowel or bladder incontinence or saddle anesthesia LOCATION: back SEVERITY: Symptoms are described as being severe with limitations on activities of daily living QUALITY: Symptoms are described as being dull or achy CONTEXT: The patient is unable to identify any inciting events. DURATION/TIMING: The symptoms started approximately ASSOCIATED SYMPTOMS: The patient is unable to identify any other associated symptoms. MODIFYING FACTORS: The patient is unable to identify any alleviating or aggravating symptoms. PERTINENT ROS: no fevers, no IVDU, denies any ripping or tearing sensations, no associated abdominal pain, no focal neurological deficits and denies any saddle anesthesia, and no bowel or bladder incontinence REVIEW OF SYSTEMS: See History of Present Illness - with the exception of those mentioned in the history of present illness, all other systems reviewed and reported as negative GEN: AOx3, dry scaly skin, able to speak full sentences, obese HEENT: NC/AC, oral dry moist, neck supple CVS: RRR, S1-S2 present, no murmurs appreciated RESP: CTAB GI: soft,non distended, non tender, NBS MSK: + back tenderness, able to move all 4 limbs, extreme nonpitting lower extremity edema, lymphedema ( wound wrapped) has wound care on friday to change SKIN: warm, dry and scaly 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 Related Data Home Medications ?Medication ?Instructions ?Recorded ?Confirmed allopurinol 300 mg tablet 300 mg PO QDAY 08/02/21 12/22/24 gabapentin 300 mg capsule 300 mg PO BID 09/15/21 12/22/24 apixaban 2.5 mg tablet (Eliquis) 2.5 mg PO Q12H 12/22/24 12/22/24 esomeprazole magnesium 40 mg 40 mg PO Q24H 12/22/24 12/22/24 capsule,delayed release Previous Rx's ?Medication ?Instructions ?Recorded diltiazem HCl 120 mg 120 mg PO QDAY 30 days #30 caps 02/10/24 capsule,extended release 24 hr acetaminophen 325 mg tablet 650 mg (2 x 325 mg) PO Q6H PRN 09/03/24 PAIN OR FEVER > 101 #60 tabs furosemide 20 mg tablet 20 mg PO Q48H #30 tabs 09/03/24 Allergies Allergy/AdvReac Type Severity Reaction Status Date / Time No Known Allergies Allergy Verified 12/21/24 10:08 Course Course Course Narrative: Review chart and previous CT and labs will order MRI lumbar/thoracic to rule out fracture, most likel chronic pain basic labs to compare from previous and morphine 4mg and 4 zofran mg IV for pain control Quality Measures none Orders Category Date Time Status Assistant Community Manager Q4H START 00 Care 12/27/24 11:58 Active Insert IV STAT Care 12/27/24 11:38 Active MRI Screening NOW Care 12/27/24 11:37 Active MR lumbar spine wo con Stat Exams 12/27/24 Completed MR thoracic spine wo con Stat Exams 12/27/24 Completed CBC Stat Lab 12/27/24 12:19 Completed CMP [Comprehensive Metabolic Panel] Stat Lab 12/27/24 12:19 Completed UA [Urinalysis] Stat Lab 12/27/24 14:07 Completed Urine Culture Stat Lab 12/27/24 14:07 Received HYDROcodone*/APAP 5/325 [[place] 5/325] Med 12/27/24 17:29 Discontinued 1 tab PO X1 ONE Lidocaine 5% Patch Med 12/27/24 17:29 Discontinued 1 patch TOP X1 ONE Morphine Inj Med 12/27/24 11:38 Discontinued 4 mg IVP X1 ONE Ondansetron Inj [Zofran Inj] Med 12/27/24 11:38 Discontinued 4 mg IV X1 ONE Late Tray Request Routine Oth 12/27/24 17:20 Active Reevaluation(s) Reevaluation #1: pain is still present, will attempt to ambulated patient and admission consult pt preferred to be admit due to living alone and afraid to fall at home Reevaluation #2: pt is comfortable with treatment and plan. Vital Signs Vital signs: Vital Signs Pulse Rate 88 12/27/24 11:58 Back Pain / Injury MDM Narrative MDM Narrative:: DISPOSITION: Emergency Department nursing documentation was reviewed including triage complaint, associated symptoms, administration of medications, response to therapy and vital signs. Given the history, physical exam, and review of laboratory and imaging studies the patient is determined to be unsafe for discharge and is being moved into the hospital for further diagnostic tests, treatments, stabilization, and monitored response to therapy. I communicated the history, physical exam, pertinent laboratory and imaging studies to the inpatient physician. The inpatient physician has access to electronic copies of all emergency department laboratory testing and imaging studies as well as medications ordered and administered. Patient data External records reviewed:: [facility] previous records Clinical information provided by:: patient, EMS and family Social determinants that could affect healthcare access:: none Patient has the following chronic illnesses:: as stated in chart How is presenting disease/condition affected by chronic disease/condition?: exacerbated by Evaluation data The following diagnostics were reviewed and interpreted by me:: lab results, radiology exam(s) and EKG tracing(s) Lab and/or radiology exams considered but not ordered:: n/a Interpretation Summary: MRI: Kyphosis dorsal spine Subacute moderately severe compression fracture T8 vertebral body without significant spinal stenosis Recommend ELECTIVE MRI thoracic spine without contrast follow-up to exclude thoracic syrinx cavity Medications / Prescriptions Medications or Prescriptions considered but not ordered:: n/a Medication administrations:: Medication Administration History Discontinued Medications Hydrocodone Bitart/Acetaminophen (Hydrocodone/Apap 5/325 Tablet) 1 tab PO X1 ONE Stop: 12/27/24 17:30 Last Admin: 12/27/24 18:14 Dose: 1 tab Documented By: RIGO Lidocaine (Lidocaine 5% 1 Patch) 1 patch TOP X1 ONE Stop: 12/27/24 17:30 Last Admin: 12/27/24 18:14 Dose: 1 patch Documented By: RIGO Morphine Sulfate (Morphine Sulf Inj 10 Mg/Ml Vial) 4 mg IVP X1 ONE Stop: 12/27/24 11:39 Last Admin: 12/27/24 11:53 Dose: 4 mg Documented By: RIGO Ondansetron HCl (Ondansetron Inj 2 Mg/Ml Inj 2 Ml) 4 mg IV X1 ONE; Protocol Stop: 12/27/24 11:39 Last Admin: 12/27/24 11:54 Dose: 4 mg Documented By: RIGO as stated above Consultations Consultation(s) initiated? (list below): Yes Consultation #1 (Physician, Specialty, Details): Dr. Castillo accept patient for nursing/rehab. pt lives alone and afraid she may fall and injury herself more. Diagnosis Most likely diagnosis given after review of the tests above:: spinal spinosis, subacute t8 fracture, inability to ambulated Admission Indicated Admission indicated?: indicated Admission Request Was there a request for admission?: Yes Admission Attestation Admission request attestation: Discussed case with [Jonathan ] from Hospitalist service regarding admission. Discussed patients ED course, exam findings, labs, and radiology results. The Hospitalist [agrees] to accept the patient for admission. Disposition Plan Disposition Plan: Admit Discharge Plan Plan Patient Disposition: Admit Acute Care w/in Hospital Prescriptions/Referrals Prescriptions/Med Rec: No Action allopurinol 300 mg Tablet 300 mg PO QDAY gabapentin 300 mg Capsule 300 mg PO BID diltiazem HCl 120 mg Capsule,Extended Release 24hr 120 mg PO QDAY 30 Days Qty: 30 1RF furosemide 20 mg tablet 20 mg PO Q48H Qty: 30 0RF acetaminophen 325 mg Tablet 650 mg PO Q6H PRN (Reason: PAIN OR FEVER > 101) Qty: 60 0RF Eliquis 2.5 mg tablet 2.5 mg PO Q12H esomeprazole magnesium 40 mg capsule,delayed release(DR/EC) 40 mg PO Q24H Patient Comments: TAKE 1 CAPSULE BY MOUTH EVERY DAY Referrals: No Primary/Family,Physician [Primary Care Provider] - In 1 week Problem List Clinical Impression: Spinal stenosis, Compression fracture of vertebrae, Back pain, Inability to walk, Intractable back pain Patient/Caregiver Discharge Instructions Print Language: Scottish Stand Alone Forms: [employer] Info., Patient Portal Info Letter
[2024-12-27] MEDS: MORPHINE SULF INJ 10 MG/ML VIAL 4 MG IVP (11:53)
[2024-12-27] MEDS: ONDANSETRON INJ 2 MG/ML INJ 2 ML 4 MG IV (11:54)
[2024-12-27 12:46] LABS: Basophils % (Auto) 1 % (0-2.5); Eosinophils # (Auto) 0.1 Thou/mm3 (0.0-0.5); Eosinophils % (Auto) 1 % (0-10); Hematocrit 31.8 % (36.0-46.0); Hemoglobin 10.5 g/dL (12.0-16.0); Immature Granulocytes % (Auto) 2 % (0-0); Immature Granulocytes Auto 0.09 Thou/mm3 (0.00-0.00); Lymphocytes # (Auto) 0.9 Thou/mm3 (1.0-4.8); Lymphocytes % (Auto) 17 % (10-50); Mean Corpuscular Hemoglobin 33.9 pg (25.0-35.0); Mean Corpuscular Volume 103 fL (80-100); Monocytes # (Auto) 0.5 Thou/mm3 (0.0-0.8); Monocytes % (Auto) 9 % (0-12); Neutrophils # (Auto) 3.9 Thou/mm3 (1.8-7.7); Neutrophils % (Auto) 71 % (37-80); Nucleated Red Blood Cell % 0 /100 WBC (0); Platelet Count 231 Thou/mm3 (140-440); RDW Standard Deviation 62.8 fL (36.4-46.3); White Blood Count 5.5 Thou/mm3 (3.6-11.0)
[2024-12-27 13:19] LABS: Alanine Aminotransferase 8 U/L (10-49); Albumin, Serum 3.5 gm/dL (3.4-4.8); Albumin/Globulin Ratio 1.7 (1.2-2.2); Alkaline Phosphatase 72 U/L (46-116); Anion Gap 8 (7-16); Aspartate Amino Transferase 23 U/L (0-34); BUN/Creatinine Ratio 21 Ratio (12-20); Bilirubin,Total 0.4 mg/dL (0.3-1.2); Blood Urea Nitrogen 17 mg/dL (9-23); Calcium 8.7 mg/dL (8.3-10.6); Calcium (Corrected) 9.1 mg/dL (8.5-10.1); Carbon Dioxide 25.6 mMol/L (20.0-31.0); Chloride 107 mMol/L (98-107); Creatinine (Component) 0.8 mg/dL (0.6-1.3); Estimated Creatinine Clearance 55.2 mL/min (>60); Globulin 2.1 gm/dL (2.3-3.5); Glucose 84 mg/dL (74-106); Osmolality,Calculated 281 (275-295); Potassium 4.2 mMol/L (3.4-5.1); Sodium 141 mMol/L (136-145); Total Protein 5.6 gm/dL (5.7-8.2); eGFR > 60 See Note
[2024-12-27 14:13] LABS: Collection Type, Urine Voided; RBC,Urine 0 /hpf (0-3)
[2024-12-27 14:34] LABS: Bacteria,Urine 3+; Bilirubin,Urine Negative (Negative); Blood,Urine Negative (Negative); Clarity,Urine Turbid (Clear/Hazy); Color,Urine Lt-Yellow (Lt Yel-Yel); Glucose, Urine Negative (Negative); Ketones,Urine Negative (Negative); Leukocyte Esterase,Urine Positive (Negative); Nitrite,Urine Positive (Negative); Protein,Urine Negative (Neg - Trace); Squamous Epithelial Cell,Urine 3 /hpf (0-5); Urobilinogen,Urine Negative mg/dL (0.0-1.0); WBC,Urine 116 /hpf (0-5)
--- NOTE | 2024-12-27 15:53 | PC.NURSE ---
Pt was taken to MRI at this time
[2024-12-27] MEDS: LIDOCAINE 5% 1 PATCH TOP (18:14)
[2024-12-27] MEDS: HYDROcodone/APAP 5/325 TABLET 1 TAB PO (18:14)
--- NOTE | 2024-12-27 20:44 | PD.RESHP ---
Documentation for date of: 12/27/24 HPI History of Present Illness Chief complaint: Back pain History of present illness: HPI:An 84-year-old female patient With past medical history of gout, atrial fibrillation not on anticoagulation, situs inversus, lymphedema, venous stasis, chronic low back pain, was brought to the ED from home because of severe back pain. Patient son reported that she has been having worsening back pain for the past few weeks however in the last three days it increased in intensity. Patient denied any numbness or tingling. Patient reported that sometimes she cannot hold her urine only if she cannot reach to the bathroom 1 time. Denied any loss of control of her bowel movements. Of note patient was admitted to hospital last week after she had multiple ground-level falls and generalized weakness. Patient was discharged and recommended to follow-up in outpatient settings. However because of her worsening pain patient was brought to the ED. Home medications: Allopurinol, gabapentin, diltiazem, Lasix, acetaminophen, Eliquis, esomeprazole ED course: At the ED patient was found to have blood pressure of 138/79, pulse of 88, respiratory rate of 22, saturating 93 on room air labs showed no changes since last admission, CBC of 10.5, all electrolytes within normal limits, serum creatinine is normal at 0.8. Liver enzymes within normal limits. Urinalysis was only significant for WBCs of 116. A +3 for bacteria. Given the fact that the patient has urgency, she might have UTI. Thoracic MRI was done and it showed kyphosis of the dorsal spine, and subacute moderately severe compression fracture of T8 vertebral body without significant spinal stenosis. It was recommended by the radiologist to do an elective MRI of the thoracic spine without contrast follow-up to exclude thoracic syrinx cavity, Her lumbar spine MRI mainly showed L4-L5 severe acquired spinal stenosis PMH: As above Social hx: Patient uses a walker, lives alone her son lives in the same neighborhood Allergies: No known allergies Allergies: No known allergies Review of Systems Review of Systems Systems Reviewed: All systems reviewed, normal except as documented Exam Vital Signs Temp Pulse Resp BP Pulse Ox O2 Del Method 98.0 F 82 19 123/62 94 L Room Air 12/27/24 18:35 12/27/24 20:30 12/27/24 20:30 12/27/24 20:30 12/27/24 20:30 12/27/24 20:30 Narrative Exam GEN: AOx3, dry scaly skin, able to speak full sentences. HEENT: NC/AC, oral dry moist, neck supple. CVS: RRR, S1-S2 present, no murmurs appreciated. RESP: CTAB. GI: Left-sided lowing bruise, however no tenderness and no mass was palpated. Soft,non distended, non tender, NBS. MSK: able to move all 4 limbs, extreme nonpitting lower extremity edema, with dark brown pigmentation most likely secondary to her lymphedema. SKIN: warm, dry and scaly. CHIEF RESERVOIR ENGINEERING: CN II-XII and Sensation grossly intact. Results: Labs 12/27/24 12:19 12/27/24 12:19 Labs: Short CBC 12/27/24 Range/Units 12:19 WBC 5.5 (3.6-11.0) Thou/mm3 Hgb 10.5 L (12.0-16.0) g/dL Hct 31.8 L (36.0-46.0) % Plt Count 231 (140-440) Thou/mm3 BMP 12/27/24 12:19 Sodium 141 Potassium 4.2 Chloride 107 Carbon Dioxide 25.6 BUN 17 Creatinine 0.8 Glucose 84 Calcium 8.7 Liver Function 12/27/24 Range/Units 12:19 Total Bilirubin 0.4 (0.3-1.2) mg/dL AST 23 (0-34) U/L ALT 8 L (10-49) U/L Alkaline Phosphatase 72 (46-116) U/L Albumin 3.5 (3.4-4.8) gm/dL Urine 12/27/24 Range/Units 14:07 Urine Color Lt-Yellow (Lt Yel-Yel) Urine Clarity Turbid A (Clear/Hazy) Urine pH 6.0 (5.0-7.0) Ur Specific [place] 1.020 (1.001-1.035) Urine Protein Negative (Neg - Trace) Urine Glucose (UA) Negative (Negative) Quality Measures Quality Measures none Advance care planning discussed with:: patient and child Medications Home Medications and Allergies Home Medications ?Medication ?Instructions ?Recorded ?Confirmed ?Type allopurinol 300 mg tablet 300 mg PO QDAY 08/02/21 12/22/24 History gabapentin 300 mg capsule 300 mg PO BID 09/15/21 12/22/24 History apixaban 2.5 mg tablet (Eliquis) 2.5 mg PO Q12H 12/22/24 12/22/24 History esomeprazole magnesium 40 mg 40 mg PO Q24H 12/22/24 12/22/24 History capsule,delayed release Allergies Allergy/AdvReac Type Severity Reaction Status Date / Time No Known Allergies Allergy Verified 12/21/24 10:08 Visit Medications Acetaminophen (Acetaminophen 325 Mg Tablet) 650 mg PO Q6H PRN PRN Reason: Fever >101.5 Stop: 01/26/25 20:31 Sodium Chloride (Ns) 1,000 mls @ 75 mls/hr IV .[id number] [facility] Stop: 12/28/24 09:49 Ibuprofen (Ibuprofen Tab 600 Mg Tablet) 600 mg PO Q6H PRN PRN Reason: PAIN SCALE 1-3 (mild Stop: 01/26/25 20:31 Morphine Sulfate (Morphine Sulf Inj 10 Mg/Ml Vial) 2 mg IVP Q4H PRN PRN Reason: PAIN SCALE 7-10 (Severe Stop: 01/01/25 20:31 Ondansetron HCl (Ondansetron Inj 2 Mg/Ml Inj 2 Ml) 4 mg IV Q6H PRN; Protocol PRN Reason: NAUSEA OR VOMITING Stop: 01/26/25 20:31 Pantoprazole Sodium (Pantoprazole 40 Mg Tablet) 40 mg PO QDAY [facility] Stop: 01/27/25 08:59 Discontinued Medications Hydrocodone Bitart/Acetaminophen (Hydrocodone/Apap 5/325 Tablet) 1 tab PO X1 ONE Stop: 12/27/24 17:30 Last Admin: 12/27/24 18:14 Dose: 1 tab Lidocaine (Lidocaine 5% 1 Patch) 1 patch TOP X1 ONE Stop: 12/27/24 17:30 Last Admin: 12/27/24 18:14 Dose: 1 patch Morphine Sulfate (Morphine Sulf Inj 10 Mg/Ml Vial) 4 mg IVP X1 ONE Stop: 12/27/24 11:39 Last Admin: 12/27/24 11:53 Dose: 4 mg Ondansetron HCl (Ondansetron Inj 2 Mg/Ml Inj 2 Ml) 4 mg IV X1 ONE; Protocol Stop: 12/27/24 11:39 Last Admin: 12/27/24 11:54 Dose: 4 mg Assessment & Plan Plan Summary:An 84-year-old female patient With past medical history of gout, atrial fibrillation not on anticoagulation, situs inversus, lymphedema, venous stasis, chronic low back pain, was brought to the ED from home because of severe back pain. Patient son reported that she has been having worsening back pain for the past few weeks however in the last three days it increased in intensity. Patient was admitted for orthopedic and physical therapist evaluation. #Subacute T8 fracture #Severe generalized weakness #Cerebral mass effect? Patient came from home due to worsening back pain associated with generalized weakness. Patient has severe lower extremity lymphedema which also contribute to her generalized weakness. Thoracic MRI was done and it showed kyphosis of the dorsal spine, and subacute moderately severe compression fracture of T8 vertebral body without significant spinal stenosis. It was recommended by the radiologist to do an elective MRI of the thoracic spine without contrast follow-up to exclude thoracic syrinx cavity, Her lumbar spine MRI mainly showed L4-L5 severe acquired spinal stenosis Plan: Consider consulting orthopedic surgeon Physical therapy evaluation and possible SNF placement for rehab Pain management with ibuprofen, [place], morphine Resuming her home medication gabapentin 300 mg p.o. twice daily Follow-up with neurology as an outpatient if needed #UTI Patient reported that sometimes she lost control of her urine if she cannot reach to the bathroom in time. UA showed WBC of 0.16, +3 for bacteria Plan Start the patient on ceftriaxone 1 g daily #History of atrial fibrillation #Hypertension On Eliquis Patient on home diltiazem HCl 120 mg p.o. daily Plan: Will hold Eliquis for now and consider restarting if appropriate Restarted patient on diltiazem 120 mg p.o. daily #History of gout Patient on allopurinol 300 mg p.o. daily Plan: Restarted home medication Hospital Management: Diet: Cardiac diet Lines: PIV GI prophylaxis: Protonix DVT prophylaxis: SCD Dispo: Med/tele Code: DNR/DNI Patient's plan and care discussed with my attending, Dr. Jonathan Banegas MD Internal Medicine PGY-2 Attending Provider Attestation/Addendum Pt was evaluated and plan formulated together with the housestaff team. I have reviewed the residents note above and agree with most of its content. Please refer to the residents note for additional details. Physical therapy, placement.
[2024-12-27] MEDS: SODIUM CHLORIDE 0.9% 1000 ML 1,000 ML 75 ML IV (20:47)
[2024-12-28] VITALS (9 sets, daily range): BP systolic 137–165; BP diastolic 77–89; PULSE 72–118; RESP 14–95; TEMP 36.2–36.9; O2SAT 92–95; BMI 27.8
[2024-12-28] MEDS: cefTRIAXone 1,000 MG in SODIUM CHLORIDE 0.9% (Popper) 50 ML 100 MG IV ×2 (00:04→08:56)
--- NOTE | 2024-12-28 00:06 | PC.NURSE ---
REPORT GIVEN TO DELFINA PAIGE RN
[2024-12-28] MEDS: ACETAMINOPHEN 325 MG TABLET 650 MG PO (02:06)
[2024-12-28 08:19] LABS: Basophils % (Auto) 1 % (0-2.5); Eosinophils # (Auto) 0.1 Thou/mm3 (0.0-0.5); Eosinophils % (Auto) 2 % (0-10); Hematocrit 31.4 % (36.0-46.0); Hemoglobin 10.5 g/dL (12.0-16.0); Immature Granulocytes % (Auto) 2 % (0-0); Immature Granulocytes Auto 0.09 Thou/mm3 (0.00-0.00); Lymphocytes # (Auto) 1.2 Thou/mm3 (1.0-4.8); Lymphocytes % (Auto) 20 % (10-50); Mean Corpuscular HGB Conc 33.4 g/dl (31.0-37.0); Mean Corpuscular Hemoglobin 34.7 pg (25.0-35.0); Mean Corpuscular Volume 104 fL (80-100); Monocytes # (Auto) 0.5 Thou/mm3 (0.0-0.8); Monocytes % (Auto) 9 % (0-12); Neutrophils % (Auto) 67 % (37-80); Nucleated Red Blood Cell % 0 /100 WBC (0); Platelet Count 240 Thou/mm3 (140-440); RDW Standard Deviation 63.5 fL (36.4-46.3); Red Blood Count 3.03 Miln/mm3 (4.00-5.20); White Blood Count 5.9 Thou/mm3 (3.6-11.0)
[2024-12-28] MEDS: MORPHINE SULF INJ 10 MG/ML VIAL 2 MG IVP ×2 (08:32→15:23)
[2024-12-28 08:40] LABS: Alanine Aminotransferase 8 U/L (10-49); Albumin, Serum 3.4 gm/dL (3.4-4.8); Albumin/Globulin Ratio 1.8 (1.2-2.2); Alkaline Phosphatase 75 U/L (46-116); Anion Gap 9 (7-16); Aspartate Amino Transferase 12 U/L (0-34); BUN/Creatinine Ratio 21 Ratio (12-20); Bilirubin,Total 0.3 mg/dL (0.3-1.2); Blood Urea Nitrogen 17 mg/dL (9-23); Calcium 8.7 mg/dL (8.3-10.6); Calcium (Corrected) 9.2 mg/dL (8.5-10.1); Carbon Dioxide 25.4 mMol/L (20.0-31.0); Chloride 108 mMol/L (98-107); Creatinine (Component) 0.8 mg/dL (0.6-1.3); Estimated Creatinine Clearance 53.3 mL/min (>60); Globulin 1.9 gm/dL (2.3-3.5); Glucose 81 mg/dL (74-106); Magnesium 1.8 mg/dL (1.6-2.6); Osmolality,Calculated 283 (275-295); Phosphorous 3.6 mg/dL (2.4-5.1); Potassium 4.2 mMol/L (3.4-5.1); Sodium 142 mMol/L (136-145); Total Protein 5.3 gm/dL (5.7-8.2); eGFR > 60 See Note
[2024-12-28] MEDS: DILTIAZEM CD 120 MG CAPCR PO (08:55)
[2024-12-28] MEDS: allopurinoL 100 MG TABLET 300 MG PO (08:55)
[2024-12-28] MEDS: PANTOPRAZOLE 40 MG TABLET PO (08:55)
[2024-12-28] MEDS: HYDROmorphone INJ 2 MG/ML VIAL 0.5 MG IVP (09:24)
--- NOTE | 2024-12-28 10:50 | CHAP ---
Patient was visited by a Spiritual Care Volunteer on 12/28/2024 between 0910 and [id number] and received comfort, encouragement and/or prayer.
--- NOTE | 2024-12-28 15:26 | ESPR_ITS ---
<Statement entered by Manasa Saldana MD - 12/28/24 16:15> Patient seen and examined at bedside. Patient was very tearful and complaining of severe agonizing pain. Patient was given an additional 0.5 mg of Dilaudid on top of her morphine 2 mg that was received half an hour prior. Patient was seen 3 hours later with attending physician, Dr. Zhou, and pain significantly improved. Patient states she wouldn't want to got to SNF if PT recommends SNF. However, she lives at home, and was recently discharged 5 days go for similar complaints. Will f/u with PT recs. I discussed with and supervised the athletic training internship physician who took care of this patient. I personally saw and examined the patient and discussed the assessment and plan with the entire medicine team, including my attending Dr. Zhou , I agree with most of the assessment and plan as documented below Manasa Saldana M.D. PGY-2 <Statement entered by Riana Sanchez MD - 12/28/24 15:31> I discussed with and supervised the athletic training internship physician who took care of this patient. I personally saw and examined the patient and discussed the assessment and plan with the entire medicine team, including my attending Dr. Zhou, I agree with the assessment and plan as documented below Patient seen and examined at bedside today. Labs and imaging reviewed. No overnight acute events This morning at bedside, patient was screaming and moaning in pain she stated that her back pain was 10 out of 10, shaking and anxious. We gave the patient IV Dilaudid 0.5 mg x 1 and added Alpine to her pain regimen. Later during today patient was calm laying in bed, pending PT assessment for possible SNF otherwise patient stated that she does not want to be discharged to SNF and that she will prefer to go home. Case management is following up the case Riana Sanchez MD PGY-3 Disclaimer: Despite multiple revisions, due to the dictation software being used, the document bellow may not be free of grammatical errors including phonetic/typographic errors. However, this does not deter from our commitment to providing health care in the patient's best interest in mind. Documentation for date of: 12/28/24 Subjective Subjective Interval history: Patient seen today at the bedside fine awake, alert, oriented x 3. Complaining of severe back pain. Patient had already received morphine, but continues to have excruciating back pain, Dilaudid 0.5 mg x 1, Alpine's as needed added. Later in the morning reevaluated the patient patient having no active back pain at this time. Physical therapy consult was placed. Patient will most likely need SNF placement as patient lives alone and is having trouble ambulating. Exam Vital Signs Temp Pulse Resp BP Pulse Ox O2 Del Method 97.1 F 72 14 137/77 H 94 L Room Air 12/28/24 12:00 12/28/24 12:00 12/28/24 12:00 12/28/24 12:00 12/28/24 12:00 12/28/24 12:00 Narrative Exam Physical Exam GENERAL: NAD, AAOx3 HEENT: Moist mucosa. Eyes open, symmetrical, & clear CARDIO: Heart RRR, no obvious murmurs PULM: No noted coughing/dyspnea CTA B/L, no R/W/R GI: Abdomen soft, nondistended, no pain on palpation. BSx4 SKIN/MSK/EXT: extreme nonpitting lower extremity edema, with dark brown pigmentation most likely secondary to her lymphedema, no pain on palpation, scaly/flaky skin NEURO: AAOx3, no focal neuro deficits, able to move all 4 extremities Objective Labs 12/29/24 04:42 12/29/24 04:42 Labs: Laboratory Results - last 24 hr 12/28/24 07:40 WBC 5.9 RBC 3.03 L Hgb 10.5 L Hct 31.4 L MCV 104 H MCH 34.7 MCHC 33.4 RDW Std Deviation 63.5 H Plt Count 240 Neut % (Auto) 67 Lymph % (Auto) 20 [place] % (Auto) 9 Eos % (Auto) 2 Baso % (Auto) 1 Neut # (Auto) 4.0 Lymph # (Auto) 1.2 Simpson # (Auto) 0.5 Eos # (Auto) 0.1 Baso # (Auto) 0.0 Immature Gran # (Auto) 0.09 H Absolute Nucleated RBC 0.00 Immature Gran % 2 H Nucleated RBC % 0 Sodium 142 Potassium 4.2 Chloride 108 H Carbon Dioxide 25.4 Anion Gap 9 BUN 17 Creatinine 0.8 Estim Creat Clear Calc 53.3 L eGFR > 60 BUN/Creatinine Ratio 21 H Glucose 81 Calculated Osmolality 283 Calcium 8.7 Corrected Calcium 9.2 Phosphorus 3.6 Magnesium 1.8 Total Bilirubin 0.3 AST 12 ALT 8 L Alkaline Phosphatase 75 Total Protein 5.3 L Albumin 3.4 Globulin 1.9 L Albumin/Globulin Ratio 1.8 Quality Measures Quality Measures none Advance care planning discussed with:: patient Assessment & Plan Assessment Current Active Medications: Generic Name Dose Route Start Last Admin Trade Name Freq PRN Reason Stop Dose Admin Acetaminophen 650 mg 12/27/24 20:32 12/28/24 02:06 Acetaminophen 325 Mg Tablet PO 01/26/25 20:31 650 mg Q6H PRN Administration Fever >101.5 Acetaminophen 650 mg 12/28/24 08:49 Acetaminophen 325 Mg Tablet PO 01/27/25 08:48 Q6HR PRN PAIN SCALE 1-3 (mild Hydrocodone Bitart/Acetaminophen 1 tab 12/28/24 08:57 Hydrocodone/Apap 5/325 Tablet PO 01/02/25 08:56 Q6HR PRN PAIN SCALE 4-6 (Moderate Allopurinol 300 mg 12/28/24 09:00 12/28/24 08:55 Allopurinol 100 Mg Tablet PO 01/27/25 08:59 300 mg QDAY PAMELA Administration Diltiazem HCl 120 mg 12/28/24 09:00 12/28/24 08:55 Diltiazem Cd 120 Mg Capcr PO 01/27/25 08:59 120 mg QDAY PAMELA Administration Ceftriaxone Sodium/Dextrose 1 gm in 50 mls @ 100 mls/hr 12/29/24 09:00 Rocephin/D5w 1gm Iv Premix IV 01/03/25 21:13 QDAY PAMELA Lidocaine 1 patch 12/28/24 09:19 Lidocaine 5% 1 Patch TOP 01/27/25 09:18 DAILY PRN LOCALIZED PAIN Morphine Sulfate 2 mg 12/27/24 20:32 12/28/24 08:32 Morphine Sulf Inj 10 Mg/Ml Vial IVP 01/01/25 20:31 2 mg Q4H PRN Administration PAIN SCALE 7-10 (Severe Ondansetron HCl 4 mg 12/27/24 20:32 Ondansetron Inj 2 Mg/Ml Inj 2 Ml IV 01/26/25 20:31 Q6H PRN NAUSEA OR VOMITING Protocol Pantoprazole Sodium 40 mg 12/28/24 09:00 12/28/24 08:55 Pantoprazole 40 Mg Tablet PO 01/27/25 08:59 40 mg QDAY PAMELA Administration Plan 84-year-old female patient With past medical history of gout, atrial fibrillation not on anticoagulation, situs inversus, lymphedema, venous stasis, chronic low back pain, was brought to the ED from home because of severe back pain. Patient son reported that she has been having worsening back pain for the past few weeks however in the last three days it increased in intensity. Patient was admitted for orthopedic and physical therapist evaluation. #Subacute T8 fracture #Severe generalized weakness #Cerebral mass effect? Patient came from home due to worsening back pain associated with generalized weakness. Patient has severe lower extremity lymphedema which also contribute to her generalized weakness. Thoracic MRI was done and it showed kyphosis of the dorsal spine, and subacute moderately severe compression fracture of T8 vertebral body without significant spinal stenosis. It was recommended by the radiologist to do an elective MRI of the thoracic spine without contrast follow-up to exclude thoracic syrinx cavity, Her lumbar spine MRI mainly showed L4-L5 severe acquired spinal stenosis ?Physical therapy evaluation and possible SNF placement for rehab ?Pain management with Alpine, morphine ?Resumed her home medication gabapentin 300 mg p.o. twice daily ?Follow-up with neurology as an outpatient if needed #UTI Patient reported that sometimes she lost control of her urine if she cannot reach to the bathroom in time. UA showed WBC of 0.16, +3 for bacteria Urine culture grew GNR ? on ceftriaxone 1 g daily #History of atrial fibrillation #Hypertension On Eliquis Patient on home diltiazem HCl 120 mg p.o. daily CHADVASC: 4; 4.8% stroke risk per year HASBLED: 2; moderate risk of major of bleeding ?Will hold Eliquis for now as patient has fall risk ?Restarted patient on diltiazem 120 mg p.o. daily #History of gout Patient on allopurinol 300 mg p.o. daily ?Restarted allopurinol 300 mg p.o. as taken at home #History of lymphedema ? Wound care ordered Case discussed with my senior Dr. Saldana PGY-2, Dr. Sanchez PGY-[address] Winnie Santamaria MD PGY-1 Diet: Cardiac diet Lines: PIV GI prophylaxis: Protonix DVT prophylaxis: SCD Dispo: Med/tele Code: DNR/DNI Attending Provider Attestation/Addendum I have examined the patient, reviewed labs and imaging findings, discussed the case with the resident(s), and reviewed entered orders. I agree with the plan of care as outlined in this note, with these additional summaries/recommendations: Patient seen at bedside. Earlier this morning patient endorsing intractable back pain requiring IV Dilaudid and oral Alpine. After receiving medications patient reports improvement in back pain. Patient diagnosed with intractable pain and acute on chronic back pain. L4/L5 severe spinal stenosis appears unchanged from previous visit. Thoracic spine MRI revealed severe compression fracture T8 vertebral body. Patient currently has no red flag symptoms except for severe pain which we will continue to treat and monitor for improvement. Physical therapy ordered and will determine dispo once evaluation complete. Patient receiving IV Rocephin for urinary tract infection. Urine culture pending and we will follow-up results when available. Patient has a history of chronic atrial fibrillation and continue home Eliquis and diltiazem. Wound care for chronic bilateral lower extremity lymphedema. Patient updated on the plan and in agreement. Repeat hematology and chemistry panel in AM. Dr. Winnie MD
--- NOTE | 2024-12-28 15:57 | PC.SS ---
SS met with patient who is alert/oriented. Patient was able to verify demographics. Patient was admitted for chronic back pain. Patient has been admitted frequently: 11/09, 12/22, and this admission. Patient states she lives alone. Her son, Severiano, resides in town and checks in on her frequently. Patient's son is also the alt medical decision maker. Patient states she uses a walker at home. She's independent with ADL's. Patient states her son provides transportation assistance to all appointments. PCP: Dr. Alvarez and last appt. was 3 months ago. Pharmacy: [facility]. Patient will have a PT eval and may need short stay at SNF. Apparently, patient has been refusing SNF. Alternate option would be HH services. SS will follow up with patient after PT evaluation. d/c plan: HH vs SNF alt medical decision maker: Severiano Rbiera, transportation: [employer]
[2024-12-28] MEDS: GABAPENTIN 300 MG CAPSULE PO (20:02)
[2024-12-28] MEDS: HYDROcodone/APAP 5/325 TABLET 1 TAB PO (20:03)
[2024-12-28] MEDS: BALSAM PERU/CASTOR OIL (Venelex) 60 GM TUBE TOP (20:03)
[2024-12-29] VITALS (11 sets, daily range): BP systolic 129–162; BP diastolic 79–93; PULSE 43–86; RESP 16–98; TEMP 36.1–36.3; O2SAT 92–98; BMI 13.0
[2024-12-29] MEDS: HYDROcodone/APAP 5/325 TABLET 1 TAB PO ×2 (05:09→20:09)
[2024-12-29 06:01] LABS: Basophils # (Auto) 0.1 Thou/mm3 (0.0-0.2); Basophils % (Auto) 1 % (0-2.5); Eosinophils # (Auto) 0.1 Thou/mm3 (0.0-0.5); Eosinophils % (Auto) 1 % (0-10); Hematocrit 29.9 % (36.0-46.0); Hemoglobin 9.9 g/dL (12.0-16.0); Immature Granulocytes % (Auto) 3 % (0-0); Immature Granulocytes Auto 0.13 Thou/mm3 (0.00-0.00); Lymphocytes # (Auto) 1.3 Thou/mm3 (1.0-4.8); Lymphocytes % (Auto) 24 % (10-50); Mean Corpuscular HGB Conc 33.1 g/dl (31.0-37.0); Mean Corpuscular Hemoglobin 33.8 pg (25.0-35.0); Mean Corpuscular Volume 102 fL (80-100); Monocytes # (Auto) 0.5 Thou/mm3 (0.0-0.8); Monocytes % (Auto) 9 % (0-12); Neutrophils # (Auto) 3.2 Thou/mm3 (1.8-7.7); Neutrophils % (Auto) 62 % (37-80); Nucleated Red Blood Cell % 0 /100 WBC (0); Platelet Count 246 Thou/mm3 (140-440); RDW Standard Deviation 62.3 fL (36.4-46.3); Red Blood Count 2.93 Miln/mm3 (4.00-5.20); White Blood Count 5.2 Thou/mm3 (3.6-11.0)
[2024-12-29 06:53] LABS: Alanine Aminotransferase < 7 U/L (10-49); Albumin, Serum 3.3 gm/dL (3.4-4.8); Albumin/Globulin Ratio 1.7 (1.2-2.2); Alkaline Phosphatase 77 U/L (46-116); Anion Gap 7 (7-16); Aspartate Amino Transferase < 10 U/L (0-34); BUN/Creatinine Ratio 19 Ratio (12-20); Bilirubin,Total 0.4 mg/dL (0.3-1.2); Blood Urea Nitrogen 15 mg/dL (9-23); Calcium 8.8 mg/dL (8.3-10.6); Calcium (Corrected) 9.4 mg/dL (8.5-10.1); Carbon Dioxide 27.4 mMol/L (20.0-31.0); Chloride 107 mMol/L (98-107); Creatinine (Component) 0.8 mg/dL (0.6-1.3); Estimated Creatinine Clearance 53.3 mL/min (>60); Globulin 1.9 gm/dL (2.3-3.5); Glucose 92 mg/dL (74-106); Magnesium 1.8 mg/dL (1.6-2.6); Osmolality,Calculated 282 (275-295); Phosphorous 3.4 mg/dL (2.4-5.1); Potassium 4.1 mMol/L (3.4-5.1); Sodium 141 mMol/L (136-145); Total Protein 5.2 gm/dL (5.7-8.2); eGFR > 60 See Note
--- NOTE | 2024-12-29 09:22 | PC.CC ---
Reached out to [facility] for start of care date. Therese Hill from [facility] responded still do not have a SOC son has not called back.
[2024-12-29] MEDS: PANTOPRAZOLE 40 MG TABLET PO (09:33)
[2024-12-29] MEDS: GABAPENTIN 300 MG CAPSULE PO ×2 (09:33→20:09)
[2024-12-29] MEDS: DILTIAZEM CD 120 MG CAPCR PO (09:34)
[2024-12-29] MEDS: allopurinoL 100 MG TABLET 300 MG PO (09:34)
[2024-12-29] MEDS: BALSAM PERU/CASTOR OIL (Venelex) 60 GM TUBE TOP ×2 (09:35→21:00)
[2024-12-29] MEDS: cefTRIAXone/D5w 1gm IV premix 1 GM/50 ML BAG IV (09:35)
[2024-12-29] MEDS: MORPHINE SULF INJ 10 MG/ML VIAL 2 MG IVP ×2 (10:02→14:19)
--- NOTE | 2024-12-29 12:40 | PC.SS ---
Addendum entered by DEJUAN Pack 12/30/24 10:02: Faxed clinicals to [facility] to review for SNF criteria. Addendum entered by DEJUAN Pack 12/29/24 16:51: Rounding note: patient to d/c tomorrow. Addendum entered by DEJUAN Pack 12/29/24 16:51: [employer] declined patient for SNF. Medical team and bed side nurse aware. Home health with [facility] recommended. Original Note: SS update: PT has recommended for SNF. Patient's son is agreeable to SNF. Preferred is 1)[facility] 2)[facility]. PT Lila has informed she has ordered a back brace for the patient.
--- NOTE | 2024-12-29 14:19 | ESPR_ITS ---
<Statement entered by Manasa Saldana MD - 12/29/24 15:45> Patient is a 84-year-old female patient With past medical history of gout, atrial fibrillation not on anticoagulation, situs inversus, lymphedema, venous stasis, chronic low back pain, was brought to the ED from home because of severe intractable back pain and admitted for further management. Patient seen and examined at bedside. No acute overnight events reported. Patient continues to require IV pain medications. Patient worked with PT and recommended SNF placement, however, due to her insurance auth, patient will not qualify, and can go home with home health. Will DC her IV pain medications, and plan to discharge her in the next 24 to 48 hours if pain is well controlled with PO pain medications. Due to risk of falls, will recommend patient holding her Eliquis at this time. I discussed with and supervised the design engineering intern physician who took care of this patient. I personally saw and examined the patient and discussed the assessment and plan with the entire medicine team, including my attending Dr. Zhou, I agree with the assessment and plan as documented below Manasa Saldana, PGY-2 <Statement entered by Riana Sanchez MD - 12/29/24 14:54> I discussed with and supervised the design engineering intern physician who took care of this patient. I personally saw and examined the patient and discussed the assessment and plan with the entire medicine team, including my attending Dr. Zhou, I agree with the assessment and plan as documented below No overnight acute events This morning the bedside patient is AO x 3, respond to question properly she was complaining of severe pain in the morning 10 out of 10 for she received IV morphine x 1 later her pain improved. Per physical therapy recommendations patient will require SNF upon discharge otherwise due to insurance authorization patient will not qualify for SNF for which she will be discharged home with home health if she remains stable in the next 24 to 48 hours. Due to patient has recurrent falls and high risk of bleeding we will discontinue Eliquis at this moment. Case management is for without the case. Riana Sanchez MD PGY-3 Disclaimer: Despite multiple revisions, due to the dictation software being used, the document bellow may not be free of grammatical errors including phonetic/typographic errors. However, this does not deter from our commitment to providing health care in the patient's best interest in mind. Documentation for date of: 12/29/24 Subjective Subjective Interval history: Patient seen today at the bedside fine awake alert oriented x 3. No overnight events reported. Vitals a stable at this time. Labs significant for downtrending hemoglobin, rest stable at this time. Patient states pain is adequately controlled however required 1 dose of IV morphine this morning will taper off and possible discharge in the next 24-48 hours. Exam Vital Signs Temp Pulse Resp BP Pulse Ox O2 Del Method 97.3 F 72 16 152/88 H 94 L Room Air 12/29/24 12:00 12/29/24 12:00 12/29/24 12:00 12/29/24 12:00 12/29/24 12:00 12/29/24 12:00 Narrative Exam Physical Exam GENERAL: NAD, AAOx3 HEENT: Moist mucosa. Eyes open, symmetrical, & clear CARDIO: Heart RRR, no obvious murmurs PULM: No noted coughing/dyspnea CTA B/L, no R/W/R GI: Abdomen soft, nondistended, no pain on palpation. BSx4 SKIN/MSK/EXT: extreme nonpitting lower extremity edema, with dark brown pigmentation most likely secondary to her lymphedema, no pain on palpation, scaly/flaky skin NEURO: AAOx3, no focal neuro deficits, able to move all 4 extremities Objective Labs 12/29/24 04:42 12/29/24 04:42 Labs: Laboratory Results - last 24 hr 12/29/24 04:42 WBC 5.2 RBC 2.93 L Hgb 9.9 L Hct 29.9 L MCV 102 H MCH 33.8 MCHC 33.1 RDW Std Deviation 62.3 H Plt Count 246 Neut % (Auto) 62 Lymph % (Auto) 24 [place] % (Auto) 9 Eos % (Auto) 1 Baso % (Auto) 1 Neut # (Auto) 3.2 Lymph # (Auto) 1.3 [place] # (Auto) 0.5 Eos # (Auto) 0.1 Baso # (Auto) 0.1 Immature Gran # (Auto) 0.13 H Absolute Nucleated RBC 0.00 Immature Gran % 3 H Nucleated RBC % 0 Sodium 141 Potassium 4.1 Chloride 107 Carbon Dioxide 27.4 Anion Gap 7 BUN 15 Creatinine 0.8 Estim Creat Clear Calc 53.3 L eGFR > 60 BUN/Creatinine Ratio 19 Glucose 92 Calculated Osmolality 282 Calcium 8.8 Corrected Calcium 9.4 Phosphorus 3.4 Magnesium 1.8 Total Bilirubin 0.4 AST < 10 ALT < 7 L Alkaline Phosphatase 77 Total Protein 5.2 L Albumin 3.3 L Globulin 1.9 L Albumin/Globulin Ratio 1.7 Quality Measures Quality Measures none Advance care planning discussed with:: patient Assessment & Plan Assessment Current Active Medications: Generic Name Dose Route Start Last Admin Trade Name Freq PRN Reason Stop Dose Admin Acetaminophen 650 mg 12/27/24 20:32 12/28/24 02:06 Acetaminophen 325 Mg Tablet PO 01/26/25 20:31 650 mg Q6H PRN Administration Fever >101.5 Acetaminophen 650 mg 12/28/24 08:49 Acetaminophen 325 Mg Tablet PO 01/27/25 08:48 Q6HR PRN PAIN SCALE 1-3 (mild Hydrocodone Bitart/Acetaminophen 1 tab 12/28/24 08:57 12/29/24 05:09 Hydrocodone/Apap 5/325 Tablet PO 01/02/25 08:56 1 tab Q6HR PRN Administration PAIN SCALE 4-6 (Moderate Allopurinol 300 mg 12/28/24 09:00 12/29/24 09:34 Allopurinol 100 Mg Tablet PO 01/27/25 08:59 300 mg QDAY PAMELA Administration Balsam Dayne/[place] Oil 0 gm 12/28/24 21:00 12/29/24 09:35 Balsam Dayne/[place] Oil (Venelex) 60 Gm Tube TOP 01/27/25 20:59 1 applicatio BID PAMELA Administration Diltiazem HCl 120 mg 12/28/24 09:00 12/29/24 09:34 Diltiazem Cd 120 Mg Capcr PO 01/27/25 08:59 120 mg QDAY PAMELA Administration Gabapentin 300 mg 12/28/24 21:00 12/29/24 09:33 Gabapentin 300 Mg Capsule PO 01/27/25 20:59 300 mg BID PAMELA Administration Ceftriaxone Sodium/Dextrose 1 gm in 50 mls @ 100 mls/hr 12/29/24 09:00 12/29/24 09:35 Rocephin/D5w 1gm Iv Premix IV 01/03/25 21:13 100 mls/hr QDAY PAMELA Administration Lidocaine 1 patch 12/28/24 09:19 Lidocaine 5% 1 Patch TOP 01/27/25 09:18 DAILY PRN LOCALIZED PAIN Morphine Sulfate 2 mg 12/27/24 20:32 12/29/24 10:02 Morphine Sulf Inj 10 Mg/Ml Vial IVP 01/01/25 20:31 2 mg Q4H PRN Administration PAIN SCALE 7-10 (Severe Ondansetron HCl 4 mg 12/27/24 20:32 Ondansetron Inj 2 Mg/Ml Inj 2 Ml IV 01/26/25 20:31 Q6H PRN NAUSEA OR VOMITING Protocol Pantoprazole Sodium 40 mg 12/28/24 09:00 12/29/24 09:33 Pantoprazole 40 Mg Tablet PO 01/27/25 08:59 40 mg QDAY PAMELA Administration Plan 84-year-old female patient With past medical history of gout, atrial fibrillation not on anticoagulation, situs inversus, lymphedema, venous stasis, chronic low back pain, was brought to the ED from home because of severe back pain. Patient son reported that she has been having worsening back pain for the past few weeks however in the last three days it increased in intensity. Patient was admitted for orthopedic and physical therapist evaluation. #Subacute T8 fracture #Severe generalized weakness #Cerebral mass effect? Patient came from home due to worsening back pain associated with generalized weakness. Patient has severe lower extremity lymphedema which also contribute to her generalized weakness. Thoracic MRI was done and it showed kyphosis of the dorsal spine, and subacute moderately severe compression fracture of T8 vertebral body without significant spinal stenosis. It was recommended by the radiologist to do an elective MRI of the thoracic spine without contrast follow-up to exclude thoracic syrinx cavity, Her lumbar spine MRI mainly showed L4-L5 severe acquired spinal stenosis IV morphine discontinued ?Physical therapy evaluation and possible SNF placement for rehab ?Pain management with [facility] ?Resumed her home medication gabapentin 300 mg p.o. twice daily ?Follow-up with neurology as an outpatient if needed #UTI Patient reported that sometimes she lost control of her urine if she cannot reach to the bathroom in time. UA showed WBC of 0.16, +3 for bacteria Urine culture grew GNR ? on ceftriaxone 1 g daily #History of atrial fibrillation #Hypertension On Eliquis Patient on home diltiazem HCl 120 mg p.o. daily CHADVASC: 4; 4.8% stroke risk per year HASBLED: 2; moderate risk of major of bleeding ?Will hold Eliquis for now as patient has fall risk ?Restarted patient on diltiazem 120 mg p.o. daily #History of gout Patient on allopurinol 300 mg p.o. daily ?Restarted allopurinol 300 mg p.o. as taken at home #History of lymphedema ? Wound care ordered Case discussed with my senior Dr. Saldana PGY-2, Dr. Sanchez PGY-[address] Winnie Santamaria MD PGY-1 Diet: Cardiac diet Lines: PIV GI prophylaxis: Protonix DVT prophylaxis: SCD Dispo: Med/tele Code: DNR/DNI Attending Provider Attestation/Addendum I have examined the patient, reviewed labs and imaging findings, discussed the case with the resident(s), and reviewed entered orders. I agree with the plan of care as outlined in this note, with these additional summaries/recommendations: Patient seen at bedside. No acute overnight events. Patient still having intermittent intractable back pain requiring IV morphine at times. L4/L5 severe spinal stenosis appears unchanged from previous visit. Thoracic spine MRI revealed severe compression fracture T8 vertebral body. Patient currently has no red flag symptoms except for severe pain at times which we will continue to treat and monitor for improvement. Patient was seen by physical therapy who recommends senior living facility and case management notified. Patients insurance company [employer] apparently declined coverage for SNF which we do not agree with given patients fall risk & in-house PT recommendations. Patient receiving IV Rocephin for urinary tract infection. Urine culture grew pansensitive E. Coli. Patient has a history of chronic atrial fibrillation and holding home Eliquis for fall risk and continue diltiazem. Wound care for chronic bilateral lower extremity lymphedema. Patient updated on the plan and in agreement. Repeat hematology and chemistry panel in AM. Dr. Winnie MD
[2024-12-30] VITALS: BP 137/72; PULSE 80; PULSE 87; RESP 17; TEMP 36.3; O2SAT 92
[2024-12-30 04:00] VITALS: BP 132/75; PULSE 72; PULSE 75; RESP 18; TEMP 36.3; O2SAT 92
[2024-12-30 06:11] LABS: Basophils % (Auto) 0 % (0-2.5); Eosinophils # (Auto) 0.1 Thou/mm3 (0.0-0.5); Eosinophils % (Auto) 1 % (0-10); Hematocrit 28.8 % (36.0-46.0); Hemoglobin 9.4 g/dL (12.0-16.0); Immature Granulocytes % (Auto) 2 % (0-0); Lymphocytes # (Auto) 1.1 Thou/mm3 (1.0-4.8); Lymphocytes % (Auto) 20 % (10-50); Mean Corpuscular HGB Conc 32.6 g/dl (31.0-37.0); Mean Corpuscular Hemoglobin 33.8 pg (25.0-35.0); Mean Corpuscular Volume 104 fL (80-100); Monocytes # (Auto) 0.5 Thou/mm3 (0.0-0.8); Monocytes % (Auto) 9 % (0-12); Neutrophils % (Auto) 69 % (37-80); Nucleated Red Blood Cell % 0 /100 WBC (0); Platelet Count 245 Thou/mm3 (140-440); RDW Standard Deviation 62.7 fL (36.4-46.3); Red Blood Count 2.78 Miln/mm3 (4.00-5.20); White Blood Count 5.8 Thou/mm3 (3.6-11.0)
[2024-12-30 06:25] LABS: Alanine Aminotransferase < 7 U/L (10-49); Albumin, Serum 3.2 gm/dL (3.4-4.8); Albumin/Globulin Ratio 1.7 (1.2-2.2); Alkaline Phosphatase 78 U/L (46-116); Anion Gap 7 (7-16); Aspartate Amino Transferase 12 U/L (0-34); BUN/Creatinine Ratio 21 Ratio (12-20); Bilirubin,Total 0.3 mg/dL (0.3-1.2); Blood Urea Nitrogen 15 mg/dL (9-23); Calcium 9.1 mg/dL (8.3-10.6); Calcium (Corrected) 9.7 mg/dL (8.5-10.1); Chloride 107 mMol/L (98-107); Creatinine (Component) 0.7 mg/dL (0.6-1.3); Estimated Creatinine Clearance 60.9 mL/min (>60); Globulin 1.9 gm/dL (2.3-3.5); Glucose 97 mg/dL (74-106); Magnesium 1.8 mg/dL (1.6-2.6); Osmolality,Calculated 283 (275-295); Phosphorous 3.3 mg/dL (2.4-5.1); Sodium 142 mMol/L (136-145); Total Protein 5.1 gm/dL (5.7-8.2); eGFR > 60 See Note
[2024-12-30 08:00] VITALS: BP 156/89; PULSE 68; PULSE 94; PULSE 97; RESP 18; RESP 20; RESP 94; TEMP 36.3; O2SAT 96
[2024-12-30 09:04] VITALS: BP 156/89; PULSE 97
[2024-12-30] MEDS: allopurinoL 100 MG TABLET 300 MG PO (09:04)
[2024-12-30] MEDS: DILTIAZEM CD 120 MG CAPCR PO (09:04)
[2024-12-30] MEDS: BALSAM PERU/CASTOR OIL (Venelex) 60 GM TUBE TOP (09:05)
[2024-12-30] MEDS: PANTOPRAZOLE 40 MG TABLET PO (09:05)
[2024-12-30] MEDS: GABAPENTIN 300 MG CAPSULE PO (09:05)
[2024-12-30] MEDS: cefTRIAXone/D5w 1gm IV premix 1 GM/50 ML BAG IV (09:05)
--- NOTE | 2024-12-30 09:21 | PC.SS ---
Addendum entered by DEJUAN Pack 12/30/24 14:44: Rounding note: plan is to d/c the patient home today. Addendum entered by DEJUAN Pack 12/30/24 13:53: SS update: contacted [facility] and spoke with Kathy to update on Severiano Vergara, patient's son wanting to get update if patient meets criteria for SNF. Informed Kathy I've already relayed the information to the family hpwever would like to speak to them directly about the matter. Kathy infromed she would call Severiano Starrop to notify as patient does not meet criteria for SNF. Original Note: SS follow up: met at bed side with patient and patient son, Severiano who are aware that SNF placement was denied by [facility] insurance. [facility] recommended. Patient son verbalized understanding, he informs patient is pending a room with [facility] at this time. Plan is for patient to d/c home with home health.
[2024-12-30 12:00] VITALS: BP 126/73; PULSE 85; RESP 22; TEMP 36.2; O2SAT 95
[2024-12-30] MEDS: HYDROcodone/APAP 5/325 TABLET 1 TAB PO (13:29)
--- NOTE | 2024-12-30 15:06 | ESDS_ITS ---
<Statement entered by Richard Hudson MD - 12/31/24 11:25> I have discussed and was present for the essential components of the history, physical examination, diagnosis, and treatment plan with the resident. I agree with the patient's care as documented by the resident and amended herein by me. Richard Hudson MD FACP. Planned Discharge Date 12/30/24 DS: Providers Provider Date of admission: 12/27/24 20:30 Primary care physician: Physician No Primary/Family Admitting Provider: Ubaldo Castillo MD Attending Provider on Admission: Richard Hudson MD Consults: 12/28/24 08:00 Referral Wound Care Routine Comment: Lower extremities 12/28/24 11:05 Referral Physical Therapy Stat Comment: Physician Instructions: Attending Provider on DC: Richard Hudson MD Discharging Provider: Hussain Santamaria MD Anticipated date of discharge: 12/30/24 DS: Diagnosis Problem List Completed Was Problem List Reviewed/Reconciled?: Yes Hospital Course Hospital Course Hospital course: 84-year-old female patient With past medical history of gout, atrial fibrillation not on anticoagulation, situs inversus, lymphedema, venous stasis, chronic low back pain, was brought to the ED from home because of severe back pain. Patient son reported that she has been having worsening back pain for the past few weeks however in the last three days it increased in intensity. Patient was admitted for orthopedic and physical therapist evaluation. During hospital stay patient's severe back pain was managed with IV pain medications which were later transitioned to p.o. medications. Physical therapy evaluated the patient and determined that the patient required SNF placement however patient's insurance did not cover and patient did not want SNF placement never would rather go home with home health. At this time patient is medically stable for discharge.Please follow up with primary care physician within 1 week of discharge. Please stop taking your home Eliquis 2.5mg due to your high risk of falls and bleeding. Please continue to take your home medications otherwise as prescribed If you are in pain, please take [place] as needed every 8 hours, and use over the counter Tylenol as well. Please return to the ED if your symptoms worsen. Problem List: #Subacute T8 fracture #Severe generalized weakness #Cerebral mass effect? #UTI-resolved #History of atrial fibrillation #Hypertension #History of gout #History of lymphedema Case discussed with my senior Dr. Chahal PGY-[address] Becca Santamaria MD PGY-1 Status at Discharge Functional status at discharge: wheelchair bound Overall status at discharge: patient is back to baseline Time Spent with Patient Time attestation: Total time spent providing and/or coordinating discharge services: Time spent: Greater than 30 minutes Exam Vital Signs Temp Pulse Resp BP Pulse Ox O2 Del Method 97.2 F 85 22 H 126/73 95 Room Air 12/30/24 12:12/30/24 12:00 12/30/24 12:12/30/24 12:12/30/24 12:12/30/24 12:00 Narrative Exam Physical Exam GENERAL: NAD, AAOx3 HEENT: Moist mucosa. Eyes open, symmetrical, & clear CARDIO: Heart RRR, no obvious murmurs PULM: No noted coughing/dyspnea CTA B/L, no R/W/R GI: Abdomen soft, nondistended, no pain on palpation. BSx4 SKIN/MSK/EXT: extreme nonpitting lower extremity edema, with dark brown pigmentation most likely secondary to her lymphedema, no pain on palpation, scaly/flaky skin NEURO: AAOx3, no focal neuro deficits, able to move all 4 extremities Discharge Plan Plan Patient Disposition: Home w/HOME HEALTH Care Plan Goals: Please follow up with primary care physician within 1 week of discharge. Please stop taking your home Eliquis 2.5mg due to your high risk of falls and bleeding. Please continue to take your home medications otherwise as prescribed If you are in pain, please take De[place] as needed every 8 hours, and use over the counter Tylenol as well. Please return to the ED if your symptoms worsen. Prescriptions/Referrals Prescriptions/Med Rec: New hydrocodone-acetaminophen 5-325 mg tablet 1 tab PO Q8H MDD 3 PRN (Reason: pain) Qty: 12 0RF Continued allopurinol 300 mg Tablet 300 mg PO HS gabapentin 300 mg Capsule 300 mg PO BID diltiazem HCl 120 mg Capsule,Extended Release 24hr 120 mg PO QDAY 30 Days Qty: 30 1RF furosemide 20 mg tablet 20 mg PO Q48H Qty: 30 0RF acetaminophen 325 mg Tablet 650 mg PO Q6H PRN (Reason: PAIN OR FEVER > 101) Qty: 60 0RF esomeprazole magnesium 40 mg capsule,delayed release(DR/EC) 40 mg PO HS Patient Comments: TAKE 1 CAPSULE BY MOUTH EVERY DAY Discontinued Eliquis 2.5 mg tablet 2.5 mg PO Q12H Referrals: No Primary/Family,Physician [Primary Care Provider] - Patient/Caregiver Discharge Instructions Print Language: Slovak Stand Alone Forms: [facility] Award Info., Patient Portal Info Letter Discharge Order Discharge Orders: Discharge (Routine); Ordered 12/30/24 Ordered By: Vargas Celestin Quality Discharge Quality Measures VTE prophylaxis
[2024-12-30 16:00] VITALS: BP 135/79; PULSE 80; RESP 20; TEMP 36.6; O2SAT 95
--- NOTE | 2025-01-03 10:54 | PC.CC ---
SOC will be 01/04
== END 2024-12-30 15:38 | disposition home health service (06) | DRG 552 ==
LOC: SERX 19:27 → SERHOLD 20:55 → S3SX 12-28 01:11
PROVIDERS: Physician Assistant; Student in an Organized Health Care Education/Training Program; Admitting Provider Internal Medicine; Emergency Provider Emergency Medicine; Visit Provider Internal Medicine
DX: S22.069A Unspecified fracture of T7-T8 vertebra, initial encounter for closed fracture (principal); N39.0 Urinary tract infection, site not specified; I48.20 Chronic atrial fibrillation, unspecified; R29.6 Repeated falls; M40.204 Unspecified kyphosis, thoracic region; I10 Essential (primary) hypertension; M48.061 Spinal stenosis, lumbar region without neurogenic claudication; M10.9 Gout, unspecified; B96.20 Unspecified Escherichia coli [E. coli] as the cause of diseases classified elsewhere; I89.0 Lymphedema, not elsewhere classified; G89.29 Other chronic pain; Z79.01 Long term (current) use of anticoagulants; Z66 Do not resuscitate; Z79.899 Other long term (current) drug therapy; M40.209 Unspecified kyphosis, site unspecified; W19.XXXA Unspecified fall, initial encounter
CPT/HCPCS: 36415; 72146; 72148; 80053; 81001; 83735; 84100; 85025; 87077; 87081; 87086; 87186; 93225; 96374; 96375; 97162; 99285; J0696; J2270; J2405; J3490; J7030; J7050; A9270

== ENCOUNTER 2025-01-03 21:09 | Inpatient (IN) | payer OTHER, MEDICARE, SELFPAY ==
[2025-01-03 21:13] VITALS: BMI 27.4
[2025-01-03 21:26] VITALS: BP 141/81; PULSE 81; RESP 18; TEMP 36.7; O2SAT 97
--- NOTE | 2025-01-03 21:36 | XR_ITS ---
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 No pneumothorax No acute rib fracture is depicted IMPRESSION: No pneumothorax No acute rib fractures depicted
--- NOTE | 2025-01-03 21:36 | EKG_ITS ---
[facility] Test Date: 2025-01-03 Pat Name: FELIX SUN Department: Room: - Gender: Female Throat Cutter: : 1940 Requested By: David Hoyos Order Number: [id number] Reading MD: David Hoyos Measurements Intervals Rawson Rate: 76 P: 127 WI: 214 QRS: 245 QRSD: 96 T: 121 QT: 369 QTc: 416 Interpretive Statements SINUS RHYTHM WITH FIRST DEGREE AV BLOCK ARM LEADS REVERSED [INVERTED P AND QRS IN I] Compared to ECG 12/21/2024 23:36:47 First degree AV block now present Supraventricular rhythm no longer present Right-axis deviation no longer present /store/S0/[id number]/[id number].pdf
--- NOTE | 2025-01-03 21:36 | PD.EDRME ---
Rapid Medical Screening Exam RME Arrival date/time: 01/03/25 21:09 84 year old female present to ED for c/o of GLF today. + rib injury I have greeted and performed a focused initial assessment of this patient. A comprehensive ED assessment and evaluation of the patient, analysis of all test results, and completion of the medical decision making process will be conducted by additional ED providers. Chief Complaint: Fall Time Seen by Provider: 01/03/25 21:21 Vital signs: Vital Signs Temperature 98.1 F 01/03/25 21:26 Pulse Rate 81 01/03/25 21:26 Respiratory Rate 18 01/03/25 21:26 Blood Pressure 141/81 H 01/03/25 21:26 Pulse Oximetry (%) 97 01/03/25 21:26 Oxygen Delivery Method Room Air 01/03/25 21:26
--- NOTE | 2025-01-03 22:02 | PD.EDFALL ---
ED Fall Injury RME/HPI General Chief Complaint: Fall Stated Complaint: fall R loer rib area pain Time Seen by Provider: 01/03/25 21:21 Arrival date/time: 01/03/25 21:09 RME / HPI RME / HPI Narrative: 01/03/25 21:09 84 year old female present to ED for c/o of GLF today. + rib injury I have greeted and performed a focused initial assessment of this patient. A comprehensive ED assessment and evaluation of the patient, analysis of all test results, and completion of the medical decision making process will be conducted by additional ED providers. Dr. Mckeon?s Main ED Evaluation: 84yo female with a history of gout, atrial fibrillation not on anticoagulation, situs inversus, lymphedema, venous stasis, chronic low back pain BIBA from home presents to the ED for a chief complaint of a fall. Patient states she fell after she turned a corner and just went down . She denies any head strikes or loss of consciousness. She endorses having right rib pain, otherwise denies to tell us where else she has pain. No known allergies. Related Data Home Medications ?Medication ?Instructions ?Recorded ?Confirmed allopurinol 300 mg tablet 300 mg PO HS 08/02/21 12/28/24 gabapentin 300 mg capsule 300 mg PO BID 09/15/21 12/28/24 esomeprazole magnesium 40 mg 40 mg PO HS 12/22/24 12/28/24 capsule,delayed release Previous Rx's ?Medication ?Instructions ?Recorded diltiazem HCl 120 mg 120 mg PO QDAY 30 days #30 caps 02/10/24 capsule,extended release 24 hr acetaminophen 325 mg tablet 650 mg (2 x 325 mg) PO Q6H PRN 09/03/24 PAIN OR FEVER > 101 #60 tabs furosemide 20 mg tablet 20 mg PO Q48H #30 tabs 09/03/24 hydrocodone 5 mg-acetaminophen 325 1 tab PO Q8H PRN pain #12 tabs 12/30/24 mg tablet Allergies Allergy/AdvReac Type Severity Reaction Status Date / Time No Known Allergies Allergy Verified 01/03/25 21:21 Review of Systems Review of Systems Systems Reviewed: All systems reviewed, normal except as documented Past Medical History Past Medical History NEUROLOGIC: Positive Neurological Disorders (MASS ON BRAIN); Negative Seizures CARDIAC: Positive Cardiac Disorders, Atrial Fibrillation, Edema, Hypertension and Varicose Veins; Negative Congestive Heart Failure RESPIRATORY: Positive Pneumonia; Negative Chronic Obstructive Pulmonary Disease (COPD) or Asthma GASTROINTESTINAL: Positive Gastrointestinal Disorders, Gastrointestinal Bleed, Hiatal Hernia and Gastroesophageal Reflux Disease GENITOURINARY: Negative Genitourinary Disorders or Renal Disease REPRODUCTIVE: Positive Previous Pregnancies MUSCULOSKELETAL: Positive Musculoskeletal Disorders, Arthritis, Gout and Fibromyalgia ENT: Positive History of ENT Problems (HEARING AID BILATERAL, GLASSES) ENDOCRINE: Negative Endocrine Disorders, Diabetes Mellitus Type 1 or Diabetes Mellitus Type 2 HEMATOLOGIC: Positive Blood Disorders and Anemia; Negative Sickle Cell Disease OTHER HISTORY: Positive Hospitalization, Blood Transfusions, Measles and Mumps; Negative Autoimmune Disease, Shingles, Blood Transfusion Reaction, Anesthesia Reactions or Cancer Family History FAMILY HISTORY: Positive Family Cancer; Negative Family Psychiatric Problems, Family Respiratory Disorders, Family Cardiac Disorders, Family Gastrointestinal Problems, Family Surgery or Family Anesthesia Reaction Surgical History SURGICAL: Positive Knee Sx (RIGHT KNEE) Social History SMOKING STATUS: Never smoker SECOND HAND EXPOSURE: No SUBSTANCE USE: does not use ED Exam Narrative Physical exam: GENERAL APPEARANCE: alert and oriented x 4, well-developed, well-nourished, no acute distress VITALS: All vitals were reviewed and the pulse ox is 97% on room air, which is normal according to my interpretation. HEENT: Normocephalic, atraumatic; pupils equal, round, reactive to light; EOMI; mucous membranes pink, moist; oropharynx clear NECK: Supple LUNGS: CTABL; no wheezes, no rales, no rhonchi HEART: Regular rate, regular rhythm; normal S1, S2; no murmurs ABDOMEN: non distended; normal BS; soft, no tenderness, no guarding, no rebound; no masses, no organomegaly, no hernia BACK: no CVA tenderness; tenderness to the right posterior and lateral ribs EXTREMITIES: atraumatic; 4+ pitting edema to the BLE, ecchymosis to the left yanes and ankle that is circumferential, tenderness to the axial loading of the LLE NEUROLOGIC: awake; alert and oriented x4; cranial nerves II-XII grossly intact; no focal sensory or motor deficits PSYCHIATRIC: appropriate mood and affect SKIN: warm, dry; no rashes Course Quality Measures none Orders Category Date Time Status CT Screening NOW Care 01/04/25 00:25 Active 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 NOW Care 01/04/25 00:27 Active Continuous Pulse Oximetry NOW Care 01/04/25 00:26 Completed EKG (ED ONLY) *Do not use* NOW Care 01/03/25 21:36 Completed Insert IV STAT Care 01/04/25 00:[address] cervical spine wo con Stat Exams 01/04/25 00:[address] chest abdomen pelvis w Stat Exams 01/04/25 00:22 Taken EKG (ED Only) Stat Exams 01/03/25 21:36 Draft XR ankle comp LT min 3V Stat Exams 01/04/25 00:22 Taken XR femur LT 2V Stat Exams 01/04/25 00:22 Taken XR foot comp LT min 3V Stat Exams 01/04/25 00:22 Taken XR knee LT 3V Stat Exams 01/04/25 00:22 Taken XR ribs RT min 3V w CXR1V Stat Exams 01/03/25 21:36 Completed Alcohol, Blood Medical Stat Lab 01/04/25 00:43 Completed CBC Stat Lab 01/03/25 21:53 Completed CMP [Comprehensive Metabolic Panel] Stat Lab 01/03/25 21:53 Completed Drug Screen,Urine Stat Lab 01/04/25 00:34 Completed Lactate (Lactic Acid) Stat Lab 01/04/25 00:43 Completed Lipase Stat Lab 01/04/25 00:43 Completed Partial Thromboplastin Time Stat Lab 01/04/25 00:43 Completed Prothrombin Time with INR Stat Lab 01/04/25 00:43 Completed Troponin I Stat Lab 01/03/25 21:53 Completed UA [Urinalysis] Stat Lab 01/04/25 00:34 Completed Vital Signs Vital signs: Vital Signs Temperature 98.1 F 01/03/25 21:26 Pulse Rate 81 01/03/25 21:26 Respiratory Rate 18 01/03/25 21:26 Blood Pressure 141/81 H 01/03/25 21:26 Pulse Oximetry (%) 97 01/03/25 21:26 Oxygen Delivery Method Room Air 01/03/25 21:26 Fall MDM Narrative MDM Narrative:: Scribe Attestation: 01/03/25 - Tonya Cloud am scribing for and in the presence of Dr. Mckeon. Patient does not report any other pain aside from her right rib pain, despite ecchymosis to the LLE being found upon phyical examination. Patient data External records reviewed:: [facility] previous records (Per chart review, patient was admitted here on 12/27/24 for back pain.) Clinical information provided by:: patient and family Social determinants that could affect healthcare access:: none Patient has the following chronic illnesses:: gout, atrial fibrillation not on anticoagulation, situs inversus, lymphedema, venous stasis, chronic low back pain How is presenting disease/condition affected by chronic disease/condition?: uneffected by Evaluation data The following diagnostics were reviewed and interpreted by me:: lab results, radiology exam(s) and EKG tracing(s) Lab and/or radiology exams considered but not ordered:: none Interpretation Summary: CBC is normal, CMP is normal, Troponin is normal, according to my interpretation. EKG, done at 2140, NSR, rate of 76, left axis deviation, no ectopy, generalized ST abnormalities, no STEMI, according to my interpretation. [facility] Report Signed Patient: DINOFELIX Hackermeter. Record#: [id number] Birthdate: 1940 Age/Sex: 84 / F Location: [facility] Attending Dr: Ordering Physician: David Manuel PA-C Date of Service: 01/03/25 Procedure(s): XR ribs RT min 3V w CXR1V Accession Number(s): [id number] cc: Ambrocio Davis MD; David Manuel PA-C; Nina Rice NP~ 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 No pneumothorax No acute rib fracture is depicted IMPRESSION: No pneumothorax No acute rib fractures depicted Dictated By: Ambrocio Davis MD Signed By: <Electronically signed by Ambrocio Davis MD in OV> 01/03/25 1453 [facility] Preliminary Report Draft Patient: [facility]. Record#: [id number] Birthdate: 1940 Age/Sex: 84 / F Location: [facility] Attending Dr: Ordering Physician: Date of Service: Procedure(s): Accession Number(s): cc: ~ CT scan of the cervical spine without intravenous contrast (axial sections with sagittal and coronal reformats). January 04, 2025 0138 hours Clinical history: fall pain No prior study is available for comparison. Findings: The bones are osteopenic. There is no fracture or traumatic subluxation. There is mild retrolisthesis of C4 on C5, likely degenerative. There is straightening of the cervical lordosis, which may be due to muscle spasm or patient position. There are multilevel moderate degenerative disc, uncovertebral, facet joint disease, decreased intervertebral disc space, endplate sclerosis, predominantly at the C3-C4 and C4-C5 levels causing mild to moderate spinal canal and bilateral neural foraminal narrowing. The prevertebral soft tissues are unremarkable. Impression: No evidence of fracture or traumatic subluxation. Moderate degenerative changes. Report Electronically Signed By: Jai Fischer 01/04/2025 2:46:27 AM [EST] [facility] Preliminary Report Draft Patient: [facility]. Record#: [id number] Birthdate: 1940 Age/Sex: 84 / F Location: [facility] Attending Dr: Ordering Physician: Date of Service: Procedure(s): Accession Number(s): cc: ~ CT scan of the chest, abdomen and pelvis with intravenous contrast (axial sections with sagittal and coronal reformats) January 04, 2025 0142 hours Clinical History: fall, pain No prior study is available for comparison. Findings: Situs inversus totalis is noted. There are streaky atelectasis in bilateral lower lobes. Mild left basilar dependent atelectasis is present. There is heterogeneous attenuation of the lungs, which may represent small airways disease versus interstitial pulmonary edema There is no pleural effusion or pneumothorax. There is no mediastinal collection. There is no pericardial effusion. Coronary artery calcification is noted. A large hiatal hernia is present with atelectasis of the adjacent right lung. There is a small right renal cyst. There are prominent extrarenal pelvis bilaterally. The liver, gallbladder, spleen, pancreas and adrenals are unremarkable. Moderate amount of fecal material is present in the colon. There are multiple colonic diverticula without evidence of diverticulitis. The urinary bladder is unremarkable. There is no free fluid or air.The aorta and its branches demonstrate atheromatous calcification without evidence of aneurysm. The bones are osteopenic. There is mild anterolisthesis of L3 on L4, L4 on L5, likely degenerative. There is moderate old compression fracture deformity of T8 vertebra. There is a old fracture of the left 9th rib. Impression: No visceral or bony injury in the chest, abdomen or pelvis. Situs inversus totalis. Heterogeneous attenuation of the lungs, which may represent small airways disease. Other findings as described above. Report Electronically Signed By: Jai Fischer 01/04/2025 2:56:03 AM [EST] Radiographs of the left femur (02 views). January 04, 2025 at 0122 hours Clinical history: Left femur pain, status post fall. No prior study is available for comparison. Findings: Bonds are diffusely osteopenic. Vascular calcifications of arteries are seen. Mild degenerative changes are seen in left hip joint. There is no evidence of fracture or dislocation. No focal bony abnormality is identified. Impression: No fracture or dislocation. Other findings as described above. This report has been electronically signed by: Jai Fischer MD. Radiograph of the left knee joint (Three Portable views). January 04, 2025 at 0117 hours Clinical History: Left knee pain, status post fall. No prior study is available for comparison. Findings: Bones are diffusely osteopenic. The tibiofemoral and patellofemoral knee joint spaces are moderately decreased with small periarticular osteophytes and subchondral sclerosis. No fracture or dislocation. There is no obvious joint effusion. 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 No acute fracture or dislocation. Other findings as described above. This report has been electronically signed by: Jai Fischer MD. Radiographs of the left ankle joint (2 views) January 04, 2025 at 0108 hours Clinical history: Pain, status post fall. No prior study is available for comparison. Findings: Diffuse osteopenia is noted. There is no fracture or dislocation. The tibiotalar and subtalar joints are normal in alignment. Mild degenerative changes are identified at the ankle joint. Impression: No acute fracture or dislocation. Other findings as described above. This report has been electronically signed by: Jai Fischer MD Radiographs of the left foot (02 Portable views). January 04, 2025 0114 hours Clinical History: Pain, s/p fall No prior study is available for comparison. Findings: Diffuse osteopenia is seen. Old deformity of the 4th metatarsal. There is no evidence of acute fracture or dislocation. The visualized joints are normal in configuration and alignment. Impression: No evidence of fracture or dislocation. Other findings as described above. This report has been electronically signed by: Jai Fischer MD Medications / Prescriptions Medications or Prescriptions considered but not ordered:: none Medication administrations:: see above, if any Consultations Consultation(s) initiated? (list below): Yes Diagnosis Fall Differential Diagnosis: syncope and other (cardiac, infectious, metabolic, neurologic) Most likely diagnosis given after review of the tests above:: see clinical impression below Admission Indicated Admission indicated?: indicated Admission Request Was there a request for admission?: Yes Admission Attestation Admission request attestation: Discussed case with [] from Hospitalist service regarding admission. Discussed patients ED course, exam findings, labs, and radiology results. The Hospitalist [agrees,declines] to accept the patient for admission. Disposition Plan Disposition Plan: Admit Discharge Plan Plan Patient Disposition: Admit Acute Care w/in Hospital Prescriptions/Referrals Prescriptions/Med Rec: No Action allopurinol 300 mg Tablet 300 mg PO HS gabapentin 300 mg Capsule 300 mg PO BID diltiazem HCl 120 mg Capsule,Extended Release 24hr 120 mg PO QDAY 30 Days Qty: 30 1RF furosemide 20 mg tablet 20 mg PO Q48H Qty: 30 0RF acetaminophen 325 mg Tablet 650 mg PO Q6H PRN (Reason: PAIN OR FEVER > 101) Qty: 60 0RF esomeprazole magnesium 40 mg capsule,delayed release(DR/EC) 40 mg PO HS Patient Comments: TAKE 1 CAPSULE BY MOUTH EVERY DAY hydrocodone-acetaminophen 5-325 mg tablet 1 tab PO Q8H MDD 3 PRN (Reason: pain) Qty: 12 0RF Referrals: Nina Dahl NP [Primary Care Provider] - In 1 week Problem List Clinical Impression: Gravely disabled, Frequent falls Patient/Caregiver Discharge Instructions Print Language: Malian Stand Alone Forms: [facility] Award Info., Patient Portal Info Letter
[2025-01-03 22:16] LABS: Basophils # (Auto) 0.1 Thou/mm3 (0.0-0.2); Basophils % (Auto) 1 % (0-2.5); Eosinophils # (Auto) 0.1 Thou/mm3 (0.0-0.5); Eosinophils % (Auto) 1 % (0-10); Hematocrit 33.8 % (36.0-46.0); Hemoglobin 11.2 g/dL (12.0-16.0); Immature Granulocytes % (Auto) 1 % (0-0); Immature Granulocytes Auto 0.08 Thou/mm3 (0.00-0.00); Lymphocytes # (Auto) 1.3 Thou/mm3 (1.0-4.8); Lymphocytes % (Auto) 15 % (10-50); Mean Corpuscular HGB Conc 33.1 g/dl (31.0-37.0); Mean Corpuscular Volume 103 fL (80-100); Monocytes # (Auto) 0.6 Thou/mm3 (0.0-0.8); Monocytes % (Auto) 7 % (0-12); Neutrophils # (Auto) 6.3 Thou/mm3 (1.8-7.7); Neutrophils % (Auto) 75 % (37-80); Nucleated Red Blood Cell % 0 /100 WBC (0); Platelet Count 276 Thou/mm3 (140-440); RDW Standard Deviation 59.9 fL (36.4-46.3); Red Blood Count 3.29 Miln/mm3 (4.00-5.20); White Blood Count 8.4 Thou/mm3 (3.6-11.0)
[2025-01-03 22:39] LABS: Alanine Aminotransferase 10 U/L (10-49); Albumin, Serum 4.3 gm/dL (3.4-4.8); Albumin/Globulin Ratio 1.8 (1.2-2.2); Alkaline Phosphatase 122 U/L (46-116); Anion Gap 10 (7-16); Aspartate Amino Transferase 17 U/L (0-34); BUN/Creatinine Ratio 19 Ratio (12-20); Bilirubin,Total 0.5 mg/dL (0.3-1.2); Blood Urea Nitrogen 19 mg/dL (9-23); Calcium 9.8 mg/dL (8.3-10.6); Calcium (Corrected) 9.8 mg/dL (8.5-10.1); Carbon Dioxide 25.7 mMol/L (20.0-31.0); Chloride 105 mMol/L (98-107); Estimated Creatinine Clearance 42.3 mL/min (>60); Globulin 2.4 gm/dL (2.3-3.5); Glucose 103 mg/dL (74-106); Osmolality,Calculated 283 (275-295); Potassium 3.7 mMol/L (3.4-5.1); Sodium 141 mMol/L (136-145); Total Protein 6.7 gm/dL (5.7-8.2); Troponin I < 0.020 ng/mL (0.0-0.045); eGFR 55 See Note
--- NOTE | 2025-01-03 22:49 | PC.NURSE ---
PT CAME IN TO ED FOR FALL AT HOME WITH COMPLAINTS OF RIGHT FLANK PAIN WITH MOVEMENT. PT SAYS SHE HAS FALLEN AT HOME PRIOR.
[2025-01-03 23:56] VITALS: BP 160/90; PULSE 80; RESP 17; TEMP 36.6; O2SAT 96
[2025-01-04] VITALS (9 sets, daily range): BP systolic 136–154; BP diastolic 62–89; PULSE 63–98; RESP 16–97; TEMP 36.3–36.9; O2SAT 25–100; BMI 31.1; BMI 12.0; BMI 26.6
--- NOTE | 2025-01-04 00:22 | XR_ITS ---
Examination: Left femur 2 views TECHNIQUE: AP lateral left femur 2 views Exam date and time: January 04, 2025, 0122 hours INDICATIONS: Patient fell today with injury to the hip, hip pain FINDINGS: On the AP view there is a faint radiolucency overlying the intertrochanteric region left hip Shaft of the femur is intact No hip dislocation IMPRESSION: Faint radiolucency overlying the intertrochanteric region left hip Recommend follow-up coned left hip films as clinically warranted
--- NOTE | 2025-01-04 00:22 | XR_ITS ---
Examination: Foot, left, 3 views Technique: AP, oblique, lateral views foot, 3 views Date and time of exam: January 04, 2025, 0114 hours INDICATIONS: Patient fell today with injury to the foot, foot pain FINDINGS: Suspicious for nondisplaced fracture proximal aspect proximal phalanx second digit Old deformity fourth metatarsal Severe osteopenia IMPRESSION: As clinically warranted, recommend 2-3 day follow-up coned films of the toes left foot
--- NOTE | 2025-01-04 00:22 | XR_ITS ---
Examination: Knee, left , 3 views Technique: Knee AP, lateral, oblique 3 views Date and time of exam: January 04, 2025 1317 hours INDICATIONS: Patient fell today with injury to the knee, knee pain FINDINGS: Prominent osteopenia Advanced narrowing lateral joint space No acute fracture IMPRESSION: No acute fracture
--- NOTE | 2025-01-04 00:22 | XR_ITS ---
EXAMINATION: Ankle, left 3 views . Technique: Ankle AP, oblique, lateral 3 views Date and time of exam: January 04, 2025 0108 hours INDICATIONS: Patient fell today with injury to the ankle, ankle pain. FINDINGS: Severe osteopenia No acute fracture No ankle dislocation IMPRESSION: No acute fracture
--- NOTE | 2025-01-04 00:22 | XR_ITS ---
Examination: CT cervical spine without contrast 2-D sagittal reconstructions 2-D coronal reconstructions 3-D reconstructions. Exam date and time:January 04, 2025, 0138 hours INDICATIONS: Patient fell today with injury to the neck, neck pain CTDI:vol (mGy) 13.9 DLP: (mGycm) 287 Technique: Multiple 2 mm axial sections of the cervical spine have been obtained. The coronal and sagittal reconstructions have been obtained. 3-D reconstructions have been obtained. Low dose protocols were performed. One or more of the following dose reduction techniques were used; automated exposure control, adjustment of the mA and/or KV according to patient size, use of iterative reconstruction technique. Findings: Axial sections demonstrate intact base of the skull. C1 exhibit satisfactory relationship to the odontoid. No acute cervical vertebral body fracture seen. Alignment posterior spinous processes satisfactory. Impression: No acute cervical fracture.
--- NOTE | 2025-01-04 00:22 | XR_ITS ---
Examination: CT chest with intravenous contrast CT abdomen with intravenous contrast CT pelvis with intravenous contrast 2-D coronal and sagittal reconstructions Time of exam: January 04, 2025, 0142 hours INDICATIONS: Ground-level fall today with injury to the right chest and abdomen with pain chest abdomen CTDI: vol (mGy) : 13.8 DLP: (mGycm): 934 Technique: Multiple axial images of the chest, abdomen and pelvis with intravenous contrast, 3.0 mm slice thickness. Images obtained post intravenous injection Isovue 370 60 cc. 2-D sagittal and coronal reconstructions. Low dose protocols were performed. One or more of the following dose reduction techniques were used; automated exposure control, adjustment of the mA and/or KV according to patient size, use of iterative reconstruction technique. Findings: Situs inversus Thoracic aorta pulmonary arteries intact No hemopericardium No pneumothorax Elevation right hemidiaphragm No visualized liver splenic or renal laceration Abdominal aorta intact No free blood in the abdomen No gallstones Negative for pneumoperitoneum Colonic diverticulosis Abundant stool in the colon Urinary bladder intact Sternum intact Severe osteopenia Chronic osteoporotic severe compression T8 Grade 1 anterolisthesis L4 on L5 Old outside rib fractures Bones of the pelvis hips appear intact IMPRESSION: Situs inversus No hemopericardium pneumothorax or hemothorax No abdominal parenchymal laceration Abdominal aorta intact No free blood in the abdomen or pelvis
[2025-01-04 00:39] LABS: Collection Type, Urine Voided
[2025-01-04 00:43] LABS: Bilirubin,Urine Negative (Negative); Blood,Urine Negative (Negative); Clarity,Urine Clear (Clear/Hazy); Color,Urine Yellow (Lt Yel-Yel); Glucose, Urine Negative (Negative); Hyaline Casts,Urine < 1 /hpf (0-1); Ketones,Urine 1+ (Negative); Leukocyte Esterase,Urine Negative (Negative); Nitrite,Urine Negative (Negative); PH,Urine 5.5 (5.0-7.0); Protein,Urine Negative (Neg - Trace); RBC,Urine 2 /hpf (0-3); Specific Gravity,Urine 1.021 (1.001-1.035); Squamous Epithelial Cell,Urine 1 /hpf (0-5); Urobilinogen,Urine Negative mg/dL (0.0-1.0); WBC,Urine 1 /hpf (0-5)
[2025-01-04 00:52] LABS: Lactate (Lactic Acid) 1.1 mMol/L (0.4-2.0)
[2025-01-04 01:10] LABS: Partial Thromboplastin Time 26.1 Seconds (22.0-36.0); Prothrombin Time 10.7 Seconds (9.0-12.2)
--- NOTE | 2025-01-04 01:16 | PC.LAC ---
NOTIFIED PROVIDER PRANEETH SANCHEZ HAD RUN OF VTACH
[2025-01-04 01:48] LABS: Amphetamine/Methamp Scrn,U Negative (Negative); Barbiturate Screen,Urine Negative (Negative); Benzodiazepines Screen,Urine Negative (Negative); Benzoylecgonine Screen, Ur Negative (Negative); Fentanyl Screen,Urine Negative (Negative); Opiate Screen,Urine Positive (Negative); THC Screen,Urine Negative (Negative)
[2025-01-04 01:49] LABS: Alcohol, Blood Medical < 3.0 mg/dL (0-10.0); Lipase 26 U/L (12-53)
--- NOTE | 2025-01-04 02:46 | PRELIM_ITS ---
CT scan of the cervical spine without intravenous contrast (axial sections with sagittal and coronal reformats). January 04, 2025 0138 hours Clinical history: fall pain No prior study is available for comparison. Findings: The bones are osteopenic. There is no fracture or traumatic subluxation. There is mild retrolisthesis of C4 on C5, likely degenerative. There is straightening of the cervical lordosis, which may be due to muscle spasm or patient position. There are multilevel moderate degenerative disc, uncovertebral, facet joint disease, decreased intervertebral disc space, endplate sclerosis, predominantly at the C3-C4 and C4-C5 levels causing mild to moderate spinal canal and bilateral neural foraminal narrowing. The prevertebral soft tissues are unremarkable. Impression: No evidence of fracture or traumatic subluxation. Moderate degenerative changes. Report Electronically Signed By: Jai Fischer 01/04/2025 2:46:27 AM [EST]
--- NOTE | 2025-01-04 02:56 | PRELIM_ITS ---
CT scan of the chest, abdomen and pelvis with intravenous contrast (axial sections with sagittal and coronal reformats) January 04, 2025 0142 hours Clinical History: fall, pain No prior study is available for comparison. Findings: Situs inversus totalis is noted. There are streaky atelectasis in bilateral lower lobes. Mild left basilar dependent atelectasis is present. There is heterogeneous attenuation of the lungs, which may represent small airways disease versus interstitial pulmonary edema There is no pleural effusion or pne umothorax. There is no mediastinal collection. There is no pericardial effusion. Coronary artery calcification is noted. A large hiatal hernia is present with atelectasis of the adjacent right lung. There is a small right renal cyst. There are prominent extrarenal pelvis bilaterally. The liver, gallbladder, spleen, pancreas and adrenals are unremarkable. Moderate amount of fecal material is present in the colon. There are multiple colonic diverticula without evidence of diverticulitis. The urinary bladder is unremarkable. There is no free fluid or air.The aorta and its branches demonstrate atheromatous calcification without evidence of aneurysm. The bones are osteopenic. There is mild anterolisthesis of L3 on L4, L4 on L5, likely degenerative. There is moderate old compression fracture deformity of T8 vertebra. There is a old fracture of the left 9th rib. Impression: No visceral or bony injury in the chest, abdomen or pelvis. Situs inversus totalis. Heterogeneous attenuation of the lungs, which may represent small airways disease. Other findings as described above. Report Electronically Signed By: Jai Fischer 01/04/2025 2:56:03 AM [EST]
--- NOTE | 2025-01-04 05:47 | ECHO_ITS ---
Transthoracic Echo Report Ht (in): 66 Wt (lb): 170 Exam Location: Portable Status: Emergency Internet Marketing Executive: JU Kim^^^^ Indications: Procedure Performed: BP: 144 / 66 HR: 77 Technical Quality: Very technically difficult study MEASUREMENTS (Male / Female) Normal Values 2D ECHO LV Diastolic Diameter PLAX 3.2 cm 4.2 - 5.9 / 3.9 - 5.3 cm LV Systolic Diameter PLAX 2.5 cm IVS Diastolic Thickness 0.9 cm 0.6 - 1.0 / 0.6 - 0.9 cm LVPW Diastolic Thickness 0.9 cm 0.6 - 1.0 / 0.6 - 0.9 cm LV Relative Wall Thickness 0.6 LVOT Diameter 1.9 cm Aortic Root Diameter 3.9 cm LA Systolic Diameter LX 3.8 cm 3.0 - 4.0 / 2.7 - 3.8 cm DOPPLER AV Peak Velocity 160.3 cm/s AV Peak Gradient 10.3 mmHg AV Mean Gradient 7.3 mmHg AV Velocity Time Integral 38.3 cm AI Peak Velocity 265.5 cm/s AI Peak Gradient 28.2 mmHg AI Pressure Half Time 1159.5 ms LVOT Peak Velocity 117.0 cm/s LVOT Peak Gradient 5.5 mmHg LVOT Velocity Time Integral 33.1 cm LVOT Cardiac Index 3778.4 cm?/min?m? AV Area Cont Eq vti 2.4 cm? AV Area Cont Eq pk 2.1 cm? MV Area PHT 2.7 cm? MR Peak Velocity 443.0 cm/s MR Peak Gradient 78.5 mmHg Mitral E Point Velocity 82.8 cm/s Mitral A Point Velocity 114.0 cm/s Mitral E to A Ratio 0.7 TR Peak Velocity 262.0 cm/s TR Peak Gradient 27.5 mmHg FINDINGS Left Ventricle Normal left ventricular size, wall thickness, systolic function with no obvious regional wall motion abnormalities. There is grade I diastolic dysfunction of the left ventricle. The left ventricular ejection fraction is normal, estimated at 60-65%. Right Ventricle The right ventricle is normal in size and systolic function. The estimated right ventricular systolic pressure, 30 mmHg. Left Atrium The left atrial cavity size is mildly increased. Right Atrium The right atrium is normal by two-dimensional imaging, color flow and Doppler imaging with no structural abnormalities, no thrombus formation present. Atrial Septum The interatrial septum appears normal with no evidence of a shunt. Aorta The aorta is normal by two-dimensional, color flow and Doppler interrogation. Mitral Valve Mild mitral regurgitation. Mild mitral annular calcification. Aortic Valve Diffuse calcification of the aortic valve. Mild aortic valve regurgitation. Aortic valve sclerosis. Tricuspid Valve There is mild tricuspid valve regurgitation. Pulmonic Valve The pulmonic valve is not well visualized. There is no significant pulmonic valve regurgitation. Vessels The pulmonary artery appears normal. The inferior vena cava pulmonary and hepatic veins appear normal. Pericardium The pericardium is normal by two-dimensional imaging. There is no significant pericardial effusion. Other Findings dextracardia CONCLUSIONS indication: CHF Normal left ventricular size and function. Approximate ejection fraction is 65%. RV appears normal with RVSP 30 mmHg. LA is mildly dilated. Mild MAC with mild mitral regurgitation aortic valve sclerosis with mild aortic regurgitation Mild TR Nga Albarran (Electronically Signed) Final Date: 05 January 2025 11:57
--- NOTE | 2025-01-04 05:55 | PD.RESHP ---
Documentation for date of: 01/04/25 HPI History of Present Illness Chief complaint: fall down History of present illness: HPI:An 84-year-old female patient With past medical history of gout, atrial fibrillation not on anticoagulation, situs inversus, lymphedema, venous stasis, chronic low back pain, was brought to the ED from home after the patient had a fall down today. Patient reported that she was in the hallway using her walker to move around the house however she was trying to go to the restroom however while she was turning towards the restroom she fell down. Patient denied any history of dizziness, loss of consciousness, chest pain, denied hitting her head. Reported that the first thing fall to the ground was her back. At this time patient denied any pain however she feels just mild sore. Patient was was recently discharged from the hospital. Patient was recommended to go to a residential facility however due to insurance issues she was not able to does so. At that time patient underwent MRI and showed Thoracic MRI was done and it showed kyphosis of the dorsal spine, and subacute moderately severe compression fracture of T8 vertebral body without significant spinal stenosis. For that reason, patient was discharged home with home with home health for physical therapy. Home medications: Allopurinol, gabapentin, diltiazem, Lasix, acetaminophen, Eliquis, esomeprazole ED course: At the ED patient was vitally stable.Patient is CBC showed WBC of 8.4, hemoglobin 11.2, platelets 275 coagulation panel within normal limits, CMP was only significant for EGFR of 55, alk phosphatase of 122. Urinalysis was within normal limits, toxicology screening was only positive for opiate. Cervical CT scan was negative for any fracture or dislocation. Abdomen/pelvis with contrast was negative for any visceral or bony injury of the chest, abdomen, or pelvis PMH: As above Social hx: Patient uses a walker, lives alone her son lives in the same neighborhood Allergies: No known allergies Allergies: No known allergies Exam Vital Signs Temp Pulse Resp BP Pulse Ox O2 Del Method 97.5 F 79 17 141/89 H 100 Room Air 01/04/25 05:06 01/04/25 05:06 01/04/25 05:06 01/04/25 05:06 01/04/25 05:06 01/04/25 05:06 Narrative Exam GEN: AOx3, able to speak full sentences. HEENT: NC/AC, oral dry moist, neck supple. CVS: RRR, S1-S2 present, no murmurs appreciated. RESP: CTAB. GI: Soft,non distended, non tender, NBS. MSK:. Left ankle bullae, purple in color. able to move all 4 limbs, extreme nonpitting lower extremity edema, with dark brown pigmentation most likely secondary to her lymphedema. SKIN: warm, dry and scaly. ALCOHOL STILL OPERATOR: CN II-XII and Sensation grossly intact. Results: Labs 01/03/25 21:53 01/03/25 21:53 Labs: Short CBC 01/03/25 Range/Units 21:53 WBC 8.4 D (3.6-11.0) Thou/mm3 Hgb 11.2 L (12.0-16.0) g/dL Hct 33.8 L (36.0-46.0) % Plt Count 276 D (140-440) Thou/mm3 BMP 01/03/25 21:53 Sodium 141 Potassium 3.7 Chloride 105 Carbon Dioxide 25.7 BUN 19 Creatinine 1.0 Glucose 103 Calcium 9.8 Cardiac Enzymes 01/03/25 Range/Units 21:53 Troponin I < 0.020 (0.0-0.045) ng/mL Liver Function 01/03/25 Range/Units 21:53 Total Bilirubin 0.5 (0.3-1.2) mg/dL AST 17 (0-34) U/L ALT 10 (10-49) U/L Alkaline Phosphatase 122 H (46-116) U/L Albumin 4.3 (3.4-4.8) gm/dL Urine 01/04/25 Range/Units 00:34 Urine Color Yellow (Lt Yel-Yel) Urine Clarity Clear (Clear/Hazy) Urine pH 5.5 (5.0-7.0) Ur Specific [place] 1.021 (1.001-1.035) Urine Protein Negative (Neg - Trace) Urine Glucose (UA) Negative (Negative) Quality Measures Quality Measures none Advance care planning discussed with:: patient Medications Home Medications and Allergies Home Medications ?Medication ?Instructions ?Recorded ?Confirmed ?Type allopurinol 300 mg tablet 300 mg PO HS 08/02/21 12/28/24 History gabapentin 300 mg capsule 300 mg PO BID 09/15/21 12/28/24 History esomeprazole magnesium 40 mg 40 mg PO HS 12/22/24 12/28/24 History capsule,delayed release Allergies Allergy/AdvReac Type Severity Reaction Status Date / Time No Known Allergies Allergy Verified 01/03/25 21:21 Visit Medications Acetaminophen (Acetaminophen 325 Mg Tablet) 650 mg PO Q6H PRN PRN Reason: Fever >101.5 Stop: 02/03/25 05:46 Furosemide (Furosemide 40 Mg Tablet) 40 mg PO Q48H PAMELA Stop: 02/03/25 05:59 Ondansetron HCl (Ondansetron Inj 2 Mg/Ml Inj 2 Ml) 4 mg IV Q6H PRN; Protocol PRN Reason: NAUSEA OR VOMITING Stop: 02/03/25 05:46 Oxycodone/Acetaminophen (Oxycodone/Apap 5/325 Tablet) 1 tab PO Q6H PRN PRN Reason: PAIN SCALE 4-6 (Moderate Stop: 01/09/25 05:46 Pantoprazole Sodium (Pantoprazole Inj 40 Mg Vial) 40 mg IVP QDAY PAMELA Stop: 02/03/25 08:59 Assessment & Plan Plan Summary:An 84-year-old female patient With past medical history of gout, atrial fibrillation not on anticoagulation, situs inversus, lymphedema, venous stasis, chronic low back pain, was brought to the ED from home after the patient had a fall down today. Patient reported that she was in the hallway using her walker to move around the house however she was trying to go to the restroom however while she was turning towards the restroom she fell down patient was admitted for management of recurrent admissions #Recurrent fall down #History of subacute T8 fracture #Severe generalized weakness #History cerebral mass effect? Patient has worsening back pain associated with generalized weakness. Cervical CT scan was negative for any fracture or dislocation. Abdomen/pelvis with contrast was negative for any visceral or bony injury of the chest, abdomen, or pelvis Patient has severe lower extremity lymphedema which also contribute to her generalized weakness. During previous admission thoracic MRI was done and it showed kyphosis of the dorsal spine, and subacute moderately severe compression fracture of T8 vertebral body without significant spinal stenosis. It was recommended by the radiologist to do an elective MRI of the thoracic spine without contrast follow-up to exclude thoracic syrinx cavity, Her lumbar spine MRI mainly showed L4-L5 severe acquired spinal stenosis Plan: Admit for property assessment monitor Physical therapy evaluation and possible SNF placement for rehab Pain management with Cetamide, [place], morphine Consider resuming her home medication gabapentin 300 mg p.o. twice daily after med rec also Follow-up with neurology as an outpatient if needed #History of atrial fibrillation #Hypertension Not on on Eliquis due to the recurrent fall down Patient on home diltiazem HCl 120 mg p.o. daily Plan: Consider restarted patient on diltiazem 120 mg p.o. daily #History of gout Patient on allopurinol 300 mg p.o. daily Plan: Restarted home medication Hospital Management: Diet: Cardiac diet Lines: PIV GI prophylaxis: Protonix DVT prophylaxis: SCD Dispo: Med/tele Code: DNR/DNI Patient's plan and care discussed with my attending, Dr. Maricarmen Banegas MD Internal Medicine PGY-2 Attending Provider Attestation/Addendum I attest that I was physically present for the evaluation, physical examination, lab and imaging review of the patient with the residents. I discussed the case with the residents and agree with the findings and plans of care as documented above. Patient is an 84 years old female with past medical history of gout, A-fib, situs inversus, lymphedema, venous stasis and chronic back pain who presented to the ED after a fall. Patient was recently discharged after being managed for subacute T8 fracture, generalized weakness and UTI. She also has L4-L5 severe spinal stenosis. She was evaluated by physical therapy at that time and was recommended to continue physical therapy at residential facility. Patient had issues with insurance and was discharged on home health PT. At home, while she was trying to ambulate with her walker on hallway she had the fall, denied any dizziness, loss of consciousness, hitting her head. In the ED, her vitals were within normal limits, saturating well on room air. Lab results were also nonconcerning. Toxicology screening was positive for opiates. Cervical CT scan was obtained which was negative for acute fracture or dislocation. We will admit the patient for observation, to be reevaluated by physical therapy for recurrent fall and generalized weakness with possible SNF placement on discharge. Started her on analgesics regimen. We will resume her home medications for A-fib, gout. Patient is not on anticoagulation due to the recurrent falls. Fawn Hernadez MD
[2025-01-04] MEDS: Furosemide 40 MG TABLET PO (06:18)
--- NOTE | 2025-01-04 10:42 | CHAP ---
Patient was sleeping peacefully. Prayed quietly in room.
[2025-01-04] MEDS: PANTOPRAZOLE INJ 40 MG VIAL IVP (11:30)
--- NOTE | 2025-01-04 11:39 | PC.NURSE ---
Rn report given to Travon Altamirano, patient will transfer to room 266.
--- NOTE | 2025-01-04 13:46 | PD.RESPRO ---
Documentation for date of: 01/04/25 Subjective Subjective Interval history: Jessy Vergara is an 84-year-old female with a past medical history of A-fib (not on AC), situs inversus, lymphedema, venous stasis, chronic lower back pain, and gout who presented to the ED from home after ground-level fall. States that she was in her hallway walking with her walker and fell while turning without reported head strike. Denied dizziness, loss of consciousness, chest pain, but did fall onto her back. Of note, patient was recently discharged and was recommended to be discharged to SNF but due to insurance issues unable to and was instead to go home with home health PT. However, patient states that home health did not arrive. Thus, patient admitted for management of recurrent falls and SNF placement. 01/04: Patient seen and examined at bedside in ED. States that she has not been able to get much sleep since being in the hospital and pain is managed with current regimen. Otherwise, she does not have any other complaints at this time. Exam Vital Signs Temp Pulse Resp BP Pulse Ox O2 Del Method 97.4 F 70 16 154/84 H 99 Room Air 01/04/25 11:14 01/04/25 11:17 01/04/25 11:17 01/04/25 11:17 01/04/25 11:17 01/04/25 11:17 Narrative Exam General: AOx3, in moderate distress, able to speak full sentences HEENT: NC/AT, mucous membranes moist, bilateral sclera anicteric Cardiovascular: regular rate and rhythm, S1/S2 present, no murmurs appreciated Pulmonary: clear to auscultation bilaterally, no rales/rhonchi/wheezes Abdominal: soft, non-tender, non-distended, no rebound/guarding, normal bowel sounds present Musculoskeletal: Left ankle bullae, purple in color. able to move all 4 limbs, extreme nonpitting lower extremity edema, with dark brown pigmentation most likely secondary to her lymphedema. Skin: warm and dry, intact, no rashes Neuro: CN II-XII intact, no focal deficits Objective Labs 01/03/25 21:53 01/03/25 21:53 Labs: Laboratory Results - last 24 hr 01/03/25 01/04/25 01/04/25 21:53 00:34 00:43 WBC 8.4 D RBC 3.29 L Hgb 11.2 L Hct 33.8 L MCV 103 H MCH 34.0 MCHC 33.1 RDW Std Deviation 59.9 H Plt Count 276 D Neut % (Auto) 75 Lymph % (Auto) 15 Love % (Auto) 7 Eos % (Auto) 1 Baso % (Auto) 1 Neut # (Auto) 6.3 Lymph # (Auto) 1.3 Love # (Auto) 0.6 Eos # (Auto) 0.1 Baso # (Auto) 0.1 Immature Gran # (Auto) 0.08 H Absolute Nucleated RBC 0.00 Immature Gran % 1 H Nucleated RBC % 0 PT 10.7 INR 1.0 APTT 26.1 Sodium 141 Potassium 3.7 Chloride 105 Carbon Dioxide 25.7 Anion Gap 10 BUN 19 Creatinine 1.0 Estim Creat Clear Calc 42.3 L eGFR 55 L BUN/Creatinine Ratio 19 Glucose 103 Calculated Osmolality 283 Lactic Acid 1.1 Calcium 9.8 Corrected Calcium 9.8 Total Bilirubin 0.5 AST 17 ALT 10 Alkaline Phosphatase 122 H Troponin I < 0.020 Total Protein 6.7 Albumin 4.3 Globulin 2.4 Albumin/Globulin Ratio 1.8 Lipase 26 Ur Collection Type Voided Urine Color Yellow Urine Clarity Clear Urine pH 5.5 Ur Specific [place] 1.021 Urine Protein Negative Urine Glucose (UA) Negative Urine Ketones 1+ A Urine Blood Negative Urine Nitrite Negative Urine Bilirubin Negative Urine Urobilinogen (Auto) Negative Ur Leukocyte Esterase Negative Urine RBC 2 Urine WBC 1 Ur Squamous Epith Cells 1 Urine Bacteria None Hyaline Casts < 1 Urine Opiates Screen Positive A Urine Fentanyl Screen Negative Ur Barbiturates Screen Negative U Amphetamin/Meth Scrn Negative U Benzodiazepines Scrn Negative U Cocaine Metab Screen Negative U Marijuana (THC) Screen Negative Ethyl Alcohol < 3.0 Quality Measures Quality Measures none Advance care planning discussed with:: patient Assessment & Plan Assessment Current Active Medications: Generic Name Dose Route Start Last Admin Trade Name Freq PRN Reason Stop Dose Admin Acetaminophen 650 mg 01/04/25 05:47 Acetaminophen 325 Mg Tablet PO 02/03/25 05:46 Q6H PRN Fever >101.5 Furosemide 40 mg 01/04/25 06:00 01/04/25 06:18 Furosemide 40 Mg Tablet PO 02/03/25 05:59 40 mg Q48H PAMELA Administration Ondansetron HCl 4 mg 01/04/25 05:47 Ondansetron Inj 2 Mg/Ml Inj 2 Ml IV 02/03/25 05:46 Q6H PRN NAUSEA OR VOMITING Protocol Oxycodone/Acetaminophen 1 tab 01/04/25 05:47 Oxycodone/Apap 5/325 Tablet PO 01/09/25 05:46 Q6H PRN PAIN SCALE 4-6 (Moderate Pantoprazole Sodium 40 mg 01/04/25 09:00 01/04/25 11:30 Pantoprazole Inj 40 Mg Vial IVP 02/03/25 08:59 40 mg QDAY PAMELA Administration Plan Jessy Vergara is an 84-year-old female with a past medical history of A-fib (not on AC), situs inversus, lymphedema, venous stasis, chronic lower back pain, and gout who presented to the ED from home after ground-level fall. States that she was in her hallway walking with her walker and fell while turning without reported head strike. Denied dizziness, loss of consciousness, chest pain, but did fall onto her back. Of note, patient was recently discharged and was recommended to be discharged to SNF but due to insurance issues unable to and was instead to go home with home health PT. However, patient states that home health did not arrive. Thus, patient admitted for management of recurrent falls and SNF placement. #Recurrent ground-level falls #History of subacute T8 fracture #Severe generalized weakness #? History cerebral mass effect Worsening back pain associated with generalized weakness. CT cervical spine: negative for any fracture or dislocation. CT A/P: negative for any visceral or bony injury of the chest, abdomen, or pelvis Severe lower extremity lymphedema, which may also be contributing to her generalized weakness During previous admission thoracic MRI was done and showed kyphosis of dorsal spine, and subacute moderately severe compression fracture of T8 vertebral body without significant spinal stenosis. Recommended by radiologist to do elective MRI of thoracic spine without contrast follow-up to exclude thoracic syrinx cavity. MRI lumbar spine mainly showed L4-L5 severe acquired spinal stenosis. ? Admit for monitoring and evaluation advisor ? Physical therapy evaluation and possible SNF placement for rehab ? Pain management with Cetamide, [place], morphine ? Consider resuming her home medication gabapentin 300 mg p.o. twice daily after med rec also ? Follow-up with neurology as an outpatient if needed #History of atrial fibrillation #Hypertension Not on Eliquis due to recurrent fall down On home diltiazem HCl 120 mg p.o. daily ? Consider restarted patient on diltiazem 120 mg p.o. daily #History of gout Home allopurinol 300 mg p.o. daily Hospital management: Disposition: management of recurrent falls, PT evaluation for SNF Fluids: not indicated Diet: cardiac Lines: PIV DVT prophylaxis: SCD GI prophylaxis: protonix CODE STATUS: DNR/DNI ----- Plan discussed with attending physician Dr. Hari Joseph MD PGY-1 Internal Medicine Attending Provider Attestation/Addendum I reviewed labs, imaging, EKG, home medications and prior available records. Face to face evaluation was performed by me. I have personally examined the patient and discussed assessment and plan with the IM team. I reviewed the resident note and agree with the plan with exceptions as below. See discharge summary
--- NOTE | 2025-01-04 14:57 | PC.SS ---
SS submitted SNF inquiry through [employer], pending PT notes for authorization.
--- NOTE | 2025-01-04 15:13 | PC.SS ---
Jessy Vergara is a 84 Year old admitted for . SS contacted patients son, Severiano Vergara who reports is her surrogate decision maker [phone].He reports ? Patient resides alone at home.? Patient utilizes a walker to assist with ambulation.? Patient does not utilize home oxygen.? He describes patient is ability to complete ADL?s independently.? ? Patient?s PCP is Nina Dahl. ?Patient utilizes [facility] pharmacy for medication services.? Discharge plan is for the patient to transition to SNF upon discharge. [facility] is [facility]. SS contacted [facility] and she is able to accept patient is [employer] authorizes. SS informed patient son, Severiano, that authorization would need to be obtained for SNF placement.? ? No further intervention required at this time, foster care social worker will be available to address any further concerns.? Next of Kin: Severiano Vergara D/C Plan: [facility] if [employer] authorizes
--- NOTE | 2025-01-04 15:30 | PC.SS ---
Addendum entered by Darby Albert 01/04/25 15:38: SS Contacted [facility] and they informed SS they will be reviewing clinicals and would contact SS. Original Note: SS follow up note; MARY BETH submitted authorization to [employer], pending auth.
--- NOTE | 2025-01-04 16:09 | PC.SS ---
SS was contacted by Kathy from [facility] and she informed SS that auth was approved. SS contacted patients son, Severiano and he informed SS he would be able to transport patient, SS also contacted patients nurse Miller from [facility].
--- NOTE | 2025-01-04 16:10 | PD.RESDS ---
Planned Discharge Date 01/04/25 DS: Providers Provider Date of admission: 01/04/25 05:47 Primary care physician: Nina Dahl NP Admitting Provider: Christopher Dewitt MD Attending Provider on Admission: Wei Noriega MD Consults: 01/04/25 05:52 Referral Physical Therapy Stat Comment: Physician Instructions: Attending Provider on DC: Jarvis Joseph MD Discharging Provider: Jarvis Joseph MD DS: Diagnosis Problem List Completed Was Problem List Reviewed/Reconciled?: Yes Hospital Course Hospital Course Hospital course: Jessy Vergara is an 84-year-old female with a past medical history of A-fib (not on AC), situs inversus, lymphedema, venous stasis, chronic lower back pain, and gout who presented to the ED from home after ground-level fall. States that she was in her hallway walking with her walker and fell while turning without reported head strike. Denied dizziness, loss of consciousness, chest pain, but did fall onto her back. Of note, patient was recently discharged and was recommended to be discharged to SNF but due to insurance issues unable to and was instead to go home with home health PT. However, patient states that home health did not arrive. Thus, patient admitted for management of recurrent falls and SNF placement. Patient seen and examined at bedside in ED. States that she has not been able to get much sleep since being in the hospital and pain is managed with current regimen. Otherwise, she does not have any other complaints at this time. Spoke to SW shortly thereafter regarding case as patient lives alone and has history of recurrent falls and immediately began working on obtaining approval from insurance for patient to go to SNF. PT evaluated patient, who recommended SNF, and in afternoon it was confirmed that patient insurance authorization was approved for patient to be discharged to [facility]. Labs reviewed and unremarkable, vital signs stable, and patient deemed stable for discharge to SNF. Diagnoses during admission: #Recurrent ground-level falls #History of subacute T8 fracture #Severe generalized weakness #History of atrial fibrillation #Hypertension #History of gout Discharge instructions: - No changes made to medications, so continue all home medications as prescribed - Follow-up with PCP within 1 week of discharge - Follow PT recommendations and discharge to SNF for further physical therapy to improve strength and functional activity tolerance - Return to the ED if symptoms worsen or recur Time Spent with Patient Time attestation: Total time spent providing and/or coordinating discharge services: Exam Vital Signs Temp Pulse Resp BP Pulse Ox O2 Del Method 97.8 F 98 29 H 142/71 H 97 Room Air 01/04/25 12:21 01/04/25 12:21 01/04/25 12:21 01/04/25 12:21 01/04/25 12:21 01/04/25 12:21 Narrative Exam General: AOx3, in moderate distress, able to speak full sentences HEENT: NC/AT, mucous membranes moist, bilateral sclera anicteric Cardiovascular: regular rate and rhythm, S1/S2 present, no murmurs appreciated Pulmonary: clear to auscultation bilaterally, no rales/rhonchi/wheezes Abdominal: soft, non-tender, non-distended, no rebound/guarding, normal bowel sounds present Musculoskeletal: Left ankle bullae, purple in color. able to move all 4 limbs, extreme nonpitting lower extremity edema, with dark brown pigmentation most likely secondary to her lymphedema. Skin: warm and dry, intact, no rashes Neuro: CN II-XII intact, no focal deficits Discharge Plan Plan Patient Disposition: Xfer Skilled [facility] (SNF) Care Plan Goals: - No changes made to medications, so continue all home medications as prescribed - Follow-up with PCP within 1 week of discharge - Follow PT recommendations and discharge to SNF for further physical therapy to improve strength and functional activity tolerance - Return to the ED if symptoms worsen or recur Prescriptions/Referrals Prescriptions/Med Rec: Continued allopurinol 300 mg Tablet 300 mg PO HS gabapentin 300 mg Capsule 300 mg PO BID diltiazem HCl 120 mg Capsule,Extended Release 24hr 120 mg PO QDAY 30 Days Qty: 30 1RF furosemide 20 mg tablet 20 mg PO Q48H Qty: 30 0RF acetaminophen 325 mg Tablet 650 mg PO Q6H PRN (Reason: PAIN OR FEVER > 101) Qty: 60 0RF esomeprazole magnesium 40 mg capsule,delayed release(DR/EC) 40 mg PO HS Patient Comments: TAKE 1 CAPSULE BY MOUTH EVERY DAY hydrocodone-acetaminophen 5-325 mg tablet 1 tab PO Q8H MDD 3 PRN (Reason: pain) Qty: 12 0RF Referrals: Nina Dahl NP [Primary Care Provider] - Patient/Caregiver Discharge Instructions Print Language: Macedonian Stand Alone Forms: Siria Award Info., Patient Portal Info Letter Discharge Order Discharge Orders: Discharge (Routine); Ordered 01/04/25 Ordered By: Jarvis Rivera [facility] Quality Discharge Quality Measures VTE prophylaxis Attestestation Attestation I reviewed labs, imaging, EKG, home medications and prior available records. Face to face evaluation was performed by me. I have personally examined the patient and discussed assessment and plan with the IM team. I reviewed the resident note and agree with the plan with exceptions as below. Generalized weakness Frequent falls T8 compression fracture Atrial fibrillation with controlled ventricular rhythm Discussed with social service assistant: Ordered PT evaluation. Patient got a placement on the same day and she is stable from medical standpoint. Continue home medications. Management of pain as needed. Time spent is 35 minutes. More than 50% of the time was spent on patient education and coordination of care.
== END 2025-01-04 17:20 | disposition skilled nursing facility (03) | DRG 948 ==
LOC: SERX 01-04 04:16 → SERHOLD 01-04 07:01 → S2NX 01-04 13:42
PROVIDERS: Physician Assistant; Admitting Provider Student in an Organized Health Care Education/Training Program; Emergency Provider Emergency Medicine; PCP Registered Nurse; Visit Provider Student in an Organized Health Care Education/Training Program
DX: R53.1 Weakness (principal); Q89.3 Situs inversus; M10.9 Gout, unspecified; I48.91 Unspecified atrial fibrillation; I10 Essential (primary) hypertension; M54.50 Low back pain, unspecified; R07.81 Pleurodynia; G89.29 Other chronic pain; I89.0 Lymphedema, not elsewhere classified; I87.8 Other specified disorders of veins; M40.209 Unspecified kyphosis, site unspecified; Z66 Do not resuscitate; M48.061 Spinal stenosis, lumbar region without neurogenic claudication; W18.30XA Fall on same level, unspecified, initial encounter; R29.6 Repeated falls; Y93.01 Activity, walking, marching and hiking; Z79.899 Other long term (current) drug therapy
CPT/HCPCS: 36415; 71101; 71260; 72125; 73552; 73562; 73610; 73630; 74177; 80053; 80307; 80320; 81001; 83605; 83690; 84484; 85025; 85610; 85730; 87081; 93005; 93306; 96374; 97161; 99285; A4649; J2470; Q9967; A9270; G0480

== ENCOUNTER → 2025-01-11 | Outpatient (CLI) | payer OTHER, SELFPAY | END | disposition home or self-care (01) | LOC: SWHD 09:11 | PROVIDERS: Visit Provider Student in an Organized Health Care Education/Training Program | DX: I87.313 Chronic venous hypertension (idiopathic) with ulcer of bilateral lower extremity (principal); L97.522 Non-pressure chronic ulcer of other part of left foot with fat layer exposed; S81.802A Unspecified open wound, left lower leg, initial encounter; S81.801A Unspecified open wound, right lower leg, initial encounter; X58.XXXA Exposure to other specified factors, initial encounter; I89.0 Lymphedema, not elsewhere classified; I10 Essential (primary) hypertension; I48.91 Unspecified atrial fibrillation; D69.6 Thrombocytopenia, unspecified | CPT/HCPCS: 76830; 11042; 99213; A9270; G0463 ==

== ENCOUNTER → 2025-01-20 | Outpatient (CLI) | payer OTHER, SELFPAY | END | disposition home or self-care (01) | LOC: SWHD 09:59 | PROVIDERS: PCP Family Medicine; Referring Provider Family Medicine; Visit Provider Student in an Organized Health Care Education/Training Program | DX: I87.313 Chronic venous hypertension (idiopathic) with ulcer of bilateral lower extremity (principal); L97.522 Non-pressure chronic ulcer of other part of left foot with fat layer exposed; S81.802A Unspecified open wound, left lower leg, initial encounter; S81.801A Unspecified open wound, right lower leg, initial encounter; X58.XXXA Exposure to other specified factors, initial encounter; I89.0 Lymphedema, not elsewhere classified; I10 Essential (primary) hypertension; I48.91 Unspecified atrial fibrillation; D69.6 Thrombocytopenia, unspecified | CPT/HCPCS: 11042; 10060; A9270 ==

== ENCOUNTER → 2025-01-27 | Outpatient (CLI) | payer OTHER, SELFPAY | END | disposition home or self-care (01) | LOC: SWHD 09:12 | PROVIDERS: PCP Family Medicine; Referring Provider Family Medicine; Visit Provider Surgery | DX: I87.313 Chronic venous hypertension (idiopathic) with ulcer of bilateral lower extremity (principal); L97.522 Non-pressure chronic ulcer of other part of left foot with fat layer exposed; S81.802A Unspecified open wound, left lower leg, initial encounter; S81.801A Unspecified open wound, right lower leg, initial encounter; X58.XXXA Exposure to other specified factors, initial encounter; I89.0 Lymphedema, not elsewhere classified; I10 Essential (primary) hypertension; I48.91 Unspecified atrial fibrillation; D69.6 Thrombocytopenia, unspecified | CPT/HCPCS: 29581 ==

== ENCOUNTER → 2025-02-03 | Outpatient (CLI) | payer OTHER, SELFPAY | END | disposition home or self-care (01) | LOC: SWHD 13:37 | PROVIDERS: PCP Family Medicine; Referring Provider Family Medicine; Visit Provider Student in an Organized Health Care Education/Training Program | DX: I87.313 Chronic venous hypertension (idiopathic) with ulcer of bilateral lower extremity (principal); L97.522 Non-pressure chronic ulcer of other part of left foot with fat layer exposed; S81.802A Unspecified open wound, left lower leg, initial encounter; S81.801A Unspecified open wound, right lower leg, initial encounter; X58.XXXA Exposure to other specified factors, initial encounter; I89.0 Lymphedema, not elsewhere classified; I10 Essential (primary) hypertension; I48.91 Unspecified atrial fibrillation; D69.6 Thrombocytopenia, unspecified | CPT/HCPCS: 11042; A9270 ==

== ENCOUNTER → 2025-02-09 | Outpatient (CLI) | payer OTHER, SELFPAY | END | disposition home or self-care (01) | LOC: SWHD 14:52 | PROVIDERS: PCP Family Medicine; Referring Provider Family Medicine; Visit Provider Surgery | DX: I87.313 Chronic venous hypertension (idiopathic) with ulcer of bilateral lower extremity (principal); L97.522 Non-pressure chronic ulcer of other part of left foot with fat layer exposed; S81.802A Unspecified open wound, left lower leg, initial encounter; S81.801A Unspecified open wound, right lower leg, initial encounter; X58.XXXA Exposure to other specified factors, initial encounter; I89.0 Lymphedema, not elsewhere classified; I10 Essential (primary) hypertension; I48.91 Unspecified atrial fibrillation; D69.6 Thrombocytopenia, unspecified | CPT/HCPCS: 29581 ==

== ENCOUNTER → 2025-02-24 | Outpatient (CLI) | payer OTHER, SELFPAY | END | disposition home or self-care (01) | LOC: SWHD 13:15 | PROVIDERS: PCP Family Medicine; Referring Provider Family Medicine; Visit Provider Student in an Organized Health Care Education/Training Program | DX: I87.313 Chronic venous hypertension (idiopathic) with ulcer of bilateral lower extremity (principal); L97.522 Non-pressure chronic ulcer of other part of left foot with fat layer exposed; S81.802A Unspecified open wound, left lower leg, initial encounter; S81.801A Unspecified open wound, right lower leg, initial encounter; X58.XXXA Exposure to other specified factors, initial encounter; I89.0 Lymphedema, not elsewhere classified; I10 Essential (primary) hypertension; I48.91 Unspecified atrial fibrillation; D69.6 Thrombocytopenia, unspecified | CPT/HCPCS: 11042; A9270 ==

== ENCOUNTER → 2025-03-09 | Outpatient (CLI) | payer OTHER, SELFPAY | END | disposition home or self-care (01) | LOC: SWHD 09:05 | PROVIDERS: PCP Family Medicine; Referring Provider Family Medicine; Visit Provider Surgery | DX: I87.313 Chronic venous hypertension (idiopathic) with ulcer of bilateral lower extremity (principal); L97.522 Non-pressure chronic ulcer of other part of left foot with fat layer exposed; S81.802A Unspecified open wound, left lower leg, initial encounter; S81.801A Unspecified open wound, right lower leg, initial encounter; X58.XXXA Exposure to other specified factors, initial encounter; I89.0 Lymphedema, not elsewhere classified; I10 Essential (primary) hypertension; I48.91 Unspecified atrial fibrillation; D69.6 Thrombocytopenia, unspecified | CPT/HCPCS: 97597; A9270 ==

== ENCOUNTER → 2025-03-17 | Outpatient (CLI) | payer OTHER, SELFPAY | END | disposition home or self-care (01) | PROVIDERS: PCP Family Medicine; Referring Provider Family Medicine; Visit Provider Student in an Organized Health Care Education/Training Program | DX: I87.313 Chronic venous hypertension (idiopathic) with ulcer of bilateral lower extremity (principal); L97.522 Non-pressure chronic ulcer of other part of left foot with fat layer exposed; S81.802A Unspecified open wound, left lower leg, initial encounter; S81.801A Unspecified open wound, right lower leg, initial encounter; X58.XXXA Exposure to other specified factors, initial encounter; I10 Essential (primary) hypertension; I48.91 Unspecified atrial fibrillation; D69.6 Thrombocytopenia, unspecified; E11.51 Type 2 diabetes mellitus with diabetic peripheral angiopathy without gangrene; R59.0 Localized enlarged lymph nodes | CPT/HCPCS: 17250 ==

== ENCOUNTER → 2025-03-24 | Outpatient (CLI) | payer OTHER, SELFPAY | END | disposition home or self-care (01) | LOC: SWHD 08:59 | PROVIDERS: PCP Family Medicine; Referring Provider Family Medicine; Visit Provider Student in an Organized Health Care Education/Training Program | DX: I87.313 Chronic venous hypertension (idiopathic) with ulcer of bilateral lower extremity (principal); L97.522 Non-pressure chronic ulcer of other part of left foot with fat layer exposed; S81.802A Unspecified open wound, left lower leg, initial encounter; S81.801A Unspecified open wound, right lower leg, initial encounter; X58.XXXA Exposure to other specified factors, initial encounter; I10 Essential (primary) hypertension; I48.91 Unspecified atrial fibrillation; D69.6 Thrombocytopenia, unspecified; E11.51 Type 2 diabetes mellitus with diabetic peripheral angiopathy without gangrene; R59.0 Localized enlarged lymph nodes | CPT/HCPCS: 29581; A9270 ==

== ENCOUNTER → 2025-03-31 | Outpatient (CLI) | payer OTHER, SELFPAY | END | disposition home or self-care (01) | LOC: SWHD 08:29 | PROVIDERS: PCP Family Medicine; Referring Provider Family Medicine; Visit Provider Student in an Organized Health Care Education/Training Program | DX: I87.313 Chronic venous hypertension (idiopathic) with ulcer of bilateral lower extremity (principal); L97.522 Non-pressure chronic ulcer of other part of left foot with fat layer exposed; S81.802A Unspecified open wound, left lower leg, initial encounter; S81.801A Unspecified open wound, right lower leg, initial encounter; X58.XXXA Exposure to other specified factors, initial encounter; I10 Essential (primary) hypertension; I48.91 Unspecified atrial fibrillation; D69.6 Thrombocytopenia, unspecified; E11.51 Type 2 diabetes mellitus with diabetic peripheral angiopathy without gangrene; R59.0 Localized enlarged lymph nodes | CPT/HCPCS: 17250; A9270 ==

== ENCOUNTER → 2025-04-21 | Outpatient (CLI) | payer OTHER, SELFPAY | END | disposition home or self-care (01) | LOC: SWHD 09:09 | PROVIDERS: PCP Family Medicine; Referring Provider Family Medicine; Visit Provider Student in an Organized Health Care Education/Training Program | DX: I87.312 Chronic venous hypertension (idiopathic) with ulcer of left lower extremity (principal); E11.621 Type 2 diabetes mellitus with foot ulcer; L97.522 Non-pressure chronic ulcer of other part of left foot with fat layer exposed; L85.3 Xerosis cutis; R60.0 Localized edema; M79.81 Nontraumatic hematoma of soft tissue; I89.0 Lymphedema, not elsewhere classified | CPT/HCPCS: 97597; A9270 ==

== ENCOUNTER → 2025-04-28 | Outpatient (CLI) | payer OTHER, SELFPAY | END | disposition home or self-care (01) | LOC: SWHD 09:04 | PROVIDERS: PCP Family Medicine; Referring Provider Family Medicine; Visit Provider Student in an Organized Health Care Education/Training Program | DX: I87.312 Chronic venous hypertension (idiopathic) with ulcer of left lower extremity (principal); E11.621 Type 2 diabetes mellitus with foot ulcer; L97.522 Non-pressure chronic ulcer of other part of left foot with fat layer exposed; L85.3 Xerosis cutis; R60.0 Localized edema; M79.81 Nontraumatic hematoma of soft tissue; I89.0 Lymphedema, not elsewhere classified | CPT/HCPCS: 29581; A9270 ==

== ENCOUNTER → 2025-05-05 | Outpatient (CLI) | payer OTHER, SELFPAY | END | disposition home or self-care (01) | LOC: SWHD 10:35 | PROVIDERS: PCP Family Medicine; Referring Provider Family Medicine; Visit Provider Student in an Organized Health Care Education/Training Program | DX: L97.522 Non-pressure chronic ulcer of other part of left foot with fat layer exposed (principal); J44.9 Chronic obstructive pulmonary disease, unspecified; I73.9 Peripheral vascular disease, unspecified; I63.9 Cerebral infarction, unspecified; F15.90 Other stimulant use, unspecified, uncomplicated | CPT/HCPCS: 99212; G0463 ==

== ENCOUNTER → 2025-06-02 | Outpatient (CLI) | payer OTHER, SELFPAY | END | disposition home or self-care (01) | LOC: SWHD 09:36 | PROVIDERS: PCP Family Medicine; Referring Provider Family Medicine; Visit Provider Surgery | DX: L97.521 Non-pressure chronic ulcer of other part of left foot limited to breakdown of skin (principal); S81.812A Laceration without foreign body, left lower leg, initial encounter; X58.XXXA Exposure to other specified factors, initial encounter; R60.0 Localized edema; J44.9 Chronic obstructive pulmonary disease, unspecified; I73.9 Peripheral vascular disease, unspecified; I63.9 Cerebral infarction, unspecified; F15.90 Other stimulant use, unspecified, uncomplicated | CPT/HCPCS: 99213; G0463 ==

== ENCOUNTER → 2025-06-09 | Outpatient (CLI) | payer OTHER, SELFPAY | END | disposition home or self-care (01) | LOC: SWHD 09:12 | PROVIDERS: PCP Family Medicine; Referring Provider Family Medicine; Visit Provider Student in an Organized Health Care Education/Training Program | DX: L97.522 Non-pressure chronic ulcer of other part of left foot with fat layer exposed (principal); J44.9 Chronic obstructive pulmonary disease, unspecified; I73.9 Peripheral vascular disease, unspecified; I63.9 Cerebral infarction, unspecified; F15.90 Other stimulant use, unspecified, uncomplicated | CPT/HCPCS: 99212; G0463 ==

== ENCOUNTER 2025-08-30 20:26 | Inpatient (IN) | payer OTHER, MEDICARE, SELFPAY ==
[2025-08-30 20:29] VITALS: PULSE 115; RESP 22; O2SAT 88; BMI 39.2
[2025-08-30 20:34] VITALS: BP 165/104; PULSE 116; RESP 24; TEMP 38.4; O2SAT 93
--- NOTE | 2025-08-30 20:35 | EDNOTE_ITS ---
Nausea/Vomit./Diarrhea-RME/HPI General Chief complaint: Nausea/Vomiting/Diarrhea Stated complaint: VOMITING Time Seen by Provider: 08/30/25 20:36 Arrival date/time: 08/30/25 20:26 RME / HPI RME / HPI Narrative: Dr. Licea?s Main ED Evaluation: 84yo female with a history of gout, situs inversus, HTN, aFib (not on blood thinners) BIBA from [facility] presents to the ED for a chief complaint of N/V x 1 hour. Patient started having sudden nausea and vomiting 1 hour [employer]. SNF staff administered Zofran 8mg PO, but the patient was unable to tolerate it. EMS administered Zofran 4mg IV en route. Patient noted to have coffee-ground emesis on her face upon ED arrival. Patient reportedly had left flank pain at the [facility], but currently denies any abdominal pain. Patient was saturating at 88% room air with EMS and went up to 95% on 6L/NC. Patient denies any history of similar symptoms. NKA. Related Data Home Medications ?Medication ?Instructions ?Recorded ?Confirmed allopurinol 300 mg tablet 300 mg PO HS 08/02/21 gabapentin 300 mg capsule 300 mg PO BID 09/15/2112/28 esomeprazole magnesium 40 mg 40 mg PO HS 12/22/2412/05 capsule,delayed release Previous Rx's ?Medication ?Instructions ?Recorded diltiazem HCl 120 mg 120 mg PO QDAY 30 days #30 c aps 02/10/24 capsule,extended release 24 hr acetaminophen 325 mg tablet 650 mg (2 x 325 mg) PO Q6H PRN 09/03/24 PAIN OR FEVER > 101 #60 tabs furosemide 20 mg tablet 20 mg PO Q48H #30 tabs 09/03 hydrocodone 5 mg-acetaminophen 325 1 tab PO Q8H PRN pa in #12 tabs 12/30/24 mg tablet Allergies Allergy/AdvReac Type Severity Reaction Status Date / Time No Known Allergies Allergy Verified 01/03/25 21:21 Review of Systems Review of Systems Systems Reviewed: All systems reviewed, normal except as documented ED Exam Narrative Physical exam: Generally patient is alert actively vomiting, vomitus is coffee-ground, heart regular rate and rhythm, lungs clear to auscultation equal laterally, abdomen soft bowel sounds present minimally distended and nontender currently, extremities show no edema, skin is cool pale and dry, neurologic exam shows the patient to be alert without focal motor deficit Course Course Course Narrative: 2036: Sepsis alert initiated. Orders made at this time are congruent with ED Adult Sepsis Order List. Re-evaluation is to be completed. CXR is ordered for determining the etiology of fever. 2109: LR IVF started. Quality Measures Possible source: pulmonary and genitourinary Blood cultures ordered: yes Antibiotic ordered: Yes Pertinent labs: 08/30/25 20:46 Lactic Acid 2.1 H mMol/L (0.4-2.0) sepsis Orders Category Date Time Status CT Screening NOW Care 08/30/25 20:49 Active EKG (ED ONLY) *Do not use* NOW Care 08/30/25 20:[address] abdomen pelvis w con Stat Exams 08/30/25 20:49 Ordered EKG (ED Only) Stat Exams 08/30/25 20:37 Draft XR chest 1V portable Stat Exams 08/30/25 20:37 Completed Blood Culture (Lab) Stat Lab 08/30/25 20:46 Received CBC Stat Lab 08/30/25 20:46 Completed CMP [Comprehensive Metabolic Panel] Stat Lab 08/30/25 20:46 Completed Lactic Acid [Lactate (Lactic Acid)] Stat Lab 08/30/25 20:46 Results Lipase Stat Lab 08/30/25 20:46 Completed PT [Prothrombin Time with INR] Stat Lab 08/30/25 20:46 Completed Troponin I Stat Lab 08/30/25 20:46 Completed UA [Urinalysis] Stat Lab 08/30/25 20:54 Completed Metoclopramide Inj [Reglan Inj] Med 08/30/25 20:36 Discontinued 10 mg IVP X1 ONE Pantoprazole Inj [Protonix Inj] Med 08/30/25 20:36 Discontinued 40 mg IVP X1 ONE Ringers Lactated 1000 ml [Lactated Ringers] 1,000 ml Med 08/30/25 20:36 Disco ntinued IV 999 mls/hr cefTRIAXone/D5w 1gm IV premix [Rocephin/D5w 1gm IV Med 08/30/25 22:10 Ordered premix] 1 gm in 50 ml IV X1 Vital Signs Vital signs: Vital Signs Temperature 101.1 F H 08/30/25 20:34 Pulse Rate 116 H 08/30/25 20:34 Respiratory Rate 24 H 08/30/25 20:34 Blood Pressure 165/104 H 08/30/25 20:34 Pulse Oximetry (%) 93 L 08/30/25 20:34 Oxygen Delivery Method Room Air 08/30/25 20:34 Nausea/Vomiting/Diarrhea MDM Narrative MDM Narrative:: Scribe Attestation: 08/30/25 - Tonya Cloud am scribing for and in the presence of Dr. Licea. Patient had received Zofran IV by paramedics. Patient continues to vomit. It is coffee ground emesis. No bright red blood. Patient was hydrated with a liter of lactated Ringer's and given Reglan 10 mg IV and Protonix 40 mg IV. Patient had a temperature of 101 degrees. The urine is infected. Lactic acid level is 2.1. White count is 15,000. Hemoglobin is 13. Platelet count is 222,000. Patient received Rocephin 1 g IV. Patient's vomiting is controlled. Patient does have a history of gastroesophageal reflux as well as anemia and hypertension. She is not on antiplatelet or anticoagulation medication. Case was discussed with the hospitalist and the patient will be admitted to the hospital for further treatment and evaluation. Patient data External records reviewed:: [facility] previous records (Per chart review, patient was admitted here on 01/03/25 for frequent falls.) and EMS form Clinical information provided by:: patient and EMS Social determinants that could affect healthcare access:: housing (SNF resident) Patient has the following chronic illnesses:: gout, situs inversus, HTN, aFib How is presenting disease/condition affected by chronic disease/condition?: uneffected by Evaluation data The following diagnostics were reviewed and interpreted by me:: lab results, radiology exam(s) and EKG tracing(s) Lab and/or radiology exams considered but not ordered:: none Interpretation Summary: [facility] Report Signed Patient: FELIX SUN [facility]. Record#: [id number] Birthdate: 1940 Age/Sex: 84 / F Location: [facility] Attending Dr: Ordering Physician: Mateo Licea DO Date of Service: 08/30/25 Procedure(s): XR chest 1V portable Accession Number(s): [id number] cc: Ambrocio Davis MD; Mateo Licea DO; Arnel Alvarez MD~ EXAMINATION: AP chest single view TECHNIQUE: AP portable upright chest single view Date and time: August 30, 2025, 2114 hours, comparison January 03, 2025 INDICATIONS: Nausea vomiting chest pain today. FINDINGS: Situs inversus Enlarged cardiac contour with prominent vascular congestion Pneumonia right base Prominent osteopenia IMPRESSION: Mild heart failure Significant pneumonia right base Dictated By: Ambrocio Davis MD Signed By: <Electronically signed by Ambrocio Davis MD in OV> 08/30/254 Medications / Prescriptions Medications / Prescriptions considered but not ordered:: none Medication administrations:: Medication Administration History Ceftriaxone Sodium/Dextrose (Rocephin/D5w 1gm Iv Premix) 1 gm in 50 mls @ 100 mls/hr IV X1 ONE Stop: 08/30/25 22:39 Discontinued Medications Lactated Ringer's (Lactated Ringers) 1,000 mls @ 999 mls/hr IV .Q1H1M ONE Stop: 08/30/25 21:36 Last Admin: 08/30/25 21:10 Dose: 999 mls/hr Documented By: RAKESH Metoclopramide HCl (Metoclopramide Inj 5 Mg/Ml Vial 2 Ml) 10 mg IVP X1 ONE; Protocol Stop: 08/30/25 20:37 Last Admin: 08/30/25 21:11 Dose: 10 mg Documented By: RAKESH Pantoprazole Sodium (Pantoprazole Inj 40 Mg Vial) 40 mg IVP X1 ONE Stop: 08/30/25 20:37 Last Admin: 08/30/25 21:10 Dose: 40 mg Documented By: RAKESH see above Consultations Consultation(s) initiated? (list below): Yes Diagnosis Nausea Differential Diagnosis: other (See MDM) Most likely diagnosis given after review of the tests above:: see clinical impression below Admission Indicated Admission indicated?: indicated Admission Request Was there a request for admission?: Yes Admission Attestation Admission request attestation: Discussed case with [] from Hospitalist service regarding admission. Discussed patients ED course, exam findings, labs, and radiology results. The Hospitalist [agrees,declines] to accept the patient for admission. Disposition Plan Disposition Plan: Admit Critical Care Time Critical Care Time Critical Care Time: Yes Total Critical Care Time (min.): 35 Attestation: Excluding other billable procedures Discharge Plan Plan Patient Disposition: Admit Acute Care w/in Hospital Prescriptions/Referrals Prescriptions/Med Rec: No Action allopurinol 300 mg Tablet 300 mg PO HS gabapentin 300 mg Capsule 300 mg PO BID diltiazem HCl 120 mg Capsule,Extended Release 24hr 120 mg PO QDAY 30 Days Qty: 30 1RF furosemide 20 mg tablet 20 mg PO Q48H Qty: 30 0RF acetaminophen 325 mg Tablet 650 mg PO Q6H PRN (Reason: PAIN OR FEVER > 101) Qty: 60 0RF esomeprazole magnesium 40 mg capsule,delayed release(DR/EC) 40 mg PO HS Patient Comments: TAKE 1 CAPSULE BY MOUTH EVERY DAY hydrocodone-acetaminophen 5-325 mg tablet 1 tab PO Q8H MDD 3 PRN (Reason: pain) Qty: 12 0RF Referrals: Arnel Alvarez MD [Primary Care Provider, Family Practice] - In 1 week Problem List Clinical Impression: UGIB (upper gastrointestinal bleed), Acute UTI Patient/Caregiver Discharge Instructions Print Language: Bulgarian Stand Alone Forms: Siria Award Info., Patient Portal Info Letter
--- NOTE | 2025-08-30 20:37 | EKG_ITS ---
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
--- NOTE | 2025-08-30 20:49 | XR_ITS ---
Examination: CT abdomen with intravenous contrast CT pelvis with intravenous contrast 2-D coronal reconstructions 2-D sagittal reconstructions Date and time of exam: August 30, 2025, 2241 hours, comparison January 04, 2025 INDICATIONS: Abdominal pain and vomiting beginning this morning . CTDI: vol (mGy) 11.1 DLP: (mGycm) 645 Technique: Multiple axial sections of the abdomen and pelvis have been obtained. 64 slice high-resolution scanner used. 3 mm axial sections have been obtained, post intravenous injection 60 cc [id number] 2-D sagittal, coronal reconstructions obtained. Low dose protocols were performed. One or more of the following dose reduction techniques were used; automated exposure control, adjustment of the mA and/or KV according to patient size, use of iterative reconstruction technique. Findings: Elevation right hemidiaphragm Situs inversus No liver or splenic lesion Gastric mucosa is thickened. No pancreatic mass Normal adrenal glands No hydronephrosis Aortic calcification no aneurysmal dilatation Colonic diverticulosis, no pericecal inflammatory change No diverticulitis 8.5 cm lateral pelvic wall hernia defect fat-containing Atrophic uterus Urinary bladder contracted around a Martinez catheter Severe osteopenia with advanced degenerative disc disease L4-L5 IMPRESSION: Situs inversus Gastritis Colonic diverticulosis No bowel obstruction Large fat-containing left lateral pelvic wall hernia defect Atrophic uterus No bowel obstruction
[2025-08-30 21:00] LABS: Lactate (Lactic Acid) 2.1 mMol/L (0.4-2.0)
[2025-08-30 21:02] LABS: Collection Type, Urine Catheter; Squamous Epithelial Cell,Urine 0 /hpf (0-5)
[2025-08-30 21:10] LABS: Basophils # (Auto) 0.1 Thou/mm3 (0.0-0.2); Basophils % (Auto) 1 % (0-2.5); Eosinophils # (Auto) 0.0 Thou/mm3 (0.0-0.5); Eosinophils % (Auto) 0 % (0-10); Hematocrit 39.8 % (36.0-46.0); Hemoglobin 13.4 g/dL (12.0-16.0); Immature Granulocytes Auto 0.07 Thou/mm3 (0.00-0.00); Lymphocytes # (Auto) 2.1 Thou/mm3 (1.0-4.8); Lymphocytes % (Auto) 14 % (10-50); Mean Corpuscular HGB Conc 33.7 g/dl (31.0-37.0); Mean Corpuscular Hemoglobin 31.6 pg (25.0-35.0); Mean Corpuscular Volume 94 fL (80-100); Monocytes # (Auto) 1.1 Thou/mm3 (0.0-0.8); Monocytes % (Auto) 8 % (0-12); Neutrophils # (Auto) 11.8 Thou/mm3 (1.8-7.7); Neutrophils % (Auto) 78 % (37-80); Nucleated Red Blood Cell # 0.00 Thou/mm3 (0.00-0.00); Nucleated Red Blood Cell % 0 /100 WBC (0); Platelet Count 222 Thou/mm3 (140-440); RDW Standard Deviation 55.3 fL (36.4-46.3); Red Blood Count 4.24 Miln/mm3 (4.00-5.20); White Blood Count 15.1 Thou/mm3 (3.6-11.0)
[2025-08-30] MEDS: RINGERS LACTATED 1000 ML 1,000 ML 999 ML IV (21:10)
[2025-08-30] MEDS: METOCLOPRAMIDE INJ 5 MG/ML VIAL 2 ML 10 MG IVP (21:11)
[2025-08-30 21:17] LABS: INR 1.0 (0.9-1.3); Prothrombin Time 10.4 Seconds (9.0-12.2)
[2025-08-30 21:34] LABS: Alanine Aminotransferase < 7 U/L (10-49); Albumin, Serum 4.7 gm/dL (3.4-4.8); Albumin/Globulin Ratio 1.9 (1.2-2.2); Alkaline Phosphatase 92 U/L (46-116); Anion Gap 14 (7-16); Aspartate Amino Transferase 20 U/L (0-34); BUN/Creatinine Ratio 15 Ratio (12-20); Bilirubin,Total 0.5 mg/dL (0.3-1.2); Blood Urea Nitrogen 12 mg/dL (9-23); Calcium 9.7 mg/dL (8.3-10.6); Calcium (Corrected) 9.7 mg/dL (8.5-10.1); Carbon Dioxide 24.5 mMol/L (20.0-31.0); Chloride 103 mMol/L (98-107); Creatinine (Component) 0.8 mg/dL (0.6-1.3); Estimated Creatinine Clearance 43.8 mL/min (>60); Globulin 2.5 gm/dL (2.3-3.5); Glucose 169 mg/dL (74-106); Lipase 26 U/L (12-53); Osmolality,Calculated 284 (275-295); Potassium 3.7 mMol/L (3.4-5.1); Sodium 141 mMol/L (136-145); Total Protein 7.2 gm/dL (5.7-8.2); Troponin I < 0.020 ng/mL (0.0-0.045); eGFR > 60 See Note
[2025-08-30 21:36] LABS: Amorphous Crystals,Urine Present (Absent); Bilirubin,Urine Negative (Negative); Blood,Urine 1+ (Negative); Color,Urine Yellow (Lt Yel-Yel); Glucose, Urine Negative (Negative); Ketones,Urine 1+ (Negative); Leukocyte Esterase,Urine Positive (Negative); Nitrite,Urine Negative (Negative); PH,Urine 6.5 (5.0-7.0); Protein,Urine 1+ (Neg - Trace); RBC,Urine 42 /hpf (0-3); Specific Gravity,Urine 1.017 (1.001-1.035); Urobilinogen,Urine Negative mg/dL (0.0-1.0); WBC,Urine 692 /hpf (0-5)
[2025-08-30 21:39] LABS: Bacteria,Urine 4+; Clarity,Urine Turbid (Clear/Hazy)
[2025-08-30 21:50] VITALS: BP 153/91; PULSE 99; RESP 19; O2SAT 98
[2025-08-30 22:15] VITALS: BP 161/96; PULSE 96; RESP 19; TEMP 37.2; O2SAT 96
[2025-08-30] MEDS: cefTRIAXone/D5w 1gm IV premix 1 GM/50 ML BAG IV (22:45)
--- NOTE | 2025-08-30 23:46 | ESHP_ITS ---
<Statement entered by Anh Harris MD - 08/31/25 05:15> Patient is 84 yr old male with hx of gout, situs inversus totalis, HTN, aFib (not on blood thinners), lymphedema, venous stasis, and chronic back pain BIBA from [facility]. Presenting with CC n/v for one day. Noticed coffee ground emesis that was little in volume. BP 165/104 HR 116 RR 24 T 101.1F O2 sat 93% on room air at bedside. Did eventually decompensate to 88%on RA. Required 6L NC and she improved. WBC 15.1, lactic acid 2.1, UA consistent with UTI, cxr showing right base pna. She is AOx3, son was a bedside. Stated that patient will be admitted for sepsis 2/2 UTI and PNA with AHRF. Started on IV ceftriazone and azithromycin. Urine and blood cultures are pending. Regarding code status: Patient's POLST form from facility says DNR/DNI and COMFORT CARE measures. We confirmed with patient and the son. They agree to IV antibiotics at this time. Day team to confirm again about any further treatment/mgmt such as EGD or colonoscopy. Note reviewed, I agree with most of its contents and agree with the patient's care as documented by Dr. Roth. The patient's management plan was discussed with my attending physician Dr. Talavera. Anh Harris, PGY-2 Documentation for date of: 08/30/25 HPI History of Present Illness History of present illness: 84yo DNR/DNI female on comfort measures with a history of gout, situs inversus totalis, HTN, aFib (not on blood thinners), lymphedema, venous stasis, and chronic back pain BIBA from [facility] presents to the ED for a chief complaint of one day of NV with reported coffee ground emesis. Admitted for sepsis with pneumonia and UTI. ED Course Summary Vitals: BP 165/104 HR 116 RR 24 T 101.1F O2 sat 93% RA Labs: WBC 15.1 coags wnl lactic acid 2.1 UA turbid +1 protein +1 ketone +1 blood 42 RBC 692 WBC +4 bacteria Imaging: EKG sinus tachycardia HR 101 QTc 446. CTAP situs inversus, gastritis, colonic diverticulitis, large fat containing left lateral pelvic wall hernia defect. CXR Mild heart failure, significant pneumonia right base Treatment: Ceftriaxone, metoclopramide 10mg, LR 1L, pantoprazole 40mg IVP Upon initial examination patient and son were present in the room. Patient is AOx3. Son states he visits his mother every other day and this is her baseline mentation. Of note, she is hard of hearing and requires glasses for reading. They confirmed her code status and that she is on comfort measures. The interviewers confirmed with the patient and son that they are agreeable to a brief trial of antibiotics and morning labs. Per patient she had a cough two days ago where she noticed a few specks of blood - son did not notice this. This morning when she awoke she had abdominal discomfort. The son's and daughter went to the facility where they witnessed the patient have multiple episodes of emesis following breakfast. The patient described the vomitus as being dark brown, she denies the coloration of purple or red, she denies any oily coloration or iridescence. She describes her stool similarly, as dark brown, denying maroon coloration or blackness as well as denying oily consistency. She denies any symptoms of urinary discomfort other than abdominal pain. She denies dysuria, denies incomplete bladder emptying. Is unsure if her urine is foul because she wears a diaper at the facility. No sick contacts. Denies chest pain, shortness of breath Code: DNR/DNI Insulin: None Medical Hx: gout, situs inversus totalis, HTN, aFib (not on blood thinners), lymphedema, venous stasis, and chronic back pain Medications: diltiazem 120 QD, acetominophen, allopurinol, esomeprazole, furosemide (Q2days for pedal edema), gabapentin 300mg BID, [place]. Allergies: NKA Surgical history: Appendectomy, venous leg stents Fhx: Noncontributory Living: [facility] (9months) Work: [employer], currently retired Alcohol: Denies Cigarettes/tobacco: Denies Recreational drugs: Denies Patient admitted for: sepsis with pneumonia and UTI All 12 systems reviewed and were negative except otherwise stated in HPI. Exam Vital Signs Temp Pulse Resp BP Pulse Ox O2 Del Method O2 Flow Rate 98.9 F 96 19 161/96 H 96 Nasal Cannula 5 08/30/25 22:15 08/30/25 22:15 08/30/25 22:15 08/30/25 22:15 08/30/25 22:15 08/30/25 22:15 08/30/25 22:15 Narrative Exam GENERAL APPEARANCE: AOx3. NAD, activity normal for age, well developed/ well nourished, no cyanosis, pallor, or diaphoresis. HEENT: Normocephalic atraumatic, no facial trauma, neck is supple. Lids/conjunctiva normal. Mucous membranes moist, nares normal, lips/teeth normal uvula midline without oral pharyngeal erythema, exudate or swelling TMs normal bilaterally. No lymphangitis/lymphedema. CARDIAC: Regular rate and rhythm, S1+S2 heard. No murmurs, rubs, or gallops noted RESPIRATORY: respiratory effort normal, speaks in full sentences, no tripod position, no accessory muscle use. R lung lobe rhonchi, no wheezes or crackles ABDOMINAL: NBS. Soft, ND. No evidence of fluid wave. No pulsatile masses on exam, rebound tenderness, Tamez sign or pain over Mcburney's point. Left quadrant hernia, +suprapubic tenderness, +RUQ pain MUSCLES/EXTREMITIES: No abnormal range of motion. +2 pedal edema, Chronic left foot ulcer/scar DERM: Warm, pink and dry. No rashes, dermatoses, petechiae or lesions. NEUROLOGICAL: Speech is clear and appropriate. Normal level of consciousness. 5/5 strength in all extremities. PSYCH: Normal mood and affect. Judgement/competence is appropriate Results: Labs 08/31/25 05:00 08/31/25 05:00 Labs: Short CBC 08/30/25 Range/Units 20:46 WBC 15.1 H (3.6-11.0) Thou/mm3 Hgb 13.4 (12.0-16.0) g/dL Hct 39.8 (36.0-46.0) % Plt Count 222 (140-440) Thou/mm3 BMP 08/30/25 20:46 Sodium 141 Potassium 3.7 Chloride 103 Carbon Dioxide 24.5 BUN 12 Creatinine 0.8 Glucose 169 H Calcium 9.7 Cardiac Enzymes 08/30/25 Range/Units 20:46 Troponin I < 0.020 (0.0-0.045) ng/mL Liver Function 08/30/25 Range/Units 20:46 Total Bilirubin 0.5 (0.3-1.2) mg/dL AST 20 (0-34) U/L ALT < 7 L (10-49) U/L Alkaline Phosphatase 92 (46-116) U/L Albumin 4.7 (3.4-4.8) gm/dL Urine 08/30/25 Range/Units 20:54 Urine Color Yellow (Lt Yel-Yel) Urine Clarity Turbid A (Clear/Hazy) Urine pH 6.5 (5.0-7.0) Ur Specific [place] 1.017 (1.001-1.035) Urine Protein 1+ A (Neg - Trace) Urine Glucose (UA) Negative (Negative) Quality Measures Quality Measures sepsis Current suspected stage: ruled out Possible source: pulmonary and genitourinary Blood cultures ordered: yes Antibiotic ordered: Yes Advance care planning discussed with:: patient and child Medications Home Medications and Allergies Home Medications ?Medication ?Instructions ?Recorded ?Confirmed ?Type allopurinol 300 mg tablet 300 mg PO HS 08/02/21 History gabapentin 300 mg capsule 300 mg PO BID 09/15/2108/31 History esomeprazole magnesium 40 mg 40 mg PO HS 12/22/2408/07 History capsule,delayed release bisacodyl 10 mg rectal suppository 10 mg [place] Q72H PRN c onstipation 08/31/25 08/31/25 History (Dulcolax (bisacodyl)) hydrocodone 5 mg-acetaminophen 325 1 tab PO Q6H PRN pa in 08/31/25 08/31/25 History mg tablet magnesium hydroxide 400 mg/5 mL 30 ml PO Q72H PRN cons tipation 08/31/25 08/31/25 History oral suspension (Dulcolax (magnesium hydroxide)) ondansetron 8 mg disintegrating 8 mg PO Q6HR PRN nause a and 08/31/25 08/31/25 History tablet vomiting sertraline 25 mg tablet (Zoloft) 25 mg PO QDAY 5 08/31/25 History sodium phosphates 19 gram-7 118 ml [place] Q72H PRN constip ation 08/31/25 08/31/25 History gram/118 mL enema (Enema) Allergies Allergy/AdvReac Type Severity Reaction Status Date / Time No Known Allergies Allergy Verified 01/03/25 21:21 Visit Medications Acetaminophen (Acetaminophen 325 Mg Tablet) 650 mg PO Q6H PRN PRN Reason: Fever >100.4 or pain 1-3 Stop: 09/29/25 23:38 Hydrocodone Bitart/Acetaminophen (Hydrocodone/Apap 5/325 Tablet) 1 tab PO Q4HR PRN PRN Reason: PAIN SCALE 4-6 (Moderate Stop: 09/04/25 23:38 Docusate Sodium (Docusate Sod 100 Mg Capsule) 100 mg PO QDAY PAMELA; Protocol Stop: 09/30/25 08:59 Heparin Sodium (Porcine) (Heparin Sod Inj 5000 Unit/Ml Vial) 5,000 unit SC Q12HR PAMELA Stop: 09/14/25 08:59 Lactated Ringer's (Lactated Ringers) 1,000 mls @ 999 mls/hr IV .Q1H1M ONE Stop: 08/31/25 00:44 Lactated Ringer's (Lactated Ringers) 1,000 mls @ 125 mls/hr IV .Q8H ONE Stop: 08/31/25 07:43 Ondansetron HCl (Ondansetron Inj 2 Mg/Ml Inj 2 Ml) 4 mg IVP Q6H PRN; Protocol PRN Reason: NAUSEA OR VOMITING Stop: 09/29/25 23:38 Pantoprazole Sodium (Pantoprazole 40 Mg Tablet) 40 mg PO QDAY [facility] Stop: 09/30/25 08:59 Discontinued Medications Lactated Ringer's (Lactated Ringers) 1,000 mls @ 999 mls/hr IV .Q1H1M ONE Stop: 08/30/25 21:36 Last Infusion: 08/30/25 23:17 Dose: Infused Ceftriaxone Sodium/Dextrose (Rocephin/D5w 1gm Iv Premix) 1 gm in 50 mls @ 100 mls/hr IV X1 ONE Stop: 08/30/25 22:39 Last Infusion: 08/30/25 23:16 Dose: Infused Metoclopramide HCl (Metoclopramide Inj 5 Mg/Ml Vial 2 Ml) 10 mg IVP X1 ONE; Protocol Stop: 08/30/25 20:37 Last Admin: 08/30/25 21:11 Dose: 10 mg Pantoprazole Sodium (Pantoprazole Inj 40 Mg Vial) 40 mg IVP X1 ONE Stop: 08/30/25 20:37 Last Admin: 08/30/25 21:10 Dose: 40 mg Sodium Chloride (Sodium Chloride Rt 10% 15 Ml Nebu) 5 ml INH X1 ONE Stop: 08/30/25 23:07 Assessment & Plan Plan 84yo DNR/DNI female on comfort measures with a history of gout, situs inversus totalis, HTN, aFib (not on blood thinners), lymphedema, venous stasis, and chronic back pain BIBA from [facility] presents to the ED for a chief complaint of one day of NV with reported coffee ground emesis. Admitted for sepsis with pneumonia and UTI. Patient and son confirmed her code status and that she is on comfort measures. The interviewers confirmed with the patient and son that they are agreeable to a brief trial of antibiotics and morning labs. #Acute hypoxic respiratory failure most likely 2/2 #Community acquired pneumonia Ddx CAP, atypicals Patient came in and found to have 2 or more SIRS criteria and was evaluated for sepsis. However, based upon further work-up, sepsis was ruled out. BP 165/104 HR 116 RR 24 T 101.1F O2 sat 93% RA --> with oxygen and fluids BP 121/85 HR 82 RR 19 T 96.8F O2 sat 97%RA. Lactic acid 2.1 -->1.2. WBC 15.1. Patient reports 1- 2 days of cough with possible blood specks. R lung lobe rhonchi. CXR mild heart failure, significant pneumonia right base. Denies chest pain and shortness of breath. +2 pedal edema seems to be gravity dependent/chronic due to venous stasis, not secondary to volume overload or CHF exacerbation. Plan: Patient and family ok with brief trial of abx -Continue oxygen 3L NC as needed. -Azithromycin 500mg QD (08/30 - -Ceftriaxone 1g IV QD (08/30 - -FUP sputum cx:___ -FUP blood cx:___ -IVF LR maintenance 1L #UTI - asymptomatic She denies any symptoms of urinary discomfort other than abdominal pain. She denies dysuria, denies incomplete bladder emptying. Is unsure if her urine is foul because she wears a diaper at the facility. UA turbid +1 protein +1 ketone +1 blood 42 RBC 692 WBC +4 bacteria. Plan: -PNA abx cross coverage -FUP urine cx:____ #Upper GI bleed #Hematemesis Per ED patient had coffee ground emesis and vomitus in the ED was guaic +. Patient states she has had a minor cough the last few days and noticed some specks of blood when she coughed. She also reports pain in her stomach upon waking that was worsened with food/breakfast in the morning. Patient states vomitus and stool was dark brown, denies any oily or black color. Denies any hematochezia. CTAP situs inversus, gastritis, colonic diverticulitis, large fat containing left lateral pelvic wall hernia defect. Had intense epigastric/stomach pain in ED that was improved with dilaudid and reglan. Plan: -No invasive procedures per comfort care POLST #Neuropathy Plan: -Continue gabapentin 300mg BID #A-fib (not on anticoagulation) #Hypertensive urgency #HTN Plan: -Continue diltiazem 120mg QD #Depression Plan: -Zoloft 25mg PO QD Health Maintenance: Code status: DNR/DNI DVT prophylaxis: SCDs - consider heparin after more in-depth conversation with family in AM GI prophylaxis: Protonix Diet: NPO [place]: Purewick Lines: PIV Supplemental O2: NC Disposition: To tele Patient seen and reviewed with attending Dr. Talavera and supervising resident Dr. Anh Harris. Note written by David Roth MD PGY-1 Attending Provider Attestation/Addendum After examination of the patient and review of the clinical data I feel that this patient needs admission to the hospital for further treatment/evaluation. Plan of care discussed with patient and is in agreement. I Jeanie Talavera MD, attest that I was physically present for [place] portions of evaluation, and examined patient, labs and imagings and plan of care were discussed with IM residents team, and I agree with the findings and plans documented above.
[2025-08-30 23:57] LABS: Reflex Lactate? Y
[2025-08-31] VITALS (12 sets, daily range): BP systolic 121–190; BP diastolic 85–115; PULSE 82–103; RESP 15–25; TEMP 36–37.3; O2SAT 94–99; BMI 37.4
[2025-08-31] MEDS: SODIUM CHLORIDE RT 10% 15 ML NEBU 5 ML INH (00:37)
[2025-08-31] MEDS: HYDROcodone/APAP 5/325 TABLET 1 TAB PO (00:41)
[2025-08-31] MEDS: RINGERS LACTATED 1000 ML 1,000 ML 125 ML IV (00:42)
[2025-08-31] MEDS: RINGERS LACTATED 1000 ML 1,000 ML 999 ML IV (00:42)
[2025-08-31] MEDS: AZITHROMYCIN INJ 500 MG in SODIUM CHLORIDE 0.9% 250 ML 250 ML 250 MG IV ×2 (00:44→22:47)
[2025-08-31 00:55] LABS: Lactic Acid, 3 HR 1.2 mMol/L (0.4-2.0)
[2025-08-31 00:55] LABS: COVID-19 Antigen (In-House) Negative (Negative)
[2025-08-31] MEDS: HYDROmorphone INJ 2 MG/ML VIAL 1 MG IVP (01:12)
[2025-08-31] MEDS: ONDANSETRON INJ 2 MG/ML INJ 2 ML 4 MG IVP ×3 (04:53→23:28)
[2025-08-31 05:52] LABS: Basophils # (Auto) 0.1 Thou/mm3 (0.0-0.2); Basophils % (Auto) 1 % (0-2.5); Eosinophils # (Auto) 0.0 Thou/mm3 (0.0-0.5); Eosinophils % (Auto) 0 % (0-10); Hematocrit 35.2 % (36.0-46.0); Hemoglobin 11.7 g/dL (12.0-16.0); Immature Granulocytes Auto 0.04 Thou/mm3 (0.00-0.00); Lymphocytes # (Auto) 1.5 Thou/mm3 (1.0-4.8); Lymphocytes % (Auto) 13 % (10-50); Mean Corpuscular HGB Conc 33.2 g/dl (31.0-37.0); Mean Corpuscular Hemoglobin 31.6 pg (25.0-35.0); Mean Corpuscular Volume 95 fL (80-100); Monocytes # (Auto) 0.8 Thou/mm3 (0.0-0.8); Monocytes % (Auto) 7 % (0-12); Neutrophils # (Auto) 9.4 Thou/mm3 (1.8-7.7); Neutrophils % (Auto) 79 % (37-80); Nucleated Red Blood Cell # 0.00 Thou/mm3 (0.00-0.00); Nucleated Red Blood Cell % 0 /100 WBC (0); Platelet Count 203 Thou/mm3 (140-440); RDW Standard Deviation 56.1 fL (36.4-46.3); Red Blood Count 3.70 Miln/mm3 (4.00-5.20); White Blood Count 11.9 Thou/mm3 (3.6-11.0)
[2025-08-31 06:31] LABS: Alanine Aminotransferase 8 U/L (10-49); Albumin, Serum 4.0 gm/dL (3.4-4.8); Albumin/Globulin Ratio 1.8 (1.2-2.2); Alkaline Phosphatase 81 U/L (46-116); Anion Gap 11 (7-16); Aspartate Amino Transferase 17 U/L (0-34); BUN/Creatinine Ratio 19 Ratio (12-20); Bilirubin,Total 0.4 mg/dL (0.3-1.2); Blood Urea Nitrogen 13 mg/dL (9-23); Calcium 9.6 mg/dL (8.3-10.6); Calcium (Corrected) 9.6 mg/dL (8.5-10.1); Carbon Dioxide 26.8 mMol/L (20.0-31.0); Chloride 102 mMol/L (98-107); Creatinine (Component) 0.7 mg/dL (0.6-1.3); Estimated Creatinine Clearance 48.7 mL/min (>60); Globulin 2.2 gm/dL (2.3-3.5); Glucose 147 mg/dL (74-106); Magnesium 1.4 mg/dL (1.6-2.6); Osmolality,Calculated 282 (275-295); Phosphorous 3.6 mg/dL (2.4-5.1); Potassium 3.7 mMol/L (3.4-5.1); Sodium 140 mMol/L (136-145); Total Protein 6.2 gm/dL (5.7-8.2); eGFR > 60 See Note
[2025-08-31] MEDS: DOCUSATE SOD 100 MG CAPSULE PO (08:05)
[2025-08-31] MEDS: SERTRALINE HCL 25 MG TABLET PO (08:05)
[2025-08-31] MEDS: GABAPENTIN 300 MG CAPSULE PO ×2 (08:05→20:30)
--- NOTE | 2025-08-31 08:17 | ESPR_ITS ---
<Statement entered by Gricelda Coronado MD - 08/31/25 20:22> Patient was seen and examined at bedside. I agree on the assessment and plan on this note as documented by resident Dr Keri Phan DO PGY1. 84-year-old female with past medical history as below, patient admitted overnight for GI bleed workup and sepsis secondary to urinary tract infection and pneumonia. Patient continues to have episodes of hematemesis throughout the day, per night team patient on comfort focused treatment, discussed with [facility] they have documented comfort focused treatment on POLST as well. Discussion held with patient's primary decision-maker son and patient at bedside, patient wants to proceed with selective treatment and is agreeable to EGD. POLST was updated signed and given to the showcase trimmer. Magnesium was repleted today, GI was consulted, will proceed with EGD today. Blood cultures resulted +1/2 GPC, will start on IV vancomycin, last dose of azithromycin in a.m., will continue with ceftriaxone as well. Repeat blood cultures in a.m. Case discussed with attending Dr. Erna Galarza MD PGY-2 Documentation for date of: 08/31/25 Subjective Subjective Interval history: The patient experienced multiple episodes of hematemesis this morning. She presented to the hospital with DNR/DNI status and on comfort care. When assessed, the patient was unable to answer questions consistently regarding her goals of care or desired interventions. Her niece, Subha Caraballo, and her son, Severiano Vergara, were contacted for clarification of decision making. They agreed to proceed with diagnostic procedures, including EGD and colonoscopy, but declined any aggressive surgical interventions. They emphasized that the patient would not want life sustaining measures in situations where she would be kept alive solely through artificial support (ex. PEG tube). The family agreed to discontinue the comfort care designation in coordination with the social science teacher, while maintaining the patient's DNR/DNI status. Consulted GI, for possible EGD or colonoscopy BCx was positive for GPC 1/2 UA: Showed turbid yellow urine collected on catheter, urine protein 1+, urine ketone 1 close, urine blood 1+, urine nitrate negative, urine leukocyte esterase positive, urine RBC 42, urine WBC 692, amorphous crystals present, urine bacteria 4+ Exam Vital Signs Temp Pulse Resp BP Pulse Ox O2 Del Method O2 Flow Rate 97.2 F 88 16 140/95 H 97 Room Air 2 08/31/25 04:00 08/31/25 07:17 08/31/25 07:17 08/31/25 04:00 08/31/25 07:17 08/31/25 04:00 08/31/25 07:17 Narrative Exam GENERAL APPEARANCE: AOx3. NAD, activity normal for age, well developed/ well nourished, no cyanosis, pallor, or diaphoresis. HEENT: Normocephalic atraumatic, no facial trauma, neck is supple. Lids/conjunctiva normal. Mucous membranes moist, nares normal, lips/teeth normal uvula midline without oral pharyngeal erythema, exudate or swelling TMs normal bilaterally. No lymphangitis/lymphedema. CARDIAC: Regular rate and rhythm, S1+S2 heard. No murmurs, rubs, or gallops noted RESPIRATORY: respiratory effort normal, speaks in full sentences, no tripod position, no accessory muscle use. R lung lobe rhonchi, no wheezes or crackles ABDOMINAL: NBS. Soft, ND. No evidence of fluid wave. No pulsatile masses on exam, rebound tenderness, Tamez sign or pain over Mcburney's point. Left quadrant hernia, +suprapubic tenderness, +RUQ pain MUSCLES/EXTREMITIES: No abnormal range of motion. +2 pedal edema, Chronic left foot ulcer/scar DERM: Warm, pink and dry. No rashes, dermatoses, petechiae or lesions. NEUROLOGICAL: Speech is clear and appropriate. Normal level of consciousness. 5/5 strength in all extremities. PSYCH: Normal mood and affect. Judgement/competence is appropriate Objective Labs 09/01/25 04:50 09/01/25 04:50 Labs: Laboratory Results - last 24 hr 08/30/25 08/30/25 08/30/25 00:00 20:46 20:54 WBC 15.1 H RBC 4.24 Hgb 13.4 Hct 39.8 MCV 94 MCH 31.6 MCHC 33.7 RDW Std Deviation 55.3 H Plt Count 222 Neut % (Auto) 78 Lymph % (Auto) 14 [place] % (Auto) 8 Eos % (Auto) 0 Baso % (Auto) 1 Neut # (Auto) 11.8 H Lymph # (Auto) 2.1 [place] # (Auto) 1.1 H Eos # (Auto) 0.0 Baso # (Auto) 0.1 Immature Gran # (Auto) 0.07 H Absolute Nucleated RBC 0.00 Immature Gran % 1 H Nucleated RBC % 0 PT 10.4 INR 1.0 Sodium 141 Potassium 3.7 Chloride 103 Carbon Dioxide 24.5 Anion Gap 14 BUN 12 Creatinine 0.8 Estim Creat Clear Calc 43.8 L eGFR > 60 BUN/Creatinine Ratio 15 Glucose 169 H Calculated Osmolality 284 Lactic Acid 2.1 H Calcium 9.7 Corrected Calcium 9.7 Phosphorus Magnesium Total Bilirubin 0.5 AST 20 ALT < 7 L Alkaline Phosphatase 92 Troponin I < 0.020 Total Protein 7.2 Albumin 4.7 Globulin 2.5 Albumin/Globulin Ratio 1.9 Lipase 26 Ur Collection Type Catheter Urine Color Yellow Urine Clarity Turbid A Urine pH 6.5 Ur Specific [place] 1.017 Urine Protein 1+ A Urine Glucose (UA) Negative Urine Ketones 1+ A Urine Blood 1+ A Urine Nitrite Negative Urine Bilirubin Negative Urine Urobilinogen (Auto) Negative Ur Leukocyte Esterase Positive Urine RBC 42 H Urine WBC 692 H Ur Squamous Epith Cells 0 Amorphous Crystals Present A Urine Bacteria 4+ A SARS-CoV-2 Ag (Rapid) Negative 08/31/25 08/31/25 00:32 05:00 WBC 11.9 H RBC 3.70 L Hgb 11.7 L Hct 35.2 L MCV 95 MCH 31.6 MCHC 33.2 RDW Std Deviation 56.1 H Plt Count 203 Neut % (Auto) 79 Lymph % (Auto) 13 [place] % (Auto) 7 Eos % (Auto) 0 Baso % (Auto) 1 Neut # (Auto) 9.4 H Lymph # (Auto) 1.5 [place] # (Auto) 0.8 Eos # (Auto) 0.0 Baso # (Auto) 0.1 Immature Gran # (Auto) 0.04 H Absolute Nucleated RBC 0.00 Immature Gran % 0 Nucleated RBC % 0 PT INR Sodium 140 Potassium 3.7 Chloride 102 Carbon Dioxide 26.8 Anion Gap 11 BUN 13 Creatinine 0.7 Estim Creat Clear Calc 48.7 L eGFR > 60 BUN/Creatinine Ratio 19 Glucose 147 H Calculated Osmolality 282 Lactic Acid 1.2 Calcium 9.6 Corrected Calcium 9.6 Phosphorus 3.6 Magnesium 1.4 L Total Bilirubin 0.4 AST 17 ALT 8 L Alkaline Phosphatase 81 Troponin I Total Protein 6.2 Albumin 4.0 D Globulin 2.2 L Albumin/Globulin Ratio 1.8 Lipase Ur Collection Type Urine Color Urine Clarity Urine pH Ur Specific [place] Urine Protein Urine Glucose (UA) Urine Ketones Urine Blood Urine Nitrite Urine Bilirubin Urine Urobilinogen (Auto) Ur Leukocyte Esterase Urine RBC Urine WBC Ur Squamous Epith Cells Amorphous Crystals Urine Bacteria SARS-CoV-2 Ag (Rapid) Quality Measures Quality Measures sepsis Current suspected stage: ruled out Possible source: pulmonary and genitourinary Blood cultures ordered: yes Antibiotic ordered: Yes Advance care planning discussed with:: patient Assessment & Plan Assessment Current Active Medications: Generic Name Dose Route Start Last Admin Trade Name Freq PRN Reason Stop Dose Admin Acetaminophen 650 mg 08/30/25 23:39 Acetaminophen 325 Mg Tablet PO 09/29/25 23:38 Q6H PRN Fever >100.4 or pain 1-3 Hydrocodone Bitart/Acetaminophen 1 tab 08/30/25 23:39 08/31/25 00:41 Hydrocodone/Apap 5/325 Tablet PO 09/04/25 23:38 1 tab Q4HR PRN Administration PAIN SCALE 4-6 (Moderate Diltiazem HCl 120 mg 08/31/25 09:00 Diltiazem Cd 120 Mg Capcr PO 09/30/25 08:59 QDAY PAMELA Docusate Sodium 100 mg 08/31/25 09:00 08/31/25 08:05 Docusate Sod 100 Mg Capsule PO 09/30/25 08:59 100 mg QDAY PAMELA Administration Protocol Gabapentin 300 mg 08/31/25 09:00 08/31/25 08:05 Gabapentin 300 Mg Capsule PO 09/30/25 08:59 300 mg BID PAMELA Administration Hydromorphone HCl 1 mg 08/31/25 00:58 08/31/25 01:12 Hydromorphone Inj 2 Mg/Ml Vial IVP 09/05/25 00:57 1 mg Q4HR PRN Administration pain 7-10 Ceftriaxone Sodium/Dextrose 1 gm in 50 mls @ 100 mls/hr 08/31/25 21:00 Rocephin/D5w 1gm Iv Premix IV 09/07/25 20:59 HS PAMELA Azithromycin 500 mg/ Sodium 250 mls @ 250 mls/hr 08/31/25 22:00 Chloride IV 09/07/25 21:59 QDAY@2200 PAMELA Magnesium Sulfate 4 gm in 50 mls @ 12.5 mls/hr 08/31/25 07:54 Magnesium Sulfate Ivpb IV 08/31/25 11:53 X1 ONE Ondansetron HCl 4 mg 08/30/25 23:39 08/31/25 04:53 Ondansetron Inj 2 Mg/Ml Inj 2 Ml IVP 09/29/25 23:38 4 mg Q6H PRN Administration NAUSEA OR VOMITING Protocol Pantoprazole Sodium 40 mg 08/31/25 09:00 08/31/25 08:05 Pantoprazole Inj 40 Mg Vial IVP 09/30/25 08:59 40 mg BID PAMELA Administration Sertraline HCl 25 mg 08/31/25 09:00 08/31/25 08:05 Sertraline Hcl 25 Mg Tablet PO 09/30/25 08:59 25 mg QDAY PAMELA Administration Plan 84yo DNR/DNI female on comfort measures with a history of gout, situs inversus totalis, HTN, aFib (not on blood thinners), lymphedema, venous stasis, and chronic back pain BIBA from [facility] presents to the ED for a chief complaint of one day of NV with reported coffee ground emesis. Admitted for sepsis with pneumonia and UTI. Patient's family agreed on minimally invasive procedures. #Haematemesis #Upper vs Lower GI bleed -Per ED patient had coffee ground emesis and vomitus in the ED was guaic +. Patient states she has had a minor cough the last few days and noticed some specks of blood when she coughed. She also reports pain in her stomach upon waking that was worsened with food/breakfast in the morning. Patient states vomitus and stool was dark brown, denies any oily or black color. Denies any hematochezia. -On assessment, patient has abdominal tenderness diffusely with guarding. -Hgb was in admission was 13.4 (08/30), decreased to 11.7 (08/31) -08/31: Patient had multiple episodes of hematemesis. -CT abd/pelvis w/ contrast (08/31/2025): Situs inversus, Gastritis, Colonic diverticulosis, No bowel obstruction, Large fat-containing left lateral pelvic wall hernia defect, Atrophic uterus, No bowel obstruction -XR abd (08/31/2025): Moderate stool throughout the colon, Minimal small bowel ileus, No obstruction -Patient and patient's family agreed to proceed with diagnostic procedures, including EGD and colonoscopy, but declined any aggressive surgical interventions. Plan: -Monitor H&H -Transfuse if hemoglobin less than 7 -Clear liquid diet and NPO after midnight for tentatively scheduled colonoscopy and possible endoscopy for upper GI bleed. -On protonix IV 40 twice daily -Consulted GI, Dr. Montemayor, appreciate recommendations. #Bacteremia, GPC 10/07 #Urinary Tract Infection #Pneumonia #Sepsis -Ruled out -Patient came in and found to have 2 or more SIRS criteria and was evaluated for sepsis. However, based upon further work-up, sepsis was ruled out. BP 165/104 HR 116 RR 24 T 101.1F O2 sat 93% RA --> with oxygen and fluids BP 121/85 HR 82 RR 19 T -96.8F O2 sat 97%RA. Lactic acid 2.1 -->1.2. WBC 15.1. Patient reports 1-2 days of cough with possible blood specks. R lung lobe rhonchi. Denies chest pain and shortness of breath. +2 pedal edema seems to be gravity dependent/chronic due to venous stasis, not secondary to volume overload or CHF exacerbation. -UA: Showed turbid yellow urine collected on catheter, urine protein 1+, urine ketone 1 close, urine blood 1+, urine nitrate negative, urine leukocyte esterase positive, urine RBC 42, urine WBC 692, amorphous crystals present, urine bacteria 4+ -CXR: mild heart failure, significant pneumonia right base. -BCx (08/30/2025): GPC 1/2 Plan: - IV Vancomycin (08/31- , repeat BC in AM -Patient and family ok with brief trial of abx -Azithromycin 500mg QD (08/30 -) -Ceftriaxone 1g IV QD (08/30 -) -Pending BCx, UCx #Hx of Neuropathy Plan: -Continue gabapentin 300mg BID #Hx of A-fib (not on eliquis) #Hx of HTN Plan: -Continue diltiazem 120mg QD #Hx of Depression Plan: -Zoloft 25mg PO QD Health Maintenance: Code status: DNR/DNI DVT prophylaxis: SCDs GI prophylaxis: Protonix Diet: NPO [place]: Purewick Lines: PIV Supplemental O2: NC Disposition: To tele Assessment and plan discussed with my attending physician Dr. Deluna and Dr. Coronado (PGY-2) Dr. Phan (PGY-1) - Internal medicine resident Attending Provider Attestation/Addendum I, Erna Deluna, , attest that I was physically present for the rockwell portions of the service and evaluated the patient with the resident and I reviewed and discussed the case with the resident and agree with the resident's findings and plans of care as documented above Patient seen and evaluated this AM. Patient seen and evaluated this a.m. Patient reports pain in her epigastric region. She continues to have coffee- ground emesis. Patient is A&O x 3, but unable to make any decisions for herself as she. Patient is very uncomfortable and in mild distress. She stated that she has had endoscopies in the past and does not feel like she needs any. When patient first came to the hospital, she was noted to have a POLST form that stated she was DNR/DNI and possibly on comfort care. However, this was clarified with patient's family and decision maker who are agreeable to undergo any procedures such as endoscopy or colonoscopy. If patient requires any surgical interventions, they would not like for patient to undergo such aggressive measures. After this clarification, GI was consulted. Patient was placed on clear liquid diet. She remains on Protonix 40 mg IV twice daily. Will continue to monitor H&H. She is otherwise hemodynamically stable. KUB was done due to pain on palpation of abdomen. No free air is noted under the diaphragm. Vancomycin was started as patient was noted to have 1 out of 2 blood cultures positive for gram-positive cocci. Patient had a fever overnight on presentation to the ED of 101.1. She is currently on azithromycin and Rocephin due to concern for pneumonia as well noted on the right lung base on chest x- ray. Patient currently remains on 2 L nasal cannula. Mild wheezing noted on auscultation. No peripheral edema noted on exam.
[2025-08-31] MEDS: Magnesium Sulfate 4 GM Ivpb 4 GM/50 ML BAG IV (08:23)
[2025-08-31] MEDS: DILTIAZEM CD 120 MG CAPCR PO (08:23)
--- NOTE | 2025-08-31 08:41 | PC.SS ---
Follow up note: On IV antibiotic. Pt is from [place].
--- NOTE | 2025-08-31 08:47 | PCS.ST ---
Swallow Evaluation completed. See report for details. Functional clyde-pharyngeal swallow. Recommend Full liquid or Clear liquid diet at this time d/t GI issues.
[2025-08-31] MEDS: ACETAMINOPHEN IVPB 1,000 MG/100 ML VIAL 250 MG IV (12:38)
--- NOTE | 2025-08-31 13:49 | XR_ITS ---
Examination: Abdomen AP single view Technique: AP portable supine abdomen, single view Exam date and time: August 31, 2025, 1434 hours INDICATIONS: Inpatient with abdominal pain. FINDINGS: Parenchymal disease at the lung bases Moderate stool throughout the colon No obstruction Minimal small bowel ileus Heavy vascular calcification Severe osteopenia IMPRESSION: Moderate stool throughout the colon Minimal small bowel ileus No obstruction
--- NOTE | 2025-08-31 14:32 | PC.SS ---
Follow up note: Pt is from [facility]. SS spoke to Yvette from [facility] who is requesting a PT evaluation (to return for skilled need). Yvette confirmed pt was on comfort care at [facility].
[2025-08-31] MEDS: Magnesium Sulfate 2 GM Ivpb 2 GM/50 ML BAG IV (15:01)
--- NOTE | 2025-08-31 16:14 | PC.SS ---
Pt is from [place], [facility]. Pt is alert/oriented. Pt was admitted for Acute Hypox Respiratory Failure + Intrac. Pt transfers into wheelchair with assistance. Pt requires assistances with ADLs. PerYvette patient's son, Severiano Tracy is her medical decision maker. Pt will return to [facility] upon dc. D/C plan: Return to [facility] Next of Kin: Severiano Vergara, son, phone# [phone] PCP: Dr. Arnel Alvarez Address: Correct on facesheet
[2025-08-31] MEDS: VANCOMYCIN/WATER 1250 MG IVPB 250 ML 120 MG IV (18:16)
[2025-08-31] MEDS: ACETAMINOPHEN 325 MG TABLET 650 MG PO (19:00)
--- NOTE | 2025-08-31 19:25 | PD.IMCONS ---
HPI Data of Consult Requesting Physician: Erna Deluna DO Primary Care Provider: Arnel Alvarez MD Consult Narrative Reason for consult: Nausea vomiting coffee-ground emesis History of present illness: 84-year-old female who is rehabbing in [place] had intractable nausea vomiting for over an hour and p.o. Zofran did not work and route by the ambulance Patient received 40 mg of IV Zofran and coffee-ground hematemesis was also noticed with blood on the face Presenting hemoglobin hematocrit 11.7 and 30.2 BUN/creatinine 13.7 Platelet count 203,000 KUB showing stool impaction CT scan of the abdomen pelvis without contrast showed a large left hernial defect in the left pelvic wall with gastritis and cirrhosis Patient does have a history of gout cytosine versus hypertension and atrial fibrillation not on any anticoagulation Patient was saturating at 88% in the ambulance given supplemental oxygen at 6 L and went up to 96% cc:: cc: Erna Deluna DO Review of Systems Review of Systems Systems Reviewed: All systems reviewed, normal except as documented Past Medical History Surgical History OTHER SURGICAL HX: As in the history of present illness Meds Home Medications and Allergies Home Medications ?Medication ?Instructions ?Recorded ?Confirmed ?Type allopurinol 300 mg tablet 300 mg PO HS 08/02/21 08/31/25 History gabapentin 300 mg capsule 300 mg PO BID 09/15/21 08/31/25 History esomeprazole magnesium 40 mg 40 mg PO HS 12/22/24 08/31/25 History capsule,delayed release bisacodyl 10 mg rectal suppository 10 mg MI Q72H PRN constipation 08/31/25 08/31/25 History (Dulcolax (bisacodyl)) hydrocodone 5 mg-acetaminophen 325 1 tab PO Q6H PRN pain 08/31/25 08/31/25 History mg tablet magnesium hydroxide 400 mg/5 mL 30 ml PO Q72H PRN constipation 08/31/25 08/31/25 History oral suspension (Dulcolax (magnesium hydroxide)) ondansetron 8 mg disintegrating 8 mg PO Q6HR PRN nausea and 08/31/25 08/31/25 History tablet vomiting sertraline 25 mg tablet (Zoloft) 25 mg PO QDAY 08/31/25 08/31/25 History sodium phosphates 19 gram-7 118 ml MI Q72H PRN constipation 08/31/25 08/31/25 History gram/118 mL enema (Enema) Allergies Allergy/AdvReac Type Severity Reaction Status Date / Time No Known Allergies Allergy Verified 01/03/25 21:21 Exam Vital Signs Temp Pulse Resp BP Pulse Ox O2 Del Method O2 Flow Rate 98.1 F 100 15 163/101 H 94 L Nasal Cannula 2 08/31/25 16:00 08/31/25 16:00 08/31/25 16:00 08/31/25 16:00 08/31/25 16:00 08/31/25 16:00 08/31/25 16:00 Constitutional Comments: Chronically ill-appearing Routine Respiratory Exam Comments: Scattered rhonchi Routine Abdominal Exam Comments: Positive bowel sounds Results Labs 09/02/25 05:01 09/02/25 05:01 Labs: Short CBC 08/30/25 08/31/25 Range/Units 20:46 05:00 WBC 15.1 H 11.9 H (3.6-11.0) Thou/mm3 Hgb 13.4 11.7 L (12.0-16.0) g/dL Hct 39.8 35.2 L (36.0-46.0) % Plt Count 222 203 (140-440) Thou/mm3 BMP 08/30/25 08/31/25 20:46 05:00 Sodium 141 140 Potassium 3.7 3.7 Chloride 103 102 Carbon Dioxide 24.5 26.8 BUN 12 13 Creatinine 0.8 0.7 Glucose 169 H 147 H Calcium 9.7 9.6 Cardiac Enzymes 08/30/25 Range/Units 20:46 Troponin I < 0.020 (0.0-0.045) ng/mL Liver Function 08/30/25 08/31/25 Range/Units 20:46 05:00 Total Bilirubin 0.5 0.4 (0.3-1.2) mg/dL AST 20 17 (0-34) U/L ALT < 7 L 8 L (10-49) U/L Alkaline Phosphatase 92 81 (46-116) U/L Albumin 4.7 4.0 D (3.4-4.8) gm/dL Urine 08/30/25 Range/Units 20:54 Urine Color Yellow (Lt Yel-Yel) Urine Clarity Turbid A (Clear/Hazy) Urine pH 6.5 (5.0-7.0) Ur Specific [place] 1.017 (1.001-1.035) Urine Protein 1+ A (Neg - Trace) Urine Glucose (UA) Negative (Negative) Assessment and Plan Additional Assessment & Plan Additional Plan: # Nausea vomiting with coffee-ground emesis Plan N.p.o. midnight tonight IV Protonix IV Zofran consent obtained for fiberoptic esophagogastroduodenoscopy with possible biopsy possible therapeutic intervention under intravenous moderate sedation Further evaluation after above Other medical problems include Chronic atrial fibrillation not on any anticoagulation Status and versus Essential hypertension Gout [place] resident in SNF Thank you very much for the opportunity to participate in the care of this patient
[2025-08-31] MEDS: cefTRIAXone/D5w 1gm IV premix 1 GM/50 ML BAG IV (20:13)
[2025-09-01] VITALS (17 sets, daily range): BP systolic 131–199; BP diastolic 76–115; PULSE 78–107; RESP 12–27; TEMP 36.2–37.1; O2SAT 92–98; BMI 38.7
[2025-09-01 05:32] LABS: Basophils # (Auto) 0.0 Thou/mm3 (0.0-0.2); Basophils % (Auto) 0 % (0-2.5); Eosinophils # (Auto) 0.0 Thou/mm3 (0.0-0.5); Eosinophils % (Auto) 0 % (0-10); Hematocrit 30.4 % (36.0-46.0); Hemoglobin 10.3 g/dL (12.0-16.0); Immature Granulocytes Auto 0.07 Thou/mm3 (0.00-0.00); Lymphocytes # (Auto) 1.3 Thou/mm3 (1.0-4.8); Lymphocytes % (Auto) 13 % (10-50); Mean Corpuscular HGB Conc 33.9 g/dl (31.0-37.0); Mean Corpuscular Hemoglobin 31.5 pg (25.0-35.0); Mean Corpuscular Volume 93 fL (80-100); Monocytes # (Auto) 0.8 Thou/mm3 (0.0-0.8); Monocytes % (Auto) 8 % (0-12); Neutrophils # (Auto) 7.6 Thou/mm3 (1.8-7.7); Neutrophils % (Auto) 77 % (37-80); Nucleated Red Blood Cell # 0.00 Thou/mm3 (0.00-0.00); Nucleated Red Blood Cell % 0 /100 WBC (0); Platelet Count 198 Thou/mm3 (140-440); RDW Standard Deviation 55.1 fL (36.4-46.3); Red Blood Count 3.27 Miln/mm3 (4.00-5.20); White Blood Count 9.8 Thou/mm3 (3.6-11.0)
[2025-09-01 06:28] LABS: Alanine Aminotransferase < 7 U/L (10-49); Albumin, Serum 3.8 gm/dL (3.4-4.8); Albumin/Globulin Ratio 1.9 (1.2-2.2); Alkaline Phosphatase 68 U/L (46-116); Anion Gap 11 (7-16); Aspartate Amino Transferase 16 U/L (0-34); BUN/Creatinine Ratio 40 Ratio (12-20); Bilirubin,Total 0.3 mg/dL (0.3-1.2); Blood Urea Nitrogen 28 mg/dL (9-23); Calcium 8.7 mg/dL (8.3-10.6); Calcium (Corrected) 8.9 mg/dL (8.5-10.1); Carbon Dioxide 27.8 mMol/L (20.0-31.0); Chloride 101 mMol/L (98-107); Creatinine (Component) 0.7 mg/dL (0.6-1.3); Estimated Creatinine Clearance 49.7 mL/min (>60); Globulin 2.0 gm/dL (2.3-3.5); Glucose 124 mg/dL (74-106); Magnesium 2.5 mg/dL (1.6-2.6); Osmolality,Calculated 285 (275-295); Phosphorous 2.8 mg/dL (2.4-5.1); Potassium 3.4 mMol/L (3.4-5.1); Sodium 140 mMol/L (136-145); Total Protein 5.8 gm/dL (5.7-8.2); eGFR > 60 See Note
[2025-09-01] MEDS: POT PHOS 15 mMol in NS 250 ML 15 MMOL/250 ML BAG 62.5 MMOL IV ×2 (08:04→14:18)
[2025-09-01] MEDS: VANCOMYCIN/WATER 1250 MG IVPB 250 ML 120 MG IV (11:30)
--- NOTE | 2025-09-01 11:36 | XR_ITS ---
EXAMINATION: AP chest single view TECHNIQUE: AP portable semiupright chest single view Date and time: September 01, 2025, 11:56 a.m., comparison August 30, 2025 INDICATIONS: Post orogastric tube placement. FINDINGS: Mild heart failure Mild enlargement cardiac contour Situs inversus Prominent vascular congestion. Pneumonia right base Orogastric tube in the stomach satisfactory position although the stomach remains distended IMPRESSION: Orogastric tube in satisfactory position in the stomach although there remains gastric dilatation
[2025-09-01] MEDS: METOCLOPRAMIDE INJ 5 MG/ML VIAL 2 ML IVP ×3 (14:18→23:48)
--- NOTE | 2025-09-01 16:16 | ESPR_ITS ---
<Statement entered by Gricelda Coronado MD - 09/01/25 18:04> Patient was seen and examined at bedside. I agree on the assessment and plan on this note as documented by resident Dr Keri Phan DO PGY1. Patient seen examined at bedside, status post EGD. Patient had significant amount of food in the body of stomach with poor visibility, has situs inversus and history of hiatal hernia, GI recommends leaving NG tube, keeping patient on low intermittent suctioning, will schedule for small bowel series in AM. Will repeat H&H, type and screen ordered. Transfuse if hemoglobin less than 7. Patient noted to have GPC bacteremia, repeat blood cultures from today pending, will continue with IV vancomycin, last dose of azithromycin tonight, will continue with ceftriaxone for empiric coverage of pneumonia and UTI. Follow cultures. Case discussed with attending Dr. Erna Galarza MD PGY-2 Documentation for date of: 09/01/25 Subjective Subjective Interval history: EGD (09/01/2025): showed esophageal ulcers oozing blood. Situs inversus noted. There were coffee ground material along with food in the body of the stomach with poor visibility. With high risk of aspiration, the scope was pulled out. GI recommended NG tube with intermittent suction with reglan 5mg IV [id number] NG tube was suctioning blood. H&H has been ordered tonight. Based on CT abd/pelvis scan, a significant portion of the stomach is located within the thoracic cavity, which is attributable to the patient's age, and underlying situs inverssus totalis. This large hatal hernia is the likely cause of her gastric outlet obstruction and hematemesis. . Ordered Gastrografin series for evaaluation of obsttuction and identify the precise location, if present. Will continue on IV antibiotics regimen IV Vancomycin, IV Azithromycin 500mg QD and IV Ceftriaxone 1g IV QD. Will discontinue Azithromycin tomorrow. Exam Vital Signs Temp Pulse Resp BP Pulse Ox O2 Del Method O2 Flow Rate 98.7 F 85 18 131/79 H 98 Nasal Cannula 2 09/01/25 11:57 09/01/25 12:00 09/01/25 11:57 09/01/25 11:57 09/01/25 11:57 09/01/25 11:57 09/01/25 11:57 Narrative Exam GENERAL APPEARANCE: AOx3. NAD, activity normal for age, well developed/ well nourished, no cyanosis, pallor, or diaphoresis. HEENT: Normocephalic atraumatic, no facial trauma, neck is supple. Lids/conjunctiva normal. Mucous membranes moist, nares normal, lips/teeth normal uvula midline without oral pharyngeal erythema, exudate or swelling TMs normal bilaterally. No lymphangitis/lymphedema. CARDIAC: Regular rate and rhythm, S1+S2 heard. No murmurs, rubs, or gallops noted RESPIRATORY: respiratory effort normal, speaks in full sentences, no tripod position, no accessory muscle use. R lung lobe rhonchi, no wheezes or crackles ABDOMINAL: NBS. Soft, ND. No evidence of fluid wave. No pulsatile masses on exam, rebound tenderness, Tamez sign or pain over Mcburney's point. Left quadrant hernia, +suprapubic tenderness, +RUQ pain MUSCLES/EXTREMITIES: No abnormal range of motion. +2 pedal edema, Chronic left foot ulcer/scar DERM: Warm, pink and dry. No rashes, dermatoses, petechiae or lesions. NEUROLOGICAL: Speech is clear and appropriate. Normal level of consciousness. 5/5 strength in all extremities. PSYCH: Normal mood and affect. Judgement/competence is appropriate Objective Labs 09/02/25 05:01 09/02/25 05:01 Labs: Laboratory Results - last 24 hr 09/01/25 04:50 WBC 9.8 RBC 3.27 L Hgb 10.3 L Hct 30.4 L MCV 93 MCH 31.5 MCHC 33.9 RDW Std Deviation 55.1 H Plt Count 198 Neut % (Auto) 77 Lymph % (Auto) 13 [place] % (Auto) 8 Eos % (Auto) 0 Baso % (Auto) 0 Neut # (Auto) 7.6 Lymph # (Auto) 1.3 [place] # (Auto) 0.8 Eos # (Auto) 0.0 Baso # (Auto) 0.0 Immature Gran # (Auto) 0.07 H Absolute Nucleated RBC 0.00 Immature Gran % 1 H Nucleated RBC % 0 Sodium 140 Potassium 3.4 Chloride 101 Carbon Dioxide 27.8 Anion Gap 11 BUN 28 H Creatinine 0.7 Estim Creat Clear Calc 49.7 L eGFR > 60 BUN/Creatinine Ratio 40 H Glucose 124 H Calculated Osmolality 285 Calcium 8.7 Corrected Calcium 8.9 Phosphorus 2.8 Magnesium 2.5 Total Bilirubin 0.3 AST 16 ALT < 7 L Alkaline Phosphatase 68 Total Protein 5.8 Albumin 3.8 Globulin 2.0 L Albumin/Globulin Ratio 1.9 Quality Measures Quality Measures sepsis Current suspected stage: ruled out Possible source: pulmonary and genitourinary Blood cultures ordered: yes Antibiotic ordered: Yes Advance care planning discussed with:: patient Assessment & Plan Assessment Current Active Medications: Generic Name Dose Route Start Last Admin Trade Name Freq PRN Reason Stop Dose Admin Acetaminophen 650 mg 08/30/25 23:39 08/31/25 19:00 Acetaminophen 325 Mg Tablet PO 09/29/25 23:38 650 mg Q6H PRN Administration Fever >100.4 or pain 1-3 Hydrocodone Bitart/Acetaminophen 1 tab 09/01/25 07:29 Hydrocodone/Apap 5/325 Tablet PO 09/04/25 23:38 Q4HR PRN PAIN SCALE 4-10(Mod-Sev Diltiazem HCl 120 mg 08/31/25 09:00 09/01/25 11:38 Diltiazem Cd 120 Mg Capcr PO 09/30/25 08:59 Not Given QDAY PAMELA Gabapentin 300 mg 08/31/25 09:00 09/01/25 11:38 Gabapentin 300 Mg Capsule PO 09/30/25 08:59 Not Given BID PAMELA Ceftriaxone Sodium/Dextrose 1 gm in 50 mls @ 100 mls/hr 08/31/25 21:00 08/31/25 22:34 Rocephin/D5w 1gm Iv Premix IV 09/07/25 20:59 Infused HS PAMELA Infusion Azithromycin 500 mg/ Sodium 250 mls @ 250 mls/hr 08/31/25 22:00 09/01/25 01:03 Chloride IV 09/01/25 21:59 Infused QDAY@2200 PAMELA Infusion Vancomycin HCl 250 mls @ 120 mls/hr 08/31/25 16:15 09/01/25 11:30 Vancomycin/Water 1250 Mg Ivpb IV 09/07/25 16:14 120 mls/hr QDAY@1000 PAMELA Administration Labetalol HCl 10 mg 08/31/25 21:44 08/31/25 22:48 Labetalol Inj 5 Mg/Ml Vial 4 Ml IVP 10 mg Q15MIN PRN Administration SBP >180 or DBP >100 Metoclopramide HCl 5 mg 09/01/25 12:00 09/01/25 14:18 Metoclopramide Inj 5 Mg/Ml Vial 2 Ml IVP 10/01/25 11:59 5 mg Q6HR PAMELA Administration Protocol Ondansetron HCl 4 mg 08/30/25 23:39 08/31/25 23:28 Ondansetron Inj 2 Mg/Ml Inj 2 Ml IVP 09/29/25 23:38 4 mg Q6H PRN Administration NAUSEA OR VOMITING Protocol Pantoprazole Sodium 40 mg 08/31/25 09:00 09/01/25 11:41 Pantoprazole Inj 40 Mg Vial IVP 09/30/25 08:59 40 mg BID PAMELA Administration Pharmacy Consult 1 each 08/31/25 16:15 Vancomycin Pharmacy To Dose 1 Each Each IV 09/30/25 16:14 QDAY PRN CONSULT Polyethylene Glycol 34 gm 08/31/25 10:13 Polyethylene Glycol 17 Gm Packet PO 09/30/25 10:14 QDAY PRN Constipation Sennosides 1 tab 08/31/25 10:15 09/01/25 11:38 Senna/Docusate Sod 1 Tab Tablet PO 09/30/25 10:14 Not Given QDAY PAMELA Protocol Sertraline HCl 25 mg 08/31/25 09:00 08/31/25 08:05 Sertraline Hcl 25 Mg Tablet PO 09/30/25 08:59 25 mg On Hold: 08/31/25 17:34 QDAY PAMELA Administration Plan 84yo DNR/DNI female on comfort measures with a history of gout, situs inversus totalis, HTN, aFib (not on blood thinners), lymphedema, venous stasis, and chronic back pain BIBA from [facility] presents to the ED for a chief complaint of one day of NV with reported coffee ground emesis. Admitted for sepsis with pneumonia and UTI. Patient's family agreed on minimally invasive procedures. #Haematemesis #Upper vs Lower GI bleed #Gastric Outlet Obstruction -Per ED patient had coffee ground emesis and vomitus in the ED was guaic +. Patient states she has had a minor cough the last few days and noticed some specks of blood when she coughed. She also reports pain in her stomach upon waking that was worsened with food/breakfast in the morning. Patient states vomitus and stool was dark brown, denies any oily or black color. Denies any hematochezia. -On assessment, patient has abdominal tenderness diffusely with guarding. -Hgb was in admission was 13.4 (08/30), decreased to 11.7 (08/31) -08/31: Patient had multiple episodes of hematemesis. -CT abd/pelvis w/ contrast (08/31/2025): Situs inversus, Gastritis, Colonic diverticulosis, No bowel obstruction, Large fat-containing left lateral pelvic wall hernia defect, Atrophic uterus, No bowel obstruction -XR abd (08/31/2025): Moderate stool throughout the colon, Minimal small bowel ileus, No obstruction -Patient and patient's family agreed to proceed with diagnostic procedures, including EGD and colonoscopy, but declined any aggressive surgical interventions. -EGD (09/01/2025): showed esophageal ulcers oozing blood. Situs inversus noted. There were coffee ground material along with food in the body of the stomach with poor visibility. With high risk of aspiration, the scope was pulled out. -Placed NG tube with intermittent suction with reglan 5mg IV [id number] NG tube was suctioning blood. H&H has been ordered tonight. -Based on CT abd/pelvis scan, a significant portion of the stomach is located within the thoracic cavity, which is attributable to the patient's age, and underlying situs inverssus totalis. This large hatal hernia is the likely cause of her gastric outlet obstruction and hematemesis. Plan: -Ordered Gastrografin series for evaaluation of obstruction and identify the precise location, if present. -Monitor H&H -Transfuse if hemoglobin less than 7 -Clear liquid diet and NPO after midnight for tentatively scheduled colonoscopy and possible endoscopy for upper GI bleed. -On protonix IV 40 twice daily -Consulted GI, Dr. Montemayor, appreciate recommendations. #Bacteremia, GPC 1/2 #Urinary Tract Infection #Pneumonia #Sepsis -Ruled out -Patient came in and found to have 2 or more SIRS criteria and was evaluated for sepsis. However, based upon further work-up, sepsis was ruled out. BP 165/104 HR 116 RR 24 T 101.1F O2 sat 93% RA --> with oxygen and fluids BP 121/85 HR 82 RR 19 T -96.8F O2 sat 97%RA. Lactic acid 2.1 -->1.2. WBC 15.1. Patient reports 1-2 days of cough with possible blood specks. R lung lobe rhonchi. Denies chest pain and shortness of breath. +2 pedal edema seems to be gravity dependent/chronic due to venous stasis, not secondary to volume overload or CHF exacerbation. -UA: Showed turbid yellow urine collected on catheter, urine protein 1+, urine ketone 1 close, urine blood 1+, urine nitrate negative, urine leukocyte esterase positive, urine RBC 42, urine WBC 692, amorphous crystals present, urine bacteria 4+ -CXR: mild heart failure, significant pneumonia right base. -BCx (08/30/2025): GPC 1/2 Plan: - IV Vancomycin (08/31- , repeat BC in AM -Patient and family ok with brief trial of abx -Azithromycin 500mg QD (08/30 -) -Ceftriaxone 1g IV QD (08/30 -) -Pending BCx, UCx #Hx of Neuropathy Plan: -Continue gabapentin 300mg BID #Hx of A-fib (not on eliquis) #Hx of HTN Plan: -Continue diltiazem 120mg QD #Hx of Depression Plan: -Zoloft 25mg PO QD Health Maintenance: Code status: DNR/DNI DVT prophylaxis: SCDs GI prophylaxis: Protonix Diet: NPO Martinez: Purewick Lines: PIV Supplemental O2: NC Disposition: To tele Assessment and plan discussed with my attending physician Dr. Deluna and Dr. Coronado (PGY-2) Dr. Phan (PGY-1) - Internal medicine resident Attending Provider Attestation/Addendum Erna Cloud DO, attest that I was physically present for the [place] portions of the service and evaluated the patient with the resident and I reviewed and discussed the case with the resident and agree with the resident's findings and plans of care as documented above Patient was seen and evaluated in the afternoon following EGD. NG tube was placed during EGD. Patient was found to have esophageal ulcers oozing with blood. Pyloric channel could not be well visualized and coffee ground material was noted. Likely due to large hiatal hernia as noted on initial presenting CT. NG tube on LIS and has bright red bloody output. WIll order type and screen and follow H/H. gastrograffin small bowel follow through to be done in AM. Patient is in no distress, but complains of NG tube discomfort. No abdominal tenderness noted on exam.
[2025-09-01 17:54] LABS: Hematocrit 32.6 % (36.0-46.0); Hemoglobin 11.1 g/dL (12.0-16.0)
[2025-09-01] MEDS: cefTRIAXone/D5w 1gm IV premix 1 GM/50 ML BAG IV (20:55)
[2025-09-02] VITALS (10 sets, daily range): BP systolic 124–163; BP diastolic 69–99; PULSE 82–107; RESP 14–26; TEMP 36.1–37.4; O2SAT 92–99; BMI 39.0
[2025-09-02] MEDS: MELATONIN 3 MG TABLET PO (00:20)
[2025-09-02] MEDS: HYDROcodone/APAP 5/325 TABLET 1 TAB PO (01:23)
[2025-09-02] MEDS: METOCLOPRAMIDE INJ 5 MG/ML VIAL 2 ML IVP ×3 (05:03→18:02)
[2025-09-02] MEDS: ACETAMINOPHEN 325 MG TABLET 650 MG PO (05:04)
[2025-09-02 05:38] LABS: Basophils # (Auto) 0.0 Thou/mm3 (0.0-0.2); Basophils % (Auto) 0 % (0-2.5); Eosinophils # (Auto) 0.1 Thou/mm3 (0.0-0.5); Eosinophils % (Auto) 1 % (0-10); Hematocrit 29.7 % (36.0-46.0); Hemoglobin 9.9 g/dL (12.0-16.0); Immature Granulocytes Auto 0.05 Thou/mm3 (0.00-0.00); Lymphocytes # (Auto) 1.6 Thou/mm3 (1.0-4.8); Lymphocytes % (Auto) 17 % (10-50); Mean Corpuscular HGB Conc 33.3 g/dl (31.0-37.0); Mean Corpuscular Hemoglobin 31.2 pg (25.0-35.0); Mean Corpuscular Volume 94 fL (80-100); Monocytes # (Auto) 1.0 Thou/mm3 (0.0-0.8); Monocytes % (Auto) 11 % (0-12); Neutrophils # (Auto) 6.5 Thou/mm3 (1.8-7.7); Neutrophils % (Auto) 71 % (37-80); Nucleated Red Blood Cell # 0.00 Thou/mm3 (0.00-0.00); Nucleated Red Blood Cell % 0 /100 WBC (0); Platelet Count 198 Thou/mm3 (140-440); RDW Standard Deviation 55.6 fL (36.4-46.3); Red Blood Count 3.17 Miln/mm3 (4.00-5.20); White Blood Count 9.2 Thou/mm3 (3.6-11.0)
[2025-09-02 06:14] LABS: Alanine Aminotransferase < 7 U/L (10-49); Albumin, Serum 3.7 gm/dL (3.4-4.8); Albumin/Globulin Ratio 1.9 (1.2-2.2); Alkaline Phosphatase 62 U/L (46-116); Anion Gap 10 (7-16); Aspartate Amino Transferase 14 U/L (0-34); BUN/Creatinine Ratio 37 Ratio (12-20); Bilirubin,Total 0.3 mg/dL (0.3-1.2); Blood Urea Nitrogen 26 mg/dL (9-23); Calcium 8.3 mg/dL (8.3-10.6); Calcium (Corrected) 8.5 mg/dL (8.5-10.1); Carbon Dioxide 27.9 mMol/L (20.0-31.0); Chloride 104 mMol/L (98-107); Creatinine (Component) 0.7 mg/dL (0.6-1.3); Estimated Creatinine Clearance 49.9 mL/min (>60); Globulin 2.0 gm/dL (2.3-3.5); Glucose 106 mg/dL (74-106); Magnesium 2.2 mg/dL (1.6-2.6); Osmolality,Calculated 287 (275-295); Phosphorous 3.6 mg/dL (2.4-5.1); Potassium 3.5 mMol/L (3.4-5.1); Sodium 142 mMol/L (136-145); Total Protein 5.7 gm/dL (5.7-8.2); eGFR > 60 See Note
--- NOTE | 2025-09-02 08:39 | PC.SS ---
Follow up note: On comfort care. Pt will under go a small bowel series. On IV antibiotic. Pt will return to [facility] upon dc.
[2025-09-02] MEDS: POTASSIUM CHL 10 mEq IVPB 10 MEQ/100 ML BAG 75 MEQ IV (09:08)
[2025-09-02] MEDS: GABAPENTIN 300 MG CAPSULE PO ×2 (09:09→21:02)
[2025-09-02] MEDS: DILTIAZEM CD 120 MG CAPCR PO (09:09)
[2025-09-02] MEDS: SENNA/DOCUSATE SOD 1 TAB TABLET PO (09:09)
--- NOTE | 2025-09-02 09:41 | ESPR_ITS ---
<Statement entered by Gricelda Coronado MD - 09/03/25 05:14> Patient was seen and examined at bedside. I agree on the assessment and plan on this note as documented by resident Dr Keri Phan DO PGY1. 84-year-old female with past medical history as below admitted for upper GI bleed workup, patient had NG tube placed, GI is recommending upper GI series however we do not have radiology till Friday morning and patient is unable to undergo the study. GI recommending TPN however patient is DNR/DNI with no means of artificial nutrition will discuss with family in AM. Patient's repeat blood cultures have been negative however initial blood culture pending speciation will continue vancomycin and ceftriaxone for now. Patient continues to have reddish-black suction from NG. Repeat H&H in evening, transfuse as needed. Case discussed with attending Dr. Hugo Coronado MD PGY-2 Documentation for date of: 09/02/25 Subjective Subjective Interval history: Currently on NG tube, Traces of bloody content on NG tube container. H&H ordered. Hgb showed 10.7. Planned for Gastrografin series for examination of the gastric outlet obstruction. Discontinued azithromycin. Will continue on IV vancomycin and IV ceftriaxone 1 g daily. Repeat Blood culture was negative for 24 hours 2/. No Overnight events. Labs reviewed and patient examined at the bedside. Denies chest pain, palpation, SOB, abdominal pain, N/V, fevers or chills. Exam Vital Signs Temp Pulse Resp BP Pulse Ox O2 Del Method O2 Flow Rate 98.3 F 88 14 129/69 96 Nasal Cannula 4 09/02/25 04:00 09/02/25 09:09 09/02/25 07:37 09/02/25 09:09 09/02/25 07:37 09/02/25 04:00 09/02/25 07:37 Narrative Exam General: No acute distress, well nourished, AAO x3 Eye: PERRL, EOMI, normal conjunctiva, no scleral icterus HENT: Normocephalic, atraumatic, hearing intact to conversation at normal volume, moist oral mucosa Neck: Supple, non-tender, no JVD, no lymphadenopathy Lungs: Non-labored respirations, symmetric chest rise, Clear to auscultate bilaterally, No wheezing, rhonchi, crackles Heart: Peripheral pulses intact bilaterally, Regular Rate and Rhythm. Abdomen: Soft, non-tender, non-distended, no palpable masses Musculoskeletal: Normal range of motion and strength, No cyanosis or edema, No visible joint swelling, Chronic left foot ulcer/scar Skin: Skin is warm, dry, no rashes or lesions. Psychiatric: Cooperative, appropriate mood and affect, Awake and alert, not agitated Neuro: Cranial nerves II-XII grossly intact. Strength 5/5 throughout. Sensations intact to light touch. Objective Labs 09/02/25 17:09 09/02/25 05:01 Labs: Laboratory Results - last 24 hr 09/01/25 09/02/25 17:25 05:01 WBC 9.2 RBC 3.17 L Hgb 11.1 L 9.9 L Hct 32.6 L 29.7 L MCV 94 MCH 31.2 MCHC 33.3 RDW Std Deviation 55.6 H Plt Count 198 Neut % (Auto) 71 Lymph % (Auto) 17 [place] % (Auto) 11 Eos % (Auto) 1 Baso % (Auto) 0 Neut # (Auto) 6.5 Lymph # (Auto) 1.6 [place] # (Auto) 1.0 H Eos # (Auto) 0.1 Baso # (Auto) 0.0 Immature Gran # (Auto) 0.05 H Absolute Nucleated RBC 0.00 Immature Gran % 1 H Nucleated RBC % 0 Sodium 142 Potassium 3.5 Chloride 104 Carbon Dioxide 27.9 Anion Gap 10 BUN 26 H Creatinine 0.7 Estim Creat Clear Calc 49.9 L eGFR > 60 BUN/Creatinine Ratio 37 H Glucose 106 Calculated Osmolality 287 Calcium 8.3 Corrected Calcium 8.5 Phosphorus 3.6 Magnesium 2.2 Total Bilirubin 0.3 AST 14 ALT < 7 L Alkaline Phosphatase 62 Total Protein 5.7 Albumin 3.7 Globulin 2.0 L Albumin/Globulin Ratio 1.9 Blood Type O Positive Antibody Screen NEGATIVE Blood Bank Wristband ID Yes Quality Measures Quality Measures sepsis Current suspected stage: ruled out Possible source: pulmonary and genitourinary Blood cultures ordered: yes Antibiotic ordered: Yes Advance care planning discussed with:: patient Assessment & Plan Assessment Current Active Medications: Generic Name Dose Route Start Last Admin Trade Name Freq PRN Reason Stop Dose Admin Acetaminophen 650 mg 08/30/25 23:39 09/02/25 05:04 Acetaminophen 325 Mg Tablet PO 09/29/25 23:38 650 mg Q6H PRN Administration Fever >100.4 or pain 1-3 Hydrocodone Bitart/Acetaminophen 1 tab 09/01/25 07:29 09/02/25 01:23 Hydrocodone/Apap 5/325 Tablet PO 09/04/25 23:38 1 tab Q4HR PRN Administration PAIN SCALE 4-10(Mod-Sev Diltiazem HCl 120 mg 08/31/25 09:00 09/02/25 09:09 Diltiazem Cd 120 Mg Capcr PO 09/30/25 08:59 120 mg QDAY PAMELA Administration Gabapentin 300 mg 08/31/25 09:00 09/02/25 09:09 Gabapentin 300 Mg Capsule PO 09/30/25 08:59 300 mg BID PAMELA Administration Ceftriaxone Sodium/Dextrose 1 gm in 50 mls @ 100 mls/hr 08/31/25 21:00 09/01/25 20:55 Rocephin/D5w 1gm Iv Premix IV 09/07/25 20:59 100 mls/hr HS PAMELA Administration Vancomycin HCl 250 mls @ 120 mls/hr 08/31/25 16:15 09/01/25 11:30 Vancomycin/Water 1250 Mg Ivpb IV 09/07/25 16:14 120 mls/hr QDAY@1000 PAMELA Administration Protocol Potassium Chloride 10 meq in 100 mls @ 100 mls/hr 09/02/25 07:38 09/02/25 09:20 Kcl Ivpb IV 09/02/25 11:37 0 mls/hr Q1H PAMELA Infusion Potassium Chloride 10 meq in 100 mls @ 100 mls/hr 09/02/25 16:00 Kcl Ivpb IV 09/02/25 17:59 Q1H PAMELA Labetalol HCl 10 mg 08/31/25 21:44 08/31/25 22:48 Labetalol Inj 5 Mg/Ml Vial 4 Ml IVP 10 mg Q15MIN PRN Administration SBP >180 or DBP >100 Metoclopramide HCl 5 mg 09/01/25 12:00 09/02/25 05:03 Metoclopramide Inj 5 Mg/Ml Vial 2 Ml IVP 10/01/25 11:59 5 mg Q6HR PAMELA Administration Protocol Ondansetron HCl 4 mg 08/30/25 23:39 08/31/25 23:28 Ondansetron Inj 2 Mg/Ml Inj 2 Ml IVP 09/29/25 23:38 4 mg Q6H PRN Administration NAUSEA OR VOMITING Protocol Pantoprazole Sodium 40 mg 08/31/25 09:00 09/02/25 09:09 Pantoprazole Inj 40 Mg Vial IVP 09/30/25 08:59 40 mg BID PAMELA Administration Pharmacy Consult 1 each 08/31/25 16:15 Vancomycin Pharmacy To Dose 1 Each Each IV 09/30/25 16:14 QDAY PRN CONSULT Polyethylene Glycol 34 gm 08/31/25 10:13 Polyethylene Glycol 17 Gm Packet PO 09/30/25 10:14 QDAY PRN Constipation Sennosides 1 tab 08/31/25 10:15 09/02/25 09:09 Senna/Docusate Sod 1 Tab Tablet PO 09/30/25 10:14 1 tab QDAY PAMELA Administration Protocol Sertraline HCl 25 mg 08/31/25 09:00 08/31/25 08:05 Sertraline Hcl 25 Mg Tablet PO 09/30/25 08:59 25 mg On Hold: 08/31/25 17:34 QDAY PAMELA Administration Plan 84yo DNR/DNI female on comfort measures with a history of gout, situs inversus totalis, HTN, aFib (not on blood thinners), lymphedema, venous stasis, and chronic back pain BIBA from [facility] presents to the ED for a chief complaint of one day of NV with reported coffee ground emesis. Admitted for sepsis with pneumonia and UTI. Patient's family agreed on minimally invasive procedures. #Haematemesis #Upper vs Lower GI bleed #Gastric Outlet Obstruction #Hx of situs inversus totalis -Per ED patient had coffee ground emesis and vomitus in the ED was guaic +. Patient states she has had a minor cough the last few days and noticed some specks of blood when she coughed. She also reports pain in her stomach upon waking that was worsened with food/breakfast in the morning. Patient states vomitus and stool was dark brown, denies any oily or black color. Denies any hematochezia. -On assessment, patient has abdominal tenderness diffusely with guarding. -Hgb was in admission was 13.4 (08/30), decreased to 11.7 (08/31) -08/31: Patient had multiple episodes of hematemesis. -CT abd/pelvis w/ contrast (08/31/2025): Situs inversus, Gastritis, Colonic diverticulosis, No bowel obstruction, Large fat-containing left lateral pelvic wall hernia defect, Atrophic uterus, No bowel obstruction -XR abd (08/31/2025): Moderate stool throughout the colon, Minimal small bowel ileus, No obstruction -Patient and patient's family agreed to proceed with diagnostic procedures, including EGD and colonoscopy, but declined any aggressive surgical interventions. -EGD (09/01/2025): showed esophageal ulcers oozing blood. Situs inversus noted. There were coffee ground material along with food in the body of the stomach with poor visibility. With high risk of aspiration, the scope was pulled out. -Placed NG tube with intermittent suction with reglan 5mg IV [id number] NG tube was suctioning blood. H&H has been ordered tonight. -Based on CT abd/pelvis scan, a significant portion of the stomach is located within the thoracic cavity, which is attributable to the patient's age, and underlying situs inversus totalis. This large hatal hernia is the likely cause of her gastric outlet obstruction and hematemesis. Plan: -Ordered Gastrografin series for evaluation of obstruction and identify the precise location, if present. -Monitor H&H -Transfuse if hemoglobin less than 7 -Clear liquid diet and NPO after midnight for tentatively scheduled colonoscopy and possible endoscopy for upper GI bleed. -On protonix IV 40 twice daily -Consulted GI, Dr. Montemayor, appreciate recommendations. #Bacteremia, GPC 1/2 #Urinary Tract Infection #Pneumonia #Sepsis -Ruled out -Patient came in and found to have 2 or more SIRS criteria and was evaluated for sepsis. However, based upon further work-up, sepsis was ruled out. BP 165/104 HR 116 RR 24 T 101.1F O2 sat 93% RA --> with oxygen and fluids BP 121/85 HR 82 RR 19 T -96.8F O2 sat 97%RA. Lactic acid 2.1 -->1.2. WBC 15.1. Patient reports 1-2 days of cough with possible blood specks. R lung lobe rhonchi. Denies chest pain and shortness of breath. +2 pedal edema seems to be gravity dependent/chronic due to venous stasis, not secondary to volume overload or CHF exacerbation. -UA: Showed turbid yellow urine collected on catheter, urine protein 1+, urine ketone 1 close, urine blood 1+, urine nitrate negative, urine leukocyte esterase positive, urine RBC 42, urine WBC 692, amorphous crystals present, urine bacteria 4+ -CXR: mild heart failure, significant pneumonia right base. -BCx (08/30/2025): GPC 1/2 -UCx (08/31/2025): No growth -Repeat Blood culture (09/01) was negative for 24 hours 11/07. Plan: - IV Vancomycin (08/31-) -Ceftriaxone 1g IV QD (08/30 -) -Discontinued Azithromycin 500mg QD (08/30 - 09/01) #Hx of Neuropathy Plan: -Continue gabapentin 300mg BID #Hx of A-fib (not on eliquis) #Hx of HTN Plan: -Continue diltiazem 120mg QD #Hx of Depression Plan: -Zoloft 25mg PO QD Health Maintenance: Code status: DNR/DNI DVT prophylaxis: SCDs GI prophylaxis: Protonix Diet: NPO Martinez: Purewick Lines: PIV Supplemental O2: NC Disposition: To tele Assessment and plan discussed with my attending physician Dr. Arias and Dr. Coronado (PGY-2) Dr. Phan (PGY-1) - Internal medicine resident Attending Provider Attestation/Addendum Patient was admitted for GI bleed. Patient has esophageal ulcers. Plan is for additional imaging including abdominal x-ray. Continue close monitoring and monitor hemoglobin and hematocrit. Discussed with housestaff.
[2025-09-02] MEDS: VANCOMYCIN/WATER 1250 MG IVPB 250 ML 120 MG IV (10:06)
--- NOTE | 2025-09-02 10:09 | EKG_ITS ---
[facility] Test Date: 2025-09-02 Pat Name: FELIX SUN [facility] Gender[facility] Female [employer]er: AUTUMN : 1940 Requested By: Gricelda Coronado Order Number: [id number] Reading MD: Gricelda Coronado Measurements Intervals [place] Rate: 91 P: 76 AR: 188 QRS: -55 QRSD: 97 T: 54 QT: 364 QTc: 450 Interpretive Statements SINUS RHYTHM POSSIBLE ANTERIOR MYOCARDIAL INFARCTION , PROBABLY OLD INFERIOR MYOCARDIAL INFARCTION , OF INDETERMINATE AGE Compared to ECG 08/30/2025 21:23:47 Myocardial infarct finding now present Sinus tachycardia no longer present /store/[id number]
[2025-09-02] MEDS: MG HYD/AL HYD/SIME (Maalox Reg) SUSP 30 ML UDC PO (10:17)
--- NOTE | 2025-09-02 10:45 | CHAP ---
Patient was visited by the Spiritual Care Volunteer who prayed silently for them. (Volunteer was in the hospital from 09:30-10:45)
--- NOTE | 2025-09-02 17:09 | PD.IMPROG ---
Documentation for date of: 09/02/25 Subjective Subjective Interval history: Patient evaluated NGT in place Coffee-ground watch Upper GI series can be done because of the weekend and no radiologist available Exam Vital Signs Temp Pulse Resp BP Pulse Ox O2 Del Method O2 Flow Rate 97.5 F 90 16 124/91 H 99 Nasal Cannula 2 09/02/25 12:00 09/02/25 12:00 09/02/25 12:00 09/02/25 12:00 09/02/25 12:00 09/02/25 12:00 09/02/25 12:00 Objective Labs 09/02/25 05:01 09/02/25 05:01 Labs: Laboratory Results - last 24 hr 09/01/25 09/02/25 17:25 05:01 WBC 9.2 RBC 3.17 L Hgb 11.1 L 9.9 L Hct 32.6 L 29.7 L MCV 94 MCH 31.2 MCHC 33.3 RDW Std Deviation 55.6 H Plt Count 198 Neut % (Auto) 71 Lymph % (Auto) 17 [place] % (Auto) 11 Eos % (Auto) 1 Baso % (Auto) 0 Neut # (Auto) 6.5 Lymph # (Auto) 1.6 [place] # (Auto) 1.0 H Eos # (Auto) 0.1 Baso # (Auto) 0.0 Immature Gran # (Auto) 0.05 H Absolute Nucleated RBC 0.00 Immature Gran % 1 H Nucleated RBC % 0 Sodium 142 Potassium 3.5 Chloride 104 Carbon Dioxide 27.9 Anion Gap 10 BUN 26 H Creatinine 0.7 Estim Creat Clear Calc 49.9 L eGFR > 60 BUN/Creatinine Ratio 37 H Glucose 106 Calculated Osmolality 287 Calcium 8.3 Corrected Calcium 8.5 Phosphorus 3.6 Magnesium 2.2 Total Bilirubin 0.3 AST 14 ALT < 7 L Alkaline Phosphatase 62 Total Protein 5.7 Albumin 3.7 Globulin 2.0 L Albumin/Globulin Ratio 1.9 Blood Type O Positive Antibody Screen NEGATIVE Blood Bank Wristband ID Yes Impressions Impression: Hematemesis Possible gastric outlet obstruction Gastroparesis and gastric motility disorder Case discussed with the internal medicine team Start PPN Upper GI series on Friday Assessment & Plan A&P Narrative # Nausea vomiting with coffee-ground emesis Plan N.p.o. midnight tonight IV Protonix IV Zofran consent obtained for fiberoptic esophagogastroduodenoscopy with possible biopsy possible therapeutic intervention under intravenous moderate sedation Further evaluation after above Other medical problems include Chronic atrial fibrillation not on any anticoagulation Status and versus Essential hypertension Gout [place] resident in SNF Thank you very much for the opportunity to participate in the care of this patient Time Spent With Patient Time: Total time spent is greater than 50% in coordination of care (as documented) at patient's floor/unit and/or counseling patient:
[2025-09-02 17:44] LABS: Hematocrit 33.0 % (36.0-46.0); Hemoglobin 10.7 g/dL (12.0-16.0)
[2025-09-02] MEDS: MORPHINE SULF INJ 4 MG/ML VIAL 1 MG IVP (18:15)
[2025-09-02 18:18] LABS: Troponin I < 0.020 ng/mL (0.0-0.045)
[2025-09-02] MEDS: ONDANSETRON INJ 2 MG/ML INJ 2 ML 4 MG IVP (21:02)
[2025-09-02] MEDS: cefTRIAXone/D5w 1gm IV premix 1 GM/50 ML BAG IV (21:02)
[2025-09-02] MEDS: MELATONIN 3 MG TABLET 6 MG PO (21:12)
[2025-09-03] VITALS (9 sets, daily range): BP systolic 98–130; BP diastolic 70–94; PULSE 105–122; RESP 18–24; TEMP 35.9–36.6; O2SAT 92–95; BMI 38.7; BMI 38.9
[2025-09-03] MEDS: METOCLOPRAMIDE INJ 5 MG/ML VIAL 2 ML IVP ×4 (00:22→17:42)
[2025-09-03] MEDS: HYDROcodone/APAP 5/325 TABLET 1 TAB PO (05:57)
[2025-09-03 06:07] LABS: Basophils # (Auto) 0.0 Thou/mm3 (0.0-0.2); Basophils % (Auto) 0 % (0-2.5); Eosinophils # (Auto) 0.0 Thou/mm3 (0.0-0.5); Eosinophils % (Auto) 0 % (0-10); Hematocrit 33.7 % (36.0-46.0); Hemoglobin 10.9 g/dL (12.0-16.0); Immature Granulocytes Auto 0.10 Thou/mm3 (0.00-0.00); Lymphocytes # (Auto) 1.3 Thou/mm3 (1.0-4.8); Lymphocytes % (Auto) 7 % (10-50); Mean Corpuscular HGB Conc 32.3 g/dl (31.0-37.0); Mean Corpuscular Hemoglobin 30.9 pg (25.0-35.0); Mean Corpuscular Volume 96 fL (80-100); Monocytes # (Auto) 1.9 Thou/mm3 (0.0-0.8); Monocytes % (Auto) 11 % (0-12); Neutrophils # (Auto) 13.8 Thou/mm3 (1.8-7.7); Neutrophils % (Auto) 81 % (37-80); Nucleated Red Blood Cell # 0.00 Thou/mm3 (0.00-0.00); Nucleated Red Blood Cell % 0 /100 WBC (0); Platelet Count 207 Thou/mm3 (140-440); RDW Standard Deviation 57.1 fL (36.4-46.3); Red Blood Count 3.53 Miln/mm3 (4.00-5.20); White Blood Count 17.1 Thou/mm3 (3.6-11.0)
[2025-09-03 06:47] LABS: Alanine Aminotransferase < 7 U/L (10-49); Albumin, Serum 3.8 gm/dL (3.4-4.8); Albumin/Globulin Ratio 1.7 (1.2-2.2); Alkaline Phosphatase 62 U/L (46-116); Anion Gap 14 (7-16); Aspartate Amino Transferase 12 U/L (0-34); BUN/Creatinine Ratio 34 Ratio (12-20); Bilirubin,Total 0.4 mg/dL (0.3-1.2); Blood Urea Nitrogen 24 mg/dL (9-23); Calcium 8.7 mg/dL (8.3-10.6); Calcium (Corrected) 8.9 mg/dL (8.5-10.1); Carbon Dioxide 23.0 mMol/L (20.0-31.0); Chloride 105 mMol/L (98-107); Creatinine (Component) 0.7 mg/dL (0.6-1.3); Estimated Creatinine Clearance 49.7 mL/min (>60); Globulin 2.2 gm/dL (2.3-3.5); Glucose 80 mg/dL (74-106); Magnesium 2.1 mg/dL (1.6-2.6); Osmolality,Calculated 286 (275-295); Phosphorous 3.4 mg/dL (2.4-5.1); Potassium 3.5 mMol/L (3.4-5.1); Sodium 142 mMol/L (136-145); Total Protein 6.0 gm/dL (5.7-8.2); eGFR > 60 See Note
--- NOTE | 2025-09-03 07:22 | XR_ITS ---
EXAMINATION: AP chest single view TECHNIQUE: AP portable semiupright chest single view Date and time: September 03, 2025, 0818 hours, comparison September 01, 2025 INDICATIONS: Shortness of breath today. FINDINGS: Situs inversus Pronounced elevation right hemidiaphragm Pneumonia in the right lung Mild enlargement cardiac contour Orogastric tube in the stomach Prominent osteopenia IMPRESSION: Significant right lung pneumonia
--- NOTE | 2025-09-03 07:45 | XR_ITS ---
Examination: Abdomen AP single view Technique: AP portable supine abdomen, single view Exam date and time: August 31, 2025, 0231 hours INDICATIONS: Abdominal pain today. FINDINGS: Moderate stool throughout the colon No obstruction Heavy vascular calcification Please see the chest x-ray report IMPRESSION: Moderate stool throughout the colon
[2025-09-03 08:43] LABS: Base Excess, Venous -3 (-3-3); O2 Saturation, Venous 100 % (96-97); PCO2, Venous 37 mmHg (36-56); PO2, Venous 168 mmHg (15-58); pH, Venous 7.39 (7.33-7.66)
[2025-09-03 09:07] LABS: Vancomycin,Trough 16.5 mcg/mL (5.0-10.0)
[2025-09-03] MEDS: POTASSIUM CHL 10 mEq IVPB 10 MEQ/100 ML BAG 50 MEQ IV (10:03)
[2025-09-03] MEDS: MORPHINE SULF INJ 4 MG/ML VIAL 1 MG IVP ×2 (13:38→22:46)
--- NOTE | 2025-09-03 14:54 | ESPR_ITS ---
Documentation for date of: 09/03/25 Subjective Subjective Interval history: Patient was seen and examined at bedside. No acute events took place overnight. Patient complaining of left-sided abdominal pain. Denies chest pain, palpation, SOB, abdominal pain, N/V, fevers or chills. Patient and family in agreement with PPN until planned Gastrografin series for the examination of the gastric outlet obstruction on September 05. Currently on NG tube, Traces of blood in the NG tubing. Blood cultures negative after 48 hours 11/07, discontinued vancomycin. Will continue IV ceftriaxone 1 g daily for the treatment of pneumonia and UTI. Exam Vital Signs Temp Pulse Resp BP Pulse Ox O2 Del Method O2 Flow Rate 97.6 F 110 H 20 104/78 94 L Nasal Cannula 2 09/03/25 12:00 09/03/25 12:00 09/03/25 12:00 09/03/25 12:00 09/03/25 12:00 09/03/25 12:00 09/03/25 12:00 Narrative Exam General: No acute distress, well nourished, AAO x3 Eye: PERRL, EOMI, normal conjunctiva, no scleral icterus HENT: Normocephalic, atraumatic, hearing intact to conversation at normal volume, moist oral mucosa Neck: Supple, non-tender, no JVD, no lymphadenopathy Lungs: Non-labored respirations, symmetric chest rise, Clear to auscultate bilaterally, No wheezing, rhonchi, crackles Heart: Peripheral pulses intact bilaterally, Regular Rate and Rhythm. Abdomen: Soft, non-tender, non-distended, no palpable masses Musculoskeletal: Normal range of motion and strength, No cyanosis or edema, No visible joint swelling, Chronic left foot ulcer/scar Skin: Skin is warm, dry, no rashes or lesions. Psychiatric: Cooperative, appropriate mood and affect, Awake and alert, not agitated Neuro: Cranial nerves II-XII grossly intact. Strength 5/5 throughout. Sensations intact to light touch. Objective Labs 09/03/25 05:05 09/03/25 05:20 Labs: Laboratory Results - last 24 hr 09/02/25 09/03/25 09/03/25 17:09 05:05 05:20 WBC 17.1 H D RBC 3.53 L Hgb 10.7 L 10.9 L Hct 33.0 L 33.7 L MCV 96 MCH 30.9 MCHC 32.3 RDW Std Deviation 57.1 H Plt Count 207 Neut % (Auto) 81 H Lymph % (Auto) 7 L [place] % (Auto) 11 Eos % (Auto) 0 Baso % (Auto) 0 Neut # (Auto) 13.8 H Lymph # (Auto) 1.3 [place] # (Auto) 1.9 H Eos # (Auto) 0.0 Baso # (Auto) 0.0 Immature Gran # (Auto) 0.10 H Absolute Nucleated RBC 0.00 Immature Gran % 1 H Nucleated RBC % 0 VBG pH VBG pCO2 VBG pO2 VBG O2 Sat (Hany) VBG Base Excess Sodium 142 Potassium 3.5 Chloride 105 Carbon Dioxide 23.0 Anion Gap 14 BUN 24 H Creatinine 0.7 Estim Creat Clear Calc 49.7 L eGFR > 60 BUN/Creatinine Ratio 34 H Glucose 80 Calculated Osmolality 286 Calcium 8.7 Corrected Calcium 8.9 Phosphorus 3.4 Magnesium 2.1 Total Bilirubin 0.4 AST 12 ALT < 7 L Alkaline Phosphatase 62 Troponin I < 0.020 Total Protein 6.0 Albumin 3.8 Globulin 2.2 L Albumin/Globulin Ratio 1.7 Vancomycin Trough 09/03/25 08:09 WBC RBC Hgb Hct MCV MCH MCHC RDW Std Deviation Plt Count Neut % (Auto) Lymph % (Auto) [place] % (Auto) Eos % (Auto) Baso % (Auto) Neut # (Auto) Lymph # (Auto) [place] # (Auto) Eos # (Auto) Baso # (Auto) Immature Gran # (Auto) Absolute Nucleated RBC Immature Gran % Nucleated RBC % VBG pH 7.39 VBG pCO2 37 VBG pO2 168 H VBG O2 Sat (Hany) 100 H VBG Base Excess -3 Sodium Potassium Chloride Carbon Dioxide Anion Gap BUN Creatinine Estim Creat Clear Calc eGFR BUN/Creatinine Ratio Glucose Calculated Osmolality Calcium Corrected Calcium Phosphorus Magnesium Total Bilirubin AST ALT Alkaline Phosphatase Troponin I Total Protein Albumin Globulin Albumin/Globulin Ratio Vancomycin Trough 16.5 H ABG Interpretation ABG results: 09/03/25 08:09 VBG pH 7.39 VBG pCO2 37 VBG pO2 168 H VBG Base Excess -3 Quality Measures Quality Measures sepsis Current suspected stage: ruled out Possible source: pulmonary and genitourinary Blood cultures ordered: yes Antibiotic ordered: Yes Advance care planning discussed with:: patient Assessment & Plan Assessment Current Active Medications: Generic Name Dose Route Start Last Admin Trade Name Nhung PRN Reason Stop Dose Admin Acetaminophen 650 mg 08/30/25 23:39 09/02/25 05:04 Acetaminophen 325 Mg Tablet PO 09/29/25 23:38 650 mg Q6H PRN Administration Fever >100.4 or pain 1-3 Hydrocodone Bitart/Acetaminophen 1 tab 09/03/25 13:29 Hydrocodone/Apap 5/325 Tablet PO 09/04/25 23:38 Q4HR PRN PAIN SCALE 4-6 (Moderate Dextrose 25 ml 09/03/25 14:50 Dextrose 50%-Water Inj 50 Ml Syringe IV 10/03/25 14:49 Q15MIN PRN BG 50-70 responsive npo pt Dextrose 50 ml 09/03/25 14:50 Dextrose 50%-Water Inj 50 Ml Syringe IV 10/03/25 14:49 Q15MIN PRN BG <50 OR BG <70 & pt unresponsive Diltiazem HCl 120 mg 08/31/25 09:00 09/03/25 08:02 Diltiazem Cd 120 Mg Capcr PO 09/30/25 08:59 Not Given QDAY PAMELA Gabapentin 300 mg 08/31/25 09:00 09/03/25 08:02 Gabapentin 300 Mg Capsule PO 09/30/25 08:59 Not Given BID PAMELA Glucagon 1 mg 09/03/25 14:50 Glucagon Inj 1 Mg Vial IM Q15MIN PRN BG <70, and no IV access Ceftriaxone Sodium/Dextrose 1 gm in 50 mls @ 100 mls/hr 08/31/25 21:00 09/02/25 21:02 Rocephin/D5w 1gm Iv Premix IV 09/07/25 20:59 100 mls/hr HS PAMELA Administration Potassium Chloride 10 meq in 100 mls @ 100 mls/hr 09/03/25 09:00 09/03/25 10:10 Kcl Ivpb IV 0 mls/hr On Hold: 09/03/25 10:16 Q1H PAMELA Infusion Fat Emulsion Intravenous 500 mls @ 32 mls/hr 09/05/25 18:00 Intralipid 20% Iv IV 10/05/25 17:59 [email or web address] PAMELA Insulin Human Lispro 0 unit 09/03/25 18:00 Insulin Lispro (Admelog) 1 Unit/0.01 Ml Unit SC 10/03/25 17:59 Q6HR PAMELA Protocol Labetalol HCl 10 mg 08/31/25 21:44 08/31/25 22:48 Labetalol Inj 5 Mg/Ml Vial 4 Ml IVP 10 mg Q15MIN PRN Administration SBP >180 or DBP >100 Metoclopramide HCl 5 mg 09/01/25 12:00 09/03/25 12:35 Metoclopramide Inj 5 Mg/Ml Vial 2 Ml IVP 10/01/25 11:59 5 mg Q6HR PAMELA Administration Protocol Morphine Sulfate 1 mg 09/03/25 13:27 09/03/25 13:38 Morphine Sulf Inj 4 Mg/Ml Vial IVP 09/08/25 13:26 1 mg Q4HR PRN Administration PAIN SCALE 7-10 (Severe Ondansetron HCl 4 mg 08/30/25 23:39 09/02/25 21:02 Ondansetron Inj 2 Mg/Ml Inj 2 Ml IVP 09/29/25 23:38 4 mg Q6H PRN Administration NAUSEA OR VOMITING Protocol Pantoprazole Sodium 40 mg 08/31/25 09:00 09/03/25 08:04 Pantoprazole Inj 40 Mg Vial IVP 09/30/25 08:59 40 mg BID PAMELA Administration Polyethylene Glycol 34 gm 08/31/25 10:13 Polyethylene Glycol 17 Gm Packet PO 09/30/25 10:14 QDAY PRN Constipation Sennosides 1 tab 08/31/25 10:15 09/03/25 08:02 Senna/Docusate Sod 1 Tab Tablet PO 09/30/25 10:14 Not Given QDAY PAMELA Protocol Sertraline HCl 25 mg 08/31/25 09:00 08/31/25 08:05 Sertraline Hcl 25 Mg Tablet PO 09/30/25 08:59 25 mg On Hold: 08/31/25 17:34 QDAY PAMELA Administration Thiamine HCl 100 mg 09/03/25 18:00 Thiamine Inj 100 Mg/Ml Vial 2 Ml IVP 10/03/25 17:59 QDAY PAMELA Plan 84yo DNR/DNI female on comfort measures with a history of gout, situs inversus totalis, HTN, aFib (not on blood thinners), lymphedema, venous stasis, and chronic back pain BIBA from [facility] presents to the ED for a chief complaint of one day of NV with reported coffee ground emesis. Admitted for sepsis with pneumonia and UTI. Patient's family agreed on minimally invasive procedures. #Haematemesis #Upper vs Lower GI bleed #Gastric Outlet Obstruction #Hx of situs inversus totalis -Per ED patient had coffee ground emesis and vomitus in the ED was guaic +. Patient states she has had a minor cough the last few days and noticed some specks of blood when she coughed. She also reports pain in her stomach upon waking that was worsened with food/breakfast in the morning. Patient states vomitus and stool was dark brown, denies any oily or black color. Denies any hematochezia. -On assessment, patient has abdominal tenderness diffusely with guarding. -Hgb was in admission was 13.4 (08/30), decreased to 11.7 (08/31) -08/31: Patient had multiple episodes of hematemesis. -CT abd/pelvis w/ contrast (08/31/2025): Situs inversus, Gastritis, Colonic diverticulosis, No bowel obstruction, Large fat-containing left lateral pelvic wall hernia defect, Atrophic uterus, No bowel obstruction -XR abd (08/31/2025): Moderate stool throughout the colon, Minimal small bowel ileus, No obstruction -Patient and patient's family agreed to proceed with diagnostic procedures, including EGD and colonoscopy, but declined any aggressive surgical interventions. -EGD (09/01/2025): showed esophageal ulcers oozing blood. Situs inversus noted. There were coffee ground material along with food in the body of the stomach with poor visibility. With high risk of aspiration, the scope was pulled out. -Placed NG tube with intermittent suction with reglan 5mg IV [id number] NG tube was suctioning blood. H&H has been ordered tonight. -Based on CT abd/pelvis scan, a significant portion of the stomach is located within the thoracic cavity, which is attributable to the patient's age, and underlying situs inversus totalis. This large hatal hernia is the likely cause of her gastric outlet obstruction and hematemesis. Plan: -Ordered Gastrografin series for evaluation of obstruction and identify the precise location, if present -for September 05. -Initiated PPN until the above study can be completed, to meet her nutritional needs while she is n.p.o.. -Monitor H&H -Transfuse if hemoglobin less than 7 -Clear liquid diet and NPO after midnight for tentatively scheduled colonoscopy and possible endoscopy for upper GI bleed. -On protonix IV 40 twice daily -Consulted GI, Dr. Montemayor, appreciate recommendations. #Bacteremia, GPC 10/07 #Urinary Tract Infection #Pneumonia #Sepsis -Ruled out -Patient came in and found to have 2 or more SIRS criteria and was evaluated for sepsis. However, based upon further work-up, sepsis was ruled out. BP 165/104 HR 116 RR 24 T 101.1F O2 sat 93% RA --> with oxygen and fluids BP 121/85 HR 82 RR 19 T -96.8F O2 sat 97%RA. Lactic acid 2.1 -->1.2. WBC 15.1. Patient reports 1-2 days of cough with possible blood specks. R lung lobe rhonchi. Denies chest pain and shortness of breath. +2 pedal edema seems to be gravity dependent/chronic due to venous stasis, not secondary to volume overload or CHF exacerbation. -UA: Showed turbid yellow urine collected on catheter, urine protein 1+, urine ketone 1 close, urine blood 1+, urine nitrate negative, urine leukocyte esterase positive, urine RBC 42, urine WBC 692, amorphous crystals present, urine bacteria 4+ -CXR: mild heart failure, significant pneumonia right base. -BCx (08/30/2025): GPC 12 -UCx (08/31/2025): No growth -Repeat Blood culture (09/01) was negative for 48 hours 11/07. Plan: - Discontinued IV Vancomycin (08/31-) -Ceftriaxone 1g IV QD (08/30 -) -Discontinued Azithromycin 500mg QD (08/30 - 09/01) #Hx of Neuropathy Plan: -Continue gabapentin 300mg BID #Hx of A-fib (not on eliquis) #Hx of HTN Plan: -Continue diltiazem 120mg QD #Hx of Depression Plan: -Zoloft 25mg PO QD Health Maintenance: Code status: DNR/DNI DVT prophylaxis: SCDs GI prophylaxis: Protonix Diet: PPN [place]: [place] Lines: PIV Supplemental O2: NC Disposition: To tele Assessment and plan discussed with my attending physician Dr. Barone and Dr. Coronado (PGY-2) Vanesa osei DO - Internal medicine resident Attending Provider Attestation/Addendum I have discussed and was present for the essential components of the history, physical examination, diagnosis, and treatment plan with the resident. I agree with the patient's care as documented by the resident and amended herein by me. Seth Barone DO. Although this document has been carefully reviewed, there may still be some phonetic and other typographical errors. These errors are purely grammatical due to imperfections in the software program and should not be construed in any way to compromise the substance of the patient's medical care during this visit. Patient seen and evaluated this AM. No acute events overnight, vital signs stable, patient afebrile, WBC up trended to 17, normal sodium, potassium 3.5. Blood cultures drawn on 09/01 demonstrating NGTD, initial cultures on 08/30 did demonstrate Staphylococcus capitis from 1 set however likely contamination hence vancomycin has been discontinued. Urine cultures NGTD, patient presently on ceftriaxone alone for right lung pneumonia. Per gastroenterology recommendations, upper GI series pending which will occur on Friday. We did confer with the family today in regards to PPN until that time and they agreed hence it was started today. NG tube still in place on , will continue for now. Will continue to monitor closely, appreciate all specialist recommendations
[2025-09-03] MEDS: RINGERS LACTATED 1000 ML 1,000 ML 999 ML IV (16:44)
[2025-09-03] MEDS: DEXTROSE 50%-WATER INJ 50 ML SYRINGE 25 ML IV (17:41)
[2025-09-03] MEDS: THIAMINE INJ 100 MG/ML VIAL 2 ML IVP (17:42)
[2025-09-03] MEDS: MULTIVITAMIN INJ 10 ML in AMINO ACID 4.25%/D5W E 2,000 ML 35 ML IV (17:42)
--- NOTE | 2025-09-03 17:56 | ESPR_ITS ---
Documentation for date of: 09/03/25 Subjective Subjective Interval history: Blood-tinged aspirate from the NGT Upper GI series scheduled for Friday Of the vancomycin WBC count is 17.1 on ceftriaxone for pneumonia Exam Vital Signs Temp Pulse Resp BP Pulse Ox O2 Del Method O2 Flow Rate 97.3 F 106 H 18 104/82 94 L Nasal Cannula 2 09/03/25 16:00 09/03/25 16:00 09/03/25 16:00 09/03/25 16:00 09/03/25 16:00 09/03/25 16:00 09/03/25 16:00 Objective Labs 09/03/25 05:05 09/03/25 05:20 Labs: Laboratory Results - last 24 hr 09/02/25 09/03/25 09/03/25 17:09 05:05 05:20 WBC 17.1 H D RBC 3.53 L Hgb 10.9 L Hct 33.7 L MCV 96 MCH 30.9 MCHC 32.3 RDW Std Deviation 57.1 H Plt Count 207 Neut % (Auto) 81 H Lymph % (Auto) [address] [place] % (Auto) 11 Eos % (Auto) 0 Baso % (Auto) 0 Neut # (Auto) 13.8 H Lymph # (Auto) 1.3 [place] # (Auto) 1.9 H Eos # (Auto) 0.0 Baso # (Auto) 0.0 Immature Gran # (Auto) 0.10 H Absolute Nucleated RBC 0.00 Immature Gran % 1 H Nucleated RBC % 0 VBG pH VBG pCO2 VBG pO2 VBG O2 Sat (Hany) VBG Base Excess Sodium 142 Potassium 3.5 Chloride 105 Carbon Dioxide 23.0 Anion Gap 14 BUN 24 H Creatinine 0.7 Estim Creat Clear Calc 49.7 L eGFR > 60 BUN/Creatinine Ratio 34 H Glucose 80 Calculated Osmolality 286 Calcium 8.7 Corrected Calcium 8.9 Phosphorus 3.4 Magnesium 2.1 Total Bilirubin 0.4 AST 12 ALT < 7 L Alkaline Phosphatase 62 Troponin I < 0.020 Total Protein 6.0 Albumin 3.8 Globulin 2.2 L Albumin/Globulin Ratio 1.7 Vancomycin Trough 09/03/25 08:09 WBC RBC Hgb Hct MCV MCH MCHC RDW Std Deviation Plt Count Neut % (Auto) Lymph % (Auto) [place] % (Auto) Eos % (Auto) Baso % (Auto) Neut # (Auto) Lymph # (Auto) [place] # (Auto) Eos # (Auto) Baso # (Auto) Immature Gran # (Auto) Absolute Nucleated RBC Immature Gran % Nucleated RBC % VBG pH 7.39 VBG pCO2 37 VBG pO2 168 H VBG O2 Sat (Hany) 100 H VBG Base Excess -3 Sodium Potassium Chloride Carbon Dioxide Anion Gap BUN Creatinine Estim Creat Clear Calc eGFR BUN/Creatinine Ratio Glucose Calculated Osmolality Calcium Corrected Calcium Phosphorus Magnesium Total Bilirubin AST ALT Alkaline Phosphatase Troponin I Total Protein Albumin Globulin Albumin/Globulin Ratio Vancomycin Trough 16.5 H Impressions Impression: Hematemesis Gastric motility disorder versus gastric outlet obstruction Leukocytosis Pneumonia Upper GI series Gastrografin Friday ABG Interpretation ABG results: 09/03/25 08:09 VBG pH 7.39 VBG pCO2 37 VBG pO2 168 H VBG Base Excess -3 Assessment & Plan A&P Narrative # Nausea vomiting with coffee-ground emesis Plan N.p.o. midnight tonight IV Protonix IV Zofran consent obtained for fiberoptic esophagogastroduodenoscopy with possible biopsy possible therapeutic intervention under intravenous moderate sedation Further evaluation after above Other medical problems include Chronic atrial fibrillation not on any anticoagulation Status and versus Essential hypertension Gout [place] resident in SNF Thank you very much for the opportunity to participate in the care of this patient Time Spent With Patient Time: Total time spent is greater than 50% in coordination of care (as documented) at patient's floor/unit and/or counseling patient:
[2025-09-03] MEDS: cefTRIAXone/D5w 1gm IV premix 1 GM/50 ML BAG IV (20:35)
[2025-09-04] VITALS (11 sets, daily range): BP systolic 125–139; BP diastolic 82–97; PULSE 96–126; RESP 18–22; TEMP 36–36.8; O2SAT 93–96; BMI 38.9
[2025-09-04] MEDS: METOCLOPRAMIDE INJ 5 MG/ML VIAL 2 ML IVP ×5 (00:44→23:58)
[2025-09-04 06:09] LABS: Basophils # (Auto) 0.1 Thou/mm3 (0.0-0.2); Basophils % (Auto) 0 % (0-2.5); Eosinophils # (Auto) 0.1 Thou/mm3 (0.0-0.5); Eosinophils % (Auto) 0 % (0-10); Hematocrit 32.0 % (36.0-46.0); Hemoglobin 10.5 g/dL (12.0-16.0); Immature Granulocytes Auto 0.09 Thou/mm3 (0.00-0.00); Lymphocytes # (Auto) 1.3 Thou/mm3 (1.0-4.8); Lymphocytes % (Auto) 9 % (10-50); Mean Corpuscular HGB Conc 32.8 g/dl (31.0-37.0); Mean Corpuscular Hemoglobin 31.3 pg (25.0-35.0); Mean Corpuscular Volume 96 fL (80-100); Monocytes # (Auto) 1.8 Thou/mm3 (0.0-0.8); Monocytes % (Auto) 12 % (0-12); Neutrophils # (Auto) 11.9 Thou/mm3 (1.8-7.7); Neutrophils % (Auto) 78 % (37-80); Nucleated Red Blood Cell # 0.00 Thou/mm3 (0.00-0.00); Nucleated Red Blood Cell % 0 /100 WBC (0); Platelet Count 206 Thou/mm3 (140-440); RDW Standard Deviation 57.8 fL (36.4-46.3); Red Blood Count 3.35 Miln/mm3 (4.00-5.20); White Blood Count 15.2 Thou/mm3 (3.6-11.0)
[2025-09-04 06:38] LABS: Alanine Aminotransferase < 7 U/L (10-49); Albumin, Serum 3.8 gm/dL (3.4-4.8); Albumin/Globulin Ratio 1.7 (1.2-2.2); Alkaline Phosphatase 63 U/L (46-116); Anion Gap 11 (7-16); Aspartate Amino Transferase 18 U/L (0-34); BUN/Creatinine Ratio 34 Ratio (12-20); Bilirubin,Total 0.3 mg/dL (0.3-1.2); Blood Urea Nitrogen 37 mg/dL (9-23); Calcium 8.6 mg/dL (8.3-10.6); Calcium (Corrected) 8.8 mg/dL (8.5-10.1); Carbon Dioxide 21.8 mMol/L (20.0-31.0); Chloride 105 mMol/L (98-107); Creatinine (Component) 1.1 mg/dL (0.6-1.3); Estimated Creatinine Clearance 31.6 mL/min (>60); Globulin 2.3 gm/dL (2.3-3.5); Glucose 138 mg/dL (74-106); Magnesium 2.5 mg/dL (1.6-2.6); Osmolality,Calculated 286 (275-295); Phosphorous 4.8 mg/dL (2.4-5.1); Potassium 3.9 mMol/L (3.4-5.1); Sodium 138 mMol/L (136-145); Total Protein 6.1 gm/dL (5.7-8.2); eGFR 49 See Note
[2025-09-04] MEDS: THIAMINE INJ 100 MG/ML VIAL 2 ML IVP (08:35)
[2025-09-04] MEDS: RINGERS LACTATED 1000 ML 1,000 ML 250 ML IV (09:24)
[2025-09-04] MEDS: MORPHINE SULF INJ 4 MG/ML VIAL 1 MG IVP ×3 (09:37→22:51)
--- NOTE | 2025-09-04 14:30 | ESPR_ITS ---
<Statement entered by Vargas Celestin MD - 09/04/25 17:31> Patient seen and examined at bedside. I discussed and supervised with the technology risk intern physician who took care of this patient. I personally saw and examined the patient. I agree with most of the assessment and plan. Patient continues to have output via NGT. Plan for Upper GI series tomorrow morning. Patient given glycerin suppository, remains NPO. Plan to remove fernando cath. Continue rocephin. Plan of care discussed with attending Dr. Barone. Vargas Celestin MD PGY-2 Documentation for date of: 09/04/25 Subjective Subjective Interval history: Patient was seen and examined at bedside. No acute events took place overnight. Patient complaining of epigastric abdominal pain. Denies chest pain, palpation, SOB, abdominal pain, N/V, fevers or chills. Patient on PPN at goal rate 75 mL/h. No recorded in-hospital bowel movements. Ordered glycerin suppository. Voiding trial in preparation for the removal of the urinary cath. Planned Gastrografin series for the examination of the gastric outlet obstruction on September 05. Currently on NG tube, Traces of blood in the NG tubing. Blood cultures negative after 48 hours 11/07, discontinued vancomycin. Will continue IV ceftriaxone 1 g daily for the treatment of pneumonia. Urine cultures negative. Exam Vital Signs Temp Pulse Resp BP Pulse Ox O2 Del Method O2 Flow Rate 97.1 F 112 H 21 H 127/95 H 95 Nasal Cannula 3 09/04/25 12:09/04/25 12:09/04/25 12:09/04/25 12:09/04/25 12:09/04/25 12:09/04/25 12:00 Narrative Exam General: No acute distress, well nourished, AAO x3 Eye: PERRL, EOMI, normal conjunctiva, no scleral icterus HENT: Normocephalic, atraumatic, hearing intact to conversation at normal volume, moist oral mucosa Neck: Supple, non-tender, no JVD, no lymphadenopathy Lungs: Non-labored respirations, symmetric chest rise, Clear to auscultate bilaterally, No wheezing, rhonchi, crackles Heart: Peripheral pulses intact bilaterally, Regular Rate and Rhythm. Abdomen: Soft, non-tender, non-distended, no palpable masses Musculoskeletal: Normal range of motion and strength, No cyanosis or edema, No visible joint swelling, Chronic left foot ulcer/scar Skin: Skin is warm, dry, no rashes or lesions. Psychiatric: Cooperative, appropriate mood and affect, Awake and alert, not agitated Neuro: Cranial nerves II-XII grossly intact. Strength 5/5 throughout. Sensations intact to light touch. Objective Labs 09/06/25 02:00 09/06/25 02:00 Labs: Laboratory Results - last 24 hr 09/04/25 05:34 WBC 15.2 H RBC 3.35 L Hgb 10.5 L Hct 32.0 L MCV 96 MCH 31.3 MCHC 32.8 RDW Std Deviation 57.8 H Plt Count 206 Neut % (Auto) 78 Lymph % (Auto) 9 L [place] % (Auto) 12 Eos % (Auto) 0 Baso % (Auto) 0 Neut # (Auto) 11.9 H Lymph # (Auto) 1.3 [place] # (Auto) 1.8 H Eos # (Auto) 0.1 Baso # (Auto) 0.1 Immature Gran # (Auto) 0.09 H Absolute Nucleated RBC 0.00 Immature Gran % 1 H Nucleated RBC % 0 Sodium 138 Potassium 3.9 Chloride 105 Carbon Dioxide 21.8 Anion Gap 11 BUN 37 H Creatinine 1.1 Estim Creat Clear Calc 31.6 L eGFR 49 L BUN/Creatinine Ratio 34 H Glucose 138 H D Calculated Osmolality 286 Calcium 8.6 Corrected Calcium 8.8 Phosphorus 4.8 Magnesium 2.5 Total Bilirubin 0.3 AST 18 ALT < 7 L Alkaline Phosphatase 63 Total Protein 6.1 Albumin 3.8 Globulin 2.3 Albumin/Globulin Ratio 1.7 ABG Interpretation ABG results: 09/03/25 08:09 VBG pH 7.39 VBG pCO2 37 VBG pO2 168 H VBG Base Excess -3 Quality Measures Quality Measures sepsis Current suspected stage: ruled out Possible source: pulmonary and genitourinary Blood cultures ordered: yes Antibiotic ordered: Yes Advance care planning discussed with:: patient Assessment & Plan Assessment Current Active Medications: Generic Name Dose Route Start Last Admin Trade Name Freq PRN Reason Stop Dose Admin Acetaminophen 650 mg 08/30/25 23:39 09/02/25 05:04 Acetaminophen 325 Mg Tablet PO 09/29/25 23:38 650 mg Q6H PRN Administration Fever >100.4 or pain 1-3 Hydrocodone Bitart/Acetaminophen 1 tab 09/03/25 13:29 Hydrocodone/Apap 5/325 Tablet PO 09/04/25 23:38 Q4HR PRN PAIN SCALE 4-6 (Moderate Dextrose 25 ml 09/03/25 14:50 09/03/25 17:41 Dextrose 50%-Water Inj 50 Ml Syringe IV 10/03/25 14:49 25 ml Q15MIN PRN Administration BG 50-70 responsive npo pt Dextrose 50 ml 09/03/25 14:50 Dextrose 50%-Water Inj 50 Ml Syringe IV 10/03/25 14:49 Q15MIN PRN BG <50 OR BG <70 & pt unresponsive Diltiazem HCl 120 mg 08/31/25 09:00 09/04/25 08:36 Diltiazem Cd 120 Mg Capcr PO 09/30/25 08:59 Not Given QDAY [facility] Docusate Sodium 200 mg 09/04/25 09:00 09/04/25 09:19 Docusate Sod 100 Mg Capsule PO 10/04/25 08:59 Not Given QDAY [facility] Protocol Gabapentin 300 mg 08/31/25 09:00 09/04/25 08:37 Gabapentin 300 Mg Capsule PO 09/30/25 08:59 Not Given BID [facility] Glucagon 1 mg 09/03/25 14:50 Glucagon Inj 1 Mg Vial IM Q15MIN PRN BG <70, and no IV access Glycerin 1 each 09/04/25 11:12 Glycerin, Adult 1 Ea Supp MD 10/04/25 11:11 QDAY PRN CONSTIPATION Ceftriaxone Sodium/Dextrose 1 gm in 50 mls @ 100 mls/hr 08/31/25 21:00 09/03/25 21:05 Rocephin/D5w 1gm Iv Premix IV 09/07/25 20:59 Infused HS [facility] Infusion Fat Emulsion Intravenous 500 mls @ 32 mls/hr 09/05/25 18:00 Intralipid 20% Iv IV 10/05/25 17:59 [id number] [facility] Multivitamins/Minerals 10 ml/ 2,010 mls @ 35 mls/hr 09/03/25 18:00 09/04/25 13:35 Amino Acids/Electrolytes/ IV 09/04/25 17:59 35 mls/hr Dextrose Q24H [facility] Infusion Multivitamins/Minerals 10 ml/ 2,020 mls @ 75 mls/hr 09/04/25 18:00 Calcium Gluconate 1 gm/ Amino IV 10/04/25 17:59 Acids Q24H [facility] Insulin Human Lispro 0 unit 09/03/25 18:00 09/04/25 12:18 Insulin Lispro (Admelog) 1 Unit/0.01 Ml Unit SC 10/03/25 17:59 Not Given Q6HR [facility] Protocol Labetalol HCl 10 mg 08/31/25 21:44 08/31/25 22:48 Labetalol Inj 5 Mg/Ml Vial 4 Ml IVP 10 mg Q15MIN PRN Administration SBP >180 or DBP >100 Metoclopramide HCl 5 mg 09/01/25 12:00 09/04/25 12:24 Metoclopramide Inj 5 Mg/Ml Vial 2 Ml IVP 10/01/25 11:59 5 mg Q6HR PAMELA Administration Protocol Morphine Sulfate 1 mg 09/03/25 13:27 09/04/25 09:37 Morphine Sulf Inj 4 Mg/Ml Vial IVP 09/08/25 13:26 1 mg Q4HR PRN Administration PAIN SCALE 7-10 (Severe Ondansetron HCl 4 mg 08/30/25 23:39 09/02/25 21:02 Ondansetron Inj 2 Mg/Ml Inj 2 Ml IVP 09/29/25 23:38 4 mg Q6H PRN Administration NAUSEA OR VOMITING Protocol Pantoprazole Sodium 40 mg 08/31/25 09:00 09/04/25 08:34 Pantoprazole Inj 40 Mg Vial IVP 09/30/25 08:59 40 mg BID PAMELA Administration Polyethylene Glycol 34 gm 09/04/25 08:30 09/04/25 09:19 Polyethylene Glycol 17 Gm Packet PO 10/04/25 08:29 Not Given QDAY [facility] Sennosides 1 tab 08/31/25 10:15 09/04/25 08:37 Senna/Docusate Sod 1 Tab Tablet PO 09/30/25 10:14 Not Given QDAY [facility] Protocol Sertraline HCl 25 mg 08/31/25 09:00 08/31/25 08:05 Sertraline Hcl 25 Mg Tablet PO 09/30/25 08:59 25 mg On Hold: 08/31/25 17:34 QDAY PAMELA Administration Thiamine HCl 100 mg 09/03/25 18:00 09/04/25 08:35 Thiamine Inj 100 Mg/Ml Vial 2 Ml IVP 10/03/25 17:59 100 mg QDAY PAMELA Administration Plan 84yo DNR/DNI female on comfort measures with a history of gout, situs inversus totalis, HTN, aFib (not on blood thinners), lymphedema, venous stasis, and chronic back pain BIBA from [facility] presents to the ED for a chief complaint of one day of NV with reported coffee ground emesis. Admitted for sepsis with pneumonia and UTI. Patient's family agreed on minimally invasive procedures. #Haematemesis #Upper vs Lower GI bleed #Gastric Outlet Obstruction #Hx of situs inversus totalis -Per ED patient had coffee ground emesis and vomitus in the ED was guaic +. Patient states she has had a minor cough the last few days and noticed some specks of blood when she coughed. She also reports pain in her stomach upon waking that was worsened with food/breakfast in the morning. Patient states vomitus and stool was dark brown, denies any oily or black color. Denies any hematochezia. -On assessment, patient has abdominal tenderness diffusely with guarding. -Hgb was in admission was 13.4 (08/30), decreased to 11.7 (08/31) -08/31: Patient had multiple episodes of hematemesis. -CT abd/pelvis w/ contrast (08/31/2025): Situs inversus, Gastritis, Colonic diverticulosis, No bowel obstruction, Large fat-containing left lateral pelvic wall hernia defect, Atrophic uterus, No bowel obstruction -XR abd (08/31/2025): Moderate stool throughout the colon, Minimal small bowel ileus, No obstruction -Patient and patient's family agreed to proceed with diagnostic procedures, including EGD and colonoscopy, but declined any aggressive surgical interventions. -EGD (09/01/2025): showed esophageal ulcers oozing blood. Situs inversus noted. There were coffee ground material along with food in the body of the stomach with poor visibility. With high risk of aspiration, the scope was pulled out. -Placed NG tube with intermittent suction with reglan 5mg IV [id number] NG tube was suctioning blood. H&H has been ordered tonight. -Based on CT abd/pelvis scan, a significant portion of the stomach is located within the thoracic cavity, which is attributable to the patient's age, and underlying situs inversus totalis. This large hatal hernia is the likely cause of her gastric outlet obstruction and hematemesis. Plan: -Gastrografin upper GI series for evaluation of obstruction and identify the precise location, if present scheduled for September 05. - Patient on PPN until the above study can be completed, to meet her nutritional needs while she is n.p.o.. -Monitor H&H -Transfuse if hemoglobin less than 7 -On protonix IV 40 twice daily -Consulted GI, Dr. Montemayor, appreciate recommendations. #Bacteremia, GPC 10/07 #Pneumonia #Sepsis -Ruled out -Patient came in and found to have 2 or more SIRS criteria and was evaluated for sepsis. However, based upon further work-up, sepsis was ruled out. BP 165/104 HR 116 RR 24 T 101.1F O2 sat 93% RA --> with oxygen and fluids BP 121/85 HR 82 RR 19 T -96.8F O2 sat 97%RA. Lactic acid 2.1 -->1.2. WBC 15.1. Patient reports 1-2 days of cough with possible blood specks. R lung lobe rhonchi. Denies chest pain and shortness of breath. +2 pedal edema seems to be gravity dependent/chronic due to venous stasis, not secondary to volume overload or CHF exacerbation. -UA: Showed turbid yellow urine collected on catheter, urine protein 1+, urine ketone 1 close, urine blood 1+, urine nitrate negative, urine leukocyte esterase positive, urine RBC 42, urine WBC 692, amorphous crystals present, urine bacteria 4+ -CXR: mild heart failure, significant pneumonia right base. -BCx (08/30/2025): GPC 10/07 -UCx (08/31/2025): No growth -Repeat Blood culture (09/01) was negative after 48 hours 11/07. Plan: -Ceftriaxone 1g IV QD (08/30 -) -Discontinued IV Vancomycin (08/31-09/02) and Azithromycin 500mg QD (08/30 - 09/01) #Hx of Neuropathy Plan: -Continue gabapentin 300mg BID #Hx of A-fib (not on eliquis) #Hx of HTN Plan: -Metoprolol tartrate IV 5 mg Q8h, for a total daily dose of 15 mg -diltiazem 120mg QD on hold as patient is n.p.o. #Hx of Depression Plan: -Zoloft 25mg PO QD Health Maintenance: Code status: DNR/DNI DVT prophylaxis: SCDs GI prophylaxis: Protonix Diet: PPN Michelle: Rhina Lines: PIV Supplemental O2: NC Disposition: To tele Assessment and plan discussed with my attending physician Dr. Barone and Dr. Celestin (PGY-2) Vanesa osei DO - Internal medicine resident Attending Provider Attestation/Addendum I have discussed and was present for the essential components of the history, physical examination, diagnosis, and treatment plan with the resident. I agree with the patient's care as documented by the resident and amended herein by me. Seth Barone DO. Although this document has been carefully reviewed, there may still be some phonetic and other typographical errors. These errors are purely grammatical due to imperfections in the software program and should not be construed in any way to compromise the substance of the patient's medical care during this visit.
--- NOTE | 2025-09-04 16:00 | PC.SS ---
Discharge plan: Pending upper GI series tomorrow.
[2025-09-04] MEDS: CALCIUM GLUCONATE IV (16:58)
[2025-09-04] MEDS: [UNRECOGNIZED DRUG - OTHER] IV (16:58)
[2025-09-04] MEDS: MULTIVITAMIN IV (16:58)
--- NOTE | 2025-09-04 17:26 | PD.IMPROG ---
Documentation for date of: 09/04/25 Subjective Subjective Interval history: On NGT suction not much is coming out Upper GI series scheduled for tomorrow Gastrografin spoke with the family Exam Vital Signs Temp Pulse Resp BP Pulse Ox O2 Del Method O2 Flow Rate 97.4 F 111 H 18 133/97 H 96 Nasal Cannula 3 09/04/25 16:00 09/04/25 16:31 09/04/25 16:00 09/04/25 16:31 09/04/25 16:00 09/04/25 16:00 09/04/25 16:00 Objective Labs 09/04/25 05:34 09/04/25 05:34 Labs: Laboratory Results - last 24 hr 09/04/25 05:34 WBC 15.2 H RBC 3.35 L Hgb 10.5 L Hct 32.0 L MCV 96 MCH 31.3 MCHC 32.8 RDW Std Deviation 57.8 H Plt Count 206 Neut % (Auto) 78 Lymph % (Auto) 9 L [place] % (Auto) 12 Eos % (Auto) 0 Baso % (Auto) 0 Neut # (Auto) 11.9 H Lymph # (Auto) 1.3 [place] # (Auto) 1.8 H Eos # (Auto) 0.1 Baso # (Auto) 0.1 Immature Gran # (Auto) 0.09 H Absolute Nucleated RBC 0.00 Immature Gran % 1 H Nucleated RBC % 0 Sodium 138 Potassium 3.9 Chloride 105 Carbon Dioxide 21.8 Anion Gap 11 BUN 37 H Creatinine 1.1 Estim Creat Clear Calc 31.6 L eGFR 49 L BUN/Creatinine Ratio 34 H Glucose 138 H D Calculated Osmolality 286 Calcium 8.6 Corrected Calcium 8.8 Phosphorus 4.8 Magnesium 2.5 Total Bilirubin 0.3 AST 18 ALT < 7 L Alkaline Phosphatase 63 Total Protein 6.1 Albumin 3.8 Globulin 2.3 Albumin/Globulin Ratio 1.7 Impressions Impression: Hematemesis Possible gastric outlet obstruction Patient on PPN Plan Upper GI series tomorrow ABG Interpretation ABG results: 09/03/25 08:09 VBG pH 7.39 VBG pCO2 37 VBG pO2 168 H VBG Base Excess -3 Assessment & Plan A&P Narrative # Nausea vomiting with coffee-ground emesis Plan N.p.o. midnight tonight IV Protonix IV Zofran consent obtained for fiberoptic esophagogastroduodenoscopy with possible biopsy possible therapeutic intervention under intravenous moderate sedation Further evaluation after above Other medical problems include Chronic atrial fibrillation not on any anticoagulation Status and versus Essential hypertension Gout [place] resident in SNF Thank you very much for the opportunity to participate in the care of this patient Time Spent With Patient Time: Total time spent is greater than 50% in coordination of care (as documented) at patient's floor/unit and/or counseling patient:
[2025-09-04] MEDS: cefTRIAXone/D5w 1gm IV premix 1 GM/50 ML BAG IV (20:23)
[2025-09-05] VITALS (15 sets, daily range): BP systolic 111–160; BP diastolic 81–100; PULSE 86–125; RESP 18–34; TEMP 36.1–36.6; O2SAT 95–99; BMI 41.1
[2025-09-05] MEDS: METOCLOPRAMIDE INJ 5 MG/ML VIAL 2 ML IVP ×3 (05:57→18:33)
[2025-09-05 06:47] LABS: Basophils # (Auto) 0.0 Thou/mm3 (0.0-0.2); Basophils % (Auto) 0 % (0-2.5); Eosinophils # (Auto) 0.1 Thou/mm3 (0.0-0.5); Eosinophils % (Auto) 1 % (0-10); Hematocrit 29.2 % (36.0-46.0); Hemoglobin 9.6 g/dL (12.0-16.0); Immature Granulocytes Auto 0.10 Thou/mm3 (0.00-0.00); Lymphocytes # (Auto) 0.9 Thou/mm3 (1.0-4.8); Lymphocytes % (Auto) 8 % (10-50); Mean Corpuscular HGB Conc 32.9 g/dl (31.0-37.0); Mean Corpuscular Hemoglobin 30.7 pg (25.0-35.0); Mean Corpuscular Volume 93 fL (80-100); Monocytes # (Auto) 1.2 Thou/mm3 (0.0-0.8); Monocytes % (Auto) 11 % (0-12); Neutrophils # (Auto) 8.9 Thou/mm3 (1.8-7.7); Neutrophils % (Auto) 79 % (37-80); Nucleated Red Blood Cell # 0.02 Thou/mm3 (0.00-0.00); Nucleated Red Blood Cell % 0 /100 WBC (0); Platelet Count 231 Thou/mm3 (140-440); RDW Standard Deviation 55.4 fL (36.4-46.3); Red Blood Count 3.13 Miln/mm3 (4.00-5.20); White Blood Count 11.2 Thou/mm3 (3.6-11.0)
[2025-09-05 07:14] LABS: Alanine Aminotransferase < 7 U/L (10-49); Albumin, Serum 3.7 gm/dL (3.4-4.8); Albumin/Globulin Ratio 1.6 (1.2-2.2); Alkaline Phosphatase 65 U/L (46-116); Anion Gap 9 (7-16); Aspartate Amino Transferase 13 U/L (0-34); BUN/Creatinine Ratio 56 Ratio (12-20); Bilirubin,Total 0.3 mg/dL (0.3-1.2); Blood Urea Nitrogen 45 mg/dL (9-23); Calcium 8.5 mg/dL (8.3-10.6); Calcium (Corrected) 8.7 mg/dL (8.5-10.1); Carbon Dioxide 25.2 mMol/L (20.0-31.0); Chloride 103 mMol/L (98-107); Creatinine (Component) 0.8 mg/dL (0.6-1.3); Estimated Creatinine Clearance 44.9 mL/min (>60); Globulin 2.3 gm/dL (2.3-3.5); Glucose 140 mg/dL (74-106); Magnesium 2.6 mg/dL (1.6-2.6); Osmolality,Calculated 287 (275-295); Phosphorous 3.3 mg/dL (2.4-5.1); Potassium 3.9 mMol/L (3.4-5.1); Sodium 137 mMol/L (136-145); Total Protein 6.0 gm/dL (5.7-8.2); eGFR > 60 See Note
[2025-09-05] MEDS: THIAMINE INJ 100 MG/ML VIAL 2 ML IVP (09:32)
--- NOTE | 2025-09-05 09:37 | PC.SS ---
Follow up note: Upper GI Series. Still on PPN. Pt is from [place].
--- NOTE | 2025-09-05 09:46 | XR_ITS ---
EXAMINATION: Upper GI series Fluoroscopy 7 spot fluoroscopic films of the stomach AP oblique abdomen films Date and time: August 06, 2025, 1356 hours INDICATIONS: Difficulty swallowing FINDINGS: The patient has an orogastric tube which precludes assessment of esophageal motility Retrocardiac gastric hernia is evident No stricture at the gastroesophageal junction There is food and retained material in the stomach which severely limits assessment IMPRESSION: Severely limited study as above
--- NOTE | 2025-09-05 10:00 | PC.NURSE ---
SPEECH THERAPIST AT BEDSIDE
[2025-09-05] MEDS: MORPHINE SULF INJ 4 MG/ML VIAL 1 MG IVP ×2 (12:00→20:19)
[2025-09-05] MEDS: ALBUTEROL/IPRATROPIUM (Duoneb) RT SOL 3 ML NEBU INH ×3 (12:00→20:46)
--- NOTE | 2025-09-05 13:52 | PD.IMPROG ---
Documentation for date of: 09/05/25 Subjective Subjective Interval history: Patient evaluated Scheduled for an upper GI series today either with thin barium or Gastrografin Exam Vital Signs Temp Pulse Resp BP Pulse Ox O2 Del Method O2 Flow Rate 97.2 F 108 H 24 H 131/89 H 99 Nasal Cannula 4 09/05/25 07:51 09/05/25 12:04 09/05/25 12:04 09/05/25 07:51 09/05/25 12:04 09/05/25 07:51 09/05/25 12:04 Objective Labs 09/05/25 06:25 09/05/25 06:25 Labs: Laboratory Results - last 24 hr 09/05/25 06:25 WBC 11.2 H RBC 3.13 L Hgb 9.6 L Hct 29.2 L MCV 93 MCH 30.7 MCHC 32.9 RDW Std Deviation 55.4 H Plt Count 231 Neut % (Auto) 79 Lymph % (Auto) 8 L [place] % (Auto) 11 Eos % (Auto) 1 Baso % (Auto) 0 Neut # (Auto) 8.9 H Lymph # (Auto) 0.9 L [place] # (Auto) 1.2 H Eos # (Auto) 0.1 Baso # (Auto) 0.0 Immature Gran # (Auto) 0.10 H Absolute Nucleated RBC 0.02 H Immature Gran % 1 H Nucleated RBC % 0 Sodium 137 Potassium 3.9 Chloride 103 Carbon Dioxide 25.2 Anion Gap 9 BUN 45 H Creatinine 0.8 Estim Creat Clear Calc 44.9 L eGFR > 60 BUN/Creatinine Ratio 56 H Glucose 140 H Calculated Osmolality 287 Calcium 8.5 Corrected Calcium 8.7 Phosphorus 3.3 Magnesium 2.6 Total Bilirubin 0.3 AST 13 ALT < 7 L Alkaline Phosphatase 65 Total Protein 6.0 Albumin 3.7 Globulin 2.3 Albumin/Globulin Ratio 1.6 Impressions Impression: Distal esophageal erosions/ulcers Hemorrhagic gastritis possible gastric outlet obstruction Upper GI series with either Gastrografin or thin barium ABG Interpretation ABG results: 09/03/25 08:09 VBG pH 7.39 VBG pCO2 37 VBG pO2 168 H VBG Base Excess -3 Assessment & Plan A&P Narrative # Nausea vomiting with coffee-ground emesis Plan N.p.o. midnight tonight IV Protonix IV Zofran consent obtained for fiberoptic esophagogastroduodenoscopy with possible biopsy possible therapeutic intervention under intravenous moderate sedation Further evaluation after above Other medical problems include Chronic atrial fibrillation not on any anticoagulation Status and versus Essential hypertension Gout [place] resident in SNF Thank you very much for the opportunity to participate in the care of this patient Time Spent With Patient Time: Total time spent is greater than 50% in coordination of care (as documented) at patient's floor/unit and/or counseling patient:
--- NOTE | 2025-09-05 15:15 | PD.RESPRO ---
Documentation for date of: 09/05/25 Subjective Subjective Interval history: Patient was seen and examined at bedside. No acute events took place overnight. Patient. Denies chest pain, palpation, SOB, abdominal pain, N/V, fevers or chills. Patient on PPN at goal rate 75 mL/h. Planned barium swallow upper GI series for the examination of the gastric outlet obstruction today. Currently on NG tube, Traces of blood in the NG tubing -clamped. No recorded in-hospital bowel movements. Ordered glycerin suppository. Voiding trial in preparation for the removal of the urinary cath. Purwick catheter replaced. Blood cultures negative after 48 hours 11/07, discontinued vancomycin. Will continue IV ceftriaxone 1 g daily for the treatment of pneumonia. Urine cultures negative. Exam Vital Signs Temp Pulse Resp BP Pulse Ox O2 Del Method O2 Flow Rate 97.8 F 108 H 24 H 138/94 H 99 Nasal Cannula 4 09/05/25 12:00 09/05/25 12:04 09/05/25 12:04 09/05/25 12:00 09/05/25 12:04 09/05/25 12:00 09/05/25 12:04 Narrative Exam General: No acute distress, well nourished, AAO x3 Eye: PERRL, EOMI, normal conjunctiva, no scleral icterus HENT: Normocephalic, atraumatic, hearing intact to conversation at normal volume, moist oral mucosa Neck: Supple, non-tender, no JVD, no lymphadenopathy Lungs: Non-labored respirations, symmetric chest rise, Clear to auscultate bilaterally, No wheezing, rhonchi, crackles Heart: Peripheral pulses intact bilaterally, Regular Rate and Rhythm. Abdomen: Soft, non-tender, non-distended, no palpable masses Musculoskeletal: Normal range of motion and strength, No cyanosis or edema, No visible joint swelling, Chronic left foot ulcer/scar Skin: Skin is warm, dry, no rashes or lesions. Psychiatric: Cooperative, appropriate mood and affect, Awake and alert, not agitated Neuro: Cranial nerves II-XII grossly intact. Strength 5/5 throughout. Sensations intact to light touch. Objective Labs 09/05/25 06:25 09/05/25 06:25 Labs: Laboratory Results - last 24 hr 09/05/25 06:25 WBC 11.2 H RBC 3.13 L Hgb 9.6 L Hct 29.2 L MCV 93 MCH 30.7 MCHC 32.9 RDW Std Deviation 55.4 H Plt Count 231 Neut % (Auto) 79 Lymph % (Auto) 8 L Toole % (Auto) 11 Eos % (Auto) 1 Baso % (Auto) 0 Neut # (Auto) 8.9 H Lymph # (Auto) 0.9 L Toole # (Auto) 1.2 H Eos # (Auto) 0.1 Baso # (Auto) 0.0 Immature Gran # (Auto) 0.10 H Absolute Nucleated RBC 0.02 H Immature Gran % 1 H Nucleated RBC % 0 Sodium 137 Potassium 3.9 Chloride 103 Carbon Dioxide 25.2 Anion Gap 9 BUN 45 H Creatinine 0.8 Estim Creat Clear Calc 44.9 L eGFR > 60 BUN/Creatinine Ratio 56 H Glucose 140 H Calculated Osmolality 287 Calcium 8.5 Corrected Calcium 8.7 Phosphorus 3.3 Magnesium 2.6 Total Bilirubin 0.3 AST 13 ALT < 7 L Alkaline Phosphatase 65 Total Protein 6.0 Albumin 3.7 Globulin 2.3 Albumin/Globulin Ratio 1.6 ABG Interpretation ABG results: 09/03/25 08:09 VBG pH 7.39 VBG pCO2 37 VBG pO2 168 H VBG Base Excess -3 Quality Measures Quality Measures sepsis Current suspected stage: ruled out Possible source: pulmonary and genitourinary Blood cultures ordered: yes Antibiotic ordered: Yes Advance care planning discussed with:: patient Assessment & Plan Assessment Current Active Medications: Generic Name Dose Route Start Last Admin Trade Name Freq PRN Reason Stop Dose Admin Acetaminophen 650 mg 08/30/25 23:39 09/02/25 05:04 Acetaminophen 325 Mg Tablet PO 09/29/25 23:38 650 mg Q6H PRN Administration Fever >100.4 or pain 1-3 Albuterol/Ipratropium 3 ml 09/05/25 09:46 09/05/25 12:00 Albuterol/Ipratropium (Duoneb) Rt Celine 3 Ml Nebu INH 10/05/25 09:45 3 ml Q2HR PRN Administration SHORTNESS OF BREATH OR WHEEZE Dextrose 25 ml 09/03/25 14:50 09/03/25 17:41 Dextrose 50%-Water Inj 50 Ml Syringe IV 10/03/25 14:49 25 ml Q15MIN PRN Administration BG 50-70 responsive npo pt Dextrose 50 ml 09/03/25 14:50 Dextrose 50%-Water Inj 50 Ml Syringe IV 10/03/25 14:49 Q15MIN PRN BG <50 OR BG <70 & pt unresponsive Docusate Sodium 200 mg 09/04/25 09:00 09/05/25 09:27 Docusate Sod 100 Mg Capsule PO 10/04/25 08:59 Not Given QDAY [facility] Protocol Gabapentin 300 mg 08/31/25 09:00 09/05/25 09:27 Gabapentin 300 Mg Capsule PO 09/30/25 08:59 Not Given BID PAMELA Glucagon 1 mg 09/03/25 14:50 Glucagon Inj 1 Mg Vial IM Q15MIN PRN BG <70, and no IV access Glycerin 1 each 09/04/25 11:12 Glycerin, Adult 1 Ea Supp RI 10/04/25 11:11 QDAY PRN CONSTIPATION Ceftriaxone Sodium/Dextrose 1 gm in 50 mls @ 100 mls/hr 08/31/25 21:00 09/04/25 20:23 Rocephin/D5w 1gm Iv Premix IV 09/07/25 20:59 100 mls/hr HS PAMELA Administration Fat Emulsion Intravenous 500 mls @ 32 mls/hr 09/05/25 18:00 Intralipid 20% Iv IV 10/05/25 17:59 [id number] [facility] Multivitamins/Minerals 10 ml/ 2,020 mls @ 75 mls/hr 09/04/25 16:45 09/05/25 01:00 Calcium Gluconate 1 gm/ Amino IV 09/05/25 16:44 75 mls/hr Acids Q24H PAMELA Infusion Protocol Calcium Gluconate 1 gm/ 2,020 mls @ 75 mls/hr 09/05/25 18:00 Potassium Chloride 20 meq/ IV 09/06/25 17:59 Amino Acids [id number]@1800 [facility] Protocol Insulin Human Lispro 0 unit 09/03/25 18:00 09/05/25 12:04 Insulin Lispro (Admelog) 1 Unit/0.01 Ml Unit SC 10/03/25 17:59 Not Given Q6HR [facility] Protocol Metoclopramide HCl 5 mg 09/01/25 12:00 09/05/25 12:21 Metoclopramide Inj 5 Mg/Ml Vial 2 Ml IVP 10/01/25 11:59 5 mg Q6HR PAMELA Administration Protocol Metoprolol Tartrate 5 mg 09/04/25 15:45 09/05/25 06:17 Metoprolol Tartrate Inj 1 Mg/Ml Vial 5 Ml IVP 10/04/25 15:44 5 mg Q8HR PAMELA Administration Morphine Sulfate 1 mg 09/03/25 13:27 09/05/25 12:00 Morphine Sulf Inj 4 Mg/Ml Vial IVP 09/08/25 13:26 1 mg Q4HR PRN Administration PAIN SCALE 7-10 (Severe Ondansetron HCl 4 mg 08/30/25 23:39 09/02/25 21:02 Ondansetron Inj 2 Mg/Ml Inj 2 Ml IVP 09/29/25 23:38 4 mg Q6H PRN Administration NAUSEA OR VOMITING Protocol Pantoprazole Sodium 40 mg 08/31/25 09:00 09/05/25 09:33 Pantoprazole Inj 40 Mg Vial IVP 09/30/25 08:59 40 mg BID PAMELA Administration Polyethylene Glycol 34 gm 09/04/25 08:30 09/05/25 09:27 Polyethylene Glycol 17 Gm Packet PO 10/04/25 08:29 Not Given QDAY [facility] Sennosides 1 tab 08/31/25 10:15 09/05/25 09:27 Senna/Docusate Sod 1 Tab Tablet PO 09/30/25 10:14 Not Given QDAY [facility] Protocol Thiamine HCl 100 mg 09/03/25 18:00 09/05/25 09:32 Thiamine Inj 100 Mg/Ml Vial 2 Ml IVP 10/03/25 17:59 100 mg QDAY [facility] Administration Plan 84yo DNR/DNI female on comfort measures with a history of gout, situs inversus totalis, HTN, aFib (not on blood thinners), lymphedema, venous stasis, and chronic back pain BIBA from [facility] presents to the ED for a chief complaint of one day of NV with reported coffee ground emesis. Admitted for sepsis with pneumonia and UTI. Patient's family agreed on minimally invasive procedures. #Haematemesis #Upper vs Lower GI bleed #Retrocardiac Gastric Hernia #Gastric Outlet Obstruction #Hx of situs inversus totalis -Per ED patient had coffee ground emesis and vomitus in the ED was guaic +. Patient states she has had a minor cough the last few days and noticed some specks of blood when she coughed. She also reports pain in her stomach upon waking that was worsened with food/breakfast in the morning. Patient states vomitus and stool was dark brown, denies any oily or black color. Denies any hematochezia. -On assessment, patient has abdominal tenderness diffusely with guarding. -Hgb was in admission was 13.4 (08/30), decreased to 11.7 (08/31) -08/31: Patient had multiple episodes of hematemesis. -CT abd/pelvis w/ contrast (08/31/2025): Situs inversus, Gastritis, Colonic diverticulosis, No bowel obstruction, Large fat-containing left lateral pelvic wall hernia defect, Atrophic uterus, No bowel obstruction -XR abd (08/31/2025): Moderate stool throughout the colon, Minimal small bowel ileus, No obstruction -Patient and patient's family agreed to proceed with diagnostic procedures, including EGD and colonoscopy, but declined any aggressive surgical interventions. -EGD (09/01/2025): showed esophageal ulcers oozing blood. Situs inversus noted. There were coffee ground material along with food in the body of the stomach with poor visibility. With high risk of aspiration, the scope was pulled out. -Placed NG tube with intermittent suction with reglan 5mg IV [id number] NG tube was suctioning blood. H&H has been ordered tonight. -Based on CT abd/pelvis scan, a significant portion of the stomach is located within the thoracic cavity, which is attributable to the patient's age, and underlying situs inversus totalis. This large hatal hernia is the likely cause of her gastric outlet obstruction and hematemesis. - Barium swallow upper GI series again showed retrocardiac gastric hernia, no stricture at the GE junction. Food and retained material in the stomach which severely limits assessment. Presents of the orogastric tube preclude assessment of esophageal motility. Plan: - S/P Barium Swallow upper GI series for evaluation of obstruction and identify the precise location, if present. - Patient on PPN to meet her nutritional needs -Monitor H&H -Transfuse if hemoglobin less than 7 -On protonix IV 40 twice daily -Consulted GI, Dr. Montemayor, appreciate recommendations. #Pneumonia #Bacteremia, GPC 1/2, resolved #Sepsis -Ruled out -Patient came in and found to have 2 or more SIRS criteria and was evaluated for sepsis. However, based upon further work-up, sepsis was ruled out. BP 165/104 HR 116 RR 24 T 101.1F O2 sat 93% RA --> with oxygen and fluids BP 121/85 HR 82 RR 19 T -96.8F O2 sat 97%RA. Lactic acid 2.1 -->1.2. WBC 15.1. Patient reports 1-2 days of cough with possible blood specks. R lung lobe rhonchi. Denies chest pain and shortness of breath. +2 pedal edema seems to be gravity dependent/chronic due to venous stasis, not secondary to volume overload or CHF exacerbation. -UA: Showed turbid yellow urine collected on catheter, urine protein 1+, urine ketone 1 close, urine blood 1+, urine nitrate negative, urine leukocyte esterase positive, urine RBC 42, urine WBC 692, amorphous crystals present, urine bacteria 4+ -CXR: mild heart failure, significant pneumonia right base. -BCx (08/30/2025): GPC /2 -UCx (08/31/2025): No growth -Repeat Blood culture (09/01) was negative after 48 hours 11/07. Plan: -Ceftriaxone 1g IV QD (08/30 - 09/05) 7d course sufficient for pneumonia -Discontinued IV Vancomycin (08/31-09/02) and Azithromycin 500mg QD (08/30 - 09/01) #Hx of Neuropathy Plan: -Continue gabapentin 300mg BID #Hx of A-fib (not on eliquis) #Hx of HTN Plan: -Metoprolol tartrate IV 5 mg Q8h, for a total daily dose of 15 mg -diltiazem 120mg QD on hold as patient is n.p.o. #Hx of Depression Plan: -Zoloft 25mg PO QD Health Maintenance: Code status: DNR/DNI DVT prophylaxis: SCDs GI prophylaxis: Protonix Diet: PPN Michelle: Rhina Lines: PIV Supplemental O2: NC Disposition: To tele Assessment and plan discussed with my attending physician Dr. Arias and senior resident Dr Quick (PGY-3) Vanesa osei, - Internal medicine resident Senior Resident Attestation: The patient upper GI series was inconclusive for any esophageal dysmotility, and the etiology for dysphagia continues to be unknown. GI Dr. Montemayor will proceed with EGD tomorrow morning, and we will keep patient n.p.o. overnight. IV antibiotics for pneumonia completed course. I discussed with and supervised the internet sourcer physician involved in the care of this patient. I personally saw and examined the patient and discussed the assessment and plan with the entire medicine team, including my attending. I agree with the assessment and plan as documented above. Renaldo Quick MD PGY3 Internal Medicine Attending Provider Attestation/Addendum Patient seen and examined. Pending upper GI series. Hemoglobin is stable. No nausea or vomiting reported today. Abdomen is not distended I discussed with and supervised the resident physician who took care of this patient. I agree with the assessment and plan as above.
[2025-09-05] MEDS: KETOROLAC INJ 30 MG/ML VIAL 15 MG IVP (16:02)
[2025-09-05] MEDS: FAT EMULSIONS 20% IV 500 ML 32 ML IV (17:51)
[2025-09-05] MEDS: cefTRIAXone/D5w 1gm IV premix 1 GM/50 ML BAG IV (20:19)
[2025-09-06] VITALS (18 sets, daily range): BP systolic 109–144; BP diastolic 71–92; PULSE 106–148; RESP 23–35; TEMP 36.1–37.3; O2SAT 92–98; BMI 41.1
--- NOTE | 2025-09-06 00:28 | PC.NURSE ---
Dr. Jansen notified regarding patient HR sustaining in 130s AFib. 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
[2025-09-06] MEDS: SODIUM CHLORIDE RT SOL 0.9% 3 ML NEBU INH (00:45)
[2025-09-06] MEDS: LEVALBUTEROL RT 1.25 MG/0.5 ML NEBU INH (00:45)
[2025-09-06] MEDS: METOCLOPRAMIDE INJ 5 MG/ML VIAL 2 ML IVP ×4 (00:59→18:25)
[2025-09-06] MEDS: MORPHINE SULF INJ 4 MG/ML VIAL 1 MG IVP (01:00)
--- NOTE | 2025-09-06 01:37 | EKG_ITS ---
[facility] Test Date: 2025-09-06 Pat Name: FELIX SUN [facility] Service Technician: KULDIP : 1940 Requested By: Giancarlo Iraheta Order Number: [id number] Reading MD: Giancarlo Iraheta Measurements Intervals [place] Rate: 143 P: LA: QRS: 217 QRSD: 91 T: 91 QT: 276 QTc: 426 Interpretive Statements ATRIAL FIBRILLATION WITH RAPID VENTRICULAR RESPONSE POSSIBLE RIGHT VENTRICULAR HYPERTROPHY POSSIBLE ANTERIOR MYOCARDIAL INFARCTION , PROBABLY OLD Compared to ECG 09/02/2025 11:06:52 Sinus rhythm no longer present Myocardial infarct finding still present /store/S0/[id number]/[id number].pdf
--- NOTE | 2025-09-06 01:50 | XR_ITS ---
EXAMINATION: AP chest single view TECHNIQUE: AP portable semiupright chest single view Date and time: September 06, 2025, 0212 hours, comparison September 03, 2025 INDICATION: Shortness of breath today. FINDINGS: CHF with enlarged cardiac contour and prominent vascular congestion and perihilar edema Extensive pneumonia in the right lung Elevation right hemidiaphragm The patient's orogastric tube has been removed Irregular contrast accumulation in the upper abdomen from the patient's upper GI series yesterday Prominent osteopenia Situs inversus IMPRESSION: Mild to moderate CHF Extensive pneumonia right lung Recommend repeat CT scan abdomen pelvis without intravenous contrast to assess contrast accumulation in the upper abdomen
[2025-09-06] MEDS: MORPHINE SULF INJ 4 MG/ML VIAL 0.5 MG IVP (01:59)
[2025-09-06] MEDS: DILTIAZEM INJ 5 MG/ML VIAL 5 ML 10 MG IV (02:06)
[2025-09-06] MEDS: DILTIAZEM INJ 5 MG/ML VIAL 5 ML IV (02:06)
--- NOTE | 2025-09-06 02:10 | PD.RESEVENT ---
Documentation for date of: 09/06/25 Event Note Event Note: Rapid response was called around 1:45 AM on 09/06/2025 for tachycardia with heart rate around 130 to 140 bpm. Patient is hard of hearing and mentioned pain throughout the body. EKG showed A-fib RVR. Diltiazem 15 mg and morphine 0.5 mg IV were ordered and given. Lactic acid, VBG, and chest x-ray were ordered. A.m. labs were collected at the same time. Patient was placed on high flow nasal cannula. After 10 minutes, patient noted to have heart rate of 110 to 120 bpm and her respiratory rate also appears to be improved. Will continue telemetry monitoring. If the heart rate increases again, planning on starting diltiazem drip Patient was seen and discussed with my senior resident Dr. Inderjit HYMAN PGY-2. Rohan Ya DO PGY-1.
[2025-09-06 02:18] LABS: Base Excess, Venous -3 (-3-3); O2 Saturation, Venous 94 % (96-97); PCO2, Venous 34 mmHg (36-56); PO2, Venous 64 mmHg (15-58); pH, Venous 7.41 (7.33-7.66)
[2025-09-06 02:19] LABS: Lactate (Lactic Acid) 1.2 mMol/L (0.4-2.0)
--- NOTE | 2025-09-06 02:23 | PC.NURSE ---
Around 0130, Dr. Iraheta notified regarding patient HR in 140s and 150s and patient very restless. stated he would talk to his senior about it.
--- NOTE | 2025-09-06 02:24 | PC.NURSE ---
Around 0143, rapid response called for patient HR in 140s and 150s, sustaining and patient very restless and expressing that she does not feel good. PATIENT FINANCIAL SERVICES MANAGER details in rapid response charting section.
[2025-09-06 02:35] LABS: Basophils # (Auto) 0.0 Thou/mm3 (0.0-0.2); Basophils % (Auto) 0 % (0-2.5); Eosinophils # (Auto) 0.0 Thou/mm3 (0.0-0.5); Eosinophils % (Auto) 0 % (0-10); Hematocrit 30.3 % (36.0-46.0); Hemoglobin 10.2 g/dL (12.0-16.0); Immature Granulocytes Auto 0.22 Thou/mm3 (0.00-0.00); Lymphocytes # (Auto) 0.7 Thou/mm3 (1.0-4.8); Lymphocytes % (Auto) 5 % (10-50); Mean Corpuscular HGB Conc 33.7 g/dl (31.0-37.0); Mean Corpuscular Hemoglobin 31.3 pg (25.0-35.0); Mean Corpuscular Volume 93 fL (80-100); Monocytes # (Auto) 1.3 Thou/mm3 (0.0-0.8); Monocytes % (Auto) 9 % (0-12); Neutrophils # (Auto) 13.0 Thou/mm3 (1.8-7.7); Neutrophils % (Auto) 85 % (37-80); Nucleated Red Blood Cell # 0.05 Thou/mm3 (0.00-0.00); Nucleated Red Blood Cell % 0 /100 WBC (0); Platelet Count 315 Thou/mm3 (140-440); RDW Standard Deviation 54.3 fL (36.4-46.3); Red Blood Count 3.26 Miln/mm3 (4.00-5.20); White Blood Count 15.3 Thou/mm3 (3.6-11.0)
--- NOTE | 2025-09-06 02:36 | PC.NURSE ---
Dr. Jansen notified regarding VBG results in for her to see and lactic is 1.2.
[2025-09-06 03:35] LABS: Alanine Aminotransferase < 7 U/L (10-49); Albumin, Serum 3.8 gm/dL (3.4-4.8); Alkaline Phosphatase 68 U/L (46-116); Anion Gap 13 (7-16); Aspartate Amino Transferase 14 U/L (0-34); BUN/Creatinine Ratio 59 Ratio (12-20); Bilirubin,Total 0.2 mg/dL (0.3-1.2); Blood Urea Nitrogen 53 mg/dL (9-23); Calcium 8.7 mg/dL (8.3-10.6); Calcium (Corrected) 8.9 mg/dL (8.5-10.1); Carbon Dioxide 20.0 mMol/L (20.0-31.0); Chloride 101 mMol/L (98-107); Creatinine (Component) 0.9 mg/dL (0.6-1.3); Estimated Creatinine Clearance 39.9 mL/min (>60); Glucose 140 mg/dL (74-106); Magnesium 2.5 mg/dL (1.6-2.6); Osmolality,Calculated 284 (275-295); Phosphorous 2.9 mg/dL (2.4-5.1); Potassium 4.0 mMol/L (3.4-5.1); Sodium 134 mMol/L (136-145); eGFR > 60 See Note
[2025-09-06] MEDS: THIAMINE INJ 100 MG/ML VIAL 2 ML IVP (08:02)
--- NOTE | 2025-09-06 08:46 | PC.SS ---
Update: PT evaluation is pending. Patient is comfort care. Plan is to d/c to SNF, [facility].
[2025-09-06] MEDS: FUROSEMIDE INJ 10 MG/ML 4ML VIAL 40 MG IVP (11:59)
[2025-09-06 13:26] LABS: Albumin/Globulin Ratio 1.3 (1.2-2.2); Globulin 2.9 gm/dL (2.3-3.5); Total Protein 6.7 gm/dL (5.7-8.2)
--- NOTE | 2025-09-06 13:34 | ESPR_ITS ---
<Statement entered by Judd Bryant MD - 09/06/25 21:26> I saw and examined patient personally and supervised PGY 1 resident, Dr. Patton with formulating a management plan. I agree with the documentation with the exceptions as listed below. Decreased Metoprolol tartrate to 5mg IV BID. Lasix 40mg IV x 1 was given for pulmonary edema. GOC diuscussioin was had with patient's son and high school social studies tutor provided resources. Gastroenterology, Dr. Montemayor will discuss case with [facility]. Appreciate recommendations. Plan of care discussed with Attending Dr. Lizabeth Bryant MD PGY 2 Disclaimer: This note was dictated by speech recognition. Minor errors in residential worker may be present due to voice recognition software. Documentation for date of: 09/06/25 Subjective Subjective Interval history: Patient was seen and examined at bedside. No acute events took place overnight. Denies chest pain, palpation, SOB, abdominal pain, N/V, fevers or chills. Patient was agitated overnight, pulled out her NG tube. Rapid response was called around 1:45 AM, for tachycardia HR 130s to 140. EKG showed A-fib with RVR. No recorded in-hospital bowel movements. Ordered glycerin suppository. Voiding trial in preparation for the removal of the urinary cath. Purewick catheter replaced. Will continue IV ceftriaxone 1 g daily for the treatment of pneumonia. Urine cultures negative. Exam Vital Signs Temp Pulse Resp BP Pulse Ox O2 Del Method O2 Flow Rate 97.0 F 113 H 25 H 115/87 H 92 L High Flow Nasal Cannula 25 09/06/25 12:09/06/25 12:09/06/25 12:09/06/25 12:09/06/25 12:09/06/25 12:00 09/06/25 12:00 FiO2 50 09/06/25 12:00 Narrative Exam General: No acute distress, well nourished, AAO x3 Eye: PERRL, EOMI, normal conjunctiva, no scleral icterus HENT: Normocephalic, atraumatic, hearing intact to conversation at normal volume, moist oral mucosa Neck: Supple, non-tender, no JVD, no lymphadenopathy Lungs: Non-labored respirations, symmetric chest rise, Clear to auscultate bilaterally, No wheezing, rhonchi, crackles Heart: Peripheral pulses intact bilaterally, Regular Rate and Rhythm. Abdomen: Soft, non-tender, non-distended, no palpable masses Musculoskeletal: Normal range of motion and strength, No cyanosis or edema, No visible joint swelling, Chronic left foot ulcer/scar Skin: Skin is warm, dry, no rashes or lesions. Psychiatric: Cooperative, appropriate mood and affect, Awake and alert, not agitated Neuro: Cranial nerves II-XII grossly intact. Strength 5/5 throughout. Sensations intact to light touch. Objective Labs 09/07/25 05:34 09/07/25 05:34 Labs: Laboratory Results - last 24 hr 09/06/25 02:00 WBC 15.3 H RBC 3.26 L Hgb 10.2 L Hct 30.3 L MCV 93 MCH 31.3 MCHC 33.7 RDW Std Deviation 54.3 H Plt Count 315 D Neut % (Auto) 85 H Lymph % (Auto) 5 L Grand % (Auto) 9 Eos % (Auto) 0 Baso % (Auto) 0 Neut # (Auto) 13.0 H Lymph # (Auto) 0.7 L Grand # (Auto) 1.3 H Eos # (Auto) 0.0 Baso # (Auto) 0.0 Immature Gran # (Auto) 0.22 H Absolute Nucleated RBC 0.05 H Immature Gran % 1 H Nucleated RBC % 0 VBG pH 7.41 VBG pCO2 34 L VBG pO2 64 H D VBG O2 Sat (Hany) 94 L VBG Base Excess -3 Sodium 134 L Potassium 4.0 Chloride 101 Carbon Dioxide 20.0 Anion Gap 13 BUN 53 H Creatinine 0.9 Estim Creat Clear Calc 39.9 L eGFR > 60 BUN/Creatinine Ratio 59 H Glucose 140 H Calculated Osmolality 284 Lactic Acid 1.2 Calcium 8.7 Corrected Calcium 8.9 Phosphorus 2.9 Magnesium 2.5 Total Bilirubin 0.2 L AST 14 ALT < 7 L Alkaline Phosphatase 68 Total Protein 6.7 Albumin 3.8 Globulin 2.9 Albumin/Globulin Ratio 1.3 ABG Interpretation ABG results: 09/03/25 09/06/25 08:09 02:00 VBG pH 7.39 7.41 VBG pCO2 37 34 L VBG pO2 168 H 64 H D VBG Base Excess -3 -3 Quality Measures Quality Measures sepsis Current suspected stage: ruled out Possible source: pulmonary and genitourinary Blood cultures ordered: yes Antibiotic ordered: Yes Advance care planning discussed with:: patient Assessment & Plan Assessment Current Active Medications: Generic Name Dose Route Start Last Admin Trade Name Freq PRN Reason Stop Dose Admin Acetaminophen 650 mg 08/30/25 23:39 09/02/25 05:04 Acetaminophen 325 Mg Tablet PO 09/29/25 23:38 650 mg Q6H PRN Administration Fever >100.4 or pain 1-3 Albuterol/Ipratropium 3 ml 09/06/25 01:54 Albuterol/Ipratropium (Duoneb) Rt Celine 3 Ml Nebu INH 10/05/25 09:45 Q6HR PRN SHORTNESS OF BREATH OR WHEEZE Dextrose 25 ml 09/03/25 14:50 09/03/25 17:41 Dextrose 50%-Water Inj 50 Ml Syringe IV 10/03/25 14:49 25 ml Q15MIN PRN Administration BG 50-70 responsive npo pt Dextrose 50 ml 09/03/25 14:50 Dextrose 50%-Water Inj 50 Ml Syringe IV 10/03/25 14:49 Q15MIN PRN BG <50 OR BG <70 & pt unresponsive Docusate Sodium 200 mg 09/04/25 09:00 09/06/25 11:54 Docusate Sod 100 Mg Capsule PO 10/04/25 08:59 Not Given QDAY PAMELA Protocol Gabapentin 300 mg 08/31/25 09:00 09/06/25 11:54 Gabapentin 300 Mg Capsule PO 09/30/25 08:59 Not Given BID PAMELA Glucagon 1 mg 09/03/25 14:50 Glucagon Inj 1 Mg Vial IM Q15MIN PRN BG <70, and no IV access Glycerin 1 each 09/04/25 11:12 Glycerin, Adult 1 Ea Supp [place] 10/04/25 11:11 QDAY PRN CONSTIPATION Ceftriaxone Sodium/Dextrose 1 gm in 50 mls @ 100 mls/hr 08/31/25 21:00 09/05/25 20:19 Rocephin/D5w 1gm Iv Premix IV 09/07/25 20:59 100 mls/hr HS PAMELA Administration Fat Emulsion Intravenous 500 mls @ 32 mls/hr 09/05/25 18:00 09/05/25 17:51 Intralipid 20% Iv IV 10/05/25 17:59 32 mls/hr On Hold: 09/06/25 08:53 MoWeFr@1800 PAMELA Administration Calcium Gluconate 1 gm/ 2,020 mls @ 75 mls/hr 09/05/25 18:00 09/05/25 18:33 Potassium Chloride 20 meq/ IV 09/06/25 17:59 75 mls/hr Amino Acids QDAY@1800 PAMELA Administration Protocol Calcium Gluconate 1 gm/ 2,046 mls @ 74.963 mls/hr 09/06/25 18:00 Potassium Phosphate 18 mmol/ IV 09/07/25 17:59 Sodium Acetate 60 meq/ Amino QDAY@1800 PAMELA Acids Protocol Insulin Human Lispro 0 unit 09/03/25 18:00 09/06/25 11:55 Insulin Lispro (Admelog) 1 Unit/0.01 Ml Unit SC 10/03/25 17:59 Not Given Q6HR [facility] Protocol Metoclopramide HCl 5 mg 09/01/25 12:00 09/06/25 12:00 Metoclopramide Inj 5 Mg/Ml Vial 2 Ml IVP 10/01/25 11:59 5 mg Q6HR PAMELA Administration Protocol Metoprolol Tartrate 5 mg 09/06/25 21:00 Metoprolol Tartrate Inj 1 Mg/Ml Vial 5 Ml IVP 10/06/25 20:59 Q12HR PAMELA Morphine Sulfate 1 mg 09/03/25 13:27 09/06/25 01:00 Morphine Sulf Inj 4 Mg/Ml Vial IVP 09/08/25 13:26 1 mg Q4HR PRN Administration PAIN SCALE 7-10 (Severe Ondansetron HCl 4 mg 08/30/25 23:39 09/02/25 21:02 Ondansetron Inj 2 Mg/Ml Inj 2 Ml IVP 09/29/25 23:38 4 mg Q6H PRN Administration NAUSEA OR VOMITING Protocol Pantoprazole Sodium 40 mg 08/31/25 09:00 09/06/25 08:01 Pantoprazole Inj 40 Mg Vial IVP 09/30/25 08:59 40 mg BID PAMELA Administration Polyethylene Glycol 34 gm 09/04/25 08:30 09/06/25 11:54 Polyethylene Glycol 17 Gm Packet PO 10/04/25 08:29 Not Given QDAY PAMELA Sennosides 1 tab 08/31/25 10:15 09/06/25 11:54 Senna/Docusate Sod 1 Tab Tablet PO 09/30/25 10:14 Not Given QDAY [facility] Protocol Sodium Chloride 3 ml 09/06/25 00:39 09/06/25 00:45 Sodium Chloride Rt Celine 0.9% 3 Ml Nebu INH 10/06/25 00:38 3 ml PRN PRN Administration SOLN Thiamine HCl 100 mg 09/03/25 18:00 09/06/25 08:02 Thiamine Inj 100 Mg/Ml Vial 2 Ml IVP 10/03/25 17:59 100 mg QDAY PAMELA Administration Plan 84yo DNR/DNI female on comfort measures with a history of gout, situs inversus totalis, HTN, aFib (not on blood thinners), lymphedema, venous stasis, and chronic back pain BIBA from [facility] presents to the ED for a chief complaint of one day of NV with reported coffee ground emesis. Admitted for sepsis with pneumonia and UTI. Patient's family agreed on minimally invasive procedures. Goals of care discussion held with son and at bedside on 09/06/2025. Explained the clinical condition and poor prognosis in the light of latest EGD and upper GI series related to large retrocardiac gastric hernia and gastric outlet obstruction. Patient feeling in distress from aggressive medical therapy, chronic dependence on intravenous nutrition, recurrent upper GI bleed, coffee-ground emesis, requiring constant NG tube suction, which the patient could no longer tolerate. Proposed alternative options moving forward including palliative care, hospice care, or comfort measures. tar pot worker Dano present at room who discussed each of those options in greater detail with family members. Pending consensus among family and patient. #Acute hypoxemic respiratory failure #PneumoniaLikely secondary gram-negative versus gram-positive organisms #Sepsis -Ruled out -Patient came in and found to have 2 or more SIRS criteria and was evaluated for sepsis. However, based upon further work-up, sepsis was ruled out. BP 165/104 HR 116 RR 24 T 101.1F O2 sat 93% RA --> with oxygen and fluids BP 121/85 HR 82 RR 19 T -96.8F O2 sat 97%RA. Lactic acid 2.1 -->1.2. WBC 15.1. Patient reports 1-2 days of cough with possible blood specks. R lung lobe rhonchi. Denies chest pain and shortness of breath. +2 pedal edema seems to be gravity dependent/chronic due to venous stasis, not secondary to volume overload or CHF exacerbation. -UA: Showed turbid yellow urine collected on catheter, urine protein 1+, urine ketone 1 close, urine blood 1+, urine nitrate negative, urine leukocyte esterase positive, urine RBC 42, urine WBC 692, amorphous crystals present, urine bacteria 4+ -CXR: mild heart failure, significant pneumonia right base. -BCx (08/30/2025): GPC 10/07 -UCx (08/31/2025): No growth -Repeat Blood culture (09/01) was negative after 48 hours 11/07. - CXR (09/06): Moderate CHF, extensive pneumonia right lung In the setting of recent initiation of PPN, patient decline in respiratory status is likely secondary to pulmonary congestion secondary to fluid overload, confirmed with imaging. Patient's respiratory status worsened with increased oxygen requirement HFNC 25L Plan: -Lasix IVP 40 mg x1 -Ceftriaxone 1g IV QD (08/30 - ) -Discontinued IV Vancomycin (08/31-09/02) and Azithromycin 500mg QD (08/30 - 09/01) #Hx of A-fib (not on eliquis) #Hx of HTN EKG obtained after rapid response call on 09/06/2025 showed A-fib with HR 143. Diltiazem 15 mg and morphine half milligram IV were provided, and patient's HR improved to about 110, at which rate it remained until morning. Plan: -Metoprolol tartrate IV 5 mg Q12h, for a total daily dose of 10 mg -diltiazem 120mg QD on hold as patient is n.p.o. #Upper GI bleed Secondary to esophageal ulcers #Large Retrocardiac Gastric Hernia #Gastric Outlet Obstruction #Hx of situs inversus totalis -Per ED patient had coffee ground emesis and vomitus in the ED was guaic +. Patient states she has had a minor cough the last few days and noticed some specks of blood when she coughed. She also reports pain in her stomach upon waking that was worsened with food/breakfast in the morning. Patient states vomitus and stool was dark brown, denies any oily or black color. Denies any hematochezia. -On assessment, patient has abdominal tenderness diffusely with guarding. -Hgb was in admission was 13.4 (08/30), decreased to 11.7 (08/31) -08/31: Patient had multiple episodes of hematemesis. -CT abd/pelvis w/ contrast (08/31/2025): Situs inversus, Gastritis, Colonic diverticulosis, No bowel obstruction, Large fat-containing left lateral pelvic wall hernia defect, Atrophic uterus, No bowel obstruction -XR abd (08/31/2025): Moderate stool throughout the colon, Minimal small bowel ileus, No obstruction -Patient and patient's family agreed to proceed with diagnostic procedures, including EGD and colonoscopy, but declined any aggressive surgical interventions. -EGD (09/01/2025): showed esophageal ulcers oozing blood. Situs inversus noted. There were coffee ground material along with food in the body of the stomach with poor visibility. With high risk of aspiration, the scope was pulled out. -Placed NG tube with intermittent suction with reglan 5mg IV [id number] NG tube was suctioning blood. H&H has been ordered tonight. -Based on CT abd/pelvis scan, a significant portion of the stomach is located within the thoracic cavity, which is attributable to the patient's age, and underlying situs inversus totalis. This large hatal hernia is the likely cause of her gastric outlet obstruction and hematemesis. - Barium swallow upper GI series again showed retrocardiac gastric hernia, no stricture at the GE junction. Food and retained material in the stomach which severely limits assessment. Presents of the orogastric tube preclude assessment of esophageal motility. Plan: - S/P Barium Swallow upper GI series for evaluation of obstruction and identify the precise location, if present. - Discontinued PPN as the probable source of fluid overload leading to pulmonary congestion. ?Reglan IVP 5 mg Q6h -Monitor H&H -Transfuse if hemoglobin less than 7 -On protonix IV 40 twice daily -Consulted GI, Dr. Montemayor, appreciate recommendations. #Hx of Neuropathy Plan: -Continue gabapentin 300mg BID #Hx of Depression Plan: -Zoloft 25mg PO QD Health Maintenance: Code status: DNR/DNI DVT prophylaxis: SCDs GI prophylaxis: Protonix Diet: PPN Martinez: Purewick Lines: PIV Supplemental O2: NC Disposition: To tele Assessment and plan discussed with my attending physician Dr. Arias and senior resident Dr Quick (PGY-3) Vanesa patton DO - Internal medicine resident Senior Resident Attestation: The patient upper GI series was inconclusive for any esophageal dysmotility, and the etiology for dysphagia continues to be unknown. GI Dr. Montemayor will proceed with EGD tomorrow morning, and we will keep patient n.p.o. overnight. IV antibiotics for pneumonia completed course. I discussed with and supervised the marketing research intern physician involved in the care of this patient. I personally saw and examined the patient and discussed the assessment and plan with the entire medicine team, including my attending. I agree with the assessment and plan as documented above. Renaldo Quick MD PGY3 Internal Medicine Attending Provider Attestation/Addendum I have discussed and was present for the essential components of the history, physical examination, diagnosis, and treatment plan with the resident. I agree with the patient's care as documented by the resident and amended herein by me. Seth Barone DO. Although this document has been carefully reviewed, there may still be some phonetic and other typographical errors. These errors are purely grammatical due to imperfections in the software program and should not be construed in any way to compromise the substance of the patient's medical care during this visit.
--- NOTE | 2025-09-06 14:51 | PC.SS ---
Rounding Note: GOC with son planned for today. Patient on IV diuretic.
--- NOTE | 2025-09-06 16:00 | PC.SS ---
GOC discussion held with patient's son, Severiano Vergara. Resident provided overview on the patient's condition, treatment plan and prognosis. Patient currently on high flow oxygen and TPN. Resident discussed with patient's son comfort care. Patient's son requested time to make decision. ORACLE HRMS DEVELOPER discussed with son that confirmation would need to be obtained to determine if patient can return to SNF with comfort care measures. ORACLE HRMS DEVELOPER to follow up to confirm if patient possesses [employer] coverage for hospice component.
[2025-09-06] MEDS: ALBUTEROL/IPRATROPIUM (Duoneb) RT SOL 3 ML NEBU INH (19:10)
--- NOTE | 2025-09-06 21:01 | PD.IMPROG ---
Documentation for date of: 09/06/25 Subjective Subjective Interval history: Patient evaluated upper GI series is incomplete showing a large retrocardiac hernia Presence of food obscure the whole study patient might need surgical intervention For these findings I will discuss the case with [facility] and see if they will accept her in transfer or she is given a surgical candidate Exam Vital Signs Temp Pulse Resp BP Pulse Ox O2 Del Method O2 Flow Rate 97.3 F 118 H 28 H 120/92 H 98 High Flow Nasal Cannula 25 09/06/25 16:00 09/06/25 19:10 09/06/25 19:10 09/06/25 16:00 09/06/25 19:10 09/06/25 16:00 09/06/25 19:10 FiO2 50 09/06/25 19:10 Objective Labs 09/06/25 02:00 09/06/25 02:00 Labs: Laboratory Results - last 24 hr 09/06/25 02:00 WBC 15.3 H RBC 3.26 L Hgb 10.2 L Hct 30.3 L MCV 93 MCH 31.3 MCHC 33.7 RDW Std Deviation 54.3 H Plt Count 315 D Neut % (Auto) 85 H Lymph % (Auto) 5 L [place] % (Auto) 9 Eos % (Auto) 0 Baso % (Auto) 0 Neut # (Auto) 13.0 H Lymph # (Auto) 0.7 L [place] # (Auto) 1.3 H Eos # (Auto) 0.0 Baso # (Auto) 0.0 Immature Gran # (Auto) 0.22 H Absolute Nucleated RBC 0.05 H Immature Gran % 1 H Nucleated RBC % 0 VBG pH 7.41 VBG pCO2 34 L VBG pO2 64 H D VBG O2 Sat (Hany) 94 L VBG Base Excess -3 Sodium 134 L Potassium 4.0 Chloride 101 Carbon Dioxide 20.0 Anion Gap 13 BUN 53 H Creatinine 0.9 Estim Creat Clear Calc 39.9 L eGFR > 60 BUN/Creatinine Ratio 59 H Glucose 140 H Calculated Osmolality 284 Lactic Acid 1.2 Calcium 8.7 Corrected Calcium 8.9 Phosphorus 2.9 Magnesium 2.5 Total Bilirubin 0.2 L AST 14 ALT < 7 L Alkaline Phosphatase 68 Total Protein 6.7 Albumin 3.8 Globulin 2.9 Albumin/Globulin Ratio 1.3 Impressions Impression: Large retrocardiac gastric hiatal hernia Gastric outlet obstruction Will discuss the case with [facility] ABG Interpretation ABG results: 09/03/25 09/06/25 08:09 02:00 VBG pH 7.39 7.41 VBG pCO2 37 34 L VBG pO2 168 H 64 H D VBG Base Excess -3 -3 Assessment & Plan A&P Narrative # Nausea vomiting with coffee-ground emesis Plan N.p.o. midnight tonight IV Protonix IV Zofran consent obtained for fiberoptic esophagogastroduodenoscopy with possible biopsy possible therapeutic intervention under intravenous moderate sedation Further evaluation after above Other medical problems include Chronic atrial fibrillation not on any anticoagulation Status and versus Essential hypertension Gout [place] resident in SNF Thank you very much for the opportunity to participate in the care of this patient Time Spent With Patient Time: Total time spent is greater than 50% in coordination of care (as documented) at patient's floor/unit and/or counseling patient:
--- NOTE | 2025-09-06 21:26 | PD.EVENT ---
Documentation for date of: 09/06/25 Event Note Event Note: Spoke with Stephen Obrien MD naval architect specialist at [facility] Patient clearly has a large gastric hiatal hernia with gastric outlet obstruction It is not good to improve with the NGT suction Although somewhat of a high risk patient needs surgical intervention Case discussed in detail Patient has been accepted by Dr. Obrien To [facility] I will work with my case management here to get the patient transferred Make sure patient goes stay with the following Discharge summary Imaging studies on a disk And other related labs
[2025-09-06] MEDS: PIPER/TAZO 3.375 GM PREMIX 3.375 GM/50 ML BAG IV (21:36)
[2025-09-07] VITALS (14 sets, daily range): BP systolic 105–149; BP diastolic 76–104; PULSE 94–117; RESP 19–30; TEMP 36.2–37.1; O2SAT 90–99; BMI 41.1
[2025-09-07] MEDS: METOCLOPRAMIDE INJ 5 MG/ML VIAL 2 ML IVP ×5 (01:51→23:49)
[2025-09-07] MEDS: ALBUTEROL/IPRATROPIUM (Duoneb) RT SOL 3 ML NEBU INH (04:45)
[2025-09-07] MEDS: PIPER/TAZO 3.375 GM PREMIX 3.375 GM/50 ML BAG IV ×3 (05:29→21:37)
--- NOTE | 2025-09-07 06:12 | PC.NURSE ---
Per Dr. Montemayor re insert NGTUBE. This RN and Two other RNs attempted to reinstert NGtube but unsuccessful. patient is confused unable to follow commands. Charge Nurse was made aware , Dr. Montemayor was notified by home care nurse. per MD bosch to have out for now will reattempt in the morning.
[2025-09-07 06:37] LABS: Basophils # (Auto) 0.1 Thou/mm3 (0.0-0.2); Basophils % (Auto) 0 % (0-2.5); Eosinophils # (Auto) 0.1 Thou/mm3 (0.0-0.5); Eosinophils % (Auto) 1 % (0-10); Hematocrit 26.1 % (36.0-46.0); Hemoglobin 8.9 g/dL (12.0-16.0); Immature Granulocytes Auto 0.27 Thou/mm3 (0.00-0.00); Lymphocytes # (Auto) 1.0 Thou/mm3 (1.0-4.8); Lymphocytes % (Auto) 9 % (10-50); Mean Corpuscular HGB Conc 34.1 g/dl (31.0-37.0); Mean Corpuscular Hemoglobin 31.2 pg (25.0-35.0); Mean Corpuscular Volume 92 fL (80-100); Monocytes # (Auto) 1.3 Thou/mm3 (0.0-0.8); Monocytes % (Auto) 11 % (0-12); Neutrophils # (Auto) 8.6 Thou/mm3 (1.8-7.7); Neutrophils % (Auto) 77 % (37-80); Nucleated Red Blood Cell # 0.02 Thou/mm3 (0.00-0.00); Nucleated Red Blood Cell % 0 /100 WBC (0); Platelet Count 296 Thou/mm3 (140-440); RDW Standard Deviation 52.2 fL (36.4-46.3); Red Blood Count 2.85 Miln/mm3 (4.00-5.20); White Blood Count 11.2 Thou/mm3 (3.6-11.0)
[2025-09-07 06:59] LABS: Alanine Aminotransferase 9 U/L (10-49); Albumin, Serum 3.7 gm/dL (3.4-4.8); Albumin/Globulin Ratio 1.5 (1.2-2.2); Alkaline Phosphatase 73 U/L (46-116); Anion Gap 11 (7-16); Aspartate Amino Transferase 23 U/L (0-34); BUN/Creatinine Ratio 62 Ratio (12-20); Bilirubin,Total 0.3 mg/dL (0.3-1.2); Blood Urea Nitrogen 62 mg/dL (9-23); Calcium 8.7 mg/dL (8.3-10.6); Calcium (Corrected) 8.9 mg/dL (8.5-10.1); Carbon Dioxide 21.7 mMol/L (20.0-31.0); Chloride 100 mMol/L (98-107); Creatinine (Component) 1.0 mg/dL (0.6-1.3); Estimated Creatinine Clearance 35.9 mL/min (>60); Globulin 2.5 gm/dL (2.3-3.5); Glucose 129 mg/dL (74-106); Magnesium 1.9 mg/dL (1.6-2.6); Osmolality,Calculated 285 (275-295); Phosphorous 3.6 mg/dL (2.4-5.1); Potassium 3.5 mMol/L (3.4-5.1); Sodium 133 mMol/L (136-145); Total Protein 6.2 gm/dL (5.7-8.2); eGFR 55 See Note
--- NOTE | 2025-09-07 08:45 | PC.CM ---
Addendum entered by Richelle Thomas RN 09/07/25 19:25: Patient declined by [facility]. [facility] is reviewing patient at this time. Transfer packet with 1 CD left on transfer nurse desk. Addendum entered by Richelle Thomas RN 09/07/25 17:52: 1730 I called [facility] and I provided the phone number to Dr. Barone. Addendum entered by Richelle Thomas RN 09/07/25 17:49: 1625 I received a call from the transfer nurse at [facility]. She requested I fax over latested progress notes and labs. I faxed over information. 1530 I received a call from [facility] finance department. She asked if I received authorization from patient's insurance. I let there know I spoke to Rey with [employer] and she is aware we are trying to transfer patient. I provided her with the direct number to speak to Kathy with [employer]. Addendum entered by Richelle Thomas RN 09/07/25 12:03: I called and initialed a transfer with [facility]. I faxed over information. Ananda transfer nurse states he will send me an Delilah link to push over images. Addendum entered by Richelle Thomas RN 09/07/25 10:34: I spoke to Rey with [employer] . She states they will not work with [facility] until we have contacted [facility], [facility], and [facility]. She states once we get denied by those facilities, they they will work with [facility]. She stated if [facility] does accept patient, it will take about a week to get a Letter of Agreement completed with [facility]. I updated Dr. Lim and Dr. Montemayor. Dr. Montemayor states [facility] not be able to manage patient. Dr. Montemayor states he is okay with we try [facility] and [facility]. Original Note: 0811 I received a referral to transfer patient for surgery for gastric outlet obstruction. I reviewed notes and Dr. Montemayor placed a note yesterday evening stating patient has been accepted by Dr. Stephen Obrien (checkroom chief) at [facility]. I contacted [facility] transfer center and I initiated a transfer. I will reach out to [facility] to let them know I am trying to transfer patient and [facility] will need authorization.
--- NOTE | 2025-09-07 10:01 | PC.SS ---
INSTRUMENT SHOP SUPERVISOR informed by bedside nurse transfer order submitted on the patient's behalf. INSTRUMENT SHOP SUPERVISOR confirmed with transfer nurse that transfer order to [facility] has been placed. Transfer request submitted by Dr. Montemayor.
--- NOTE | 2025-09-07 11:14 | ESPR_ITS ---
Documentation for date of: 09/07/25 Subjective Subjective Interval history: Patient evaluated I spoke with the case management And they are going to follow the insurance guidelines Transfer to [facility] is pending rejection from all other hospitals Exam Vital Signs Temp Pulse Resp BP Pulse Ox O2 Del Method O2 Flow Rate 97.1 F 103 H 27 H 149/104 H 99 High Flow Nasal Cannula 09/07/25 08:00 09/07/25 09:00 09/07/25 09:00 09/07/25 08:00 09/07/25 09:00 09/07/25 08:00 09/07/25 09:00 FiO2 45 09/07/25 09:00 Objective Labs 09/08/25 05:08 09/08/25 05:08 Labs: Laboratory Results - last 24 hr 09/06/25 09/07/25 02:00 05:34 WBC 11.2 H RBC 2.85 L Hgb 8.9 L Hct 26.1 L MCV 92 MCH 31.2 MCHC 34.1 RDW Std Deviation 52.2 H Plt Count 296 Neut % (Auto) 77 Lymph % (Auto) 9 L [place] % (Auto) 11 Eos % (Auto) 1 Baso % (Auto) 0 Neut # (Auto) 8.6 H Lymph # (Auto) 1.0 [place] # (Auto) 1.3 H Eos # (Auto) 0.1 Baso # (Auto) 0.1 Immature Gran # (Auto) 0.27 H Absolute Nucleated RBC 0.02 H Immature Gran % 2 H Nucleated RBC % 0 Sodium 133 L Potassium 3.5 D Chloride 100 Carbon Dioxide 21.7 Anion Gap 11 BUN 62 H Creatinine 1.0 Estim Creat Clear Calc 35.9 L eGFR 55 L BUN/Creatinine Ratio 62 H Glucose 129 H Calculated Osmolality 285 Calcium 8.7 Corrected Calcium 8.9 Phosphorus 3.6 Magnesium 1.9 Total Bilirubin 0.3 AST 23 ALT 9 L Alkaline Phosphatase 73 Total Protein 6.7 6.2 Albumin 3.7 Globulin 2.9 2.5 Albumin/Globulin Ratio 1.3 1.5 Impressions Impression: Large hiatal hernia with gastric outlet obstruction Continue NGT suction ABG Interpretation ABG results: 09/03/25 09/06/25 08:09 02:00 VBG pH 7.39 7.41 VBG pCO2 37 34 L VBG pO2 168 H 64 H D VBG Base Excess -3 -3 Assessment & Plan A&P Narrative # Nausea vomiting with coffee-ground emesis Plan N.p.o. midnight tonight IV Protonix IV Zofran consent obtained for fiberoptic esophagogastroduodenoscopy with possible biopsy possible therapeutic intervention under intravenous moderate sedation Further evaluation after above Other medical problems include Chronic atrial fibrillation not on any anticoagulation Status and versus Essential hypertension Gout [place] resident in SNF Thank you very much for the opportunity to participate in the care of this patient Time Spent With Patient Time: Total time spent is greater than 50% in coordination of care (as documented) at patient's floor/unit and/or counseling patient:
[2025-09-07] MEDS: THIAMINE INJ 100 MG/ML VIAL 2 ML IVP (12:21)
--- NOTE | 2025-09-07 13:27 | PD.RESPRO ---
Documentation for date of: 09/07/25 Subjective Subjective Interval history: Patient was seen and examined at bedside. Overnight patient was accepted by Dr. Obrien at [facility] for repair of massive hiatal hernia. This morning patient appeared more lethargic and difficult to arouse. Unable to get a response when asked questions. PPN continues to be on hold due to patient being on high flow oxygen and suspicion for pulmonary edema. A-fib is rate controlled on metoprolol tartrate 5 mg IV every 12 hourly. K3.5, Mg 1.9. Patient's insurance rejected transfer to [facility] and asked to first try local hospitals, [facility] [place] [facility] [place] is rejected from all of these facilities then they will consider covering for transfer to [facility]. Exam Vital Signs Temp Pulse Resp BP Pulse Ox O2 Del Method O2 Flow Rate 97.1 F 112 H 21 H 117/93 H 99 High Flow Nasal Cannula 09/07/25 08:00 09/07/25 12:19 09/07/25 10:11 09/07/25 12:19 09/07/25 10:11 09/07/25 08:00 09/07/25 10:11 FiO2 45 09/07/25 10:11 Narrative Exam General: No acute distress, well nourished, AAO x3. On HFNC at 25L and 45% FiO2. Eye: PERRL, EOMI, normal conjunctiva, no scleral icterus HENT: Normocephalic, atraumatic, hearing intact to conversation at normal volume, moist oral mucosa Neck: Supple, non-tender, no JVD, no lymphadenopathy Lungs: Non-labored respirations, symmetric chest rise, Clear to auscultate bilaterally, No wheezing, rhonchi, crackles Heart: Peripheral pulses intact bilaterally, Regular Rate and Rhythm. Abdomen: Soft, non-tender, non-distended, no palpable masses Musculoskeletal: Normal range of motion and strength, No cyanosis or edema, No visible joint swelling, Chronic left foot ulcer/scar Skin: Skin is warm, dry, no rashes or lesions. Psychiatric: Cooperative, appropriate mood and affect, Awake and alert, not agitated Neuro: Cranial nerves II-XII grossly intact. Strength 5/5 throughout. Sensations intact to light touch. Objective Labs 09/08/25 05:08 09/08/25 05:08 Labs: Laboratory Results - last 24 hr 09/07/25 05:34 WBC 11.2 H RBC 2.85 L Hgb 8.9 L Hct 26.1 L MCV 92 MCH 31.2 MCHC 34.1 RDW Std Deviation 52.2 H Plt Count 296 Neut % (Auto) 77 Lymph % (Auto) 9 L [place] % (Auto) 11 Eos % (Auto) 1 Baso % (Auto) 0 Neut # (Auto) 8.6 H Lymph # (Auto) 1.0 [place] # (Auto) 1.3 H Eos # (Auto) 0.1 Baso # (Auto) 0.1 Immature Gran # (Auto) 0.27 H Absolute Nucleated RBC 0.02 H Immature Gran % 2 H Nucleated RBC % 0 Sodium 133 L Potassium 3.5 D Chloride 100 Carbon Dioxide 21.7 Anion Gap 11 BUN 62 H Creatinine 1.0 Estim Creat Clear Calc 35.9 L eGFR 55 L BUN/Creatinine Ratio 62 H Glucose 129 H Calculated Osmolality 285 Calcium 8.7 Corrected Calcium 8.9 Phosphorus 3.6 Magnesium 1.9 Total Bilirubin 0.3 AST 23 ALT 9 L Alkaline Phosphatase 73 Total Protein 6.2 Albumin 3.7 Globulin 2.5 Albumin/Globulin Ratio 1.5 ABG Interpretation ABG results: 09/03/25 09/06/25 08:09 02:00 VBG pH 7.39 7.41 VBG pCO2 37 34 L VBG pO2 168 H 64 H D VBG Base Excess -3 -3 Quality Measures Quality Measures sepsis Current suspected stage: sepsis Possible source: pulmonary and genitourinary Blood cultures ordered: yes Antibiotic ordered: Yes Advance care planning discussed with:: child Assessment & Plan Assessment Current Active Medications: Generic Name Dose Route Start Last Admin Trade Name Nhung PRN Reason Stop Dose Admin Acetaminophen 650 mg 08/30/25 23:39 09/02/25 05:04 Acetaminophen 325 Mg Tablet PO 09/29/25 23:38 650 mg Q6H PRN Administration Fever >100.4 or pain 1-3 Albuterol/Ipratropium 3 ml 09/06/25 01:54 09/07/25 04:45 Albuterol/Ipratropium (Duoneb) Rt Celine 3 Ml Nebu INH 10/05/25 09:45 3 ml Q6HR PRN Administration SHORTNESS OF BREATH OR WHEEZE Dextrose 25 ml 09/03/25 14:50 09/03/25 17:41 Dextrose 50%-Water Inj 50 Ml Syringe IV 10/03/25 14:49 25 ml Q15MIN PRN Administration BG 50-70 responsive npo pt Dextrose 50 ml 09/03/25 14:50 Dextrose 50%-Water Inj 50 Ml Syringe IV 10/03/25 14:49 Q15MIN PRN BG <50 OR BG <70 & pt unresponsive Docusate Sodium 200 mg 09/04/25 09:00 09/07/25 09:28 Docusate Sod 100 Mg Capsule PO 10/04/25 08:59 Not Given QDAY [facility] Protocol Gabapentin 300 mg 08/31/25 09:00 09/07/25 09:28 Gabapentin 300 Mg Capsule PO 09/30/25 08:59 Not Given BID [facility] Glucagon 1 mg 09/03/25 14:50 Glucagon Inj 1 Mg Vial IM Q15MIN PRN BG <70, and no IV access Glycerin 1 each 09/04/25 11:12 Glycerin, Adult 1 Ea Supp WA 10/04/25 11:11 QDAY PRN CONSTIPATION Fat Emulsion Intravenous 500 mls @ 32 mls/hr 09/05/25 18:00 09/05/25 17:51 Intralipid 20% Iv IV 10/05/25 17:59 32 mls/hr On Hold: 09/06/25 08:53 [email or web address] [facility] Administration Calcium Gluconate 1 gm/ 2,046 mls @ 74.963 mls/hr 09/06/25 18:00 09/06/25 18:02 Potassium Phosphate 18 mmol/ IV 09/07/25 17:59 74.963 mls/hr Sodium Acetate 60 meq/ Amino [id number]@1800 [facility] Administration Acids Protocol Piperacillin/Tazobactam/Dextrose 3.375 gm in 50 mls @ 100 mls/hr 09/06/25 21:09 09/07/25 05:29 Zosyn IV 09/13/25 21:08 100 mls/hr Q8HR [facility] Administration Protocol Insulin Human Lispro 0 unit 09/03/25 18:00 09/07/25 12:07 Insulin Lispro (Admelog) 1 Unit/0.01 Ml Unit SC 10/03/25 17:59 Not Given Q6HR [facility] Protocol Metoclopramide HCl 5 mg 09/01/25 12:00 09/07/25 12:16 Metoclopramide Inj 5 Mg/Ml Vial 2 Ml IVP 10/01/25 11:59 5 mg Q6HR [facility]A Administration Protocol Metoprolol Tartrate 5 mg 09/06/25 21:00 09/07/25 12:19 Metoprolol Tartrate Inj 1 Mg/Ml Vial 5 Ml IVP 10/06/25 20:59 5 mg Q12HR [facility]A Administration Morphine Sulfate 1 mg 09/03/25 13:27 09/06/25 01:00 Morphine Sulf Inj 4 Mg/Ml Vial IVP 09/08/25 13:26 1 mg Q4HR PRN Administration PAIN SCALE 7-10 (Severe Ondansetron HCl 4 mg 08/30/25 23:39 09/02/25 21:02 Ondansetron Inj 2 Mg/Ml Inj 2 Ml IVP 09/29/25 23:38 4 mg Q6H PRN Administration NAUSEA OR VOMITING Protocol Pantoprazole Sodium 40 mg 08/31/25 09:00 09/07/25 12:13 Pantoprazole Inj 40 Mg Vial IVP 09/30/25 08:59 40 mg BID PAMELA Administration Polyethylene Glycol 34 gm 09/04/25 08:30 09/07/25 09:29 Polyethylene Glycol 17 Gm Packet PO 10/04/25 08:29 Not Given QDAY [facility] Sennosides 1 tab 08/31/25 10:15 09/07/25 09:29 Senna/Docusate Sod 1 Tab Tablet PO 09/30/25 10:14 Not Given QDAY [facility] Protocol Sodium Chloride 3 ml 09/06/25 00:39 09/06/25 00:45 Sodium Chloride Rt Celine 0.9% 3 Ml Nebu INH 10/06/25 00:38 3 ml PRN PRN Administration SOLN Thiamine HCl 100 mg 09/03/25 18:00 09/07/25 12:21 Thiamine Inj 100 Mg/Ml Vial 2 Ml IVP 10/03/25 17:59 100 mg QDAY PAM[facility]A Administration Plan 84yo DNR/DNI female on comfort measures with a history of gout, situs inversus totalis, HTN, aFib (not on blood thinners), lymphedema, venous stasis, and chronic back pain BIBA from [facility] presents to the ED for a chief complaint of one day of NV with reported coffee ground emesis. Admitted for sepsis with pneumonia and UTI. Patient's family agreed on minimally invasive procedures. Goals of care discussion held with son and at bedside on 09/06/2025. Explained the clinical condition and poor prognosis in the light of latest EGD and upper GI series related to large retrocardiac gastric hernia and gastric outlet obstruction. Patient feeling in distress from aggressive medical therapy, chronic dependence on intravenous nutrition, recurrent upper GI bleed, coffee-ground emesis, requiring constant NG tube suction, which the patient could no longer tolerate. Proposed alternative options moving forward including palliative care, hospice care, or comfort measures. 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 Pending consensus among family and patient. # Acute hypoxemic respiratory failure #PneumoniaLikely secondary gram-negative versus gram-positive organisms #Sepsis -Ruled out -Patient came in and found to have 2 or more SIRS criteria and was evaluated for sepsis. However, based upon further work-up, sepsis was ruled out. BP 165/104 HR 116 RR 24 T 101.1F O2 sat 93% RA --> with oxygen and fluids BP 121/85 HR 82 RR 19 T -96.8F O2 sat 97%RA. Lactic acid 2.1 -->1.2. WBC 15.1. Patient reports 1-2 days of cough with possible blood specks. R lung lobe rhonchi. Denies chest pain and shortness of breath. +2 pedal edema seems to be gravity dependent/chronic due to venous stasis, not secondary to volume overload or CHF exacerbation. -UA: Showed turbid yellow urine collected on catheter, urine protein 1+, urine ketone 1 close, urine blood 1+, urine nitrate negative, urine leukocyte esterase positive, urine RBC 42, urine WBC 692, amorphous crystals present, urine bacteria 4+ -CXR: mild heart failure, significant pneumonia right base. -BCx (08/30/2025): GPC 1/2 -UCx (08/31/2025): No growth -Repeat Blood culture (09/01) was negative after 48 hours 11/07. - CXR (09/06): Moderate CHF, extensive pneumonia right lung In the setting of recent initiation of PPN, patient decline in respiratory status is likely secondary to pulmonary congestion secondary to fluid overload, confirmed with imaging. Patient's insurance rejected transfer to [facility] and asked to first try local hospitals, [facility] [place] [facility] [place] If patient is rejected from all of these facilities then they will consider covering for transfer to [facility]. Plan: - Continue supplemental O2 - Completed 8 days of ceftriaxone 1g IV QD (08/30 - 09/06 ) - Discontinued IV Vancomycin (08/31-09/02) and Azithromycin 500mg QD (08/30 - 09/01) #Hx of A-fib (not on eliquis) #Hx of HTN EKG obtained after rapid response call on 09/06/2025 showed A-fib with HR 143. Diltiazem 15 mg and morphine half milligram IV were provided, and patient's HR improved to about 110, at which rate it remained until morning. Plan: -Metoprolol tartrate IV 5 mg Q12h, for a total daily dose of 10 mg -diltiazem 120mg QD on hold as patient is n.p.o. #Haematemesis #Upper vs Lower GI bleed #Retrocardiac Gastric Hernia #Gastric Outlet Obstruction #Hx of situs inversus totalis -Per ED patient had coffee ground emesis and vomitus in the ED was guaic +. Patient states she has had a minor cough the last few days and noticed some specks of blood when she coughed. She also reports pain in her stomach upon waking that was worsened with food/breakfast in the morning. Patient states vomitus and stool was dark brown, denies any oily or black color. Denies any hematochezia. -On assessment, patient has abdominal tenderness diffusely with guarding. -Hgb was in admission was 13.4 (08/30), decreased to 11.7 (08/31) -08/31: Patient had multiple episodes of hematemesis. -CT abd/pelvis w/ contrast (08/31/2025): Situs inversus, Gastritis, Colonic diverticulosis, No bowel obstruction, Large fat-containing left lateral pelvic wall hernia defect, Atrophic uterus, No bowel obstruction -XR abd (08/31/2025): Moderate stool throughout the colon, Minimal small bowel ileus, No obstruction -Patient and patient's family agreed to proceed with diagnostic procedures, including EGD and colonoscopy, but declined any aggressive surgical interventions. -EGD (09/01/2025): showed esophageal ulcers oozing blood. Situs inversus noted. There were coffee ground material along with food in the body of the stomach with poor visibility. With high risk of aspiration, the scope was pulled out. -Placed NG tube with intermittent suction with reglan 5mg IV [id number] NG tube was suctioning blood. H&H has been ordered tonight. -Based on CT abd/pelvis scan, a significant portion of the stomach is located within the thoracic cavity, which is attributable to the patient's age, and underlying situs inversus totalis. This large hatal hernia is the likely cause of her gastric outlet obstruction and hematemesis. - Barium swallow upper GI series again showed retrocardiac gastric hernia, no stricture at the GE junction. Food and retained material in the stomach which severely limits assessment. Presents of the orogastric tube preclude assessment of esophageal motility. Plan: - S/P Barium Swallow upper GI series for evaluation of obstruction and identify the precise location, if present. - Discontinued PPN as the probable source of fluid overload leading to pulmonary congestion. ?Reglan IVP 5 mg Q6h -Monitor H&H -Transfuse if hemoglobin less than 7 -On protonix IV 40 twice daily -Consulted GI, Dr. Montemayor, appreciate recommendations. - Patient's insurance rejected transfer to [facility] and asked to first try local hospitals, [facility] [place] [facility] [place] If patient is rejected from all of these facilities then they will consider covering for transfer to [facility]. #Hx of Neuropathy Plan: -Continue gabapentin 300mg BID #Hx of Depression Plan: -Zoloft 25mg PO QD Health Maintenance: Code status: DNR/DNI DVT prophylaxis: SCDs GI prophylaxis: Protonix Diet: PPN [place]: Purewick Lines: PIV Supplemental O2: NC Disposition: Pending Transfer to tertiary center. HFNC. Plan of care discussed with Attending Dr. Lizabeth Bryant MD PGY 2 Disclaimer: This note was dictated by speech recognition. Minor errors in film casting operator may be present due to voice recognition software. Attending Provider Attestation/Addendum I have discussed and was present for the essential components of the history, physical examination, diagnosis, and treatment plan with the resident. I agree with the patient's care as documented by the resident and amended herein by me. Seth Barone, DO. Although this document has been carefully reviewed, there may still be some phonetic and other typographical errors. These errors are purely grammatical due to imperfections in the software program and should not be construed in any way to compromise the substance of the patient's medical care during this visit.
[2025-09-07] MEDS: MORPHINE SULF INJ 4 MG/ML VIAL 1 MG IVP (23:43)
[2025-09-08] VITALS (14 sets, daily range): BP systolic 100–134; BP diastolic 69–92; PULSE 78–108; RESP 12–27; TEMP 36–36.8; O2SAT 96–99; BMI 40.9
[2025-09-08] MEDS: HYDROmorphone INJ 2 MG/ML VIAL 0.25 MG IVP (00:57)
[2025-09-08] MEDS: METOCLOPRAMIDE INJ 5 MG/ML VIAL 2 ML IVP ×2 (05:21→13:09)
[2025-09-08] MEDS: PIPER/TAZO 3.375 GM PREMIX 3.375 GM/50 ML BAG IV (05:22)
[2025-09-08 06:20] LABS: Basophils # (Auto) 0.1 Thou/mm3 (0.0-0.2); Basophils % (Auto) 1 % (0-2.5); Eosinophils # (Auto) 0.3 Thou/mm3 (0.0-0.5); Eosinophils % (Auto) 2 % (0-10); Hematocrit 28.0 % (36.0-46.0); Hemoglobin 9.3 g/dL (12.0-16.0); Immature Granulocytes Auto 0.38 Thou/mm3 (0.00-0.00); Lymphocytes # (Auto) 1.5 Thou/mm3 (1.0-4.8); Lymphocytes % (Auto) 15 % (10-50); Mean Corpuscular HGB Conc 33.2 g/dl (31.0-37.0); Mean Corpuscular Hemoglobin 30.5 pg (25.0-35.0); Mean Corpuscular Volume 92 fL (80-100); Monocytes # (Auto) 0.9 Thou/mm3 (0.0-0.8); Monocytes % (Auto) 9 % (0-12); Neutrophils # (Auto) 7.3 Thou/mm3 (1.8-7.7); Neutrophils % (Auto) 70 % (37-80); Nucleated Red Blood Cell # 0.00 Thou/mm3 (0.00-0.00); Nucleated Red Blood Cell % 0 /100 WBC (0); Platelet Count 364 Thou/mm3 (140-440); RDW Standard Deviation 53.1 fL (36.4-46.3); Red Blood Count 3.05 Miln/mm3 (4.00-5.20); White Blood Count 10.5 Thou/mm3 (3.6-11.0)
[2025-09-08 06:37] LABS: Alanine Aminotransferase 10 U/L (10-49); Albumin, Serum 3.7 gm/dL (3.4-4.8); Albumin/Globulin Ratio 1.4 (1.2-2.2); Alkaline Phosphatase 73 U/L (46-116); Anion Gap 12 (7-16); Aspartate Amino Transferase 22 U/L (0-34); BUN/Creatinine Ratio 61 Ratio (12-20); Bilirubin,Total 0.3 mg/dL (0.3-1.2); Blood Urea Nitrogen 55 mg/dL (9-23); Calcium 9.1 mg/dL (8.3-10.6); Calcium (Corrected) 9.3 mg/dL (8.5-10.1); Carbon Dioxide 23.3 mMol/L (20.0-31.0); Chloride 102 mMol/L (98-107); Creatinine (Component) 0.9 mg/dL (0.6-1.3); Estimated Creatinine Clearance 39.8 mL/min (>60); Globulin 2.6 gm/dL (2.3-3.5); Glucose 95 mg/dL (74-106); Magnesium 2.0 mg/dL (1.6-2.6); Osmolality,Calculated 288 (275-295); Phosphorous 4.1 mg/dL (2.4-5.1); Potassium 3.6 mMol/L (3.4-5.1); Sodium 137 mMol/L (136-145); Total Protein 6.3 gm/dL (5.7-8.2); eGFR > 60 See Note
[2025-09-08] MEDS: THIAMINE INJ 100 MG/ML VIAL 2 ML IVP (08:18)
--- NOTE | 2025-09-08 08:27 | PC.PT ---
Patient will be dc from PT services. Patient is not stable to participate with PT. She is also a resident from SNF.
--- NOTE | 2025-09-08 09:21 | PC.CC ---
Addendum entered by Monica Mayorga RN 09/08/25 16:45: 1641: Called [facility] to cancel transfer request. spoke to Rebecca 1640: spoke to Dr. Barone, he stated to cancel transfer request. Patient will be going on hospice care. 1436: received call from [place] [facility], she stated they are unable to accept patient due to capacity. Addendum entered by Monica Mayorga RN 09/08/25 12:08: 1200: spoke to Dr. Barone, he informed me peer to peer has been completed with [facility] and they are willing to take the patient, however he will have a discussion with the family today and will update me. Addendum entered by Monica Mayorga RN 09/08/25 10:51: 1048: just completed uploading images to [employer]. Called and spoke to Rebecca to inform her upload completed. She stated she will let the team know. Original Note: 0917: called [facility] to f/u on transfer status. I was informed that pt is financially cleared now. Waiting for peer to peer be completed and waiting for images to be sent. Provided my email address for the [employer] link to be sent to. CD created with just abd images.
[2025-09-08] MEDS: FUROSEMIDE INJ 10 MG/ML 4ML VIAL 40 MG IVP (10:50)
[2025-09-08] MEDS: POTASSIUM CHL 10 mEq IVPB 10 MEQ/100 ML BAG 100 MEQ IV (10:50)
[2025-09-08] MEDS: ALBUTEROL/IPRATROPIUM (Duoneb) RT SOL 3 ML NEBU INH (12:49)
[2025-09-08] MEDS: POTASSIUM CHL 10 mEq IVPB 10 MEQ/100 ML BAG 50 MEQ IV ×2 (13:06→15:14)
--- NOTE | 2025-09-08 15:34 | PC.SS ---
Update: Transfer remains pending. [facility] has accepted the patient. Attending to update family on accepting facility. Family decision pending.
[2025-09-08] MEDS: MORPHINE SULF INJ 4 MG/ML VIAL 1 MG IVP (16:51)
--- NOTE | 2025-09-08 17:53 | ESPR_ITS ---
<Statement entered by Judd Bryant MD - 09/09/25 08:52> I saw and examined patient personally and supervised PGY 1 resident, Dr. Patton with formulating a management plan. I agree with the documentation with the exceptions as listed below. Patient and family opted to not pursue transfer for surgical managment of her hiatal hernia. They wish for hospice care. nursing staff development coordinator contacted. [place] contacted. Plan of care discussed with Attending Dr. Lizabeth Bryant MD PGY 2 Disclaimer: This note was dictated by speech recognition. Minor errors in engineering scientist may be present due to voice recognition software. Documentation for date of: 09/08/25 Subjective Subjective Interval history: Patient was seen and examined at bedside. Patient had generalized body aches and crying overnight, given Dilaudid 0.25 mg x 1 for pain and agitation. Overnight patient stayed in A-fib without RVR. Patient had 950cc of UO through [facility] cath in the past 24h. Patient was accepted by Dr. Obrien at [facility] for repair of massive hiatal hernia. PPN continues to be on hold due to patient being on high flow oxygen and suspicion for pulmonary edema. A-fib is rate controlled on metoprolol tartrate 5 mg IV every 12 hourly. Patient's insurance rejected transfer to [facility] and asked to first try local hospitals, [facility] and [facility] [place]. [facility] accepted the patient, however family and patient now want to be in hospice care. Exam Vital Signs Temp Pulse Resp BP Pulse Ox O2 Del Method O2 Flow Rate 97.2 F 78 15 115/84 97 High Flow Nasal Cannula 15 09/08/25 16:00 09/08/25 16:00 09/08/25 16:00 09/08/25 16:00 09/08/25 16:00 09/08/25 12:00 09/08/25 15:53 FiO2 35 09/08/25 15:53 Narrative Exam General: No acute distress, well nourished, AAO x3. On HFNC at 25L and 45% FiO2. Eye: PERRL, EOMI, normal conjunctiva, no scleral icterus HENT: Normocephalic, atraumatic, hearing intact to conversation at normal volume, moist oral mucosa Neck: Supple, non-tender, no JVD, no lymphadenopathy Lungs: Non-labored respirations, symmetric chest rise, Clear to auscultate bilaterally, No wheezing, rhonchi, crackles Heart: Peripheral pulses intact bilaterally, Regular Rate and Rhythm. Abdomen: Soft, non-tender, non-distended, no palpable masses Musculoskeletal: Normal range of motion and strength, No cyanosis or edema, No visible joint swelling, Chronic left foot ulcer/scar Skin: Skin is warm, dry, no rashes or lesions. Psychiatric: Cooperative, appropriate mood and affect, Awake and alert, not agitated Neuro: Cranial nerves II-XII grossly intact. Strength 5/5 throughout. Sensations intact to light touch. Objective Labs 09/09/25 05:00 09/09/25 06:45 Labs: Laboratory Results - last 24 hr 09/08/25 05:08 WBC 10.5 RBC 3.05 L Hgb 9.3 L Hct 28.0 L MCV 92 MCH 30.5 MCHC 33.2 RDW Std Deviation 53.1 H Plt Count 364 D Neut % (Auto) 70 Lymph % (Auto) 15 [place] % (Auto) 9 Eos % (Auto) 2 Baso % (Auto) 1 Neut # (Auto) 7.3 Lymph # (Auto) 1.5 [place] # (Auto) 0.9 H Eos # (Auto) 0.3 Baso # (Auto) 0.1 Immature Gran # (Auto) 0.38 H Absolute Nucleated RBC 0.00 Immature Gran % 4 H Nucleated RBC % 0 Sodium 137 Potassium 3.6 Chloride 102 Carbon Dioxide 23.3 Anion Gap 12 BUN 55 H Creatinine 0.9 Estim Creat Clear Calc 39.8 L eGFR > 60 BUN/Creatinine Ratio 61 H Glucose 95 Calculated Osmolality 288 Calcium 9.1 Corrected Calcium 9.3 Phosphorus 4.1 Magnesium 2.0 Total Bilirubin 0.3 AST 22 ALT 10 Alkaline Phosphatase 73 Total Protein 6.3 Albumin 3.7 Globulin 2.6 Albumin/Globulin Ratio 1.4 ABG Interpretation ABG results: 09/03/25 09/06/25 08:09 02:00 VBG pH 7.39 7.41 VBG pCO2 37 34 L VBG pO2 168 H 64 H D VBG Base Excess -3 -3 Quality Measures Quality Measures VTE prophylaxis Advance care planning discussed with:: child Assessment & Plan Assessment Current Active Medications: Generic Name Dose Route Start Last Admin Trade Name Freq PRN Reason Stop Dose Admin Albuterol/Ipratropium 3 ml 09/08/25 08:15 09/08/25 12:49 Albuterol/Ipratropium (Duoneb) Rt Celine 3 Ml Nebu INH 10/08/25 08:14 3 ml Q6HR PAMELA Administration Hydromorphone HCl 0.5 mg 09/08/25 16:42 Hydromorphone Inj 2 Mg/Ml Vial IVP 09/13/25 16:41 Q4HR PRN BREAKTHROUGH PAIN Morphine Sulfate 1 mg 09/08/25 16:42 09/08/25 16:51 Morphine Sulf Inj 4 Mg/Ml Vial IVP 1 mg Q4HR PRN Administration PAIN SCALE 4-10(Mod-Sev Ondansetron HCl 4 mg 08/30/25 23:39 09/02/25 21:02 Ondansetron Inj 2 Mg/Ml Inj 2 Ml IVP 09/29/25 23:38 4 mg Q6H PRN Administration NAUSEA OR VOMITING Protocol Pantoprazole Sodium 40 mg 08/31/25 09:00 09/08/25 08:17 Pantoprazole Inj 40 Mg Vial IVP 09/30/25 08:59 40 mg BID PAMELA Administration Plan 84yo DNR/DNI female on comfort measures with a history of gout, situs inversus totalis, HTN, aFib (not on blood thinners), lymphedema, venous stasis, and chronic back pain BIBA from [facility] presents to the ED for a chief complaint of one day of NV with reported coffee ground emesis. Admitted for sepsis with pneumonia and UTI. Patient's family agreed on minimally invasive procedures. Goals of care discussion held with son and at bedside on 09/06/2025. Explained the clinical condition and poor prognosis in the light of latest EGD and upper GI series related to large retrocardiac gastric hernia and gastric outlet obstruction. Patient feeling in distress from aggressive medical therapy, chronic dependence on intravenous nutrition, recurrent upper GI bleed, coffee-ground emesis, requiring constant NG tube suction, which the patient could no longer tolerate. Proposed alternative options moving forward including palliative care, hospice care, or comfort measures. bottle line worker Dano present at room who discussed each of those options in greater detail with family members. Pending consensus among family and patient. # Acute hypoxemic respiratory failure #PneumoniaLikely secondary gram-negative versus gram-positive organisms, completed course of antibiotic therapy. #Sepsis -Ruled out -Patient came in and found to have 2 or more SIRS criteria and was evaluated for sepsis. However, based upon further work-up, sepsis was ruled out. BP 165/104 HR 116 RR 24 T 101.1F O2 sat 93% RA --> with oxygen and fluids BP 121/85 HR 82 RR 19 T -96.8F O2 sat 97%RA. Lactic acid 2.1 -->1.2. WBC 15.1. Patient reports 1-2 days of cough with possible blood specks. R lung lobe rhonchi. Denies chest pain and shortness of breath. +2 pedal edema seems to be gravity dependent/chronic due to venous stasis, not secondary to volume overload or CHF exacerbation. -UA: Showed turbid yellow urine collected on catheter, urine protein 1+, urine ketone 1 close, urine blood 1+, urine nitrate negative, urine leukocyte esterase positive, urine RBC 42, urine WBC 692, amorphous crystals present, urine bacteria 4+ -CXR: mild heart failure, significant pneumonia right base. -BCx (08/30/2025): GPC /2 -UCx (08/31/2025): No growth -Repeat Blood culture (09/01) was negative after 48 hours 11/07. - CXR (09/06): Moderate CHF, extensive pneumonia right lung In the setting of recent initiation of PPN, patient decline in respiratory status is likely secondary to pulmonary congestion secondary to fluid overload, confirmed with imaging. Patient's insurance rejected transfer to [facility] and asked to first try local hospitals, [facility] and [facility] [place]. If patient is rejected from all of these facilities then they will consider covering for transfer to [facility]. Plan: - Continue supplemental O2 - Completed 8 days of ceftriaxone 1g IV QD (08/30 - 09/06 ) - Discontinued IV Vancomycin (08/31-09/02) and Azithromycin 500mg QD (08/30 - 09/01) #Hx of A-fib (not on eliquis) #Hx of HTN EKG obtained after rapid response call on 09/06/2025 showed A-fib with HR 143. Diltiazem 15 mg and morphine half milligram IV were provided, and patient's HR improved to about 110, at which rate it remained until morning. Plan: -Metoprolol tartrate IV 5 mg Q12h, for a total daily dose of 10 mg -diltiazem 120mg QD on hold as patient is n.p.o. #Cosntipation Patient had not had bowel movement since 09/01 Plan: Warm water enema, which resulted in small brown BM #Upper vs Lower GI bleed #Retrocardiac Gastric Hernia #Gastric Outlet Obstruction #Hx of situs inversus totalis #Pulmonary Congestion -Per ED patient had coffee ground emesis and vomitus in the ED was guaic +. Patient states she has had a minor cough the last few days and noticed some specks of blood when she coughed. She also reports pain in her stomach upon waking that was worsened with food/breakfast in the morning. Patient states vomitus and stool was dark brown, denies any oily or black color. Denies any hematochezia. -On assessment, patient has abdominal tenderness diffusely with guarding. -Hgb was in admission was 13.4 (08/30), decreased to 11.7 (08/31) -08/31: Patient had multiple episodes of hematemesis. -CT abd/pelvis w/ contrast (08/31/2025): Situs inversus, Gastritis, Colonic diverticulosis, No bowel obstruction, Large fat-containing left lateral pelvic wall hernia defect, Atrophic uterus, No bowel obstruction -XR abd (08/31/2025): Moderate stool throughout the colon, Minimal small bowel ileus, No obstruction -Patient and patient's family agreed to proceed with diagnostic procedures, including EGD and colonoscopy, but declined any aggressive surgical interventions. -EGD (09/01/2025): showed esophageal ulcers oozing blood. Situs inversus noted. There were coffee ground material along with food in the body of the stomach with poor visibility. With high risk of aspiration, the scope was pulled out. -Placed NG tube with intermittent suction with reglan 5mg IV [id number] NG tube was suctioning blood. H&H has been ordered tonight. -Based on CT abd/pelvis scan, a significant portion of the stomach is located within the thoracic cavity, which is attributable to the patient's age, and underlying situs inversus totalis. This large hatal hernia is the likely cause of her gastric outlet obstruction and hematemesis. - Barium swallow upper GI series again showed retrocardiac gastric hernia, no stricture at the GE junction. Food and retained material in the stomach which severely limits assessment. Presents of the orogastric tube preclude assessment of esophageal motility. Plan: - IVP Lasix 40mg - S/P Barium Swallow upper GI series for evaluation of obstruction and identify the precise location, if present. - Discontinued PPN as the probable source of fluid overload leading to pulmonary congestion. ?Reglan IVP 5 mg Q6h -Monitor H&H -Transfuse if hemoglobin less than 7 -On protonix IV 40 twice daily -Consulted GI, Dr. Montemayor, appreciate recommendations. - Patient's insurance rejected transfer to [facility] and asked to first try local hospitals, [facility] and [facility] [place]. If patient is rejected from all of these facilities then they will consider covering for transfer to [facility]. #Hx of Neuropathy Plan: -Continue gabapentin 300mg BID #Hx of Depression Plan: -Zoloft 25mg PO QD Health Maintenance: Code status: DNR/DNI DVT prophylaxis: SCDs GI prophylaxis: Protonix Diet: PPN [place]: [facility] Lines: PIV Supplemental O2: NC Disposition: Pending Transfer to tertiary center. HFNC. This case was discussed with my attending physician, Dr. Barone, and senior resident, Dr Bryant. Even though this this note was carefully revised there may still be minor errors in engineering scientist due to voice recognition software. Vanesa Patton DO PGY I Attending Provider Attestation/Addendum I have discussed and was present for the essential components of the history, physical examination, diagnosis, and treatment plan with the resident. I agree with the patient's care as documented by the resident and amended herein by me. Seth Barone DO. Although this document has been carefully reviewed, there may still be some phonetic and other typographical errors. These errors are purely grammatical due to imperfections in the software program and should not be construed in any way to compromise the substance of the patient's medical care during this visit.
[2025-09-08] MEDS: HYDROmorphone INJ 2 MG/ML VIAL 0.5 MG IVP (18:35)
[2025-09-08] MEDS: ONDANSETRON INJ 2 MG/ML INJ 2 ML 4 MG IVP (18:43)
--- NOTE | 2025-09-08 19:54 | PD.IMPROG ---
Documentation for date of: 09/08/25 Subjective Subjective Interval history: I will speak with case management tomorrow Dr. Olivas at [facility] would be an excellent choice I know him and I will call him tomorrow I would like to have case management send a referral to [facility] And I will have the patient accepted Exam Vital Signs Temp Pulse Resp BP Pulse Ox O2 Del Method O2 Flow Rate 97.2 F 78 15 115/84 97 High Flow Nasal Cannula 15 09/08/25 16:00 09/08/25 16:00 09/08/25 16:00 09/08/25 16:00 09/08/25 16:00 09/08/25 12:00 09/08/25 15:53 FiO2 35 09/08/25 15:53 Objective Labs 09/08/25 05:08 09/08/25 05:08 Labs: Laboratory Results - last 24 hr 09/08/25 05:08 WBC 10.5 RBC 3.05 L Hgb 9.3 L Hct 28.0 L MCV 92 MCH 30.5 MCHC 33.2 RDW Std Deviation 53.1 H Plt Count 364 D Neut % (Auto) 70 Lymph % (Auto) 15 [place] % (Auto) 9 Eos % (Auto) 2 Baso % (Auto) 1 Neut # (Auto) 7.3 Lymph # (Auto) 1.5 [place] # (Auto) 0.9 H Eos # (Auto) 0.3 Baso # (Auto) 0.1 Immature Gran # (Auto) 0.38 H Absolute Nucleated RBC 0.00 Immature Gran % 4 H Nucleated RBC % 0 Sodium 137 Potassium 3.6 Chloride 102 Carbon Dioxide 23.3 Anion Gap 12 BUN 55 H Creatinine 0.9 Estim Creat Clear Calc 39.8 L eGFR > 60 BUN/Creatinine Ratio 61 H Glucose 95 Calculated Osmolality 288 Calcium 9.1 Corrected Calcium 9.3 Phosphorus 4.1 Magnesium 2.0 Total Bilirubin 0.3 AST 22 ALT 10 Alkaline Phosphatase 73 Total Protein 6.3 Albumin 3.7 Globulin 2.6 Albumin/Globulin Ratio 1.4 Impressions Impression: Large gastric hiatal hernia with outlet obstruction Plan as per HPI ABG Interpretation ABG results: 09/03/25 09/06/25 08:09 02:00 VBG pH 7.39 7.41 VBG pCO2 37 34 L VBG pO2 168 H 64 H D VBG Base Excess -3 -3 Assessment & Plan A&P Narrative # Nausea vomiting with coffee-ground emesis Plan N.p.o. midnight tonight IV Protonix IV Zofran consent obtained for fiberoptic esophagogastroduodenoscopy with possible biopsy possible therapeutic intervention under intravenous moderate sedation Further evaluation after above Other medical problems include Chronic atrial fibrillation not on any anticoagulation Status and versus Essential hypertension Gout [place] resident in SNF Thank you very much for the opportunity to participate in the care of this patient Time Spent With Patient Time: Total time spent is greater than 50% in coordination of care (as documented) at patient's floor/unit and/or counseling patient:
[2025-09-09] VITALS (10 sets, daily range): BP systolic 102–141; BP diastolic 74–100; PULSE 88–113; RESP 13–161; TEMP 36.1–36.7; O2SAT 96–100; BMI 40.9
[2025-09-09] MEDS: ALBUTEROL/IPRATROPIUM (Duoneb) RT SOL 3 ML NEBU INH ×3 (00:51→13:48)
[2025-09-09] MEDS: HYDROmorphone INJ 2 MG/ML VIAL 0.5 MG IVP ×2 (00:53→09:30)
[2025-09-09 07:35] LABS: Basophils # (Auto) 0.1 Thou/mm3 (0.0-0.2); Basophils % (Auto) 1 % (0-2.5); Eosinophils # (Auto) 0.3 Thou/mm3 (0.0-0.5); Eosinophils % (Auto) 2 % (0-10); Hematocrit 28.3 % (36.0-46.0); Hemoglobin 9.5 g/dL (12.0-16.0); Immature Granulocytes Auto 0.50 Thou/mm3 (0.00-0.00); Lymphocytes # (Auto) 1.9 Thou/mm3 (1.0-4.8); Lymphocytes % (Auto) 16 % (10-50); Mean Corpuscular HGB Conc 33.6 g/dl (31.0-37.0); Mean Corpuscular Hemoglobin 31.6 pg (25.0-35.0); Mean Corpuscular Volume 94 fL (80-100); Monocytes # (Auto) 1.6 Thou/mm3 (0.0-0.8); Monocytes % (Auto) 13 % (0-12); Neutrophils # (Auto) 8.0 Thou/mm3 (1.8-7.7); Neutrophils % (Auto) 64 % (37-80); Nucleated Red Blood Cell # 0.08 Thou/mm3 (0.00-0.00); Nucleated Red Blood Cell % 1 /100 WBC (0); Platelet Count 367 Thou/mm3 (140-440); RDW Standard Deviation 54.8 fL (36.4-46.3); Red Blood Count 3.01 Miln/mm3 (4.00-5.20); White Blood Count 12.4 Thou/mm3 (3.6-11.0)
[2025-09-09 07:58] LABS: Alanine Aminotransferase 9 U/L (10-49); Albumin, Serum 3.6 gm/dL (3.4-4.8); Albumin/Globulin Ratio 1.4 (1.2-2.2); Alkaline Phosphatase 70 U/L (46-116); Anion Gap 14 (7-16); Aspartate Amino Transferase 17 U/L (0-34); BUN/Creatinine Ratio 50 Ratio (12-20); Bilirubin,Total 0.2 mg/dL (0.3-1.2); Blood Urea Nitrogen 50 mg/dL (9-23); Calcium 8.9 mg/dL (8.3-10.6); Calcium (Corrected) 9.2 mg/dL (8.5-10.1); Carbon Dioxide 23.7 mMol/L (20.0-31.0); Chloride 103 mMol/L (98-107); Creatinine (Component) 1.0 mg/dL (0.6-1.3); Estimated Creatinine Clearance 35.8 mL/min (>60); Globulin 2.5 gm/dL (2.3-3.5); Glucose 73 mg/dL (74-106); Magnesium 2.0 mg/dL (1.6-2.6); Osmolality,Calculated 293 (275-295); Potassium 3.5 mMol/L (3.4-5.1); Sodium 141 mMol/L (136-145); Total Protein 6.1 gm/dL (5.7-8.2); eGFR 55 See Note
--- NOTE | 2025-09-09 09:00 | ESDS_ITS ---
<Statement entered by Judd Bryant MD - 09/09/25 15:48> I saw and examined patient personally and supervised PGY 1 resident, Dr. Patton with formulating a management plan. I agree with the documentation as listed below. Plan of care discussed with Attending Dr. Lizabeth Bryant MD PGY 2 Disclaimer: This note was dictated by speech recognition. Minor errors in light industrial may be present due to voice recognition software. Planned Discharge Date 09/09/25 DS: Providers Provider Date of admission: 08/30/25 23:39 Primary care physician: Arnel Alvarez MD Admitting Provider: Jeanie Talavera MD Attending Provider on Admission: Mitesh Barone DO Consults: 08/30/25 23:55 Referral Physical Therapy Routine Comment: Physician Instructions: Referral Speech Therapy Routine Comment: 08/31/25 10:06 Consult to Gastroenterology Routine Comment: Dysphagia/Blood in vomit Consulting Provider: Wade Montemayor 09/07/25 08:11 Referral - Dye Worker Stat Service Needed for Transfer: surgery - gastro Addl Comments:: Dr Obrien - [facility] Attending Provider on DC: Mitesh Barone DO Discharging Provider: Vanesa Patton DO DS: Diagnosis Problem List Completed Was Problem List Reviewed/Reconciled?: Yes Hospital Course Hospital Course Hospital course: 84yo DNR/DNI female on comfort measures with a history of gout, situs inversus totalis, HTN, aFib (not on blood thinners), lymphedema, venous stasis, and chronic back pain BIBA from [facility] presented to the ED on 08/30/2025 for a chief complaint of one day of NV with reported coffee ground emesis. BP 165/104 HR 116 RR 24 T 101.1F O2 sat 93% RA. WBC 15.1 hemoglobin 13.4 coags wnl lactic acid 2.1 UA turbid +1 protein +1 ketone +1 blood 42 RBC 692 WBC +4 bacteria. CTAP situs inversus, gastritis, colonic diverticulosis, large fat containing left lateral pelvic wall hernia defect. CXR Mild heart failure, significant pneumonia right base. Sepsis was ruled out. Patient had coffee- ground emesis and vomitus in the ED was guaiac positive. On 08/31 patient had multiple episodes of hematemesis. Patient had reported 1 to 2 days of cough with possible blood specks. She also reported pain in her stomach worse with food/breakfast. Vomitus and stool was dark brown. Based on CT abd/pelvis scan, a significant portion of the stomach is located within the thoracic cavity, which is attributable to the patient's age, and underlying situs inversus totalis. This large hatal hernia is the likely cause of her gastric outlet obstruction and hematemesis. Right lung lobe rhonchi and 2+ pitting edema of BLE on PE. Blood cultures came back positive in 1 out of 2 bottles for GPC, while urine cultures showed no growth. Patient was started on IV vancomycin on 08/31 -09/02, azithromycin 08/30-09/01, and completed 8 days of treatment with ceftriaxone 08/30-09/06. EGD performed on 09/01, showed esophageal ulcers oozing blood. There were coffee-ground material along with food in the body of the stomach with poor visibility. With high risk of aspiration, the scope was pulled out. Placed NG tube with intermittent suction with Reglan 5 mg IV every 6 hours. Patient aFib controlled with metoprolol IV 5mg bid. To meet the nutritional demands, patient was placed on PPN while n.p.o.. On day 3 of PPN, patient respiratory status declined likely secondary to pulmonary congestion secondary to fluid overload, confirmed with imaging which had shown moderate CHF. PPN stopped, and patient diuresed with Lasix 40 mg IV pushes daily. Patient barium swallow upper GI series again showed retrocardiac gastric hernia, no stricture at the GE junction. Food and retained material in the stomach which severely limits assessment. Presents of the orogastric tube preclude assessment of esophageal motility. Goals of care discussion held with son and at bedside on 09/06/2025. Explained the clinical condition and poor prognosis in the light of latest EGD and upper GI series related to large retrocardiac gastric hernia and gastric outlet obstruction. Patient feeling in distress from aggressive medical therapy, chronic dependence on intravenous nutrition, recurrent upper GI bleed, coffee-ground emesis, requiring constant NG tube suction, which the patient could no longer tolerate. Proposed alternative options moving forward including palliative care, hospice care, or comfort measures, also discussed an opportunity to transfer the patient to a higher level of care, either at [facility] or [facility], for surgical intervention of her retrocardiac gastric hernia. Patient and family decided to pursue hospice care. Their wishes were respected. digital content coordinator contacted who facilitated the process of discharge. Admission diagnoses: #Acute hypoxemic respiratory failure #Pneumonia likely secondary to gram-negative versus gram-positive organisms #Sepsis ruled out #History of A-fib #History of hypertension #Hematemesis #Upper versus lower GI bleed #Retrocardiac gastric hernia #Gastric outlet obstruction #History of situs inversus totalis #History of neuropathy #History of depression Discharge instructions: As per accepting facility This case was discussed with my attending physician, Dr. Barone, and senior resident Dr Bryant. Even though this this note was carefully revised there may still be minor errors in light industrial due to voice recognition software. Vanesa Patton DO PGY I Status at Discharge Overall status at discharge: patient is not back to baseline Time Spent with Patient Time attestation: Total time spent providing and/or coordinating discharge services: More than 50% of the patient's total hospital stay Time spent: Greater than 30 minutes (37) Exam Vital Signs Temp Pulse Resp BP Pulse Ox O2 Del Method O2 Flow Rate 97.1 F 98 16 134/91 H 99 High Flow Nasal Cannula 20 09/08/25 12:00 09/08/25 12:52 09/08/25 12:52 09/08/25 12:00 09/08/25 12:52 09/08/25 12:00 09/08/25 12:52 FiO2 40 09/08/25 12:52 Narrative Exam General: No acute distress, well nourished, AAO x3. On HFNC at 25L and 45% FiO2. Eye: PERRL, EOMI, normal conjunctiva, no scleral icterus HENT: Normocephalic, atraumatic, hearing intact to conversation at normal volume, moist oral mucosa Neck: Supple, non-tender, no JVD, no lymphadenopathy Lungs: Non-labored respirations, symmetric chest rise, Clear to auscultate bilaterally, No wheezing, rhonchi, crackles Heart: Irregularly irregular rhythm, Regular Rate. Peripheral pulses intact bilaterally, . Abdomen: Soft, non-tender, non-distended, no palpable masses Musculoskeletal: Normal range of motion and strength, No cyanosis or edema, No visible joint swelling, Chronic left foot ulcer/scar Skin: Skin is warm, dry, no rashes or lesions. Psychiatric: Cooperative, appropriate mood and affect, Awake and alert, not agitated Neuro: Cranial nerves II-XII grossly intact. Strength 5/5 throughout. Sensations intact to light touch. Discharge Plan Plan Patient Disposition: Xfer Other Disposition Comment: SNF with Hospice Patient condition on transfer: Benefits outweigh risks Care Plan Goals: - You are going to SNF with hospice - Please continue the medications listed below - Continue follow up with your hospice doctor - Follow up with your primary care physician within 1 week of discharge. If you do not have a primary care physician, please follow up with the [facility] Residents clinic ([phone]) ? If you experience any new, worsening or persistent symptoms either call your primary doctor, or dial 911 Prescriptions/Referrals Prescriptions/Med Rec: Continued gabapentin 300 mg Capsule 300 mg PO BID acetaminophen 325 mg Tablet 650 mg PO Q6H PRN (Reason: PAIN OR FEVER > 101) Qty: 60 0RF ondansetron 8 mg tablet,disintegrating 8 mg PO Q6HR PRN (Reason: nausea and vomiting) sertraline [Zoloft] 25 mg tablet 25 mg PO QDAY bisacodyl [Dulcolax (bisacodyl)] 10 mg suppository 10 mg NE Q72H PRN (Reason: constipation) Enema 19-7 gram/118 mL enema 118 ml NE Q72H PRN (Reason: constipation) magnesium hydroxide [Dulcolax (magnesium hydroxide)] 400 mg/5 mL suspension 30 ml PO Q72H PRN (Reason: constipation) hydrocodone-acetaminophen 5-325 mg tablet 1 tab PO Q6H MDD 3 PRN (Reason: pain) Discontinued allopurinol 300 mg Tablet 300 mg PO HS diltiazem HCl 120 mg Capsule,Extended Release 24hr 120 mg PO QDAY 30 Days Qty: 30 1RF furosemide 20 mg tablet 20 mg PO Q48H Qty: 30 0RF esomeprazole magnesium 40 mg capsule,delayed release(DR/EC) 40 mg PO HS Patient Comments: TAKE 1 CAPSULE BY MOUTH EVERY DAY Referrals: Arnel Alvarez MD [Primary Care Provider, Family Practice] Patient/Caregiver Discharge Instructions Education Materials: Hospice The Importance of ..., Hospice Dyspnea Care, Hospice: As Nears, For Caregivers: Coping Tips Print Language: Greek Stand Alone Forms: [facility] Award Info., Patient Portal Info Letter Discharge Order Discharge Orders: Discharge (Routine); Ordered 09/09/25 Ordered By: Judd Bryant Quality Discharge Quality Measures VTE prophylaxis MD Attestestation MD Attestation Patient not discharged today as expected, likely discharge back to SNF on hospice care tomorrow 09/09
--- NOTE | 2025-09-09 11:15 | PC.SS ---
Addendum entered by Johanna Marroquin 09/09/25 12:44: SS has sent inquiry to [facility] using [facility] and spoke to Maria Esther Veras who is aware pt will d/c to [place] and transport is setup for 3-4:30pm. SS has sent YELENA, patient's facesheet, and ambulance form to [facility]. SS spoke to JOSE M from [facility] who has setup transport for 4:30 but is aware pt is ready at 3pm and will require 5 liters of O2 during transport. Yvette from [facility] is aware. Patient's sonSeveriano is aware. Bedside nurse, Kd is aware. Keke ROMERO is aware. Original Note: SS has spoken to sonSeveriano to confirm d/c to [place] with [facility]. SS followed up with Yvette from [facility] who is aware and they utilize [facility]. Son is agreeable to [facility].
[2025-09-09] MEDS: MORPHINE SULF INJ 4 MG/ML VIAL 1 MG IVP (13:47)
--- NOTE | 2025-09-09 17:35 | PD.RESDS ---
Planned Discharge Date 09/09/25 DS: Providers Provider Date of admission: 08/30/25 23:39 Primary care physician: Arnel Alvarez MD Admitting Provider: Jeanie Talavera MD Attending Provider on Admission: Mitesh Barone DO Consults: 08/30/25 23:55 Referral Physical Therapy Routine Comment: Physician Instructions: Referral Speech Therapy Routine Comment: 08/31/25 10:06 Consult to Gastroenterology Routine Comment: Dysphagia/Blood in vomit Consulting Provider: Wade Montemayor 09/07/25 08:11 Referral - [facility] [employer] Needed for Transfer: surgery - gastro Addl Comments:: Dr Obrien - [facility] 09/08/25 16:40 Referral Bianca Stat Comment: Referral Hospice Stat Comment: Attending Provider on DC: Vanesa Patton DO Discharging Provider: Vanesa Patton DO Hospital Course Hospital Course Hospital course: I will speak with case management tomorrow Dr. Olivas at [facility] would be an excellent choice I know him and I will call him tomorrow I would like to have case management send a referral to [facility] And I will have the patient accepted Time Spent with Patient Time attestation: Total time spent providing and/or coordinating discharge services: Exam Vital Signs Temp Pulse Resp BP Pulse Ox O2 Del Method O2 Flow Rate 97.0 F 111 H 19 113/85 H 99 High Flow Nasal Cannula 09/09/25 11:36 09/09/25 13:48 09/09/25 13:48 09/09/25 11:36 09/09/25 13:48 09/09/25 11:36 09/09/25 11:36 FiO2 45 09/09/25 10:25 Discharge Plan Plan Patient Disposition: Xfer Other Disposition Comment: SNF with Hospice Patient condition on transfer: Benefits outweigh risks Care Plan Goals: - You are going to SNF with hospice - Please continue the medications listed below - Continue follow up with your hospice doctor - Follow up with your primary care physician within 1 week of discharge. If you do not have a primary care physician, please follow up with the [facility] Residents clinic ([phone]) ? If you experience any new, worsening or persistent symptoms either call your primary doctor, or dial 911 Prescriptions/Referrals Prescriptions/Med Rec: Continued gabapentin 300 mg Capsule 300 mg PO BID acetaminophen 325 mg Tablet 650 mg PO Q6H PRN (Reason: PAIN OR FEVER > 101) Qty: 60 0RF ondansetron 8 mg tablet,disintegrating 8 mg PO Q6HR PRN (Reason: nausea and vomiting) sertraline [Zoloft] 25 mg tablet 25 mg PO QDAY bisacodyl [Dulcolax (bisacodyl)] 10 mg suppository 10 mg AZ Q72H PRN (Reason: constipation) Enema 19-7 gram/118 mL enema 118 ml AZ Q72H PRN (Reason: constipation) magnesium hydroxide [Dulcolax (magnesium hydroxide)] 400 mg/5 mL suspension 30 ml PO Q72H PRN (Reason: constipation) hydrocodone-acetaminophen 5-325 mg tablet 1 tab PO Q6H MDD 3 PRN (Reason: pain) Discontinued allopurinol 300 mg Tablet 300 mg PO HS diltiazem HCl 120 mg Capsule,Extended Release 24hr 120 mg PO QDAY 30 Days Qty: 30 1RF furosemide 20 mg tablet 20 mg PO Q48H Qty: 30 0RF esomeprazole magnesium 40 mg capsule,delayed release(DR/EC) 40 mg PO HS Patient Comments: TAKE 1 CAPSULE BY MOUTH EVERY DAY Referrals: Arnel Alvarez MD [Primary Care Provider, Family Practice] Patient/Caregiver Discharge Instructions Education Materials: Hospice The Importance of ..., Hospice Dyspnea Care, Hospice: As Nears, For Caregivers: Coping Tips Print Language: Wallisian Stand Alone Forms: [facility] Award Info., Patient Portal Info Letter Discharge Order Discharge Orders: Discharge (Routine); Ordered 09/09/25 Ordered By: Judd Bryant
--- NOTE | 2025-09-09 20:24 | ESPR_ITS ---
Documentation for date of: 09/09/25 Subjective Subjective Interval history: Late entry for the note Patient's family decided hospice care after adequate discussion Exam Vital Signs Temp Pulse Resp BP Pulse Ox O2 Del Method O2 Flow Rate 97.0 F 111 H 19 113/85 H 99 High Flow Nasal Cannula 09/09/25 11:36 09/09/25 13:48 09/09/25 13:48 09/09/25 11:36 09/09/25 13:48 09/09/25 11:36 09/09/25 11:36 FiO2 45 09/09/25 10:25 Objective Labs 09/09/25 05:00 09/09/25 06:45 Labs: Laboratory Results - last 24 hr 09/09/25 09/09/25 05:00 06:45 WBC 12.4 H RBC 3.01 L Hgb 9.5 L Hct 28.3 L MCV 94 MCH 31.6 MCHC 33.6 RDW Std Deviation 54.8 H Plt Count 367 Neut % (Auto) 64 Lymph % (Auto) 16 [place] % (Auto) 13 H Eos % (Auto) 2 Baso % (Auto) 1 Neut # (Auto) 8.0 H Lymph # (Auto) 1.9 [place] # (Auto) 1.6 H Eos # (Auto) 0.3 Baso # (Auto) 0.1 Immature Gran # (Auto) 0.50 H Absolute Nucleated RBC 0.08 H Immature Gran % 4 H Nucleated RBC % 1 H Sodium 141 Potassium 3.5 Chloride 103 Carbon Dioxide 23.7 Anion Gap 14 BUN 50 H Creatinine 1.0 Estim Creat Clear Calc 35.8 L eGFR 55 L BUN/Creatinine Ratio 50 H Glucose 73 L Calculated Osmolality 293 Calcium 8.9 Corrected Calcium 9.2 Magnesium 2.0 Total Bilirubin 0.2 L AST 17 ALT 9 L Alkaline Phosphatase 70 Total Protein 6.1 Albumin 3.6 Globulin 2.5 Albumin/Globulin Ratio 1.4 Impressions Impression: Large gastric hiatal hernia with gastric outlet obstruction Family has chosen hospice care ABG Interpretation ABG results: 09/03/25 09/06/25 08:09 02:00 VBG pH 7.39 7.41 VBG pCO2 37 34 L VBG pO2 168 H 64 H D VBG Base Excess -3 -3 Assessment & Plan A&P Narrative # Nausea vomiting with coffee-ground emesis Plan N.p.o. midnight tonight IV Protonix IV Zofran consent obtained for fiberoptic esophagogastroduodenoscopy with possible biopsy possible therapeutic intervention under intravenous moderate sedation Further evaluation after above Other medical problems include Chronic atrial fibrillation not on any anticoagulation Status and versus Essential hypertension Gout [place] resident in SNF Thank you very much for the opportunity to participate in the care of this patient Time Spent With Patient Time: Total time spent is greater than 50% in coordination of care (as documented) at patient's floor/unit and/or counseling patient:
== END 2025-09-09 16:35 | disposition other institution (70) | DRG 380 ==
LOC: SERX 22:21 → SERHOLD 08-31 00:07 → S2NX 08-31 01:45 → S3NX 09-05 03:25 → S2NX 09-06 05:58 → S3SX 09-09 01:45
PROVIDERS: Specialist; Admitting Provider Student in an Organized Health Care Education/Training Program; Emergency Provider Emergency Medicine; PCP Family Medicine; Visit Provider Student in an Organized Health Care Education/Training Program
PROC: 0DJ08ZZ Inspection of Upper Intestinal Tract, Via Natural or Artificial Opening Endoscopic (ICD-10-PCS; CPT 43239; principal; 2025-09-01 09:00)
DX: K22.11 Ulcer of esophagus with bleeding (principal); J18.9 Pneumonia, unspecified organism; J96.01 Acute respiratory failure with hypoxia; K31.1 Adult hypertrophic pyloric stenosis; N39.0 Urinary tract infection, site not specified; Q89.3 Situs inversus; I48.20 Chronic atrial fibrillation, unspecified; K57.32 Diverticulitis of large intestine without perforation or abscess without bleeding; K29.71 Gastritis, unspecified, with bleeding; M10.9 Gout, unspecified; I48.91 Unspecified atrial fibrillation; Z66 Do not resuscitate; Z51.5 Encounter for palliative care; H91.90 Unspecified hearing loss, unspecified ear; F32.A Depression, unspecified; G62.9 Polyneuropathy, unspecified; I11.0 Hypertensive heart disease with heart failure; I16.0 Hypertensive urgency; M54.9 Dorsalgia, unspecified; G89.29 Other chronic pain; K31.84 Gastroparesis; I50.9 Heart failure, unspecified; K44.9 Diaphragmatic hernia without obstruction or gangrene; K45.8 Other specified abdominal hernia without obstruction or gangrene; Z79.899 Other long term (current) drug therapy
CPT/HCPCS: 36415; 51702; 71045; 74018; 74177; 74240; 80053; 80202; 81001; 82803; 83605; 83690; 83735; 84100; 84484; 85014; 85018; 85025; 85610; 86850; 86900; 86901; 87040; 87077; 87081; 87086; 87186; 87205; 87811; 89220; 92526; 92610; 93005; 93225; 94640; 96361; 96365; 96375; 97162; 99285; A4314; A4649; A9270; J0131; J0456; J0612; J0696; J1171; J1200; J1885; J1920; J1938; J2250; J2270; J2405; J2470; J2543; J2765; J3010; J3375; J3411; J3475; J3480; J3490; J7050; J7120; J7999; Q9967